=== PATIENT | female | born 2000 | race Hispanic/Latino ===

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

== ENCOUNTER 2020-03-10 13:18 | Emergency (ER) | payer OTHER ==
[2020-03-10] MEDS ORDERED: dexAMETHasone 10 MG/ML VIAL ONE (14:03)
[2020-03-10] MEDS ORDERED: NA CHLORIDE 0.9% 100 ML IV ONE (14:03)
--- NOTE | 2020-03-10 14:29 | RAD REPORT ---
EXAM DESCRIPTION: CT - Soft Tissue Neck W/Contr CLINICAL HISTORY: eval for submandibular abscess Sore throat, persistent pain COMPARISON: Abdomen W Erect dated 01/21/[address] scans are performed using dose optimization technique as appropriate and may includ e automated exposure control or mA/KV adjustment according to patient size. FINDINGS: Nasopharyngeal tissues are normal in appearance. Fossa Rosenmller are normal. Mild enlargement of both palatine tonsils seen. No peritonsillar abscess. No prevertebral fluid or ab scess. Epiglottis and aryepiglottic folds are normal. Piriform sinuses are well aerated. The vocal cords are normal in appearance. Salivary glands are normal in appearance. Enlarged lymph nodes are seen in the submental region, larg est measuring 24 x 17 mm. Several mildly prominent jugulodigastric chain lymph nodes are also present bilaterally, largest on the right measuring 11 mm. Upper lung begum are clear. Included intracranial contents are unremarkable. IMPRESSION: No peritonsillar or prevertebral abscess. Enlarged submental lymphadenopathy is present the largest measuring 24 mm. Mild bilateral jugular chain lymphadenopathy also seen.
[2020-03-10 14:46] LABS: Absolute Lymphocytes (CBC) 1.7 K/uL (0.7-4.9); Basophils % 0.7 % (0-1.3); Hematocrit 36.3 % (36.0-45.0); Lymphocytes % 26.1 % (15.3-44.8); MPV 10.4 fL (7.6-11.3); RBC Red Blood Cell Count 4.68 M/uL (3.86-4.86)
--- NOTE | 2020-03-10 15:03 | ER ---
Nurse's Notes [facility] Name: Glory Ba Age: 19 yrs Sex: Female : 2000 Arrival Date: 03/10/2020 Time: 13:21 Bed 23 Private MD: Diagnosis: Acute lymphadenitis Presentation: 03/10 13:31 Chief complaint: Patient states: sore throat a couple of weeks ago and the neck sv swelling started shortly after that. Had a phone appt and they called in Zithromax for her and has taken 3 doses but no improvement. Coronavirus screen: Client denies travel out of the [place] in the last 14 days. At this time, the client does not indicate any symptoms associated with coronavirus-19. Ebola Screen: No symptoms or risks identified at this time. Risk Assessment: Do you want to hurt yourself or someone else? Patient reports no desire to harm self or others. Onset of symptoms was February 2020. 13:31 Method Of Arrival: Ambulatory sv 13:31 Acuity: KAILA 3 sv 13:32 Initial Sepsis Screen: Does the patient meet any 2 criteria? No. Patient's initial sv sepsis screen is negative. Does the patient have a suspected source of infection? No. Patient's initial sepsis screen is negative. Triage Assessment: 13:31 General: Appears in no apparent distress. uncomfortable. Respiratory: Denies cough, ls4 shortness of breath labored breathing, pain with respiration, pain with cough, pain with movement. 13:31 General: Behavior is calm, cooperative. ls4 Historical: - Allergies: 13:32 No Known Allergies; sv - PMHx: 13:32 "depersonalization"; Depression; sv - Immunization history:: Adult Immunizations up to date. - Social history:: Smoking status: Patient denies any tobacco usage or history of. - Family history:: not pertinent. - Hospitalizations: : No recent hospitalization is reported. Screenin:01 Abuse screen: Denies threats or abuse. Denies injuries from another. Nutritional sv screening: No deficits noted. Tuberculosis screening: No symptoms or risk factors identified. Fall Risk None identified. Assessment: 13:31 Respiratory: Airway is patent Respiratory effort is even, unlabored. ls4 13:31 Pain: Complains of pain in left aspect of posterior pharynx and right aspect of ls4 posterior pharynx Pain currently is 5 out of 10 on a pain scale. EENT: Throat is pink. 14:00 Respiratory: Breath sounds are clear bilaterally. ls4 Vital Signs: 13:32 BP 112 / 62; Pulse 83; Resp 16; Temp 98.3; Pulse Ox 98% ; Weight 83.46 kg; Height 5 ft. sv 2 in. (157.48 cm); 13:32 Body Mass Index 33.65 (83.46 kg, 157.48 cm) sv ED Course: 13:21 Patient arrived in ED. as 13:30 Arm band placed on. sv 13:31 Triage completed. sv 13:33 No provider procedures requiring assistance completed. Patient did not have IV access ls4 during this emergency room visit. 13:35 Nando Conley MD is Attending Physician. rn 13:51 Marsha Arnold, ALIREZA is Primary Nurse. ls4 14:01 Patient has correct armband on for positive identification. Bed in low position. Call sv light in reach. Door closed. Head of bed elevated. 14:07 CT Soft Tissue Neck W/contr In Process Unspecified. EDMS Administered Medications: 14:00 Drug: Decadron - Dexamethasone 10 mg Route: IVP; Site: right antecubital; ls4 15:20 Follow up: Response: No adverse reaction ls4 15:12 Drug: Clindamycin 900 mg Route: IVPB; Infused Over: 30 mins; Site: right antecubital; ls4 15:42 Follow up: IV Status: Completed infusion; IV Intake: 50ml ls4 Intake: 15:42 IV: 50ml; Total: 50ml. ls4 Outcome: 15:03 Discharge ordered by . rn 15:31 Patient left the ED. ls4 15:31 Condition: stable ls4 15:31 Discharged to home ambulatory. ls4 15:31 Discharge instructions given to patient. Signatures: Dispatcher [employer] EDMS Noni Irby RN RN sv Martinez, Amelia as Nieto, Roman, MD MD rn Stewart, Lisa, RN RN ls4 Corrections: (The following items were deleted from the chart) 13:33 13:31 Chief complaint: Patient states: sore throat a couple of weeks ago and the neck sv swelling started shortly after that. sv 14:00 13:31 Acuity: KAILA 4 sv sv 18:57 16:05 Patient left the ED. ls4 ls4
--- NOTE | 2020-03-10 15:03 | EDPHYS ---
Physician Documentation [facility] Name: Glory Ba Age: 19 yrs Sex: Female : 2000 Arrival Date: 03/10/2020 Time: 13:21 Bed 23 Private MD: ED Physician Nando Conley HPI: 03/10 14:57 This 19 yrs old Female presents to ER via Ambulatory with complaints of Sore rn Throat, Swollen Glands. 14:57 The patient presents with sore throat. The patient describes throat pain as scratchy. rn Onset: The symptoms/episode began/occurred 2 week(s) ago. Severity of symptoms: At their worst the symptoms were mild, in the emergency department the symptoms are unchanged. Modifying factors: The symptoms are alleviated by nothing, the symptoms are aggravated by nothing. The patient has not experienced similar symptoms in the past. Reports sore throat for 2 weeks, just got abx over telemedicine, no trouble swallowing, no fever, now having swelling underneath middle jaw. . Historical: - Allergies: 13:32 No Known Allergies; sv - PMHx: 13:32 "depersonalization"; Depression; sv - Immunization history:: Adult Immunizations up to date. - Social history:: Smoking status: Patient denies any tobacco usage or history of. - Family history:: not pertinent. - Hospitalizations: : No recent hospitalization is reported. ROS: 14:57 Constitutional: Negative for fever, chills, and weight loss, ENT: + sore throat and rn submandibular swelling Neck: Negative for injury Exam: 14:57 Constitutional: This is a well developed, well nourished patient who is awake, alert, rn and in no acute distress. Head/Face: Normocephalic, atraumatic. ENT: + tonsillar hypertrophy, no exudate, + submandibular swelling with mild tenderness, no fluctuance Neck: Trachea midline, Supple, full range of motion without nuchal rigidity, or vertebral point tenderness. No Meningismus. Vital Signs: 13:32 BP 112 / 62; Pulse 83; Resp 16; Temp 98.3; Pulse Ox 98% ; Weight 83.46 kg; Height 5 ft. sv 2 in. (157.48 cm); 13:32 Body Mass Index 33.65 (83.46 kg, 157.48 cm) sv MDM: 13:35 Patient medically screened. rn 14:57 Differential diagnosis: pharyngitis, tonsillitis, lymphadenitis, submandibular abscess. rn Data reviewed: vital signs, nurses notes, radiologic studies, CT scan, and as a result, I will discharge patient. Counseling: I had a detailed discussion with the patient and/or guardian regarding: the historical points, exam findings, and any diagnostic results supporting the discharge/admit diagnosis, radiology results, the need for outpatient follow up, to return to the emergency department if symptoms worsen or persist or if there are any questions or concerns that arise at home. Special discussion: I discussed with the patient/guardian in detail that at this point there is no indication for admission to the hospital. It is understood, however, that if the symptoms persist or worsen the patient needs to return immediately for re-evaluation. ED course: CT shows lymphadenopathy, will treat with clindamycin for lymphadenitis and return precautions. 03/10 13:47 Order name: CBC with Diff rn 03/10 13:47 Order name: Basic Metabolic Panel rn 03/10 13:47 Order name: Strep rn 03/10 13:47 Order name: CT Soft Tissue Neck W/contr; Complete Time: 14:45 rn 03/10 15:14 Order name: Throat Culture EDMO 03/10 13:47 Order name: IV Start; Complete Time: 14:01 rn Administered Medications: 14:00 Drug: Decadron - Dexamethasone 10 mg Route: IVP; Site: right antecubital; ls4 15:20 Follow up: Response: No adverse reaction ls4 15:12 Drug: Clindamycin 900 mg Route: IVPB; Infused Over: 30 mins; Site: right antecubital; ls4 15:42 Follow up: IV Status: Completed infusion; IV Intake: 50ml ls4 Disposition: 03/10/20 15:03 Discharged to Home. Impression: Acute lymphadenitis. - Condition is Stable. - Discharge Instructions: Lymphadenopathy. - Prescriptions for Clindamycin HCl 300 mg Oral Capsule - take 1 capsule by ORAL route every 6 hours for 10 days; 40 capsule. - Medication Reconciliation Form, Thank You Letter, Antibiotic Education, Prescription Opioid Use form. - Follow up: Private Physician; When: As needed; Reason: Recheck today's complaints, Re-evaluation by your physician. - Problem is new. - Symptoms are unchanged. Signatures: Dispatcher [employer] Noni Menendez RN RN sv Nieto, Roman, MD MD rn Stewart, Lisa, RN RN ls4 Corrections: (The following items were deleted from the chart) 16:05 15:03 03/10/2020 15:03 Discharged to Home. Impression: Acute lymphadenitis. Condition ls4 is Stable. Forms are Medication Reconciliation Form, Thank You Letter, Antibiotic Education, Prescription Opioid Use. Follow up: Private Physician; When: As needed; Reason: Recheck today's complaints, Re-evaluation by your physician. Problem is new. Symptoms are unchanged. rn
[2020-03-10] MEDS ORDERED: CLINDAMYCIN 900MG/D5W 900 MG/50 ML IVPB IV ONE (15:20)
== END 2020-03-10 16:05 | disposition home or self-care (01) ==
LOC: ER 13:18
DX: L04.9 Acute lymphadenitis, unspecified (principal)
CPT/HCPCS: 96365; 87070; 85025; 80048; 36415; 87081; 70491; 96375; 99283; Q9967; J1100

== ENCOUNTER 2020-05-21 10:43 | Emergency (ER) | payer OTHER ==
[2020-05-21 11:27] LABS: Basophils % 0.5 % (0-1.3); Hematocrit 35.8 % (36.0-45.0); Lymphocytes % 35.6 % (15.3-44.8); MPV 10.4 fL (7.6-11.3); RBC Red Blood Cell Count 4.58 M/uL (3.86-4.86)
[2020-05-21 11:30] LABS: Protime INR 0.99
[2020-05-21 11:35] LABS: Urine Blood 1+ (NEG); Urine Glucose NEGATIVE (NEG); Urine Protein NEGATIVE (NEG); Urine pH 5.5 (5.0-7.0)
[2020-05-21 11:36] LABS: Barbiturates NEGATIVE (NEGATIVE); Benzodiazepines NEGATIVE (NEGATIVE); Cocaine NEGATIVE (NEGATIVE); METHAMPHETAM NEGATIVE (NEGATIVE); Methadone NEGATIVE (NEGATIVE); Opiates NEGATIVE (NEGATIVE); Phencyclidine NEGATIVE (NEGATIVE); THC Cannibis NEGATIVE (NEGATIVE)
[2020-05-21 11:37] LABS: Urine Bacteria >50 /HPF (<20); Urine Culture Reflex Order REFLEXED
[2020-05-21 11:46] LABS: ALT/SGPT 40 U/L (12-78); AST/SGOT 19 U/L (15-37); Albumin 3.8 g/dL (3.4-5.0); Alkaline Phosphatase 70 U/L (45-117); BUN Blood Urea Nitrogen 10 mg/dL (7-18); Bicarbonate 23 mmol/L (21-32); Bilirubin Direct < 0.1 mg/dL (0-0.2); Bilirubin Total 0.3 mg/dL (0.2-1.0); Glucose Level 90 mg/dL (74-106); Potassium 3.6 mmol/L (3.5-5.1); Protein, Total 8.3 g/dL (6.4-8.2); Sodium Level 142 mmol/L (136-145)
[2020-05-21] MEDS ORDERED: CEFTRIAXONE/SWI 1gm 1 GM/10 ML SYR ONE (13:02)
--- NOTE | 2020-05-21 14:41 | EDPHYS ---
Physician Documentation [facility] Name: Glory Ba Age: 19 yrs Sex: Female : 2000 Arrival Date: 05/21/2020 Time: 10:45 Bed 17 Private MD: CHITRA Physician Juan Ramon Crespo HPI: 05/21 11:11 This 19 yrs old Female presents to ER via EMS with complaints of Suicidal kb Ideation. 11:11 The patient presents to the emergency department with depression, over unknown kb circumstances, suicide ideation, but the patient has no formulated plan. Onset: The symptoms/episode began/occurred 4 year(s) ago. Past psychiatric history: Prior diagnosis: depression, the patient has had a prior suicide gesture, where the patient took pills/meds, the patient has a previous inpatient psychiatric history, 6 month(s) ago, at [facility]. Associated signs and symptoms: Pertinent positives; depression, suicide ideation. Severity of symptoms: At their worst the symptoms were moderate in the emergency department the symptoms are unchanged. The patient has experienced similar episodes in the past, several times. The patient has not recently seen a physician. Pt reports suicidal ideations that have been recurrent since she was 15. States there is nothing that triggers these feelings. "I can be happy and still have the feeling to kill myself." Pt has had suicide attempts in the past that involved overdosing. Last time was in November and she was hospitalized at [facility]. States she is supposed to take antidepressants, but stopped taking them a couple of months ago because she was ashamed about them. 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 - Social history:: Smoking status: Patient denies any tobacco usage or history of. Patient/guardian denies using alcohol, street drugs, tobacco products. ROS: 11:10 Constitutional: Negative for fever, chills, and weight loss, Cardiovascular: Negative kb for chest pain, palpitations, and edema, Respiratory: Negative for shortness of breath, cough, wheezing, and pleuritic chest pain, Abdomen/GI: Negative for abdominal pain, nausea, vomiting, diarrhea, and constipation, Back: Negative for injury and pain, MS/Extremity: Negative for injury and deformity, Skin: Negative for injury, rash, and discoloration, Neuro: Negative for headache, weakness, numbness, tingling, and seizure. 11:10 Psych: Positive for depression, suicidal ideation. Exam: 11:10 Constitutional: This is a well developed, well nourished patient who is awake, alert, kb and in no acute distress. Head/Face: Normocephalic, atraumatic. Chest/axilla: Normal chest wall appearance and motion. Nontender with no deformity. No lesions are appreciated. Cardiovascular: Regular rate and rhythm with a normal S1 and S2. No gallops, murmurs, or rubs. Normal PMI, no JVD. No pulse deficits. Respiratory: Lungs have equal breath sounds bilaterally, clear to auscultation and percussion. No rales, rhonchi or wheezes noted. No increased work of breathing, no retractions or nasal flaring. Abdomen/GI: Soft, non-tender, with normal bowel sounds. No distension or tympany. No guarding or rebound. No evidence of tenderness throughout. Skin: Warm, dry with normal turgor. Normal color with no rashes, no lesions, and no evidence of cellulitis. MS/ Extremity: Pulses equal, no cyanosis. Neurovascular intact. Full, normal range of motion. Neuro: Awake and alert, GCS 15, oriented to person, place, time, and situation. Cranial nerves II-XII grossly intact. Motor strength 5/5 in all extremities. Sensory grossly intact. Cerebellar exam normal. Normal gait. 11:10 Psych: Behavior/mood is cooperative, depressed, Affect is calm, Oriented to person, place, time, Patient having thoughts of suicide. Denies suicidal plan. Judgement / Insight is normal. Memory is normal. Delusions/hallucinations are not present. 11:22 ECG was reviewed by the Attending Physician. kb Vital Signs: 11:03 BP 127 / 72; Pulse 72; Resp 16; Temp 97.8; Pulse Ox 100% on R/A; Weight 86.18 kg; hb Height 5 ft. 1 in. (154.94 cm); Pain 0/10; 14:00 BP 124 / 70; Pulse 70; Resp 16; Temp 98; Pulse Ox 100% on R/A; Pain 0/10; hb 11:03 Body Mass Index 35.90 (86.18 kg, 154.94 cm) hb MDM: 10:45 Patient medically screened. ning 11:11 Data reviewed: vital signs, nurses notes. Data interpreted: Pulse oximetry: on room air kb is 100 %. Interpretation: normal. 11:15 ED course: Pt is voluntary, but requests outpatient treatment so she doesn't have to kb miss work. 14:39 Counseling: I had a detailed discussion with the patient and/or guardian regarding: the kb historical points, exam findings, and any diagnostic results supporting the discharge/admit diagnosis, lab results, the need for outpatient follow up, a family practitioner, to return to the emergency department if symptoms worsen or persist or if there are any questions or concerns that arise at home. ED course: [facility] recommends outpatient treatment. Appt scheduled for Saturday. 05/21 10:46 Order name: Acetaminophen kb 05/21 10:46 Order name: Basic Metabolic Panel kb 05/21 10:46 Order name: CBC with Diff kb 05/21 10:46 Order name: ETOH Level; Complete Time: 11:48 kb 05/21 10:46 Order name: Hepatic Function; Complete Time: 11:47 kb 05/21 10:46 Order name: PT-INR; Complete Time: 11:34 kb 05/21 10:46 Order name: Ptt, Activated; Complete Time: 11:34 kb 05/21 10:46 Order name: Salicylate; Complete Time: 11:47 kb 05/21 10:46 Order name: Urine Drug Screen; Complete Time: 11:42 kb 05/21 10:46 Order name: Acetaminophen Level; Complete Time: 11:47 EDMS 05/21 10:47 Order name: Basic Metabolic Panel; Complete Time: 11:47 EDMS 05/21 10:47 Order name: CBC with Automated Diff; Complete Time: 11:34 EDMS 05/21 11:12 Order name: Urine Microscopic Only; Complete Time: 11:42 iw 05/21 11:24 Order name: Urine Dipstick--Ancillary (enter results); Complete Time: 11:42 eb 05/21 10:46 Order name: Urine Test (obtain specimen); Complete Time: 11:13 kb 05/21 10:46 Order name: EKG; Complete Time: 10:47 kb 05/21 10:46 Order name: EKG - Nurse/Tech; Complete Time: 11:13 kb 05/21 10:46 Order name: IV Saline Lock; Complete Time: 11:14 kb 05/21 10:46 Order name: Labs collected and sent; Complete Time: 11:14 kb 05/21 10:46 Order name: Urine Dipstick-Ancillary (obtain specimen); Complete Time: 11:14 kb 05/21 11:24 Order name: Urine --Ancillary (enter results); Complete Time: 11:42 eb 05/21 11:39 Order name: Urine Culture EDSC EC:22 Rate is 68 beats/min. Rhythm is regular. QRS [place] is Normal. [place] interval is normal at kb 126 msec. QRS interval is normal at 70 msec. QT interval is normal at 384 msec. Administered Medications: 12:30 Drug: Rocephin 1 grams Route: IV; Rate: calculated rate; Site: right antecubital; hb 13:13 Follow up: Response: No adverse reaction hb Disposition: 05/21/20 14:40 Discharged to Home. Impression: Depression. - Condition is Stable. - Discharge Instructions: Suicidal Feelings: How to Help Yourself, Helping Someone Who is Suicidal, Major Depressive Disorder, [id number]. - Medication Reconciliation Form, Thank You Letter, Antibiotic Education, Prescription Opioid Use form. - Follow up: Emergency Department; When: As needed; Reason: Worsening of condition. Follow up: Private Physician; When: 2 - 3 days; Reason: Recheck today's complaints, Continuance of care, Re-evaluation by your physician. Addendum: 05/23/2020 08:30 Co-signature as Attending Physician, Juan Ramon Crespo MD I agree with the assessment and c he plan of care. Signatures: Dispatcher [employer] EDSC Genet Obrien, WET MIXER-C WET MIXER-Juan Ramon Benton MD MD cha Baxter, Heather, RN RN Corrections: (The following items were deleted from the chart) 05/21 11:11 11:10 Psych: Positive for suicidal ideation, kb kb 15:23 14:40 05/21/2020 14:40 Discharged to Home. Impression: Depression. Condition is Stable. hb Forms are Medication Reconciliation Form, Thank You Letter, Antibiotic Education, Prescription Opioid Use. Follow up: Emergency Department; When: As needed; Reason: Worsening of condition. Follow up: Private Physician; When: 2 - 3 days; Reason: Recheck today's complaints, Continuance of care, Re-evaluation by your physician. kb
--- NOTE | 2020-05-21 14:41 | ER ---
Nurse's Notes [facility] Name: Glory Ba Age: 19 yrs Sex: Female : 2000 Arrival Date: 05/21/2020 Time: 10:45 Bed 17 Private MD: Diagnosis: Depression Presentation: 05/21 10:51 Chief complaint: EMS states: Approached EMS eating at her place of employent, reported hb suicidal thoughts and requested to be brought to ED. Hx of suicide attempt by overdose x 3, was inpatient at [facility] earlier this year. Has not taken her Abilify or Zoloft for approx 2 months. Coronavirus screen: At this time, the client does not indicate any symptoms associated with coronavirus-19. Ebola Screen: No symptoms or risks identified at this time. Initial Sepsis Screen: Does the patient meet any 2 criteria? No. Patient's initial sepsis screen is negative. Does the patient have a suspected source of infection? No. Patient's initial sepsis screen is negative. Risk Assessment: Do you want to hurt yourself or someone else? Patient reports desire/thoughts of hurting themselves or someone else. Provider notified. Onset of symptoms was May 21, 2020. 10:51 Method Of Arrival: EMS: [facility] hb 10:51 Acuity: KAILA 2 hb Triage Assessment: 10:55 General: Appears in no apparent distress. Behavior is calm, cooperative. Pain: Denies hb pain. EENT: No signs and/or symptoms were reported regarding the EENT system. Neuro: Level of Consciousness is awake, alert, obeys commands, Oriented to person, place, time, situation. Cardiovascular: Capillary refill < 3 seconds Patient's skin is warm and dry. Respiratory: Respiratory effort is even, unlabored, Respiratory pattern is regular, symmetrical. GI: No signs and/or symptoms were reported involving the gastrointestinal system. : No signs and/or symptoms were reported regarding the genitourinary system. Derm: Skin is pink, warm \\T\\ dry. Musculoskeletal: No signs and/or symptoms reported regarding the musculoskeletal system. 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 - Social history:: Smoking status: Patient denies any tobacco usage or history of. Patient/guardian denies using alcohol, street drugs, tobacco products. Screenin:56 Abuse screen: Denies threats or abuse. Denies injuries from another. Nutritional hb screening: No deficits noted. Tuberculosis screening: No symptoms or risk factors identified. Fall Risk None identified. Assessment: 10:57 General: see triage. 11:45 Reassessment: Patient appears in no apparent distress at this time. Patient and/or hb family updated on plan of care and expected duration. Pain level reassessed. Patient is alert, oriented x 3, equal unlabored respirations, skin warm/dry/pink. 12:45 Reassessment: Patient appears in no apparent distress at this time. Patient and/or hb family updated on plan of care and expected duration. Pain level reassessed. Patient is alert, oriented x 3, equal unlabored respirations, skin warm/dry/pink. 13:22 Reassessment: Patient appears in no apparent distress at this time. No changes from previously documented assessment. Patient and/or family updated on plan of care and expected duration. Pain level reassessed. Patient is alert, oriented x 3, equal unlabored respirations, skin warm/dry/pink. 13:57 Reassessment: [facility] at bedside to evaluate patient. 14:35 Reassessment: Patient appears in no apparent distress at this time. Patient and/or hb family updated on plan of care and expected duration. Pain level reassessed. Patient is alert, oriented x 3, equal unlabored respirations, skin warm/dry/pink. Psych: 10:57 Subjective: Patient's mood is sad, Delusions are denied, Hallucinations are denied hb Having thoughts of suicide. Plan for suicide is overdose "on random pills again". Objective: Patient is cooperative, Speech is normal, Affect is flat. Interventions: Removed personal items and placed in bag. Patient placed in hospital gown. Urine collected and sent for urine drug test. Belonging list filled out. Suicide Risk Assessment: Sad Person Scale: Sex of patient: Female: Score 0 points. Age of patient: Score 1 point if patient 15-34. Depression: Score 1 point if signs of depression are present. Previous Attempt: Score 1 point if patient has previously attempted suicide. Substance Abuse: Score 0 point if patient does not abuse alcohol or drugs. Rational Thinking: Score 0 point if patient has rational thinking. Social Support: Score 0 if social support is present/available. Organized Plan: Score 1 point if patient had a plan in place. Relationship: Score 1 point if patient is , , , or for a single male Chronic Sickness: Score 0 point if patient does not have a chronic illness, debilitating, or severe disorder. TOTAL POINTS: If total points are 5-6, proposed clinical action is to strongly consider hospitalization, depending upon confidence in the follow-up arrangement. Implement suicide precautions. Safety Checks: Personal items have been removed. Door is open. No visitors are present at this time. Pt denies substance abuse. Commitment: Patient will be a voluntary commitment. Vital Signs: 11:03 BP 127 / 72; Pulse 72; Resp 16; Temp 97.8; Pulse Ox 100% on R/A; Weight 86.18 kg; hb Height 5 ft. 1 in. (154.94 cm); Pain 0/10; 14:00 BP 124 / 70; Pulse 70; Resp 16; Temp 98; Pulse Ox 100% on R/A; Pain 0/10; hb 11:03 Body Mass Index 35.90 (86.18 kg, 154.94 cm) hb ED Course: 10:45 Patient arrived in ED. ds1 10:45 Juan Ramon Crespo MD is Attending Physician. ning 10:45 Genet Obrien FNP-C is [facility]. kb 10:51 Mayte Drew, ALIREZA is Primary Nurse. hb 10:54 Triage completed. hb 10:55 Arm band placed on. hb 10:56 Patient has correct armband on for positive identification. Call light in reach. Side hb rails up X 1. 11:08 Initial lab(s) drawn, by ri, sent to lab. Inserted saline lock: 20 gauge in right dh3 antecubital area, using aseptic technique. Blood collected. 11:16 Urine Microscopic Only Sent. hb 11:23 EKG done, by ED staff, reviewed by Genet GAUTHIER. [facility] 11:52 Spoke with Michela at [facility] to set up a visit with a screener. 3 12:55 Trini from the [facility] called and said she would be here in an hour. eb 14:54 No provider procedures requiring assistance completed. IV discontinued, intact, hb bleeding controlled, No redness/swelling at site. Administered Medications: 12:30 Drug: Rocephin 1 grams Route: IV; Rate: calculated rate; Site: right antecubital; hb 13:13 Follow up: Response: No adverse reaction hb Outcome: 14:40 Discharge ordered by . alberta 14:54 Discharged to home ambulatory, with significant other. hb 14:54 Condition: stable 14:54 Discharge instructions given to patient, significant other, Instructed on discharge instructions, follow up and referral plans. medication usage, Demonstrated understanding of instructions, follow-up care, medications. 15:23 Patient left the ED. hb Signatures: Genet Obrien, TALENT ACQUISITION PROGRAM MANAGER-C TALENT ACQUISITION PROGRAM MANAGER-Ckb Juan Ramon Crespo MD MD cha Sanford, Demi ds1 Mayte Drew, ALIREZA RN Kelsey Chaudhry 3 Clarissa Farah
[2020-05-21 15:59] VITALS: O2SAT 100
[2020-05-21 16:01] VITALS: BP 124/70; TEMP 98
--- NOTE | 2020-05-23 07:27 | EKG ---
Test Date: 2020-05-21 Test Time: 11:18:11 Shoeshiner: SIDRA MEASUREMENT RESULTS: Intervals: Rate: 68 WI: 126 QRSD: 70 QT: 384 QTc: 408 [place]: P: 20 WI: 126 QRS: 12 T: 21 INTERPRETIVE STATEMENTS: Normal sinus rhythm with sinus arrhythmia Cannot rule out Anterior infarct, age undetermined Abnormal ECG Compared to ECG 09/17/2018 17:37:37 Myocardial infarct finding now present Electronically Signed On 05-23-20 07:23:55 SPECIAL EDUCATION SUPERVISOR by Gallo oWodson
== END 2020-05-21 15:23 | disposition home or self-care (01) ==
LOC: ER 10:43
DX: F32.9 Major depressive disorder, single episode, unspecified (principal)
CPT/HCPCS: 93005; 87088; 85025; 87086; 80048; 36415; 80320; 80329 ×2; 81025; 85610; 80076; 80307 ×8; 85730; 87077; 87186; 96374; 99285; J0696; 81003; 81015

== ENCOUNTER 2020-11-27 22:50 | Emergency (ER) | payer OTHER, SELFPAY ==
--- NOTE | 2020-11-28 00:33 | ER ---
Nurse's Notes [facility] Name: Glory Ba Age: 19 yrs Sex: Female : 2000 Arrival Date: 11/27/2020 Time: 23:05 Bed Waiting Private MD: Diagnosis: Presentation: 11/27 23:20 Chief complaint: EMS states: PD were called out to residence for a "disturbance", when iw they arrived there was no disturbance, pt c/o feeling depressed and having suicidal thoughts, has hx of depression and SI, has previous attempt of taking OTC pills in the past. Coronavirus screen: At this time, the client does not indicate any symptoms associated with coronavirus-19. Ebola Screen: Patient negative for fever greater than or equal to 101.5 degrees Fahrenheit, and additional compatible Ebola Virus Disease symptoms Patient denies exposure to infectious person. Patient denies travel to an Ebola-affected area in the 21 days before illness onset. No symptoms or risks identified at this time. Initial Sepsis Screen: Does the patient meet any 2 criteria? No. Patient's initial sepsis screen is negative. Does the patient have a suspected source of infection?. Risk Assessment:. Onset of symptoms was November 27, 2020. 23:20 Method Of Arrival: EMS: [facility] iw 23:20 Acuity: KAILA 3 iw Assessment: 23:52 Reassessment: pt not in lobby at this time. iw Vital Signs: 23:20 BP 114 / 78; Pulse 86; Resp 16; Pulse Ox 98% on R/A; iw ED Course: 23:05 Patient arrived in ED. iw 23:20 Arm band placed on. iw 23:52 Triage completed. iw Administered Medications: No medications were administered Outcome: 11/28 00:33 Patient left the ED. iw Signatures: Lani Hankins, RN RN iw
[2020-11-28 00:52] VITALS: BP 114/78; O2SAT 98
== END 2020-11-28 00:33 | disposition left against medical advice (07) ==
LOC: ER 22:50
DX: F32.9 Major depressive disorder, single episode, unspecified (principal); R45.851 Suicidal ideations; Z53.21 Procedure and treatment not carried out due to patient leaving prior to being seen by health care provider
CPT/HCPCS: 99282

== ENCOUNTER 2021-05-09 07:12 | Emergency (ER) | payer OTHER, SELFPAY ==
[2021-05-09 08:08] LABS: Urine Blood Negative (Negative); Urine Glucose Negative (Negative); Urine Protein Negative (Negative); Urine Specific Gravity 1.025 (1.005-1.030)
[2021-05-09 08:34] LABS: Absolute Lymphocytes (CBC) 3.3 K/uL (0.7-4.9); Basophils % 0.6 % (0-1.3); Lymphocytes % 40.1 % (15.3-44.8); MPV 10.2 fL (7.6-11.3); RBC Red Blood Cell Count 4.47 M/uL (3.86-4.86)
[2021-05-09 08:37] LABS: Protime INR 1.04
[2021-05-09 09:51] LABS: ALT/SGPT 41 U/L (12-78); AST/SGOT 19 U/L (15-37); Albumin 3.5 g/dL (3.4-5.0); Alkaline Phosphatase 78 U/L (45-117); BUN Blood Urea Nitrogen 9 mg/dL (7-18); Bicarbonate 23 mmol/L (21-32); Bilirubin Direct < 0.1 mg/dL (0-0.2); Bilirubin Total 0.2 mg/dL (0.2-1.0); Glucose Level 115 mg/dL (74-106); Potassium 3.3 mmol/L (3.5-5.1); Protein, Total 7.8 g/dL (6.4-8.2); Sodium Level 142 mmol/L (136-145)
--- NOTE | 2021-05-09 10:37 | RAD REPORT ---
EXAM DESCRIPTION: CT - Abdomen Pelvis W Contrast - 05/09/2021 10:12 am CLINICAL HISTORY: Abdominal pain COMPARISON: none. TECHNIQUE: Computed axial tomography of the abdomen pelvis was obtained. 100 cc Isovue-300 was admin istered intravenously. Oral contrast was not requested which limits evaluation of bowel. All CT scans are performed using dose optimization technique as appropriate and may include automated exposure control or mA/KV adjustment according to patient size. FINDINGS: Fatty liver. The gallbladder wall appears thickened. Spleen, pancreas, adrenal and kidneys appear unremarkable. There is no evidence of diverticulitis. Normal appendix . No adnexal mass. IMPRESSION: Gallbladder wall appears thickened. Gallbladder ultrasound recommended
--- NOTE | 2021-05-09 11:32 | RAD REPORT ---
EXAM DESCRIPTION: US - Abdomen Exam Limited - 05/09/2021 11:01 am CLINICAL HISTORY: Abdominal pain. COMPARISON: CT abdomen May 09, 2021 FINDINGS: Multiple gallstones. Gallbladder wall is mildly thickened. The biliary tree is normal caliber. IMPRESSION: Cholelithiasis. Mild gallbladder wall thickening may indicate cholecystitis
--- NOTE | 2021-05-09 12:13 | EKG ---
Test Date: 2021-05-09 Test Time: 07:54:03 Soil Biology Teacher: RAMO MEASUREMENT RESULTS: Intervals: Rate: 68 SC: 138 QRSD: 76 QT: 402 QTc: 427 [place]: P: 49 SC: 138 QRS: 15 T: 29 INTERPRETIVE STATEMENTS: Normal sinus rhythm with sinus arrhythmia Cannot rule out Anterior infarct, age undetermined Abnormal ECG Compared to ECG 05/21/2020 11:18:11 No significant changes Electronically Signed On 05-09-21 12:12:06 CDT by Gallo Woodson
[2021-05-09] MEDS ORDERED: NA CHLORIDE 0.9% 250 ML ONE (12:27)
[2021-05-09] MEDS ORDERED: CEFTRIAXONE 1000 MG/VIAL ONE (12:27)
[2021-05-09] MEDS ORDERED: METRONIDAZOLE 500mg IVPB 500 MG/100 ML BAG IV ONE (12:27)
[2021-05-09] MEDS ORDERED: WATER FOR INJ,STERILE 10 ML ONE (12:27)
[2021-05-09 13:55] LABS: Urine Specific Gravity/Preg 1.025 (1.005-1.030)
--- NOTE | 2021-05-09 17:01 | EDPHYS ---
Physician Documentation [facility] Name: Glory Ba Age: 20 yrs Sex: Female : 2000 Arrival Date: 05/09/2021 Time: 07:14 Bed 17 Private MD: ED Physician Nando Conley HPI: 05/09 07:33 This 20 yrs old Female presents to ER via Ambulatory with complaints of rn Abdominal Pain. 07:33 The patient presents with abdominal pain in the epigastric area, in the periumbilical rn area. in the right upper quadrant. Onset: The symptoms/episode began/occurred this morning. The symptoms do not radiate. Associated signs and symptoms: Pertinent negatives: nausea and vomiting, blood in stools, chest pain, constipation, diarrhea, dysuria, fever, hematuria, shortness of breath, vaginal discharge, vomiting, vomiting blood. The symptoms are described as achy, crampy, sharp. Modifying factors: The symptoms are alleviated by nothing, the symptoms are aggravated by touching the area. Severity of pain: At its worst the pain was moderate in the emergency department the pain has improved. The patient has experienced a previous episode. The patient has not recently seen a physician. Pt reports abd pain that began this morning, no fever, no vomiting, no diarrhea. Reports took 5 25 mg benadryl last night around 11pm. Reports has daily suicidal ideations since 15 years old, and was much more impulsive in the past. Reports was able to stop herself from taking more than 5 tablets last night. Reports ended up taking 5 benadryl tablets to sleep but was not an attempt to kill herself or harm herself. Denies other coingestion. Reports last time she took more benadryl and had similar abd pain. . Historical: - Allergies: 07:29 No Known Allergies; tw5 - Home Meds: 07:29 None [Active]; tw5 - PMHx: 07:29 "depersonalization"; Depression; tw5 - PSHx: 07:29 None; tw5 - Immunization history:: Client reports having NOT received the Covid vaccine. - Social history:: Smoking status: Patient denies any tobacco usage or history of. - Family history:: not pertinent. - Hospitalizations: : No recent hospitalization is reported. ROS: 07:36 Constitutional: Negative for fever, chills, and weight loss, Eyes: Negative for injury, rn pain, redness, and discharge, Neck: Negative for injury, pain, and swelling, Cardiovascular: Negative for chest pain, palpitations, and edema, Respiratory: Negative for shortness of breath, cough, wheezing, and pleuritic chest pain, Abdomen/GI: + for abd pain, neg for nausea/vomiting/diarrhea. Back: Negative for injury and pain, : Negative for injury, bleeding, discharge, and swelling, MS/Extremity: Negative for injury and deformity, Skin: Negative for injury, rash, and discoloration, Neuro: Negative for headache, weakness, numbness, tingling, and seizure, Psych: Negative for homicidal ideation, and hallucinations Exam: 07:36 Constitutional: This is a well developed, well nourished patient who is awake, alert, rn and in no acute distress. Ambulatory to room without difficulty or assistance. Head/Face: Normocephalic, atraumatic. Eyes: Periorbital areas with no swelling, redness, or edema. Cardiovascular: Regular rate and rhythm. No pulse deficits. Respiratory: No increased work of breathing, no retractions or nasal flaring. Abdomen/GI: soft, + mild tenderness RUQ/epigastrium/periumbilical region, no peritoneal signs. Skin: Warm, dry MS/ Extremity: Pulses equal, no cyanosis. Neurovascular intact. Full, normal range of motion. Equal circumference. Neuro: Awake and alert, GCS 15 09:22 ECG was reviewed by the Attending Physician. rn Vital Signs: 07:17 BP 131 / 86; Pulse 87; Resp 16; Temp 98.5; Pulse Ox 100% ; Weight 83.01 kg; Height 5 tw5 ft. 1 in. (154.94 cm); Pain 9/10; 11:14 BP 114 / 63; Pulse 89; Resp 16; Temp 98.6; Pulse Ox 100% on R/A; jt3 17:09 BP 115 / 70; Pulse 82; Resp 17; Temp 98.4; Pulse Ox 100% on R/A; jt3 07:17 Body Mass Index 34.58 (83.01 kg, 154.94 cm) tw5 MDM: 07:25 Patient medically screened. rn 11:58 ED course: Consulting with Dr. Boyle given radiologic evidence of cholecystitis but rn now pain resolved, and normal WBC without fever. . 12:19 ED course: Called Dr. Boyle, no answer. rn 16:03 ED course: COnsulted with Dr. Boyle, who thinks patient can be discharged from his rn point of view. States thickened gallbladder likely just gallbladder attack and not cholecystitis given normal CBC/LFT/lipase and pain completely resolved. . ED course: Pt evaluated by [facility] and they recommend inpatient evaluation. Will attempt to transfer patient. . 16:56 Differential diagnosis: cholecystitis, Cholelithiasis, gastritis, gastroesophageal rn reflux disease, non-specific abd pain, pancreatitis, Peptic Ulcer Disease. Data reviewed: vital signs, nurses notes, lab test result(s), radiologic studies, CT scan, ultrasound, and as a result, I will discharge patient. Counseling: I had a detailed discussion with the patient and/or guardian regarding: the historical points, exam findings, and any diagnostic results supporting the discharge/admit diagnosis, lab results, radiology results, the need for outpatient follow up, to return to the emergency department if symptoms worsen or persist or if there are any questions or concerns that arise at home. Response to treatment: the patient's symptoms have markedly improved after treatment, the patient's symptoms have resolved after treatment, and as a result, I will discharge patient. Special discussion: Based on the patient's Hx, exam, and Dx evaluation, there is no indication for emergent surgery or inpatient Tx. It is understood by the patient/guardian that if the Sx's persist or worsen they need to return immediately for re-evaluation. I discussed with the patient/guardian in detail that at this point there is no indication for admission to the hospital. It is understood, however, that if the symptoms persist or worsen the patient needs to return immediately for re-evaluation. ED course: Long discussion with patient following of [facility] evaluation. [facility] her talk. Patient states that was not here for suicidal ideations, was here for abdominal pain and just the abdominal pain. Screening at triage revealed that she often has suicidal ideations but has had suicidal thoughts since she was 15 and is under the care of a psychiatrist currently. Patient denies any suicide attempt and taking 5 Benadryl last night was more to sleep as opposed to trying to harm herself. Patient states that she is not planning on harming herself and has thoughts daily but has been able to control impulses and not act on these thoughts since she has gotten older and under more control. Patient does not want to be admitted to psychiatric facility as she states that she does not feel like she needs to be at this time and does not plan on harming herself. She also does not feel that psychiatric facilities upper and much prefers outpatient evaluation. My other concern is that imaging shows inflamed gallbladder that may or may not worsen in the upcoming days and needs to follow-up with surgery, namely Dr. Boyle, in case it worsens. I would be concerned if she was admitted to psychiatric facility without surgical consult if her abdominal issues worsen. After long discussion with patient she ensures that she is not going to harm herself and if she were to have impulsive of harming herself would seek care. Patient has opened up more lines of communication with parents and feels like she can talk to them. She also states that she just recently got a job and she was supposed to be at work today, and she feels that she might be fired if she does not show up tomorrow. For all of these reasons we will discharge patient with outpatient psychiatric care and outpatient surgical care with strict return precautions.. 05/09 08:08 Order name: Urine --Ancillary (enter results); Complete Time: 07:23 [place] 05/09 12:54 Order name: Urine Dipstick-Ancillary EDCT 05/09 12:55 Order name: Basic Metabolic Panel EDCT 05/09 12:55 Order name: Liver (Hepatic) Function EDCT 05/09 12:55 Order name: Acetaminophen Level EDCT 05/09 07:32 Order name: CT Abd/Pelvis - IV Contrast Only rn 05/09 10:41 Order name: US Abdomen Limited rn 05/09 12:45 Order name: CT; Complete Time: 07:23 EDCT 05/09 12:45 Order name: US; Complete Time: 07:23 EDCT 05/09 12:55 Order name: Alcohol Serum/Plasma EDCT 05/09 12:55 Order name: Salicylates Level EDCT 05/09 12:56 Order name: CBC with Automated Diff EDCT 05/09 12:56 Order name: Protime (+INR) EDCT 05/09 12:56 Order name: PTT, Activated Partial Thromb EDCT 05/09 07:32 Order name: EKG - Nurse/Tech; Complete Time: 07:59 rn 05/09 07:32 Order name: IV Saline Lock; Complete Time: 07:45 rn 05/09 07:32 Order name: Labs collected and sent; Complete Time: 07:45 rn 05/09 07:32 Order name: Suicide Precautions; Complete Time: 07:46 rn 05/09 07:32 Order name: Suicide Screening ([place]); Complete Time: 07:46 rn 05/09 07:32 Order name: Urine Dipstick-Ancillary (obtain specimen); Complete Time: 08:09 rn 05/09 07:32 Order name: Urine Test (obtain specimen); Complete Time: 08: rn 05/09 13:04 Order name: EKG Electrocardiogram EDMS EC: Rate is 68 beats/min. Rhythm is regular. QRS Dike is Normal. W[place] interval is normal. QRS rn interval is normal. QT interval is normal. No Q waves. T waves are Normal. No ST changes noted. Clinical impression: NSR w/ Non-specific ST/T Changes. Interpreted by me. Reviewed by me. Administered Medications: 11:05 Not Given (Patient Refused; Patient is not in pain or nauseated. ): morphine 4 mg IVP jt3 once; RASS on ADMIN: Combtv4, Very Agttd3, Agttd2, Rstlss1, AlertClm0, Drwsy-1, Lt Sdtn-2, Mod Sdtn-3, Dp Sdtn-4, UnArsble-5 11:05 Not Given (Patient Refused; Patient not in pain. ): Zofran (Ondansetron) 4 mg IVP once; jt3 over 2 minutes 12:14 Drug: Rocephin (cefTRIAXone) 1 grams Route: IV; Rate: calculated rate; Site: right jt3 antecubital; 17:16 Follow up: Response: No adverse reaction jt3 12:14 Drug: Flagyl (metroNIDAZOLE) 500 mg Volume: 100 ml; Route: IVPB; Rate: 200 ml/hr; jt3 Infused Over: 30 mins; Site: right antecubital; 13:00 Follow up: IV Status: Completed infusion jt3 Disposition Summary: 05/09/21 17:01 Discharge Ordered Location: Home rn Problem: new rn Symptoms: have improved rn Condition: Stable rn Diagnosis - Other cholelithiasis without obstruction rn - Abdominal pain, unspecified rn - Suicidal ideations - Without intent to harm rn Followup: rn - With: Roosevelt Boyle MD - When: 2 - 3 days - Reason: Further diagnostic work-up, Recheck today's complaints, Re-evaluation by your physician Discharge Instructions: - Discharge Summary Sheet rn - Abdominal Pain, Adult rn - Cholelithiasis rn Forms: - Medication Reconciliation Form rn - Thank You Letter rn - Antibiotic disability attorney - Prescription Opioid Use rn Prescriptions: - Augmentin 875-125 mg Oral Tablet - take 1 tablet by ORAL route every 12 hours for 10 days; 20 tablet; Refills: 0, rn Product Selection Permitted Signatures: Dispatcher [employer] EDMS Nando Conley MD MD rn Wood, Tiffany tw Robles Pate RN RN jt3 Corrections: (The following items were deleted from the chart) 07:34 07:29 Home Meds: Abilify 5 mg Oral tab 1 tab once daily; 07:34 07:29 Home Meds: Zoloft 100 mg Oral tab 1 tab once daily; 13:42 12:46 ACETAMINOPHEN+C.LAB.BRZ ordered. EDMS EDMS 13:42 12:46 BASIC METABOLIC PANEL+C.LAB.BRZ ordered. EDMS EDMS 13:42 12:46 CBC+H.LAB.BRZ ordered. EDMS EDMS 13:42 12:46 ETHANOL+C.LAB.BRZ ordered. EDMS EDMS 13:42 12:46 HEPATIC FUNCTION+C.LAB.BRZ ordered. EDMS EDMS 13:42 12:46 PROTIME (+INR)+COAG.LAB.BRZ ordered. EDMS EDMS 13:42 12:46 PTT, ACTIVATED+COAG.LAB.BRZ ordered. EDMS EDMS 13:42 12:46 SALICYLATE+C.LAB.BRZ ordered. EDMS EDMS 13:43 13:00 Urine Dipstick-Ancillary ordered. EDMS EDMS 13:44 13:00 Urine --Ancillary ordered. EDMS EDMS
--- NOTE | 2021-05-09 17:01 | ER ---
Nurse's Notes [facility] Name: Glory Ba Age: 20 yrs Sex: Female : 2000 Arrival Date: 05/09/2021 Time: 07:14 Bed 17 Private MD: Diagnosis: Other cholelithiasis without obstruction;Abdominal pain, unspecified;Suicidal ideations-Without intent to harm Presentation: 05/09 07:17 Chief complaint: Patient states: "My stomach hurts, I took some Benadryl last night, tw5 but I think I took to much. I took 5 pills, each was 25 mg. I thought it would help with sleep or something. " She states that she took them around 11 pm. Coronavirus screen: Vaccine status: Patient reports being unvaccinated. Ebola Screen: Patient negative for fever greater than or equal to 101.5 degrees Fahrenheit, and additional compatible Ebola Virus Disease symptoms Patient denies exposure to infectious person. Patient denies travel to an Ebola-affected area in the 21 days before illness onset. Initial Sepsis Screen: Does the patient meet any 2 criteria? No. Patient's initial sepsis screen is negative. Does the patient have a suspected source of infection? No. Patient's initial sepsis screen is negative. Risk Assessment: Do you want to hurt yourself or someone else? Patient reports desire/thoughts of hurting themselves or someone else. Provider notified. 07:17 Method Of Arrival: Ambulatory tw5 07:21 Acuity: KAILA 2 tw5 07:29 Onset of symptoms was May 08, 2021 at 23:00. tw5 Triage Assessment: 17:14 General: Appears in no apparent distress. Behavior is calm, cooperative. jt3 Historical: - Allergies: 07:29 No Known Allergies; tw5 - Home Meds: 07:29 None [Active]; tw5 - PMHx: 07:29 "depersonalization"; Depression; tw - PSHx: 07:29 None; tw5 - Immunization history:: Client reports having NOT received the Covid vaccine. - Social history:: Smoking status: Patient denies any tobacco usage or history of. - Family history:: not pertinent. - Hospitalizations: : No recent hospitalization is reported. Screenin:43 Abuse screen: Denies threats or abuse. Denies injuries from another. Nutritional jt3 screening: No deficits noted. Tuberculosis screening: No symptoms or risk factors identified. Fall Risk None identified. Assessment: 07:43 Reassessment: Pt. reports thoughts of harming herself, but would not disclose a plan to jt3 RN. Alert and oriented x4. Endorses lower abdominal pain. . Pain: Complains of pain in abdomen Pain currently is 7 out of 10 on a pain scale. Pain began 2 hours ago. Neuro: No deficits noted. GI: Bowel sounds present X 4 quads. Abd is soft Abdomen is tender to palpation in right lower quadrant and left lower quadrant. 09:57 Reassessment: Pt. reports her stomach has stopped hurting and that she was able to jt3 sleep some. Alert and oriented x4. No new safety concerns at this time in room. . 13:52 Reassessment: Pt. has been cooperative. Alert and oriented x4. No new safety concerns jt3 at this time. . 15:00 Reassessment: [facility] psychiatric hand shaper is at the bedside. . jt3 16:06 Reassessment: Per recommendation from the [facility] hand shaper, the [facility] jt3 recommends Inpatient psychiatric services for the patient. . 16:47 Reassessment: MD Conley at bedside speaking with patient and updating on plan of care. . jt3 16:58 Reassessment: At 1630, pt. asked RN for an update and telling RN that she has no active jt3 plans of hurting herself at this time. She would like to go home. RN informed her he would let Dr. Conley know to update her on plan of care. Patient states she has on and off thoughts of hurting herself, but does not want to act on them. RN let Dr. Conley know the patient was requesting an update and wanted to speak with him. Pt. appears calm, alert, and in no pain at this time. . Psych: 07:26 [place] Suicide Severity Screening: In the past month, have you wished you were tw5 or wished you could go to sleep and not wake up? Patient responds "yes." "In the past month, have you actually had any thoughts of killing yourself?" Patient responds "yes." "In your lifetime, have you ever done anything, started to do anything, or prepared to do anything to end your life?" Patient responds "yes." " I thought about taking more than just the 5 pills last night, but then I guess I just wanted to sleep. We do have a lot of over the counter medications that I have been thinking about just taking.". Subjective: Patient's mood is sad. Objective: Patient is cooperative, using poor eye contact, Speech is normal, Affect is blunted. Interventions: Removed personal items and placed in bag. Patient placed in hospital gown. Searched person for dangerous items. Interventions: Belonging list filled out. Patient have personal cell phone on her person. Purse was placed behind the nurses station with the RN Robles. Benadryl 5 pills 25 mg each. 07:49 Subjective: Having thoughts of suicide. Denies suicidal plan. Safety Checks: Personal jt3 items have been removed. Door is open. Commitment: Waiting on Psych consult screening. Vital Signs: 07:17 BP 131 / 86; Pulse 87; Resp 16; Temp 98.5; Pulse Ox 100% ; Weight 83.01 kg; Height 5 tw5 ft. 1 in. (154.94 cm); Pain 9/10; 11:14 BP 114 / 63; Pulse 89; Resp 16; Temp 98.6; Pulse Ox 100% on R/A; jt3 17:09 BP 115 / 70; Pulse 82; Resp 17; Temp 98.4; Pulse Ox 100% on R/A; jt3 07:17 Body Mass Index 34.58 (83.01 kg, 154.94 cm) tw5 ED Course: 07:14 Patient arrived in ED. as 07:14 Nando Conley MD is Attending Physician. rn 07:22 Triage completed. tw5 07:23 Robles Pate RN is Primary Nurse. jt3 07:43 No provider procedures requiring assistance completed. jt3 07:43 Patient has correct armband on for positive identification. Placed in gown. Bed in low jt3 position. Suicidal precautions initiated. Patient being observed 1 on 1. 07:44 Inserted saline lock: 20 gauge in right antecubital area, using aseptic technique. mt Blood collected. 13:28 notified [facility] of need to have screener evaluate pt. bd 14:07 US Abdomen Limited Sent. jl7 14:07 CT Abd/Pelvis - IV Contrast Only Sent. jl7 17:00 Roosevelt Boyle MD is Referral Physician. rn 17:10 IV discontinued. jt3 17:14 Patient N/A. jt3 Administered Medications: 11:05 Not Given (Patient Refused; Patient is not in pain or nauseated. ): morphine 4 mg IVP jt3 once; RASS on ADMIN: Combtv4, Very Agttd3, Agttd2, Rstlss1, AlertClm0, Drwsy-1, Lt Sdtn-2, Mod Sdtn-3, Dp Sdtn-4, UnArsble-5 11:05 Not Given (Patient Refused; Patient not in pain. ): Zofran (Ondansetron) 4 mg IVP once; jt3 over 2 minutes 12:14 Drug: Rocephin (cefTRIAXone) 1 grams Route: IV; Rate: calculated rate; Site: right jt3 antecubital; 17:16 Follow up: Response: No adverse reaction jt3 12:14 Drug: Flagyl (metroNIDAZOLE) 500 mg Volume: 100 ml; Route: IVPB; Rate: 200 ml/hr; jt3 Infused Over: 30 mins; Site: right antecubital; 13:00 Follow up: IV Status: Completed infusion jt3 Outcome: 17:01 Discharge ordered by . rn 17:14 Discharged to home ambulatory. jt3 17:14 Condition: good 17:14 Discharge instructions given to patient. 17:25 Patient left the ED. ch5 Signatures: Maria Esther Springer Amelia as Nieto, Roman, MD MD rn Leal, Jahala, RN RN jl7 Noemy Puga mt, Christopher, RN RN 5 Yolanda Soares [facility] Robles Pate RN RN jt3 Corrections: (The following items were deleted from the chart) 07:34 07:29 Home Meds: Abilify 5 mg Oral tab 1 tab once daily; tw 07:34 07:29 Home Meds: Zoloft 100 mg Oral tab 1 tab once daily; tw tw
[2021-05-09 18:21] VITALS: O2SAT 100
[2021-05-09 18:25] VITALS: BP 115/70; TEMP 98.4
== END 2021-05-09 17:25 | disposition home or self-care (01) ==
LOC: ER 07:12
DX: K80.80 Other cholelithiasis without obstruction (principal); R45.851 Suicidal ideations
CPT/HCPCS: 36415; 74177; 76705; 80048; 80076; 80320; 80329; 81003; 81025; 85025; 85610; 85730; 93005; 96365; 96375; 99285; J7050; Q9967

== ENCOUNTER 2021-06-01 23:28 | Emergency (ER) | payer SELFPAY ==
[2021-06-02 02:17] LABS: Urine Blood Negative (Negative); Urine Glucose Negative (Negative); Urine Protein Negative (Negative); Urine Specific Gravity 1.025 (1.005-1.030); Urine pH 5.5 (5.0-7.0)
[2021-06-02 02:50] LABS: Absolute Lymphocytes (CBC) 2.6 K/uL (0.7-4.9); Basophils % 0.4 % (0-1.3); Lymphocytes % 29.2 % (15.3-44.8); MPV 9.8 fL (7.6-11.3); RBC Red Blood Cell Count 4.79 M/uL (3.86-4.86)
[2021-06-02 02:57] LABS: Protime INR 1.06
[2021-06-02 02:59] LABS: Urine Bacteria >50 /HPF (<20); Urine Mucus 2+ /HPF (NONE SEEN)
[2021-06-02 03:04] LABS: Barbiturates NEGATIVE (NEGATIVE); Benzodiazepines NEGATIVE (NEGATIVE); Cocaine NEGATIVE (NEGATIVE); METHAMPHETAM NEGATIVE (NEGATIVE); Methadone NEGATIVE (NEGATIVE); Opiates NEGATIVE (NEGATIVE); Phencyclidine NEGATIVE (NEGATIVE); THC Cannibis NEGATIVE (NEGATIVE)
[2021-06-02 03:11] LABS: ALT/SGPT 38 U/L (12-78); AST/SGOT 15 U/L (15-37); Albumin 3.5 g/dL (3.4-5.0); Alkaline Phosphatase 86 U/L (45-117); BUN Blood Urea Nitrogen 12 mg/dL (7-18); Bicarbonate 24 mmol/L (21-32); Bilirubin Direct 0.1 mg/dL (0-0.2); Bilirubin Total 0.4 mg/dL (0.2-1.0); Glucose Level 85 mg/dL (74-106); Potassium 3.9 mmol/L (3.5-5.1); Protein, Total 8.2 g/dL (6.4-8.2); Sodium Level 140 mmol/L (136-145)
--- NOTE | 2021-06-02 03:49 | ER ---
Nurse's Notes [facility] Name: Glory Ba Age: 20 yrs Sex: Female : 2000 Arrival Date: 06/01/2021 Time: 23:31 Bed 20 Private MD: Diagnosis: Suicidal ideations Presentation: 06/01 23:37 Chief complaint: Patient states: I have a history of having suicidal thoughts, pt ld1 reports 3 previous attempts of suicide. This evening I decided to come in for help because I really don't trust myself. Coronavirus screen: At this time, the client does not indicate any symptoms associated with coronavirus-19. Ebola Screen: No symptoms or risks identified at this time. Initial Sepsis Screen: Does the patient meet any 2 criteria? No. Patient's initial sepsis screen is negative. Does the patient have a suspected source of infection? No. Patient's initial sepsis screen is negative. Risk Assessment: Do you want to hurt yourself or someone else? Patient reports desire/thoughts of hurting themselves or someone else. Provider notified. Onset of symptoms was June 01, 2021. 23:37 Method Of Arrival: Ambulatory ld1 23:37 Acuity: KAILA 2 bb Triage Assessment: 23:39 General: Appears in no apparent distress. comfortable, Behavior is cooperative, ld1 appropriate for age, anxious. Pain: Denies pain. EENT: No signs and/or symptoms were reported regarding the EENT system. Neuro: Level of Consciousness is awake, alert, obeys commands, Oriented to person, place, time, situation. Cardiovascular: Capillary refill < 3 seconds Patient's skin is warm and dry. Respiratory: Airway is patent Respiratory effort is even, unlabored, Respiratory pattern is regular, symmetrical. GI: Abdomen is round non-distended. : No signs and/or symptoms were reported regarding the genitourinary system. Derm: No signs and/or symptoms reported regarding the dermatologic system. Musculoskeletal: No signs and/or symptoms reported regarding the musculoskeletal system. 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 - Social history:: Smoking status: Patient denies any tobacco usage or history of. Patient/guardian denies using alcohol. Screenin/19 02:15 Abuse screen: Denies threats or abuse. Nutritional screening: No deficits noted. cc4 Tuberculosis screening: No symptoms or risk factors identified. Fall Risk None identified. Assessment: 02:45 Reassessment: Patient appears in no apparent distress at this time. # 20 g angiocath cc4 inserted left AC X1 attempt \\T\\ converted to saline lock with blood drawn \\T\\ sent to lab; urine specimen obtained with dipstick done. 04:20 Reassessment: Patient appears in no apparent distress at this time. Awakened from sleep cc4 with Rocephin 1 g given IVP as ordered, dennise. well. 05:00 Reassessment: Patient appears in no apparent distress at this time. [facility] "[facility]" speaking to patient via Room 21 Mediaime with DEM[employer] oficiers contacted. 06:55 Reassessment: Patient appears in no apparent distress at this time. DEM[facility]US officiers here cc4 \\T\\ in to see upon request of [facility]. 07:52 General: Appears in no apparent distress. Behavior is calm, cooperative, quiet. Pain: jh6 Denies pain. Neuro: No deficits noted. Respiratory: No deficits noted. 09:30 Reassessment: Nurse to nurse completed with [facility]. spoke with Padmaja. jh6 10:00 Reassessment: No changes from previously documented assessment. jh6 11:02 Reassessment: Pt sleeping nad, waiting for transfer. jh6 12:30 Reassessment: Patient is alert, oriented x 3, equal unlabored respirations, skin jh6 warm/dry/pink. Patient denies pain at this time. 14:39 Reassessment: No changes from previously documented assessment. jh6 16:30 Reassessment: No changes from previously documented assessment. Pt resting with eyes jh6 closed nad sitting able to view pt. 18:37 Reassessment: No changes from previously documented assessment. Patient is alert, jh6 oriented x 3, equal unlabored respirations, skin warm/dry/pink. Waiting for transportation to psych facility. Pt ate 75% of dinner.. Psych: 02:45 [place] Suicide Severity Screening: In the past month, have you wished you were cc4 or wished you could go to sleep and not wake up? Patient responds "yes." Based off the client's responses additional C-SSRS screening is required. "In the past month, have you actually had any thoughts of killing yourself?" "In your lifetime, have you ever done anything, started to do anything, or prepared to do anything to end your life?" Patient responds "yes." Patient reports suicidal intent occurred greater than 3 months prior. Subjective: Patient's mood is hopeless. Objective: Patient is cooperative, Calm/cooperative Speech is normal, Affect is flat. Interventions: Removed personal items and placed in bag. Searched person for dangerous items. Urine collected and sent for urine drug test. Safety Checks: Personal items have been removed. Door is open. Pt denies substance abuse. Commitment: Patient will be a voluntary commitment. Vital Signs: 06/01 23:37 BP 132 / 90; Pulse 89; Resp 18; Temp 99.0(TE); Pulse Ox 100% on R/A; Weight 86.18 kg; ld1 Height 5 ft. 2 in. (157.48 cm); Pain 0/10; 06/02 02:45 BP 116 / 76; Pulse 86; Resp 20; Temp 98.5; Pulse Ox 99% on R/A; cc4 07:51 BP 111 / 68; Pulse 82; Resp 16; Temp 98.6; Pulse Ox 98% ; Pain 0/10; jh6 19:30 BP 118 / 73; Pulse 78; Resp 18 S; Temp 98.3(O); Pulse Ox 99% on R/A; cc4 06/01 23:37 Body Mass Index 34.75 (86.18 kg, 157.48 cm) ld1 ED Course: 06/01 23:31 Patient arrived in ED. bp1 23:39 Triage completed. ld1 23:39 Arm band placed on right wrist. ld1 06/02 00:03 Juan Ramon Moore PA is PHCP. cp 00:03 Efrain Mullen MD is Attending Physician. cp 02:02 Marta Elaine RN is Primary Nurse. cc4 02:44 Basic Metabolic Panel Sent. cc4 02:44 CBC with Diff Sent. cc4 02:44 ETOH Level Sent. cc4 02:44 Hepatic Function Sent. cc4 02:44 PT-INR Sent. cc4 02:44 Ptt, Activated Sent. cc4 02:44 Salicylate Sent. cc4 02:44 Acetaminophen Sent. cc4 02:45 Patient has correct armband on for positive identification. Bed in low position. Side cc4 rails up X 1. Patient is placed in psych hold. 02:45 No provider procedures requiring assistance completed. cc4 04:13 called [facility] to initiate transfer. Spoke with Abigail. Call transferred to [facility] nurse for further questioning. 04:24 Urine Culture Sent. cc4 04:42 Gina called back from [facility] wanted patient labs, notes, SBAR, and [facility] facesheet. Fax sent. 06:50 [facility] requesting [facility] on patint. [facility]. 9 07:53 No apparent distress. Resting quietly. transfer approval from receiving facility. 6 Awaiting: DEMETRIUS placed on pt this am, security at bedside and clothing along with personal belonging removed. pt cooperative and reporting that at this time she is not having thoughts of si or hi but is depressed. has been on meds before for depression but is not on any meds currently. 07:56 IV discontinued, intact, bleeding controlled, No redness/swelling at site. Pressure jh6 dressing applied. 09:55 [facility] pt intake called to notify us that they are ready to have doc to doc em1 report given. 10:10 Attending Physician role handed off by Efrain Mullen MD kdr 10:10 Omega Sepulveda MD is Attending Physician. kdr 13:37 Pt accepted to [facility] for psychiatric admission; transfer warrant em1 secured and now waiting for [facility] mental health deputy for transport. Administered Medications: 07:57 Discontinued: Rocephin (cefTRIAXone) 1 grams IV at calculated rate once; Given slow IV jh6 push per pharmacy instructions 04:20 Drug: Rocephin (cefTRIAXone) 1 grams Route: IV; Rate: calculated rate; Site: right cc4 antecubital; 05:00 Follow up: Response: No adverse reaction [facility] 05:00 Follow up: Response: No adverse reaction [facility] 07:56 Follow up: Response: No adverse reaction jh6 Outcome: 03:48 ER care complete, transfer ordered by . cp 20:50 Transferred Transfer form completed. Note: [facility] in [place] via vehicle per [facility] cc4 [place]. 20:50 Condition: stable 20:50 Instructed on the need for transfer, Demonstrated understanding of instructions. 21:02 Patient left the ED. cc4 Signatures: Omega Sepulveda MD MD kdr Ritika Troy RN RN bb Giuseppe Bravo em1 Juan Ramon Moore PA PA cp Perlita Duong Lauren RN RN ld1 Marta Elaine RN RN cc4 Soraya Laughlin [facility] Pamela Carranza RN RN 6 Corrections: (The following items were deleted from the chart) 00:09 06/01 23:37 Acuity: KAILA 4 ld1 bb 06/02 04:58 04:24 CORONAVIRUS+ drawn and sent. cc4 EDMS 14:49 14:46 Pt accepted to [facility] for psychiatric admission; transfer em1 warrant secured and now waiting for [facility] mental health deputy for transport. em1
--- NOTE | 2021-06-02 03:49 | EDPHYS ---
Physician Documentation [facility] Name: Gloyr Ba Age: 20 yrs Sex: Female : 2000 Arrival Date: 06/01/2021 Time: 23:31 Bed 20 Private MD: ED Physician Omega Sepulveda HPI: 06/02 00:30 This 20 yrs old Female presents to ER via Ambulatory with complaints of cp Suicidal Ideation. 00:30 The patient presents to the emergency department with suicide ideation, and the patient cp has a plan, to overdose with medications, get hit by train. 00:30 Onset: The symptoms/episode began/occurred increasing over the past month. cp 00:30 Past psychiatric history: Prior diagnosis: depression, Psychiatric medications include: cp none, the patient has had a prior suicide gesture, the patient has a previous inpatient psychiatric history, with last hospitalization approximately 2 years ago. Associated signs and symptoms: The patient has no apparent associated signs or symptoms. 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 - Social history:: Smoking status: Patient denies any tobacco usage or history of. Patient/guardian denies using alcohol. ROS: 06/02 00:35 Constitutional: Negative for body aches, chills, fever, poor PO intake. cp Cardiovascular: Negative for chest pain, edema, palpitations. 00:35 Eyes: Negative for injury, pain, redness, and discharge. cp 00:35 ENT: Negative for ear pain, sore throat, difficulty swallowing, difficulty handling secretions. 00:35 Respiratory: Negative for cough, shortness of breath, wheezing. 00:35 Abdomen/GI: Negative for abdominal pain, nausea, vomiting, and diarrhea. 00:35 Neuro: Negative for altered mental status, headache, weakness. 00:35 Psych: Positive for depression, suicidal ideation. 00:35 All other systems are negative. Exam: 00:40 Constitutional: The patient appears in no acute distress, alert, awake, non-toxic, well cp developed, well nourished. 00:40 Head/Face: Normocephalic, atraumatic. cp 00:40 Eyes: Periorbital structures: appear normal, Conjunctiva: normal, no exudate, no injection, Lids and lashes: appear normal, bilaterally. 00:40 ENT: External ear(s): are unremarkable, Nose: is normal, Posterior pharynx: Airway: no evidence of obstruction, patent. 00:40 Chest/axilla: Inspection: normal. 00:40 Cardiovascular: Rate: normal, Rhythm: regular. 00:40 Respiratory: the patient does not display signs of respiratory distress, Respirations: normal, no use of accessory muscles, no retractions, labored breathing, is not present, Breath sounds: are clear throughout, no decreased breath sounds, no stridor, no wheezing. 00:40 Abdomen/GI: Exam negative for discomfort, distension, guarding, Inspection: abdomen appears normal. 00:40 Neuro: Orientation: to person, place \\T\\ time. Mentation: is normal, Motor: moves all fours, strength is normal, Sensation: is normal. 00:40 Psych: Behavior/mood is pleasant, cooperative, Affect is calm, Patient having thoughts of suicide. Judgement / Insight is normal. Delusions/hallucinations are not present. 02:30 ECG was reviewed by the Attending Physician. cp Vital Signs: 06/01 23:37 BP 132 / 90; Pulse 89; Resp 18; Temp 99.0(TE); Pulse Ox 100% on R/A; Weight 86.18 kg; ld1 Height 5 ft. 2 in. (157.48 cm); Pain 0/10; 06/02 02:45 BP 116 / 76; Pulse 86; Resp 20; Temp 98.5; Pulse Ox 99% on R/A; cc4 07:51 BP 111 / 68; Pulse 82; Resp 16; Temp 98.6; Pulse Ox 98% ; Pain 0/10; jh6 19:30 BP 118 / 73; Pulse 78; Resp 18 S; Temp 98.3(O); Pulse Ox 99% on R/A; cc4 06/01 23:37 Body Mass Index 34.75 (86.18 kg, 157.48 cm) ld1 MDM: 00:08 Patient medically screened. cp 01:00 Differential diagnosis: drug withdrawal. acute psychotic break, depression, psychosis cp secondary to non-compliance. 03:46 Data reviewed: vital signs, nurses notes, lab test result(s), EKG. 03:46 Test interpretation: by ED physician or midlevel provider: ECG. Counseling: I had a cp detailed discussion with the patient and/or guardian regarding: the historical points, exam findings, and any diagnostic results supporting the discharge/admit diagnosis, lab results, radiology results, the need to transfer to another facility, [facility] does not immediately have the required specialist. 18:00 ED course: The patient continues to rest comfortably in the ED and has not required any kdr further intervention. 06/02 00:15 Order name: Acetaminophen 06/02 00:15 Order name: Basic Metabolic Panel; Complete Time: 03:45 06/02 03:46 Interpretation: Normal except: CL 109. 06/02 00:15 Order name: CBC with Diff; Complete Time: 02:54 06/02 02:55 Interpretation: Reviewed. 06/02 00:15 Order name: ETOH Level; Complete Time: 03:45 06/02 00:15 Order name: Hepatic Function; Complete Time: 03:45 06/02 00:15 Order name: PT-INR; Complete Time: 03:45 06/02 00:15 Order name: Ptt, Activated; Complete Time: 03:45 06/02 00:15 Order name: Salicylate; Complete Time: 03:45 06/02 00:15 Order name: Urine Drug Screen; Complete Time: 03:45 06/02 03:46 Interpretation: Reviewed. 06/02 00:16 Order name: Acetaminophen Level; Complete Time: 03:45 EDNE 06/02 02:15 Order name: Urine Dipstick-Ancillary; Complete Time: 02:54 EDMS 06/02 02:54 Interpretation: Normal except: UESTR 1+. 06/02 02:20 Order name: Urine Microscopic Only; Complete Time: 03:45 ds4 06/02 03:46 Interpretation: Normal except: UWBC 10-20; URBC 5-10; UBACT >50; SQEPI 10-20. 06/02 03:00 Order name: Urine Culture EDMS 06/02 00:15 Order name: EKG; Complete Time: 00:16 06/02 00:15 Order name: EKG - Nurse/Tech; Complete Time: 02:44 06/02 00:15 Order name: IV Saline Lock; Complete Time: 02:44 cp 06/02 00:15 Order name: Labs collected and sent; Complete Time: 02:45 06/02 00:15 Order name: Suicide Screening ([place]); Complete Time: 02:45 06/02 00:15 Order name: Urine Dipstick-Ancillary (obtain specimen); Complete Time: 02:19 cp 06/02 00:15 Order name: Urine Test (obtain specimen); Complete Time: 02:20 06/02 04:58 Order name: SARS-COV-2 RT PCR; Complete Time: 10:10 EDNE 06/02 08:11 Order name: Diet Finger Food; Complete Time: 08:12 jl7 06/02 10:27 Order name: Diet Finger Food; Complete Time: 10:27 jl7 EC:30 Rate is 78 beats/min. Rhythm is regular. VA interval is normal. QRS interval is normal. cp QT interval is normal. T waves are Inverted in lead III. Interpreted by me. Reviewed by me. Administered Medications: 07:57 Discontinued: Rocephin (cefTRIAXone) 1 grams IV at calculated rate once; Given slow IV jh6 push per pharmacy instructions 04:20 Drug: Rocephin (cefTRIAXone) 1 grams Route: IV; Rate: calculated rate; Site: right cc4 antecubital; 05:00 Follow up: Response: No adverse reaction [facility] 05:00 Follow up: Response: No adverse reaction [facility] 07:56 Follow up: Response: No adverse reaction jh6 Disposition: 18:01 Co-signature as Attending Physician, Omega Sepulveda MD I agree with the assessment and kdr plan of care. Disposition Summary: 06/02/21 03:48 Transfer Ordered Transfer Location: [facility] Facility cp Reason: Higher level of care cp Condition: Stable cp Problem: an ongoing problem cp Symptoms: are unchanged cp Accepting Physician: Doctor(06/02/21 21:02) cc4 Diagnosis - Suicidal ideations cp Forms: - Medication Reconciliation Form cp - SBAR form cp Signatures: Dispatcher [employer] Omega Palma MD MD kdr Page, Corey, PA PA cp Radha Fuentes, RN RN ld1 Marta Elaine RN RN cc4 Pamela Carranza RN jh6 Corrections: (The following items were deleted from the chart) 04:58 04:17 CORONAVIRUS+Z ordered. EDMS EDMS 21:02 03:48 Doctor reynold cc4
[2021-06-02] MEDS ORDERED: CEFTRIAXONE 1000 MG/VIAL ONE (04:18)
--- NOTE | 2021-06-02 13:17 | EKG ---
Test Date: 2021-06-02 Test Time: 02:24:16 Pouncer Machine: GT MEASUREMENT RESULTS: Intervals: Rate: 78 MO: 136 QRSD: 70 QT: 382 QTc: 435 [place]: P: 50 MO: 136 QRS: 36 T: 8 INTERPRETIVE STATEMENTS: Normal sinus rhythm Normal ECG Compared to ECG 05/09/2021 07:54:03 Sinus arrhythmia no longer present Myocardial infarct finding no longer present Electronically Signed On 06-02-21 13:16:04 CLINICAL DATA MANAGEMENT DIRECTOR by Gallo Woodson
[2021-06-02 21:11] VITALS: BP 118/73; TEMP 98.3; O2SAT 99
== END 2021-06-02 21:02 ==
LOC: ER 23:28
DX: R45.851 Suicidal ideations (principal); F32.A Depression, unspecified
CPT/HCPCS: 36415; 80048; 80076; 80307; 80320; 80329; 81003; 81015; 85025; 85610; 85730; 87086; 87088; 93005; 96374; 99285; U0003

== ENCOUNTER 2022-06-14 19:45 | Emergency (ER) | payer SELFPAY ==
--- OUTSIDE RECORDS SUMMARY | 2022-06-14 19:50 | XMS REPORT | Continuity of Care Document ---
:2000 Author Organization [facility] t Address [address] [place] [address] Care Team Providers Name Role Phone Alta Levin Primary Care Physician [phone] Problems This patient has no known problems. Allergies, Adverse Reactions, Alerts This patient has no known allergies or adverse reactions. Medications Ordered Filled Start Stop Current Ordering Indication Dosage Frequency Signature Comments Components Source Medication Medication Date Date Medication? Clinician (SIG) Name Name TAKE 1 2021-0 No 500 TABLET BY 02-20 MOUTH TWICE 00:00: DAILY 00 TAKE 1 2021-0 No 500 TABLET BY 02-20 MOUTH TWICE 00:00: DAILY 00 TAKE 1 2021-0 No 500 TABLET BY 02-20 MOUTH TWICE 00:00: DAILY 00 TAKE 1 2021-0 No [id number] TABLET 8- TWICE DAILY 00:00: WITH FOOD. 00 Dose 2021-0 No 875 Unknown 02-13 00:00: 00 TAKE 1 2021-0 No [id number] TABLET 8- TWICE DAILY 00:00: WITH FOOD. 00 Dose 2021-0 No 875 Unknown 02-13 00:00: 00 TAKE 1 2021-0 No [id number] TABLET 8- TWICE DAILY 00:00: WITH FOOD. 00 Dose 2021-0 No 875 Unknown 02-13 00:00: 00 TAKE 1 2021-0 No [id number] TABLET 8- TWICE DAILY 00:00: WITH FOOD. 00 Dose 2021-0 No 875 Unknown 02-13 00:00: 00 TAKE 1 2021-0 No 500 TABLET BY 02-02 MOUTH TWICE 00:00: DAILY 00 TAKE 1 2021-0 No 875 TABLET BY 02-02 MOUTH TWICE 00:00: DAILY UNTIL 00 ALL TAKEN TAKE 1 2022-0 No 500 TABLET BY 7-22 MOUTH TWICE 00:00: DAILY 00 TAKE 1 2022-0 No 500 TABLET BY 7-22 MOUTH TWICE 00:00: DAILY 00 TAKE 1 2022-0 No 875 TABLET BY 7-22 MOUTH TWICE 00:00: DAILY UNTIL 00 ALL TAKEN TAKE 1 2022-0 No 500 TABLET BY 7-22 MOUTH TWICE 00:00: DAILY 00 TAKE 1 2022-0 No 500 TABLET BY 7-22 MOUTH TWICE 00:00: DAILY 00 TAKE 1 2022-0 No 875 TABLET BY 7-22 MOUTH TWICE 00:00: DAILY UNTIL 00 ALL TAKEN TAKE 1 2022-0 No 500 TABLET BY 7-22 MOUTH TWICE 00:00: DAILY 00 TAKE 1 2022-0 No 500 TABLET BY 7-22 MOUTH TWICE 00:00: DAILY 00 TAKE 1 2022-0 No 875 TABLET BY 7-22 MOUTH TWICE 00:00: DAILY UNTIL 00 ALL TAKEN TAKE 1 2022-0 No 500 TABLET BY 7-22 MOUTH TWICE 00:00: DAILY 00 TAKE 1 2022-0 No 500 TABLET BY 7-22 MOUTH TWICE 00:00: DAILY 00 TAKE 1 2022-0 No 875 TABLET BY 7-22 MOUTH TWICE 00:00: DAILY UNTIL 00 ALL TAKEN TAKE 1 2022-0 No 500 TABLET BY 7-22 MOUTH TWICE 00:00: DAILY 00 TAKE 1 2022-0 No 500 TABLET BY 7-22 MOUTH TWICE 00:00: DAILY 00 TAKE 1 2022-0 No 875 TABLET BY 7-22 MOUTH TWICE 00:00: DAILY UNTIL 00 ALL TAKEN TAKE 1 2022-0 No 500 TABLET BY 7-22 MOUTH TWICE 00:00: DAILY 00 medroxyprog 2022-0 No 1mg/mL esterone 5-20 150 mg/mL 00:00: intramuscul 00 ar suspension Dose 2022-0 No Unknown 5-20 00:00: 00 Dose 2022-0 No Unknown 5-20 00:00: 00 medroxyprog 2022-0 No 1mg/mL esterone 5-20 150 mg/mL 00:00: intramuscul 00 ar suspension Dose 2022-0 No Unknown 5-20 00:00: 00 Dose 2022-0 No Unknown 5-20 00:00: 00 medroxyprog 2022-0 No 1mg/mL esterone 5-20 150 mg/mL 00:00: intramuscul 00 ar suspension Dose 2-0 No Unknown 5-20 00:00: 00 Dose 2-0 No Unknown 5-20 00:00: 00 Dose 2-0 No Unknown 5-20 00:00: 00 Dose 2-0 No Unknown 5-20 00:00: 00 medroxyprog 2022-0 No 1mg/mL esterone 5-20 150 mg/mL 00:00: intramuscul 00 ar suspension Dose 2-0 No Unknown 5-20 00:00: 00 Dose 2-0 No Unknown 5-20 00:00: 00 Dose 2022-0 No Unknown 5-20 00:00: 00 Dose 2-0 No Unknown 5-20 00:00: 00 Chlorasepti 2-0 No 2mg c Total 5 5-13 mg-6 mg-10 00:00: mg lozenges 00 Dose 2-0 No Unknown 5-13 00:00: 00 Chlorasepti 2-0 No 2mg c Total 5 5-13 mg-6 mg-10 00:00: mg lozenges 00 Dose 2-0 No Unknown 5-13 00:00: 00 Chlorasepti 2-0 No 2mg c Total 5 5-13 mg-6 mg-10 00:00: mg lozenges 00 Dose 2-0 No Unknown 5-13 00:00: 00 Chlorasepti 2-0 No 2mg c Total 5 5-13 mg-6 mg-10 00:00: mg lozenges 00 Dose 2-0 No Unknown 5-13 00:00: 00 Chlorasepti 2-0 No 2mg c Total 5 5-13 mg-6 mg-10 00:00: mg lozenges 00 Dose 2-0 No Unknown 5-13 00:00: 00 Chlorasepti 2-0 No 2mg c Total 5 5-13 mg-6 mg-10 00:00: mg lozenges 00 Dose 2-0 No Unknown 5-13 00:00: 00 Dose 2-0 No Unknown 3-06 00:00: 00 Dose 2-0 No Unknown 3-06 00:00: 00 Dose 2-0 No Unknown 3-06 00:00: 00 Dose 2-0 No Unknown 3-06 00:00: 00 Dose 2022-0 No Unknown 3-06 00:00: 00 Dose 2022-0 No Unknown 3-06 00:00: 00 Dose 2022-0 No Unknown 3-06 00:00: 00 Dose 2022-0 No Unknown 3-06 00:00: 00 Dose 2022-0 No Unknown 3-06 00:00: 00 Dose 2022-0 No Unknown 3-06 00:00: 00 Dose 2022-0 No Unknown 3-06 00:00: 00 Dose 2022-0 No Unknown 3-06 00:00: 00 Dose 2022-0 No Unknown 3-06 00:00: 00 Dose 2022-0 No Unknown 3-06 00:00: 00 Dose 2022-0 No Unknown 3-06 00:00: 00 Dose 2022-0 No Unknown 3-06 00:00: 00 Dose 2022-0 No Unknown 3-06 00:00: 00 Dose 2022-0 No Unknown 3-06 00:00: 00 Dose 2022-0 No Unknown 3-06 00:00: 00 Dose 2022-0 No Unknown 3-06 00:00: 00 Dose 2022-0 No Unknown 3-06 00:00: 00 Dose 2022-0 No Unknown 3-06 00:00: 00 Dose 2022-0 No Unknown 3-06 00:00: 00 Dose 2022-0 No Unknown 3-06 00:00: 00 Dose 2022-0 No Unknown 3-06 00:00: 00 Dose 2022-0 No Unknown 3-06 00:00: 00 Dose 2022-0 No Unknown 3-06 00:00: 00 Dose 2022-0 No Unknown 3-06 00:00: 00 Dose 2022-0 No Unknown 3-06 00:00: 00 Dose 2022-0 No Unknown 3-06 00:00: 00 Dose 2022-0 No Unknown 3-06 00:00: 00 Dose 2022-0 No Unknown 3-06 00:00: 00 Dose 2022-0 No Unknown 3-06 00:00: 00 Dose 2022-0 No Unknown 3-06 00:00: 00 Dose 2022-0 No Unknown 3-06 00:00: 00 Dose 2022-0 No Unknown 3-06 00:00: 00 Dose 2022-0 No Unknown 3-06 00:00: 00 Dose 2022-0 No Unknown 3-06 00:00: 00 Dose 2022-0 No Unknown 3-06 00:00: 00 Dose 2022-0 No Unknown 3-06 00:00: 00 Dose 2022-0 No Unknown 3-06 00:00: 00 Dose 2022-0 No Unknown 3-06 00:00: 00 Dose 2022-0 No Unknown 3-06 00:00: 00 Dose 2022-0 No Unknown 3-06 00:00: 00 Dose 2022-0 No Unknown 3-06 00:00: 00 Dose 2022-0 No Unknown 3-06 00:00: 00 Dose 2022-0 No Unknown 3-06 00:00: 00 Dose 2022-0 No Unknown 3-06 00:00: 00 Dose 2022-0 No Unknown 3-06 00:00: 00 Dose 2022-0 No Unknown 3-06 00:00: 00 Dose 2022-0 No Unknown 3-06 00:00: 00 Dose 2022-0 No Unknown 3-06 00:00: 00 Dose 2022-0 No Unknown 3-06 00:00: 00 Dose 2022-0 No Unknown 3-06 00:00: 00 Dose 2022-0 No Unknown 3-06 00:00: 00 Dose 2022-0 No Unknown 3-06 00:00: 00 Dose 2022-0 No Unknown 3-06 00:00: 00 Dose 2022-0 No Unknown 3-06 00:00: 00 Dose 2022-0 No Unknown 3-06 00:00: 00 Dose 2022-0 No Unknown 3-06 00:00: 00 Dose 2022-0 No Unknown 3-06 00:00: 00 Dose 2022-0 No Unknown 3-06 00:00: 00 Dose 2022-0 No Unknown 3-06 00:00: 00 Dose 2022-0 No Unknown 3-06 00:00: 00 Dose 2022-0 No Unknown 3-06 00:00: 00 Dose 2022-0 No Unknown 3-06 00:00: 00 Dose 2022-0 No Unknown 3-06 00:00: 00 Dose 2022-0 No Unknown 3-06 00:00: 00 Dose 2022-0 No Unknown 3-06 00:00: 00 Dose 2022-0 No Unknown 3-06 00:00: 00 Dose 2022-0 No Unknown 3-06 00:00: 00 Dose 2022-0 No Unknown 3-06 00:00: 00 Dose 2022-0 No Unknown 3-03 00:00: 00 Dose 2022-0 No Unknown 3-03 00:00: 00 Dose 2022-0 No Unknown 3-03 00:00: 00 Dose 2022-0 No Unknown 3-03 00:00: 00 Dose 2022-0 No Unknown 3-03 00:00: 00 Dose 2022-0 No Unknown 3-03 00:00: 00 Dose 2022-0 No Unknown 3-03 00:00: 00 Dose 2022-0 No Unknown 3-03 00:00: 00 Dose 2022-0 No Unknown 3-03 00:00: 00 Dose 2022-0 No Unknown 3-03 00:00: 00 Dose 2022-0 No Unknown 3-03 00:00: 00 Dose 2022-0 No Unknown 3-03 00:00: 00 Dose 2022-0 No Unknown 3-03 00:00: 00 Dose 2022-0 No Unknown 3-03 00:00: 00 Dose 2022-0 No Unknown 3-03 00:00: 00 Dose 2022-0 No Unknown 3-03 00:00: 00 Dose 2022-0 No Unknown 3-03 00:00: 00 Dose 2022-0 No Unknown 3-03 00:00: 00 Dose 2022-0 No Unknown 3-03 00:00: 00 Dose 2022-0 No Unknown 3-03 00:00: 00 Dose 2022-0 No Unknown 3-03 00:00: 00 Dose 2022-0 No Unknown 3-03 00:00: 00 Dose 2022-0 No Unknown 3-03 00:00: 00 Dose 2022-0 No Unknown 3-03 00:00: 00 Dose 2022-0 No Unknown 3-03 00:00: 00 Dose 2022-0 No Unknown 3-03 00:00: 00 Dose 2022-0 No Unknown 3-03 00:00: 00 Dose 2022-0 No Unknown 3-03 00:00: 00 Dose 2022-0 No Unknown 3-03 00:00: 00 Dose 2022-0 No Unknown 3-03 00:00: 00 sertraline 2020-0 No 1mg 50 mg 9-24 tablet 00:00: 00 aripiprazol 2020-0 No 1mg e 5 mg 9-24 tablet 00:00: 00 hydroxyzine 2020-0 No 51mg HCl 50 mg 9-24 tablet 00:00: 00 sertraline 2020-0 No 1mg 50 mg 9-24 tablet 00:00: 00 aripiprazol 2020-0 No 1mg e 5 mg 9-24 tablet 00:00: 00 sertraline 2020-0 No 1mg 50 mg 9-24 tablet 00:00: 00 aripiprazol 2020-0 No 1mg e 5 mg 9-24 tablet 00:00: 00 hydroxyzine 2020-0 No 51mg HCl 50 mg 9-24 tablet 00:00: 00 hydroxyzine 2020-0 No 51mg HCl 50 mg 9-24 tablet 00:00: 00 sertraline 2020-0 No 1mg 50 mg 9-24 tablet 00:00: 00 aripiprazol 2020-0 No 1mg e 5 mg 9-24 tablet 00:00: 00 hydroxyzine 2020-0 No 51mg HCl 50 mg 9-24 tablet 00:00: 00 sertraline 2020-0 No 1mg 50 mg 9-24 tablet 00:00: 00 aripiprazol 2020-0 No 1mg e 5 mg 9-24 tablet 00:00: 00 hydroxyzine 2020-0 No 51mg HCl 50 mg 9-24 tablet 00:00: 00 sertraline 2020-0 No 1mg 50 mg 9-24 tablet 00:00: 00 aripiprazol 2020-0 No 1mg e 5 mg 9-24 tablet 00:00: 00 hydroxyzine 2020-0 No 51mg HCl 50 mg 9-24 tablet 00:00: 00 sertraline 2020-0 No 1mg 50 mg 9-10 tablet 00:00: 00 aripiprazol 2020-0 No 1mg e 5 mg 9-10 tablet 00:00: 00 sertraline 2020-0 No 1mg 50 mg 9-10 tablet 00:00: 00 aripiprazol 2020-0 No 1mg e 5 mg 9-10 tablet 00:00: 00 sertraline 2020-0 No 1mg 50 mg 9-10 tablet 00:00: 00 aripiprazol 2020-0 No 1mg e 5 mg 9-10 tablet 00:00: 00 sertraline 2020-0 No 1mg 50 mg 9-10 tablet 00:00: 00 aripiprazol 2020-0 No 1mg e 5 mg 9-10 tablet 00:00: 00 sertraline 2020-0 No 1mg 50 mg 9-10 tablet 00:00: 00 aripiprazol 2020-0 No 1mg e 5 mg 9-10 tablet 00:00: 00 sertraline 2020-0 No 1mg 50 mg 9-10 tablet 00:00: 00 aripiprazol 2020-0 No 1mg e 5 mg 9-10 tablet 00:00: 00 sertraline 2020-0 No 1mg 50 mg 8-31 tablet 00:00: 00 aripiprazol 2020-0 No 1mg e 5 mg 8-31 tablet 00:00: 00 sertraline 2020-0 No 1mg 50 mg 8-31 tablet 00:00: 00 aripiprazol 2020-0 No 1mg e 5 mg 8-31 tablet 00:00: 00 sertraline 2020-0 No 1mg 50 mg 8-31 tablet 00:00: 00 aripiprazol 2020-0 No 1mg e 5 mg 8-31 tablet 00:00: 00 sertraline 2020-0 No 1mg 50 mg 8-31 tablet 00:00: 00 aripiprazol 2020-0 No 1mg e 5 mg 8-31 tablet 00:00: 00 sertraline 2020-0 No 1mg 50 mg 8-31 tablet 00:00: 00 aripiprazol 2020-0 No 1mg e 5 mg 8-31 tablet 00:00: 00 sertraline 2020-0 No 1mg 50 mg 8-31 tablet 00:00: 00 aripiprazol 2020-0 No 1mg e 5 mg 8-31 tablet 00:00: 00 Zithromax 2020-0 No mg 250 mg 8-25 tablet 00:00: 00 Zithromax 2020-0 No mg 250 mg 8-25 tablet 00:00: 00 Zithromax 2020-0 No mg 250 mg 8-25 tablet 00:00: 00 Zithromax 2020-0 No mg 250 mg 8-25 tablet 00:00: 00 Zithromax 2020-0 No mg 250 mg 8-25 tablet 00:00: 00 Zithromax 2020-0 No mg 250 mg 8-25 tablet 00:00: 00 sertraline 2020-0 No 1mg 50 mg 6-26 tablet 00:00: 00 sertraline 2020-0 No 1mg 50 mg 6-26 tablet 00:00: 00 aripiprazol 2020-0 No 1mg e 5 mg 6-26 tablet 00:00: 00 aripiprazol 2020-0 No 1mg e 5 mg 6-26 tablet 00:00: 00 sertraline 2020-0 No 1mg 50 mg 6-26 tablet 00:00: 00 aripiprazol 2020-0 No 1mg e 5 mg 6-26 tablet 00:00: 00 sertraline 2020-0 No 1mg 50 mg 6-26 tablet 00:00: 00 aripiprazol 2020-0 No 1mg e 5 mg 6-26 tablet 00:00: 00 sertraline 2020-0 No 1mg 50 mg 6-26 tablet 00:00: 00 aripiprazol 2020-0 No 1mg e 5 mg 6-26 tablet 00:00: 00 sertraline 2020-0 No 1mg 50 mg 6-26 tablet 00:00: 00 aripiprazol 2020-0 No 1mg e 5 mg 6-26 tablet 00:00: 00 aripiprazol 2020-0 No mg e 5 mg 6-04 tablet 00:00: 00 sertraline 2020-0 No mg 50 mg 6-04 tablet 00:00: 00 aripiprazol 2020-0 No mg e 5 mg 6-04 tablet 00:00: 00 sertraline 2020-0 No mg 50 mg 6-04 tablet 00:00: 00 aripiprazol 2020-0 No mg e 5 mg 6-04 tablet 00:00: 00 sertraline 2020-0 No mg 50 mg 6-04 tablet 00:00: 00 aripiprazol 2020-0 No mg e 5 mg 6-04 tablet 00:00: 00 sertraline 2020-0 No mg 50 mg 6-04 tablet 00:00: 00 aripiprazol 2020-0 No mg e 5 mg 6-04 tablet 00:00: 00 sertraline 2020-0 No mg 50 mg 6-04 tablet 00:00: 00 aripiprazol 2020-0 No mg e 5 mg 6-04 tablet 00:00: 00 sertraline 2020-0 No mg 50 mg 6-04 tablet 00:00: 00 sertraline 2020-0 No mg 100 mg 4-08 tablet 00:00: 00 aripiprazol 2020-0 No mg e 5 mg 4-08 tablet 00:00: 00 sertraline 2020-0 No mg 100 mg 4-08 tablet 00:00: 00 aripiprazol 2020-0 No mg e 5 mg 4-08 tablet 00:00: 00 sertraline 2020-0 No mg 100 mg 4-08 tablet 00:00: 00 aripiprazol 2020-0 No mg e 5 mg 4-08 tablet 00:00: 00 sertraline 2020-0 No mg 100 mg 4-08 tablet 00:00: 00 aripiprazol 2020-0 No mg e 5 mg 4-08 tablet 00:00: 00 sertraline 2020-0 No mg 100 mg 4-08 tablet 00:00: 00 aripiprazol 2020-0 No mg e 5 mg 4-08 tablet 00:00: 00 sertraline 2020-0 No mg 100 mg 4-08 tablet 00:00: 00 aripiprazol 2020-0 No mg e 5 mg 4-08 tablet 00:00: 00 Abilify 5 2020-0 No 1mg mg tablet 2-17 00:00: 00 Zoloft 100 2020-0 No 1mg mg tablet 2-17 00:00: 00 Abilify 5 2020-0 No 1mg mg tablet 2-17 00:00: 00 Zoloft 100 2020-0 No 1mg mg tablet 2-17 00:00: 00 Abilify 5 2020-0 No 1mg mg tablet 2-17 00:00: 00 Zoloft 100 2020-0 No 1mg mg tablet 2-17 00:00: 00 Abilify 5 2020-0 No 1mg mg tablet 2-17 00:00: 00 Zoloft 100 2020-0 No 1mg mg tablet 2-17 00:00: 00 Abilify 5 2020-0 No 1mg mg tablet 2-17 00:00: 00 Zoloft 100 2020-0 No 1mg mg tablet 2-17 00:00: 00 Abilify 5 2020-0 No 1mg mg tablet 2-17 00:00: 00 Zoloft 100 2020-0 No 1mg mg tablet 2-17 00:00: 00 Zoloft 100 2020-0 No 1mg mg tablet 1-07 00:00: 00 Abilify 5 2020-0 No 1mg mg tablet 1- 00:00: 00 Zoloft 100 2020-0 No 1mg mg tablet 1- 00:00: 00 Abilify 5 2020-0 No 1mg mg tablet 1- 00:00: 00 Zoloft 100 2020-0 No 1mg mg tablet 1- 00:00: 00 Abilify 5 2020-0 No 1mg mg tablet 1- 00:00: 00 Zoloft 100 2020-0 No 1mg mg tablet 1- 00:00: 00 Abilify 5 2020-0 No 1mg mg tablet 1- 00:00: 00 Zoloft 100 2020-0 No 1mg mg tablet - 00:00: 00 Abilify 5 2020-0 No 1mg mg tablet - 00:00: 00 Zoloft 100 2020-0 No 1mg mg tablet - 00:00: 00 Abilify 5 2020-0 No 1mg mg tablet 1- 00:00: 00 Zoloft 50 2018-1 No 1mg mg tablet 2-10 00:00: 00 Abilify 5 2018-1 No 1mg mg tablet 2-10 00:00: 00 Zoloft 50 2019-1 No 1mg mg tablet 2-10 00:00: 00 Abilify 5 2018-1 No 1mg mg tablet 2-10 00:00: 00 Zoloft 50 2019-1 No 1mg mg tablet 2-10 00:00: 00 Abilify 5 2019-1 No 1mg mg tablet 2-10 00:00: 00 Zoloft 50 2019-1 No 1mg mg tablet 2-10 00:00: 00 Abilify 5 2019-1 No 1mg mg tablet 2-10 00:00: 00 Zoloft 50 2019-1 No 1mg mg tablet 2-10 00:00: 00 Abilify 5 2019-1 No 1mg mg tablet 2-10 00:00: 00 Zoloft 50 2019-1 No 1mg mg tablet 2-10 00:00: 00 Abilify 5 2019-1 No 1mg mg tablet 2-10 00:00: 00 Zoloft 25 2018-1 No 1mg mg tablet 1-26 00:00: 00 Abilify 5 2018-1 No 1mg mg tablet - 00:00: 00 Zoloft 2018- No 1mg mg tablet - 00:00: 00 Kristiy 2018-07 No 1mg mg tablet - 00:00: 00 Zoloft 2018-07 No 1mg mg tablet 08-09 00:00: 00 Valerie 2018-07 No 1mg mg tablet - 00:00: 00 Zoloft 2018- No 1mg mg tablet 08-09 00:00: 00 Zoloft 2018- No 1mg mg tablet 08-09 00:00: 00 Valerie 2018-07 No 1mg mg tablet 08-09 00:00: 00 Valerie 2018-07 No 1mg mg tablet 08-09 00:00: 00 Zoloft 2018-07 No 1mg mg tablet 08-09 00:00: 00 Valerie 2018-07 No 1mg mg tablet 08-09 00:00: 00 Immunizations Ordered Immunization Filled Immunization Date Status Commen ts Source Name Name meningococcal MCV4P 2017-09-04 Completed 00:00:00 Tdap 2011-12-31 Completed 00:00:00 varicella 2011-12-31 Completed 00:00:00 meningococcal MCV4P 2011-12-31 Completed 00:00:00 Hep A, ped/adol, 2 dose 2005-09-20 Completed 00:00:00 Hep A, ped/adol, 2 dose 2005-03-15 Completed 00:00:00 IPV 2005-01-11 Completed 00:00:00 DTaP, unspecified 2005-01-11 Completed formul 00:00:00 MMR 2005-01-11 Completed 00:00:00 Hib (PRP-T) 2002-06-15 Completed 00:00:00 pneumococcal conjugate 2002-06-15 Completed P 00:00:00 DTaP, unspecified 2002-06-15 Completed formul 00:00:00 varicella 2001-12-30 Completed 00:00:00 MMR 2001-12-30 Completed 00:00:00 IPV 2001-12-30 Completed 00:00:00 DTaP, unspecified 2001-08-06 Completed formul 00:00:00 Hib (PRP-T) 2001-08-06 Completed 00:00:00 Hep B, adolescent or 2001-08-06 Completed ped 00:00:00 DTaP, unspecified 2001-05-07 Completed formul 00:00:00 IPV 2001-05-07 Completed 00:00:00 Hib (PRP-T) 2001-05-07 Completed 00:00:00 IPV 2001-02-18 Completed 00:00:00 Hib (PRP-T) 2001-02-18 Completed 00:00:00 DTaP, unspecified 2001-02-18 Completed formul 00:00:00 Hep B, adolescent or 2001-02-18 Completed ped 00:00:00 Hep B, adolescent or 2000 Completed ped 00:00:00 Vital Signs Vital Name Observation Time Observation Value Comments Source BP Systolic 2022-05-17 09:32:00 109 mm[Hg] BP Diastolic 2022-05-17 09:32:00 74 mm[Hg] Weight Measured 2022-05-17 09:32:00 199.80 pounds Height Measured 2022-05-17 09:32:00 62.60 inches Body Temperature 2022-05-17 09:32:00 97.80 degrees Heart Rate 2022-05-17 09:32:00 87.00 /min Respiratory Rate 2022-05-17 09:32:00 BP Systolic 2022-05-12 14:31:00 136 mm[Hg] BP Diastolic 2022-05-12 14:31:00 83 mm[Hg] Weight Measured 2022-05-12 14:31:00 200.00 pounds Height Measured 2022-05-12 14:31:00 62.60 inches Body Temperature 2022-05-12 14:31:00 Heart Rate 2022-05-12 14:31:00 92.00 /min Respiratory Rate 2022-05-12 14:31:00 BP Systolic 2022-02-20 09:54:00 105 mm[Hg] BP Diastolic 2022-02-20 09:54:00 77 mm[Hg] Weight Measured 2022-02-20 09:54:00 192.60 pounds Height Measured 2022-02-20 09:54:00 62.60 inches Body Temperature 2022-02-20 09:54:00 98.60 degrees Heart Rate 2022-02-20 09:54:00 80.00 /min Respiratory Rate 2022-02-20 09:54:00 18.00 /min BP Systolic 2022-02-13 09:11:00 128 mm[Hg] BP Diastolic 2022-02-13 09:11:00 81 mm[Hg] Weight Measured 2022-02-13 09:11:00 195.60 pounds Height Measured 2022-02-13 09:11:00 62.60 inches Body Temperature 2022-02-13 09:11:00 98.00 degrees Heart Rate 2022-02-13 09:11:00 89.00 /min Respiratory Rate 2022-02-13 09:11:00 18.00 /min BP Systolic 2022-02-05 14:09:00 109 mm[Hg] BP Diastolic 2022-02-05 14:09:00 64 mm[Hg] Weight Measured 2022-02-05 14:09:00 193.20 pounds Height Measured 2022-02-05 14:09:00 62.60 inches Body Temperature 2022-02-05 14:09:00 98.00 degrees Heart Rate 2022-02-05 14:09:00 108.00 /min Respiratory Rate 2022-02-05 14:09:00 21.00 /min BP Systolic 2021-12-05 10:04:00 BP Diastolic 2021-12-05 10:04:00 Weight Measured 2021-12-05 10:04:00 200.00 pounds Height Measured 2021-12-05 10:04:00 62.60 inches Body Temperature 2021-12-05 10:04:00 Heart Rate 2021-12-05 10:04:00 Respiratory Rate 2021-12-05 10:04:00 BP Systolic 2021-12-01 11:25:00 100 mm[Hg] BP Diastolic 2021-12-01 11:25:00 70 mm[Hg] Weight Measured 2021-12-01 11:25:00 201.60 pounds Height Measured 2021-12-01 11:25:00 62.60 inches Body Temperature 2021-12-01 11:25:00 98.40 degrees Heart Rate 2021-12-01 11:25:00 76.00 /min Respiratory Rate 2021-12-01 11:25:00 BP Systolic 2021-11-24 10:42:00 BP Diastolic 2021-11-24 10:42:00 Weight Measured 2021-11-24 10:42:00 Height Measured 2021-11-24 10:42:00 Body Temperature 2021-11-24 10:42:00 Heart Rate 2021-11-24 10:42:00 Respiratory Rate 2021-11-24 10:42:00 BP Systolic 2021-10-09 17:54:00 116 mm[Hg] BP Diastolic 2021-10-09 17:54:00 68 mm[Hg] Weight Measured 2021-10-09 17:54:00 202.40 pounds Height Measured 2021-10-09 17:54:00 62.60 inches Body Temperature 2021-10-09 17:54:00 98.10 degrees Heart Rate 2021-10-09 17:54:00 96.00 /min Respiratory Rate 2021-10-09 17:54:00 BP Systolic 2021-09-07 14:04:00 BP Diastolic 2021-09-07 14:04:00 Weight Measured 2021-09-07 14:04:00 191.00 pounds Height Measured 2021-09-07 14:04:00 62.60 inches Body Temperature 2021-09-07 14:04:00 Heart Rate 2021-09-07 14:04:00 Respiratory Rate 2021-09-07 14:04:00 BP Systolic 2021-03-30 11:09:00 110 mm[Hg] BP Diastolic 2021-03-30 11:09:00 69 mm[Hg] Weight Measured 2021-03-30 11:09:00 192.80 pounds Height Measured 2021-03-30 11:09:00 62.60 inches Body Temperature 2021-03-30 11:09:00 98.30 degrees Heart Rate 2021-03-30 11:09:00 92.00 /min Respiratory Rate 2021-03-30 11:09:00 BP Systolic 2020-07-05 08:52:00 101 mm[Hg] BP Diastolic 2020-07-05 08:52:00 63 mm[Hg] Weight Measured 2020-07-05 08:52:00 198.60 pounds Height Measured 2020-07-05 08:52:00 62.60 inches Body Temperature 2020-07-05 08:52:00 98.60 degrees Heart Rate 2020-07-05 08:52:00 96.00 /min Respiratory Rate 2020-07-05 08:52:00 18.00 /min BP Systolic 2020-04-08 15:06:00 123 mm[Hg] BP Diastolic 2020-04-08 15:06:00 70 mm[Hg] Weight Measured 2020-04-08 15:06:00 195.20 pounds Height Measured 2020-04-08 15:06:00 62.60 inches Body Temperature 2020-04-08 15:06:00 98.20 degrees Heart Rate 2020-04-08 15:06:00 85.00 /min Respiratory Rate 2020-04-08 15:06:00 16.00 /min BP Systolic 2020-04-01 16:25:00 121 mm[Hg] BP Diastolic 2020-04-01 16:25:00 76 mm[Hg] Weight Measured 2020-04-01 16:25:00 193.80 pounds Height Measured 2020-04-01 16:25:00 62.60 inches Body Temperature 2020-04-01 16:25:00 97.00 degrees Heart Rate 2020-04-01 16:25:00 103.00 /min Respiratory Rate 2020-04-01 16:25:00 17.00 /min BP Systolic 2020-03-08 16:04:00 BP Diastolic 2020-03-08 16:04:00 Weight Measured 2020-03-08 16:04:00 186.00 pounds Height Measured 2020-03-08 16:04:00 62.60 inches Body Temperature 2020-03-08 16:04:00 Heart Rate 2020-03-08 16:04:00 Respiratory Rate 2020-03-08 16:04:00 Procedures This patient has no known procedures. Plan of Care Planned Activity Planned Date Details Comments Source Goal Plan of Care Note [code = 21893-5] Goal Plan of Care Note [code = 67822-2] Goal Plan of Care Note [code = 20923-0] Goal Plan of Care Note [code = 63159-9] Goal Plan of Care Note [code = 34032-7] Goal Plan of Care Note [code = 30973-0] Goal Plan of Care Note [code = 56546-5] Goal Plan of Care Note [code = 91230-0] Goal Plan of Care Note [code = 10147-6] Goal Plan of Care Note [code = 13321-2] Goal Plan of Care Note [code = 59611-0] Goal Plan of Care Note [code = 50011-8] Goal Plan of Care Note [code = 37066-7] Goal Plan of Care Note [code = 98168-7] Goal Plan of Care Note [code = 33501-4] Goal Plan of Care Note [code = 82771-4] Goal Plan of Care Note [code = 84248-1] Goal Plan of Care Note [code = 06081-0] Goal Plan of Care Note [code = 83467-5] Goal Plan of Care Note [code = 01176-2] Goal Plan of Care Note [code = 98822-1] Goal Plan of Care Note [code = 16366-0] Goal Plan of Care Note [code = 67424-3] Goal Plan of Care Note [code = 75214-7] Goal Plan of Care Note [code = 45417-5] Goal Plan of Care Note [code = 95631-2] Goal Plan of Care Note [code = 53825-0] Goal Plan of Care Note [code = 91265-5] Goal Plan of Care Note [code = 42283-3] Goal Plan of Care Note [code = 75883-5] Goal Plan of Care Note [code = 02173-5] Goal Plan of Care Note [code = 92100-9] Goal Plan of Care Note [code = 74323-4] Goal Plan of Care Note [code = 86766-0] Goal Plan of Care Note [code = 28342-6] Goal Plan of Care Note [code = 10059-4] Goal Plan of Care Note [code = 04174-0] Goal Plan of Care Note [code = 25525-9] Goal Plan of Care Note [code = 34393-0] Goal Plan of Care Note [code = 68393-6] Goal Plan of Care Note [code = 86679-5] Goal Plan of Care Note [code = 36545-1] Goal Plan of Care Note [code = 76112-1] Goal Plan of Care Note [code = 92601-1] Goal Plan of Care Note [code = 81237-7] Goal Plan of Care Note [code = 03680-6] Goal Plan of Care Note [code = 51803-8] Goal Plan of Care Note [code = 86250-1] Goal Plan of Care Note [code = 45243-4] Goal Plan of Care Note [code = 28680-5] Goal Plan of Care Note [code = 58997-1] Goal Plan of Care Note [code = 87809-5] Goal Plan of Care Note [code = 01996-1] Goal Plan of Care Note [code = 68260-8] Goal Plan of Care Note [code = 69306-9] Goal Plan of Care Note [code = 53654-0] Goal Plan of Care Note [code = 57375-1] Goal Plan of Care Note [code = 30877-1] Goal Plan of Care Note [code = 95581-0] Goal Plan of Care Note [code = 73998-7] Goal Plan of Care Note [code = 98909-3] Goal Plan of Care Note [code = 63792-5] Goal Plan of Care Note [code = 67450-2] Goal Plan of Care Note [code = 01556-5] Goal Plan of Care Note [code = 11490-4] Goal Plan of Care Note [code = 36011-8] Goal Plan of Care Note [code = 45225-5] Goal Plan of Care Note [code = 00299-4] Goal Plan of Care Note [code = 89163-9] Goal Plan of Care Note [code = 92562-2] Goal Plan of Care Note [code = 02419-5] Goal Plan of Care Note [code = 40740-1] Goal Plan of Care Note [code = 46000-7] Goal Plan of Care Note [code = 65504-0] Goal Plan of Care Note [code = 67157-3] Goal Plan of Care Note [code = 01436-7] Goal Plan of Care Note [code = 58082-1] Goal Plan of Care Note [code = 38034-7] Goal Plan of Care Note [code = 83222-5] Goal Plan of Care Note [code = 32911-8] Goal Plan of Care Note [code = 21609-3] Goal Plan of Care Note [code = 23487-7] Goal Plan of Care Note [code = 28308-8] Goal Plan of Care Note [code = 18292-6] Goal Plan of Care Note [code = 63984-0] Goal Plan of Care Note [code = 54683-6] Goal Plan of Care Note [code = 56268-1] Goal Plan of Care Note [code = 56504-8] Goal Plan of Care Note [code = 83410-7] Goal Plan of Care Note [code = 69999-0] Goal Plan of Care Note [code = 69992-8] Goal Plan of Care Note [code = 04277-4] Goal Plan of Care Note [code = 37476-4] Goal Plan of Care Note [code = 97739-4] Goal Plan of Care Note [code = 05802-5] Goal Plan of Care Note [code = 32409-7] Goal Plan of Care Note [code = 00742-8] Goal Plan of Care Note [code = 05703-1] Goal Plan of Care Note [code = 79560-2] Goal Plan of Care Note [code = 80506-5] Goal Plan of Care Note [code = 47533-0] Goal Plan of Care Note [code = 85398-0] Goal Plan of Care Note [code = 17973-0] Goal Plan of Care Note [code = 57547-4] Goal Plan of Care Note [code = 01540-6] Goal Plan of Care Note [code = 55612-5] Goal Plan of Care Note [code = 34868-4] Goal Plan of Care Note [code = 21492-5] Goal Plan of Care Note [code = 83253-4] Goal Plan of Care Note [code = 00513-6] Goal Plan of Care Note [code = 06197-7] Encounters Start End Encounter Admission Attending Care Care Encounter Source Date/Time Date/Time Type Type Clinicians Facility Department ID 2022-05-17 2022-05-17 [place] [id number] [place] 09:31:59 09:31:59 1103 F [place] 2022-05-17 2022-05-17 Outpatient [id number] 00:00:00 00:00:00 Visit 6jx0-7903 ad4-4855-b -k339-wc2 [id number] 5517-10-29 2022-05-12 [place] [id number] [place] 14:22:47 14:22:47 1029 F [place] 2022-05-12 2022-05-12 Outpatient [id number] 00:00:00 00:00:00 Visit 97i3-3u0l 8q3-9y6e-w -qq87-58b [id number] [id number] 18da9d 2022-02-20 2022-02-20 Outpatient [id number] 00:00:00 00:00:00 Visit abbf-466a bbf-466a-8 -8131-e9b [id number] [id number] f397d7 2022-02-13 2022-02-13 Outpatient [id number] 00:00:00 00:00:00 Visit z1y6-1739 3i4-1989-8 -5qm5-632 [id number] [id number] 2022-02-05 2022-02-05 Outpatient [id number] 00:00:00 00:00:00 Visit 1fee-4f0f fee-4f0f-a -gq8k-2f2 c1j-6w37oy 2yq71nae7 47dfe6 2022-02-02 2022-02-02 Outpatient [id number] 00:00:00 00:00:00 Visit x9t1-42sr 5w4-79nz-q -bda9-04c [id number] [id number] Results Test Description Test Time Test Comments Results Result Comments Source SARS-CoV-2 (COVID-19) by RT-PCR (HIGH RISK) 2020-06-21 00:00 :00 Test Item Value Reference Range Interpretation Comme nts SARS-CoV-2 INTERPRETATION (test code = 50488) NEGATIVE SOURCE (test code = 88770) NASOPHARYNGEAL SARS-CoV-2 (COVID-19) by RT-PCR (HIGH RISK)2020-06-21 00:00:00 Test Item Value Reference Range Interpretation Comments SARS-CoV-2 INTERPRETATION NEGATIVE (test code = 47938) SOURCE (test code = 67004) NASOPHARYNGEAL SARS-CoV-2 (COVID-19) by RT-PCR (HIGH RISK)2020-06-21 00:00:00 Test Item Value Reference Range Interpretation Comments SARS-CoV-2 INTERPRETATION NEGATIVE (test code = 85575) SOURCE (test code = 21874) NASOPHARYNGEAL SARS-CoV-2 (COVID-19) by RT-PCR (HIGH RISK)2020-06-21 00:00:00 Test Item Value Reference Range Interpretation Comments SARS-CoV-2 INTERPRETATION NEGATIVE (test code = 56500) SOURCE (test code = 15481) NASOPHARYNGEAL SARS-CoV-2 (COVID-19) by RT-PCR (HIGH RISK)2020-06-21 00:00:00 Test Item Value Reference Range Interpretation Comments SARS-CoV-2 INTERPRETATION NEGATIVE (test code = 28385) SOURCE (test code = 53978) NASOPHARYNGEAL SARS-CoV-2 (COVID-19) by RT-PCR (HIGH RISK)2020-06-21 00:00:00 Test Item Value Reference Range Interpretation Comments SARS-CoV-2 INTERPRETATION NEGATIVE (test code = 06106) SOURCE (test code = 85706) NASOPHARYNGEAL SARS-CoV-2 (COVID-19) by RT-PCR (HIGH RISK)2020-06-21 00:00:00 Test Item Value Reference Range Interpretation Comments SARS-CoV-2 INTERPRETATION NEGATIVE (test code = 24276) SOURCE (test code = 74167) NASOPHARYNGEAL SARS-CoV-2 (COVID-19) by RT-PCR (HIGH RISK)2020-06-21 00:00:00 Test Item Value Reference Range Interpretation Comments SARS-CoV-2 INTERPRETATION NEGATIVE (test code = 89563) SOURCE (test code = 97896) NASOPHARYNGEAL SARS-CoV-2 (COVID-19) by RT-PCR (HIGH RISK)2020-06-21 00:00:00 Test Item Value Reference Range Interpretation Comments SARS-CoV-2 INTERPRETATION NEGATIVE (test code = 99626) SOURCE (test code = 97541) NASOPHARYNGEAL
[2022-06-14] MEDS ORDERED: LIDOCAINE 1% MPF 30 ML VIAL ONE (20:04)
[2022-06-14] MEDS ORDERED: BUPIVACAINE 0.5% PF 10 ML VIAL ONE (20:04)
[2022-06-14] MEDS ORDERED: TETANUS & DIPHTHERIA TOX,ADULT 0.5 ML VIAL ONE (20:06)
[2022-06-14 23:37] LABS: Urine Blood 1+ (Negative); Urine Glucose Negative (Negative); Urine Protein Negative (Negative); Urine Specific Gravity >=1.030 (1.005-1.030); Urine pH 5.5 (5.0-7.0)
[2022-06-14 23:47] LABS: Hematocrit 41.6 % (36.0-45.0); Lymphocytes % 28.6 % (15.3-44.8); MCV 84.8 fL (80-100); MPV 9.6 fL (7.6-11.3); RBC Red Blood Cell Count 4.91 M/uL (3.86-4.86)
[2022-06-14 23:49] LABS: Urine Specific Gravity/Preg >1.030 (1.005-1.030)
[2022-06-14 23:51] LABS: Protime INR 1.05
[2022-06-15 00:04] LABS: Barbiturates NEGATIVE (NEGATIVE); Benzodiazepines NEGATIVE (NEGATIVE); Cocaine NEGATIVE (NEGATIVE); METHAMPHETAM NEGATIVE (NEGATIVE); Methadone NEGATIVE (NEGATIVE); Opiates NEGATIVE (NEGATIVE); Phencyclidine NEGATIVE (NEGATIVE); THC Cannibis NEGATIVE (NEGATIVE)
[2022-06-15 00:05] LABS: ALT/SGPT 30 U/L (12-78); AST/SGOT 15 U/L (15-37); Albumin 3.9 g/dL (3.4-5.0); Alkaline Phosphatase 76 U/L (45-117); BUN Blood Urea Nitrogen 14 mg/dL (7-18); Bicarbonate 25 mmol/L (21-32); Bilirubin Total 0.3 mg/dL (0.2-1.0); Glomerular Filtration Rate 100 ml/min (=/>90); Glucose Level 86 mg/dL (74-106); Potassium 3.5 mmol/L (3.5-5.1); Protein, Total 8.8 g/dL (6.4-8.2); Sodium Level 137 mmol/L (136-145)
[2022-06-15 00:06] LABS: Bilirubin Direct < 0.1 mg/dL (0-0.2)
--- NOTE | 2022-06-15 01:45 | ER ---
Nurse's Notes [facility] Name: Glory Ba Age: 21 yrs Sex: Female : 2000 Arrival Date: 06/14/2022 Time: 19:49 Bed 3 Private MD: Diagnosis: Laceration without foreign body of left wrist Presentation: 06/14 19:50 Chief complaint: EMS states: PT CALLED 911 BECAUSE SHE HAD CUT HER ARM WITH A PAIR OF bp SCISSORS. PT STATES THAT SHE HAS HAD PREVIOUS SUICIDE ATTEMPTS IN THE PAST BUT THAT SHE WAS NOT TRYING TO ATTEMPT SUICIDE THIS TIME. PT WITH MULTIPLE CUTS TO THE LEFT FOREARM. Coronavirus screen: Vaccine status: Patient reports being unvaccinated. Ebola Screen: No symptoms or risks identified at this time. Initial Sepsis Screen: Does the patient meet any 2 criteria? No. Patient's initial sepsis screen is negative. Does the patient have a suspected source of infection? No. Patient's initial sepsis screen is negative. Risk Assessment: Do you want to hurt yourself or someone else?. 19:50 Method Of Arrival: EMS: [facility] bp 20:10 Risk Assessment: Do you want to hurt yourself or someone else? Patient reports bp desire/thoughts of hurting themselves or someone else. Provider notified. Other: PT HAS PRACTICED IN SELF HARM BUT DENIES SI. Onset of symptoms was June 14, 2022. 20:10 Acuity: KAILA 3 bp Triage Assessment: 20:11 General: Appears in no apparent distress. Behavior is calm, cooperative, crying. Pain: bp Denies pain. Neuro: Level of Consciousness is awake, alert, obeys commands, Oriented to person, place, time, situation. Cardiovascular: Patient's skin is warm and dry. Respiratory: Airway is patent Trachea midline Respiratory effort is even, unlabored, Respiratory pattern is regular, symmetrical. 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 - Social history:: Smoking status: unknown. Screenin:13 Abuse screen: Denies threats or abuse. Denies injuries from another. Nutritional bp screening: No deficits noted. Tuberculosis screening: No symptoms or risk factors identified. Fall Risk None identified. Assessment: 23:24 General: Appears in no apparent distress. Behavior is calm, cooperative. General: PT kd3 AWAITING LAB RESULTS, THEN WILL TALK TO [facility] . Pain: Denies pain. Neuro: Level of Consciousness is awake, alert, obeys commands, Oriented to person, place, time, situation. Cardiovascular: Patient's skin is warm and dry. Respiratory: Airway is patent Trachea midline Respiratory effort is even, unlabored, Respiratory pattern is regular, symmetrical. 06/15 00:26 General: [facility] contacted. Information given. Screener will be notified. . tw5 00:54 General: Appears in no apparent distress. Behavior is crying. Neuro: Level of kd3 Consciousness is awake, alert, obeys commands, Oriented to person, place, time, situation. Cardiovascular: Patient's skin is warm and dry. Respiratory: Airway is patent Trachea midline Respiratory effort is even, unlabored. Psych: 00:57 [place] Suicide Severity Screening: In the past month, have you wished you were kd3 or wished you could go to sleep and not wake up? Patient responds "No." "In the past month, have you actually had any thoughts of killing yourself?" Patient responds "no." "In your lifetime, have you ever done anything, started to do anything, or prepared to do anything to end your life?" Patient responds "yes.". Subjective: Patient's mood is sad, Delusions are denied, Hallucinations are denied. Objective: Patient is cooperative, Speech is normal, Affect is appropriate, Patient has mutilated themselves by using scissors to cut the left wrist. Interventions: Searched person for dangerous items. Urine collected and sent for urine drug test. Safety Checks: Door is open. Pt denies substance abuse. 01:48 Commitment: Patient will be a voluntary commitment. kd3 Vital Signs: 06/14 19:52 Weight 92.53 kg; Height 5 ft. 2 in. (157.48 cm); Pain 0/10; bp 20:10 BP 130 / 85; Pulse 86; Resp 17; Temp 98.2(O); Pulse Ox 100% ; bp 06/15 00:54 BP 130 / 91; Pulse 83; Resp 17; Pulse Ox 100% on R/A; kd3 06/14 19:52 Body Mass Index 37.31 (92.53 kg, 157.48 cm) bp ED Course: 12/01 19:49 Patient arrived in ED. wm 19:50 Win Estevez, RN is Primary Nurse. bp 19:51 Rocky Donovan DO is Attending Physician. ms3 19:51 Syd Guerra NP is PHCP. pm1 20:11 Triage completed. bp 20:11 Arm band placed on right wrist. bp 20:13 Patient has correct armband on for positive identification. bp 06/15 00:55 Assist provider with laceration repair on left arm and left wrist. Inserted saline kd3 lock: 20 gauge in right antecubital area, using aseptic technique. Blood collected. 01:48 IV discontinued, intact, bleeding controlled, No redness/swelling at site. Pressure kd3 dressing applied. Administered Medications: 06/14 20:08 Drug: Tetanus-Diphtheria Toxoid Adult 0.5 ml {Tax Commissioner: fsboWOW. Exp: bp 11/18/2023. Lot #: [id number]. } Route: IM; Site: right deltoid; 06/15 00:13 Follow up: Response: No adverse reaction kd3 00:13 Drug: Bupivacaine (0.5 %) 10 ml Volume: 10 ml; Route: Infiltration; kd3 00:13 Drug: Lidocaine (1 %) 5 ml Volume: 5 ml; Route: Infiltration; kd3 Medication: 00:59 VIS not applicable for this client. kd3 Outcome: 01:45 Discharge ordered by . pm1 01:48 Discharged to home ambulatory. kd3 01:48 Condition: stable 01:48 Discharge instructions given to patient, Instructed on discharge instructions, follow up and referral plans. Demonstrated understanding of instructions, follow-up care. 01:54 Patient left the ED. kd3 Signatures: Syd Guerra NP PLASTICATOR pm1 Win Estevez, RN RN Rocky Donovan DO DO ms3 Leonila Vasquez Yolanda Soares tw5 Darling Camacho RN RN kd3
--- NOTE | 2022-06-15 01:45 | EDPHYS ---
Physician Documentation [facility] Name: Glory Ba Age: 21 yrs Sex: Female : 2000 Arrival Date: 06/14/2022 Time: 19:49 Bed 3 Private MD: ED Physician Rocky Donovan HPI: 06/14 21:00 This 21 yrs old Female presents to ER via EMS with complaints of lacerations to left pm1 wrist. 21:00 The patient presents to the emergency department with lacerations to left wrist. pm1 Patient was cutting herself to make herself feel better, relief. Onset: The symptoms/episode began/occurred just prior to arrival. Past psychiatric history: Prior diagnosis: depression, Primary psychiatric physician: Dr. Summer Hernandez. Associated signs and symptoms: Pertinent negatives: numbness, tingling, decreased ROM to left hand and wrist. Severity of symptoms: in the emergency department the symptoms are unchanged. The patient has experienced similar episodes in the past, patient with history of cutting. The patient has not recently seen a physician. 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 - Social history:: Smoking status: unknown. ROS: 21:00 Constitutional: Negative for fever, chills, and weight loss, Cardiovascular: Negative pm1 for chest pain, palpitations, and edema, Respiratory: Negative for shortness of breath, cough, wheezing, and pleuritic chest pain. 21:00 Neuro: Negative for headache, weakness, numbness, tingling, and seizure. 21:00 MS/extremity: Positive for laceration, of the left wrist, Negative for decreased range of motion, deformity. 21:00 Skin: Positive for laceration(s), of the left wrist. 21:00 All other systems are negative. 21:00 Psych: Negative for homicidal ideation, suicide gesture, suicidal ideation. pm1 Exam: 21:00 Constitutional: This is a well developed, well nourished patient who is awake, alert, pm1 and in no acute distress. Head/Face: Normocephalic, atraumatic. 21:00 Cardiovascular: Exam negative for acute changes, Rate: normal, Rhythm: regular, Pulses: no pulse deficits are appreciated. 21:00 Respiratory: Exam negative for acute changes, respiratory distress, shortness of breath. 21:00 Musculoskeletal/extremity: Extremities: grossly normal except: lacerations as noted on skin exam. 21:00 Skin: Appearance: normal except for affected area, injury, laceration(s), the wound is approximately 9 cm(s), of the left wrist, that can be described as clean, no foreign body, linear, without bleeding, multiple abrasions with two lacerations approximately 4.5 centimeters each. 21:00 Neuro: Exam negative for acute changes, Orientation: is normal, Mentation: is normal, Motor: is normal, moves all fours, Sensation: is normal, no obvious gross deficits. 21:00 Psych: Behavior/mood is pleasant, cooperative, Affect is calm, Oriented to person, place, time, Patient has no thoughts/intents to harm self or others. Vital Signs: 19:52 Weight 92.53 kg; Height 5 ft. 2 in. (157.48 cm); Pain 0/10; bp 20:10 BP 130 / 85; Pulse 86; Resp 17; Temp 98.2(O); Pulse Ox 100% ; bp / 00:54 BP 130 / 91; Pulse 83; Resp 17; Pulse Ox 100% on R/A; kd3 06/14 19:52 Body Mass Index 37.31 (92.53 kg, 157.48 cm) bp Laceration: 06/14 22:19 Wound Repair of 9cm ( 3.5in ) subcutaneous laceration to palmar aspect of left forearm. pm1 Irregularly shaped.. Distal neuro/vascular/tendon intact. Anesthesia: Local anesthetic administered with 8 mls of Lido/Marcaine. Wound prep: Extensive cleansing with hibiclenz by md, Wound irrigation with saline by md, Wound explored extensively, Copious irrigation. Skin closed with 15 4-0 Prolene using simple sutures and sterile technique. Dressed with 4x4's, Kerlix. Patient tolerated well. MDM: 19:51 Patient medically screened. pm1 06/15 00:10 ED course: Pending evaluation by [facility]. pm1 00:55 Data reviewed: vital signs. Data interpreted: Pulse oximetry: on room air is 100 %. pm1 Interpretation: normal. 01:41 ED course: Patient evaluated by Gina with Summer Hernandez and cleared for discharge to go pm1 home. Summer Hernandez will follow up with the patient on outpatient basis. Patient denies any homicidal or suicidal ideation. The patient with a known history of cutting and she called the EMS today because she accidentally cut deeper than her norm. 01:48 ED course: Patient denies any symptoms suggestive for UTI. Giving prescription for pm1 laceration that provides coverage. 06/14 21:00 Order name: Acetaminophen; Complete Time: 00:08 pm1 06/14 21:00 Order name: Basic Metabolic Panel; Complete Time: 00:08 pm1 06/14 21:00 Order name: CBC with Diff; Complete Time: 00:05 pm1 06/14 21:00 Order name: ETOH Level; Complete Time: 00:08 pm1 06/14 21:00 Order name: Hepatic Function; Complete Time: 00:08 pm1 06/14 21:00 Order name: PT-INR; Complete Time: 00:05 pm1 06/14 21:00 Order name: Ptt, Activated; Complete Time: 00:05 pm1 06/14 21:00 Order name: Salicylate; Complete Time: 00:08 pm1 06/14 21:00 Order name: Urine Drug Screen; Complete Time: 00:05 pm1 06/14 23:37 Order name: Urine Dipstick-Ancillary; Complete Time: 23:40 EDMS 06/14 23:45 Order name: Urine --Ancillary (enter results); Complete Time: 00:05 wm 06/14 19:55 Order name: Dressing - Wound; Complete Time: 20:08 pm1 06/14 19:55 Order name: Gloves, Sterile; Complete Time: 20:08 pm1 06/14 19:55 Order name: Prolene, Sutures; Complete Time: 20:08 pm1 06/14 19:55 Order name: Setup Suture Tray; Complete Time: 20:08 pm1 06/14 21:00 Order name: EKG; Complete Time: 21:01 pm1 06/14 21:00 Order name: EKG - Nurse/Tech; Complete Time: 23:53 pm1 06/14 21:00 Order name: IV Saline Lock; Complete Time: 23:25 pm1 06/14 21:00 Order name: Labs collected and sent; Complete Time: 23:25 pm1 06/14 21:00 Order name: Suicide Screening ([place]); Complete Time: 00:59 pm1 12 21:00 Order name: Urine Dipstick-Ancillary (obtain specimen); Complete Time: 23:53 pm1 06/14 21:00 Order name: Urine Test (obtain specimen); Complete Time: 23:53 pm1 EC:05 Rate is 68 beats/min. Rhythm is regular, Normal Sinus Rhythm. QRS [place] is Normal. [place] pm1 interval is normal. QRS interval is normal. QT interval is normal. No Q waves. T waves are Normal. No ST changes noted. Clinical impression: Normal sinus rhythm with sinus arrhythmia. Administered Medications: 06/14 20:08 Drug: Tetanus-Diphtheria Toxoid Adult 0.5 ml {Police Officer Crime Prevention: veriCAR. Exp: bp 11/18/2023. Lot #: [id number]. } Route: IM; Site: right deltoid; 06/15 00:13 Follow up: Response: No adverse reaction kd3 00:13 Drug: Bupivacaine (0.5 %) 10 ml Volume: 10 ml; Route: Infiltration; kd3 00:13 Drug: Lidocaine (1 %) 5 ml Volume: 5 ml; Route: Infiltration; kd3 Disposition: 02:38 Co-signature as Attending Physician, Rocky GUERRIER was immediately available onsite ms3 in the emergency department for consultation in the care of the patient. Disposition Summary: 06/15/22 01:45 Discharge Ordered Location: Home pm1 Problem: new pm1 Symptoms: have improved pm1 Condition: Stable pm1 Diagnosis - Laceration without foreign body of left wrist pm1 Followup: pm1 - With: Emergency Department - When: As needed - Reason: Worsening of condition Followup: pm1 - With: Private Physician - When: 2 - 3 days - Reason: Recheck today's complaints, Continuance of care, Re-evaluation by your physician Discharge Instructions: - Discharge Summary Sheet pm1 - Laceration Care, Adult pm1 Forms: - Medication Reconciliation Form pm1 - Thank You Letter pm1 - Antibiotic Education pm1 - Prescription Opioid Use pm1 Prescriptions: - Cephalexin 500 mg Oral Capsule - take 1 capsule by ORAL route every 6 hours for 10 days; 40 capsule; Refills: 0, pm1 Product Selection Permitted Signatures: Dispatcher [employer] EDKY Syd Guerra NP HAND PLEATER pm1 Win Estevez, RN RN bp Rocky Donovan, DO DO ms3 Darling Camacho, RN RN kd3
[2022-06-15 02:01] VITALS: TEMP 98.2; O2SAT 100
[2022-06-15 02:02] VITALS: BP 130/91
--- NOTE | 2022-06-15 07:49 | EKG ---
Test Date: 2022-06-14 Test Time: 23:42:26 Hospitality Ambassador: CHARLY MEASUREMENT RESULTS: Intervals: Rate: 68 CT: 130 QRSD: 64 QT: 388 QTc: 412 [place]: P: 8 CT: 130 QRS: 39 T: 35 INTERPRETIVE STATEMENTS: Normal sinus rhythm with sinus arrhythmia Cannot rule out Anterior infarct, age undetermined Abnormal ECG Compared to ECG 06/02/2021 02:24:16 Myocardial infarct finding now present Electronically Signed On 06-15-22 07:48:47 WEIGHT REDUCTION SPECIALIST by Gallo Woodson
== END 2022-06-15 01:54 | disposition home or self-care (01) ==
LOC: ER 19:45
PROC: 0JQH0ZZ Repair Left Lower Arm Subcutaneous Tissue and Fascia, Open Approach (ICD-10-PCS; principal; 2022-06-15)
DX: S61.512A Laceration without foreign body of left wrist, initial encounter (principal); Z23 Encounter for immunization; F32.A Depression, unspecified
CPT/HCPCS: 36415; 80048; 80076; 80307; 80320; 80329; 81003; 81025; 85025; 85610; 85730; 90471; 90714; 93005; 99285; J2001

== ENCOUNTER 2022-06-30 16:27 | Emergency (ER) | payer SELFPAY ==
--- OUTSIDE RECORDS SUMMARY | 2022-06-30 16:31 | XMS REPORT | Continuity of Care Document ---
:2000 Author Organization [facility] t Address [address] [place] [address] Care Team Providers Name Role Phone Alta Levin Primary Care Physician [phone] Problems This patient has no known problems. Allergies, Adverse Reactions, Alerts This patient has no known allergies or adverse reactions. Medications Ordered Filled Start Stop Current Ordering Indication Dosage Frequency Signature Comments Components Source Medication Medication Date Date Medication? Clinician (SIG) Name Name TAKE 1 2021-0 No 500 TABLET BY 8 MOUTH TWICE 00:00: DAILY 00 TAKE 1 2021-0 No 500 TABLET BY 8 MOUTH TWICE 00:00: DAILY 00 TAKE 1 2021-0 No 500 TABLET BY 8 MOUTH TWICE 00:00: DAILY 00 TAKE 1 2021-0 No [id number] TABLET 8- TWICE DAILY 00:00: WITH FOOD. 00 Dose 2021-0 No 875 Unknown 02-13 00:00: 00 TAKE 1 2021-0 No [id number] TABLET 8- TWICE DAILY 00:00: WITH FOOD. 00 Dose 2021-0 No 875 Unknown 02-13 00:00: 00 TAKE 1 2021-0 No [id number] TABLET 8- TWICE DAILY 00:00: WITH FOOD. 00 Dose 2-0 No 875 Unknown 02-13 00:00: 00 TAKE 1 2022-0 No [id number] TABLET 8- TWICE DAILY 00:00: WITH FOOD. 00 Dose 2021-0 No 875 Unknown 02-13 00:00: 00 TAKE 1 2021-0 No 500 TABLET BY 7-22 MOUTH TWICE 00:00: DAILY 00 TAKE 1 2021-0 No 875 TABLET BY 7-22 MOUTH TWICE 00:00: DAILY UNTIL 00 ALL TAKEN TAKE 1 2021-0 No 500 TABLET BY 7-22 MOUTH TWICE [...] 2022-0 No Unknown 3-06 00:00: 00 Dose 2-0 [...] No 1mg mg tablet - 00:00: 00 Abijessicay 2018- No 1mg mg tablet - 00:00: 00 Zoloft 2018- No 1mg mg tablet 08-09 00:00: 00 Abijessicay 2018- No 1mg mg tablet - 00:00: 00 Zoloft 2018- No 1mg mg tablet 08-09 00:00: 00 Zoloft 2018- No 1mg mg tablet 08-09 00:00: 00 Kristiy 2018- No 1mg mg tablet 08-09 00:00: 00 Kristiy 2018-07 No 1mg mg tablet 08-09 00:00: [...] Goal Plan of Care Note [code = 42971-4] Goal Plan of Care Note [code = 06587-2] Goal Plan of Care Note [code = 81621-2] Goal Plan of Care Note [code = 97636-6] Goal Plan of Care Note [code = 97368-1] Goal Plan of Care Note [code = 59436-4] Goal Plan of Care Note [code = 50814-4] Goal Plan of Care Note [code = 45114-1] Goal Plan of Care Note [code = 24019-1] Goal Plan of Care Note [code = 66152-1] Goal Plan of Care Note [code = 81613-1] Goal Plan of Care Note [code = 18120-7] Goal Plan of Care Note [code = 87802-0] Goal Plan of Care Note [code = 93744-3] Goal Plan of Care Note [code = 70763-3] Goal Plan of Care Note [code = 22334-2] Goal Plan of Care Note [code = 56321-7] Goal Plan of Care Note [code = 73931-2] Goal Plan of Care Note [code = 33861-8] Goal Plan of Care Note [code = 94415-0] Goal Plan of Care Note [code = 24147-5] Goal Plan of Care Note [code = 74271-6] Goal Plan of Care Note [code = 36337-2] Goal Plan of Care Note [code = 37557-3] Goal Plan of Care Note [code = 20452-7] Goal Plan of Care Note [code = 58106-5] Goal Plan of Care Note [code = 24667-7] Goal Plan of Care Note [code = 34744-9] Goal Plan of Care Note [code = 49874-8] Goal Plan of Care Note [code = 30780-8] Goal Plan of Care Note [code = 39903-5] Goal Plan of Care Note [code = 30397-0] Goal Plan of Care Note [code = 41753-9] Goal Plan of Care Note [code = 00596-2] Goal Plan of Care Note [code = 68666-4] Goal Plan of Care Note [code = 51306-5] Goal Plan of Care Note [code = 35834-5] Goal Plan of Care Note [code = 74212-7] Goal Plan of Care Note [code = 47265-6] Goal Plan of Care Note [code = 35955-6] Goal Plan of Care Note [code = 66660-8] Goal Plan of Care Note [code = 70833-5] Goal Plan of Care Note [code = 39930-2] Goal Plan of Care Note [code = 86291-0] Goal Plan of Care Note [code = 73537-8] Goal Plan of Care Note [code = 75555-5] Goal Plan of Care Note [code = 31651-6] Goal Plan of Care Note [code = 54205-9] Goal Plan of Care Note [code = 02395-5] Goal Plan of Care Note [code = 17174-4] Goal Plan of Care Note [code = 82937-3] Goal Plan of Care Note [code = 67014-2] Goal Plan of Care Note [code = 94202-8] Goal Plan of Care Note [code = 93286-4] Goal Plan of Care Note [code = 58044-4] Goal Plan of Care Note [code = 25714-0] Goal Plan of Care Note [code = 95980-1] Goal Plan of Care Note [code = 40540-4] Goal Plan of Care Note [code = 76281-8] Goal Plan of Care Note [code = 45915-8] Goal Plan of Care Note [code = 74984-1] Goal Plan of Care Note [code = 06556-4] Goal Plan of Care Note [code = 03707-8] Goal Plan of Care Note [code = 49056-1] Goal Plan of Care Note [code = 83077-9] Goal Plan of Care Note [code = 41193-8] Goal Plan of Care Note [code = 50444-7] Goal Plan of Care Note [code = 88205-4] Goal Plan of Care Note [code = 80105-5] Goal Plan of Care Note [code = 57885-8] Goal Plan of Care Note [code = 23589-8] Goal Plan of Care Note [code = 04695-3] Goal Plan of Care Note [code = 60986-6] Goal Plan of Care Note [code = 52557-1] Goal Plan of Care Note [code = 71034-8] Goal Plan of Care Note [code = 23480-1] Goal Plan of Care Note [code = 58825-9] Goal Plan of Care Note [code = 45693-2] Goal Plan of Care Note [code = 28574-4] Goal Plan of Care Note [code = 19230-8] Goal Plan of Care Note [code = 87895-3] Goal Plan of Care Note [code = 01296-9] Goal Plan of Care Note [code = 72305-0] Goal Plan of Care Note [code = 66333-7] Goal Plan of Care Note [code = 40150-8] Goal Plan of Care Note [code = 96803-4] Goal Plan of Care Note [code = 53945-5] Goal Plan of Care Note [code = 25233-3] Goal Plan of Care Note [code = 21107-7] Goal Plan of Care Note [code = 66343-6] Goal Plan of Care Note [code = 96542-3] Goal Plan of Care Note [code = 19252-4] Goal Plan of Care Note [code = 76199-3] Goal Plan of Care Note [code = 92266-9] Goal Plan of Care Note [code = 02471-7] Goal Plan of Care Note [code = 50468-5] Goal Plan of Care Note [code = 47639-5] Goal Plan of Care Note [code = 06504-6] Goal Plan of Care Note [code = 03671-8] Goal Plan of Care Note [code = 16359-0] Goal Plan of Care Note [code = 61697-8] Goal Plan of Care Note [code = 26599-6] Goal Plan of Care Note [code = 92551-3] Goal Plan of Care Note [code = 01495-4] Goal Plan of Care Note [code = 89228-4] Goal Plan of Care Note [code = 75738-2] Goal Plan of Care Note [code = 48017-8] Goal Plan of Care Note [code = 23771-0] Goal Plan of Care Note [code = 36411-8] Goal Plan of Care Note [code = 65015-4] Goal Plan of Care Note [code = 81084-7] Encounters Start End Encounter Admission Attending Care Care Encounter Source Date/Time Date/Time Type Type Clinicians Facility Department ID 2022-05-17 2022-05-17 [place] [id number] 022 [place] 09:31:59 09:31:59 1103 F Rub[facility] 2022-05-17 2022-05-17 Outpatient [id number]- [id number] ed [id number] 00:00:00 00:00:00 Visit 2qd5-7805 ad4-4855-b -w936-jk1 541-wd1147 [id number] 1745-10-29 2022-05-12 [place] [id number] 022 [place] 14:22:47 14:22:47 1029 F [place] 2022-05-12 2022-05-12 Outpatient [id number] e2 [id number] 00:00:00 00:00:00 Visit 66g3-7f4z 2n9-5f4t-f -xn46-59j t25-20b450 83966iu7z 18da9d 2022-02-20 2022-02-20 Outpatient [id number]- [id number] a3 mq4cek-o 00:00:00 00:00:00 Visit abbf-466a bbf-466a-8 -8131-e9b 131-e9bd33 m04n521u7 f397d7 2022-02-13 2022-02-13 Outpatient [id number] 3wz704-e 00:00:00 00:00:00 Visit h5f7-0877 7n4-6380-2 -5oe1-666 ac4-83022z 53t77p637 08w662 2022-02-05 2022-02-05 Outpatient 5j80rq6r- [id number] 9a 82ne4i-2 00:00:00 00:00:00 Visit 1fee-4f0f fee-4f0f-a -ey7b-4v9 r6q-2v19th 7yx95lbp3 47dfe6 2022-02-02 2022-02-02 Outpatient [id number]- [id number] 4e 12803s-f 00:00:00 00:00:00 Visit i6g9-85ic 9o5-61mg-t -bda9-04c da9-05o146 [id number] Results Test Description Test Time Test Comments Results Result Comments Source SARS-CoV-2 (COVID-19) by RT-PCR (HIGH RISK) 2020-06-21 00:00 :00 Test Item Value Reference Range Interpretation Comme nts SARS-CoV-2 INTERPRETATION (test code = 43330) NEGATIVE SOURCE (test code = 46999) NASOPHARYNGEAL SARS-CoV-2 (COVID-19) by RT-PCR (HIGH RISK)2020-06-21 00:00:00 Test Item Value Reference Range Interpretation Comments SARS-CoV-2 INTERPRETATION NEGATIVE (test code = 03157) SOURCE (test code = 51797) NASOPHARYNGEAL SARS-CoV-2 (COVID-19) by RT-PCR (HIGH RISK)2020-06-21 00:00:00 Test Item Value Reference Range Interpretation Comments SARS-CoV-2 INTERPRETATION NEGATIVE (test code = 71567) SOURCE (test code = 71641) NASOPHARYNGEAL SARS-CoV-2 (COVID-19) by RT-PCR (HIGH RISK)2020-06-21 00:00:00 Test Item Value Reference Range Interpretation Comments SARS-CoV-2 INTERPRETATION NEGATIVE (test code = 00103) SOURCE (test code = 76289) NASOPHARYNGEAL SARS-CoV-2 (COVID-19) by RT-PCR (HIGH RISK)2020-06-21 00:00:00 Test Item Value Reference Range Interpretation Comments SARS-CoV-2 INTERPRETATION NEGATIVE (test code = 96252) SOURCE (test code = 09623) NASOPHARYNGEAL SARS-CoV-2 (COVID-19) by RT-PCR (HIGH RISK)2020-06-21 00:00:00 Test Item Value Reference Range Interpretation Comments SARS-CoV-2 INTERPRETATION NEGATIVE (test code = 51668) SOURCE (test code = 08657) NASOPHARYNGEAL SARS-CoV-2 (COVID-19) by RT-PCR (HIGH RISK)2020-06-21 00:00:00 Test Item Value Reference Range Interpretation Comments SARS-CoV-2 INTERPRETATION NEGATIVE (test code = 17334) SOURCE (test code = 26525) NASOPHARYNGEAL SARS-CoV-2 (COVID-19) by RT-PCR (HIGH RISK)2020-06-21 00:00:00 Test Item Value Reference Range Interpretation Comments SARS-CoV-2 INTERPRETATION NEGATIVE (test code = 48966) SOURCE (test code = 08743) NASOPHARYNGEAL SARS-CoV-2 (COVID-19) by RT-PCR (HIGH RISK)2020-06-21 00:00:00 Test Item Value Reference Range Interpretation Comments SARS-CoV-2 INTERPRETATION NEGATIVE (test code = 39924) SOURCE (test code = 19076) NASOPHARYNGEAL
--- NOTE | 2022-06-30 16:54 | EDPHYS ---
Physician Documentation [facility] Name: Glory Ba Age: 21 yrs Sex: Female : 2000 Arrival Date: 06/30/2022 Time: 16:31 Bed Waiting Private MD: ED Physician Nando Conley HPI: 06/30 16:52 This 21 yrs old Female presents to ER via Unassigned with complaints of Suture Removal. kb 16:52 The patient has sutures on the dorsal aspect of left forearm. Previous treatment: The kb patient was initially treated 16 day(s) ago, the care was rendered at [facility], Treatment type: The patient's original treatment included sutures. Sutures/kimberly progress: The patient has no c/o's. The wound is well-healing with no redness, swelling, discharge, or dehiscence reported. The patient has not experienced similar symptoms in the past. The patient has been recently seen by a physician:. Historical: - Allergies: 16:52 No Known Allergies; kb ROS: 16:52 Constitutional: Negative for fever, chills, and weight loss. kb 16:52 Skin: Positive for of the dorsal aspect of left forearm, sutures in place. 16:52 All other systems are negative. Exam: 16:52 Constitutional: This is a well developed, well nourished patient who is awake, alert, kb and in no acute distress. Head/Face: Normocephalic, atraumatic. ENT: Moist Mucous membranes Respiratory: Respirations even and unlabored. No increased work of breathing. Talking in full sentences MS/ Extremity: Pulses equal, no cyanosis. Neurovascular intact. Full, normal range of motion. Neuro: Awake and alert, GCS 15, oriented to person, place, time, and situation. Moves all extremities. Normal gait. Psych: Awake, alert, with orientation to person, place and time. Behavior, mood, and affect are within normal limits. 16:52 Skin: Wound recheck: Suture laceration closure: the wound is healing well, the edges are well approximated, no evidence of dehiscence, no drainage, no erythema, no swelling. Procedures: 16:51 Suture/Staple removal: Removed 15 sutures, from dorsal aspect of left forearm, site kb appears well healed, dressed with steri strips. Patient tolerated well. MDM: 16:50 Patient medically screened. kb 16:51 Data reviewed: old medical records, laceration repair note from 06/14. Counseling: I had kb a detailed discussion with the patient and/or guardian regarding: the historical points, exam findings, and any diagnostic results supporting the discharge/admit diagnosis, the need for outpatient follow up, a family practitioner, to return to the emergency department if symptoms worsen or persist or if there are any questions or concerns that arise at home. Administered Medications: No medications were administered Disposition: 18:27 Co-signature as Attending Physician, Nando Conley MD. rn Disposition Summary: 06/30/22 16:53 Discharge Ordered Location: Home kb Condition: Stable kb Diagnosis - Encounter for removal of sutures kb Followup: kb - With: Private Physician - When: 2 - 3 days - Reason: Recheck today's complaints, Continuance of care, Re-evaluation by your physician Followup: kb - With: Emergency Department - When: As needed - Reason: Worsening of condition Discharge Instructions: - Discharge Summary Sheet kb - Suture Removal, Care After kb Forms: - Medication Reconciliation Form kb - Thank You Letter kb - Antibiotic Education kb - Prescription Opioid Use kb Signatures: Genet Obrien, KAYLEE-C SEM MANAGER-Nando Esqueda MD MD inpatient services rn: (The following items were deleted from the chart) 16:52 16:52 PMHx: Depression; kb kb 16:52 16:52 PMHx: "depersonalization"; kb kb
== END 2022-06-30 16:53 | disposition home or self-care (01) ==
LOC: ER 16:27
DX: Z48.02 Encounter for removal of sutures (principal)

== ENCOUNTER 2022-07-11 08:45 | Emergency (ER) | payer SELFPAY ==
--- OUTSIDE RECORDS SUMMARY | 2022-07-11 08:50 | XMS REPORT | Continuity of Care Document ---
:2000 Author Organization [facility] t Address [address] [place] [address] Care Team Providers Name Role Phone Alta Levin Primary Care Physician [phone] Problems This patient has no known problems. [...] 00:00: DAILY 00 TAKE 1 2021-0 No [id number] TABLET 8- TWICE DAILY 00:00: WITH FOOD. 00 Dose 2021-0 No 875 Unknown 02-13 00:00: 00 TAKE 1 2021-0 No [id number] TABLET 8- TWICE DAILY 00:00: WITH FOOD. 00 Dose 2021-0 No 875 Unknown 02-13 00:00: 00 TAKE 1 2021-0 No [id number] TABLET 8- TWICE DAILY 00:00: WITH FOOD. 00 Dose 2022-0 No 875 Unknown 02-13 00:00: 00 TAKE 1 2022-0 No [id number] TABLET 8- TWICE DAILY 00:00: WITH FOOD. 00 Dose 2-0 No 875 Unknown 02-13 00:00: 00 TAKE 1 2021-0 No 500 TABLET BY 7- MOUTH TWICE 00:00: DAILY 00 TAKE 1 2022-0 No 875 TABLET BY 7- MOUTH TWICE 00:00: DAILY UNTIL 00 ALL [...] 2022-0 No Unknown 3-03 00:00: 00 sertraline 2019-0 No 1mg 50 mg 9-24 tablet 00:00: 00 aripiprazol 2019-0 No 1mg e 5 mg 9-24 tablet [...] Abilify 5 2020-0 No 1mg mg tablet 07-21 00:00: 00 Zoloft 100 2020-0 No 1mg mg tablet 07-21 00:00: 00 Abilify 5 2020-0 No 1mg mg tablet 07-21 00:00: 00 Zoloft 100 2020-0 No 1mg mg tablet 07-21 00:00: 00 Abilify 5 2020-0 No 1mg mg tablet 07-21 00:00: 00 Zoloft 100 2020-0 No 1mg mg tablet 07-21 00:00: 00 Abilify 5 2020-0 No 1mg mg tablet 07-21 00:00: 00 Zoloft 100 2020-0 No 1mg mg tablet 07-21 00:00: 00 Abilify 5 2020-0 No 1mg mg tablet 07-21 00:00: 00 Zoloft 50 2018-1 No 1mg mg tablet 2-10 00:00: 00 Abilify 2018-1 No 1mg mg tablet 2-10 00:00: 00 Zoloft 50 2019-1 No 1mg mg tablet 2-10 00:00: 00 Abilify 5 2018-1 No 1mg mg tablet 2-10 00:00: 00 Zoloft 50 2018-1 No 1mg mg tablet 2-10 00:00: 00 Abilify 2018-1 No 1mg mg tablet 2-10 00:00: [...] mg tablet - 00:00: 00 Abilify 5 2018- No 1mg mg tablet - 00:00: 00 Zoloft 2018- No 1mg mg tablet - 00:00: 00 Abilify 2018- No 1mg mg tablet - 00:00: 00 Zoloft 2018- No 1mg mg tablet - 00:00: 00 Zoloft 2018- No 1mg mg tablet - 00:00: 00 Abilify 2018- No 1mg mg tablet 08-09 00:00: 00 Abilify 2018- No 1mg mg tablet - 00:00: 00 Zoloft 2018-07 No 1mg mg tablet 08-09 00:00: 00 Abilify 2018-07 No 1mg mg tablet 08-09 00:00: [...] Goal Plan of Care Note [code = 70127-2] Goal Plan of Care Note [code = 50449-6] Goal Plan of Care Note [code = 54341-7] Goal Plan of Care Note [code = 92602-7] Goal Plan of Care Note [code = 97811-1] Goal Plan of Care Note [code = 51886-9] Goal Plan of Care Note [code = 82403-4] Goal Plan of Care Note [code = 11447-2] Goal Plan of Care Note [code = 85198-0] Goal Plan of Care Note [code = 98944-8] Goal Plan of Care Note [code = 74640-2] Goal Plan of Care Note [code = 67046-6] Goal Plan of Care Note [code = 78736-6] Goal Plan of Care Note [code = 24462-8] Goal Plan of Care Note [code = 18483-5] Goal Plan of Care Note [code = 78721-8] Goal Plan of Care Note [code = 35285-5] Goal Plan of Care Note [code = 30054-4] Goal Plan of Care Note [code = 43948-6] Goal Plan of Care Note [code = 69485-9] Goal Plan of Care Note [code = 75899-5] Goal Plan of Care Note [code = 45993-5] Goal Plan of Care Note [code = 32364-7] Goal Plan of Care Note [code = 71534-1] Goal Plan of Care Note [code = 17617-7] Goal Plan of Care Note [code = 31526-0] Goal Plan of Care Note [code = 90254-3] Goal Plan of Care Note [code = 36788-6] Goal Plan of Care Note [code = 48930-8] Goal Plan of Care Note [code = 34711-2] Goal Plan of Care Note [code = 21000-9] Goal Plan of Care Note [code = 69764-4] Goal Plan of Care Note [code = 17272-7] Goal Plan of Care Note [code = 01120-9] Goal Plan of Care Note [code = 31205-7] Goal Plan of Care Note [code = 38178-7] Goal Plan of Care Note [code = 33680-3] Goal Plan of Care Note [code = 87604-7] Goal Plan of Care Note [code = 32428-1] Goal Plan of Care Note [code = 49805-1] Goal Plan of Care Note [code = 31165-3] Goal Plan of Care Note [code = 84472-4] Goal Plan of Care Note [code = 20850-4] Goal Plan of Care Note [code = 88453-7] Goal Plan of Care Note [code = 28388-2] Goal Plan of Care Note [code = 30549-0] Goal Plan of Care Note [code = 60312-3] Goal Plan of Care Note [code = 40432-2] Goal Plan of Care Note [code = 47406-1] Goal Plan of Care Note [code = 86701-2] Goal Plan of Care Note [code = 65747-2] Goal Plan of Care Note [code = 12647-9] Goal Plan of Care Note [code = 95090-7] Goal Plan of Care Note [code = 31247-5] Goal Plan of Care Note [code = 58952-5] Goal Plan of Care Note [code = 23062-9] Goal Plan of Care Note [code = 41965-0] Goal Plan of Care Note [code = 73491-2] Goal Plan of Care Note [code = 67019-7] Goal Plan of Care Note [code = 92872-0] Goal Plan of Care Note [code = 90631-7] Goal Plan of Care Note [code = 25876-6] Goal Plan of Care Note [code = 60080-9] Goal Plan of Care Note [code = 02773-9] Goal Plan of Care Note [code = 12578-7] Goal Plan of Care Note [code = 06909-0] Goal Plan of Care Note [code = 33122-5] Goal Plan of Care Note [code = 91794-4] Goal Plan of Care Note [code = 29302-9] Goal Plan of Care Note [code = 33996-3] Goal Plan of Care Note [code = 21768-3] Goal Plan of Care Note [code = 60010-9] Goal Plan of Care Note [code = 91748-0] Goal Plan of Care Note [code = 22031-5] Goal Plan of Care Note [code = 74071-9] Goal Plan of Care Note [code = 99396-3] Goal Plan of Care Note [code = 46440-5] Goal Plan of Care Note [code = 81616-2] Goal Plan of Care Note [code = 80471-5] Goal Plan of Care Note [code = 34547-6] Goal Plan of Care Note [code = 81137-6] Goal Plan of Care Note [code = 63479-0] Goal Plan of Care Note [code = 05493-7] Goal Plan of Care Note [code = 26017-0] Goal Plan of Care Note [code = 78551-9] Goal Plan of Care Note [code = 48868-1] Goal Plan of Care Note [code = 15918-4] Goal Plan of Care Note [code = 01259-2] Goal Plan of Care Note [code = 08935-5] Goal Plan of Care Note [code = 66541-8] Goal Plan of Care Note [code = 38782-7] Goal Plan of Care Note [code = 98903-9] Goal Plan of Care Note [code = 02962-9] Goal Plan of Care Note [code = 28954-0] Goal Plan of Care Note [code = 85943-9] Goal Plan of Care Note [code = 84254-3] Goal Plan of Care Note [code = 35713-9] Goal Plan of Care Note [code = 28768-8] Goal Plan of Care Note [code = 62793-6] Goal Plan of Care Note [code = 08626-3] Goal Plan of Care Note [code = 96013-5] Goal Plan of Care Note [code = 23473-8] Goal Plan of Care Note [code = 66953-7] Goal Plan of Care Note [code = 32548-8] Goal Plan of Care Note [code = 22751-5] Goal Plan of Care Note [code = 80046-5] Goal Plan of Care Note [code = 85100-9] Goal Plan of Care Note [code = 41387-4] Goal Plan of Care Note [code = 66172-8] Goal Plan of Care Note [code = 68092-7] Goal Plan of Care Note [code = 65871-3] Encounters Start End Encounter Admission Attending Care Care Encounter Source Date/Time Date/Time Type Type Clinicians Facility Department ID 2022-05-17 2022-05-17 [place] [id number] 022 [place] 09:31:59 09:31:59 1103 F [facility] 2022-05-17 2022-05-17 Outpatient [id number]- [id number] ed 5h97v2-1 00:00:00 00:00:00 Visit 6hg7-4144 ad4-4855-b -u697-dw5 541-sd9247 [id number] 8083-10-29 2022-05-12 [place] [address]-1 022 [place] 14:22:47 14:22:47 1029 F [place] 2022-05-12 2022-05-12 Outpatient [id number]- [id number] e2 3342aa-1 00:00:00 00:00:00 Visit 38f0-5t5y 3e4-4b2t-y -sf11-18h y35-18y244 39688ip3s 18da9d 2022-02-20 2022-02-20 Outpatient c9af7ode- [id number] a3 js6lsn-o 00:00:00 00:00:00 Visit abbf-466a bbf-466a-8 -8131-e9b 131-e9bd33 r02c259j3 f397d7 2022-02-13 2022-02-13 Outpatient [id number]- [id number] 6fw033-u 00:00:00 00:00:00 Visit u2f3-7883 7x5-3973-6 -4mv2-622 ac4-48555w 63m39z637 39v227 2022-02-05 2022-02-05 Outpatient 5r26rx6v- [id number] 9a 12uy6a-7 00:00:00 00:00:00 Visit 1fee-4f0f fee-4f0f-a -ld3j-6f0 h8t-3q49xa 2sp42qlj6 47dfe6 2022-02-02 2022-02-02 Outpatient [id number]- [id number] 4e 20341r-i 00:00:00 00:00:00 Visit e5t0-24vy 7r9-38jl-o -bda9-04c da9-27y715 [id number] 028425 Results Test Description Test Time Test Comments Results Result Comments Source SARS-CoV-2 (COVID-19) by RT-PCR (HIGH RISK) 2020-06-21 00:00 :00 Test Item Value Reference Range Interpretation Comme nts SARS-CoV-2 INTERPRETATION (test code = 12828) NEGATIVE SOURCE (test code = 08466) NASOPHARYNGEAL SARS-CoV-2 (COVID-19) by RT-PCR (HIGH RISK)2020-06-21 00:00:00 Test Item Value Reference Range Interpretation Comments SARS-CoV-2 INTERPRETATION NEGATIVE (test code = 16491) SOURCE (test code = 80257) NASOPHARYNGEAL SARS-CoV-2 (COVID-19) by RT-PCR (HIGH RISK)2020-06-21 00:00:00 Test Item Value Reference Range Interpretation Comments SARS-CoV-2 INTERPRETATION NEGATIVE (test code = 15226) SOURCE (test code = 08086) NASOPHARYNGEAL SARS-CoV-2 (COVID-19) by RT-PCR (HIGH RISK)2020-06-21 00:00:00 Test Item Value Reference Range Interpretation Comments SARS-CoV-2 INTERPRETATION NEGATIVE (test code = 22378) SOURCE (test code = 50687) NASOPHARYNGEAL SARS-CoV-2 (COVID-19) by RT-PCR (HIGH RISK)2020-06-21 00:00:00 Test Item Value Reference Range Interpretation Comments SARS-CoV-2 INTERPRETATION NEGATIVE (test code = 72105) SOURCE (test code = 79617) NASOPHARYNGEAL SARS-CoV-2 (COVID-19) by RT-PCR (HIGH RISK)2020-06-21 00:00:00 Test Item Value Reference Range Interpretation Comments SARS-CoV-2 INTERPRETATION NEGATIVE (test code = 29575) SOURCE (test code = 05582) NASOPHARYNGEAL SARS-CoV-2 (COVID-19) by RT-PCR (HIGH RISK)2020-06-21 00:00:00 Test Item Value Reference Range Interpretation Comments SARS-CoV-2 INTERPRETATION NEGATIVE (test code = 18679) SOURCE (test code = 49129) NASOPHARYNGEAL SARS-CoV-2 (COVID-19) by RT-PCR (HIGH RISK)2020-06-21 00:00:00 Test Item Value Reference Range Interpretation Comments SARS-CoV-2 INTERPRETATION NEGATIVE (test code = 54500) SOURCE (test code = 45370) NASOPHARYNGEAL SARS-CoV-2 (COVID-19) by RT-PCR (HIGH RISK)2020-06-21 00:00:00 Test Item Value Reference Range Interpretation Comments SARS-CoV-2 INTERPRETATION NEGATIVE (test code = 87486) SOURCE (test code = 46573) NASOPHARYNGEAL
[2022-07-11 09:37] LABS: Urine Blood 2+ (Negative); Urine Glucose Negative (Negative); Urine Protein 1+ (Negative); Urine Specific Gravity >=1.030 (1.005-1.030)
[2022-07-11] MEDS ORDERED: FAMOTIDINE 20 MG TAB ONE (09:41)
[2022-07-11] MEDS ORDERED: LIDOCAINE VISCOUS 2% SOLN 15 ML UDC ONE (09:42)
[2022-07-11] MEDS ORDERED: MAGNES/ALUMIN/SIMET 30ML UCUP ONE (09:42)
[2022-07-11 09:57] LABS: Absolute Lymphocytes (CBC) 0.9 K/uL (0.7-4.9); Hematocrit 36.7 % (36.0-45.0); Lymphocytes % 7.7 % (15.3-44.8); MCV 84.2 fL (80-100); RBC Red Blood Cell Count 4.36 M/uL (3.86-4.86)
[2022-07-11 10:14] LABS: Albumin 3.5 g/dL (3.4-5.0); Bilirubin Total 0.2 mg/dL (0.2-1.0); Potassium 4.1 mmol/L (3.5-5.1); Protein, Total 8.3 g/dL (6.4-8.2)
--- NOTE | 2022-07-11 10:44 | EDPHYS ---
Physician Documentation [facility] Name: Glory Ba Age: 21 yrs Sex: Female : 2000 Arrival Date: 07/11/2022 Time: 08:46 Bed 18 Private MD: ED Physician Herve Hart HPI: 07/11 09:45 This 21 yrs old Female presents to ER via Ambulatory with complaints of Abdominal Pain. rt 09:45 The patient presents with abdominal pain in the epigastric area. Onset: The rt symptoms/episode began/occurred this morning. The symptoms do not radiate. Associated signs and symptoms: Pertinent positives: nausea, Pertinent negatives: dysuria. The symptoms are described as achy. Modifying factors: The symptoms are alleviated by nothing, the symptoms are aggravated by food. Severity of pain: At its worst the pain was moderate. Historical: - Allergies: 08:57 No Known Allergies; ss - PMHx: 08:57 Bipolar disorder; Anxiety; ss - PSHx: 08:57 None; ss - Immunization history:: Client reports having NOT received the Covid vaccine. - Social history:: Smoking status: Patient denies any tobacco usage or history of. - Family history:: not pertinent. ROS: 09:45 Constitutional: Negative for fever, chills, and weight loss, Eyes: Negative for injury, rt pain, redness, and discharge, ENT: Negative for injury, pain, and discharge, Neck: Negative for injury, pain, and swelling, Cardiovascular: Negative for chest pain, palpitations, and edema, Respiratory: Negative for shortness of breath, cough, wheezing, and pleuritic chest pain, Back: Negative for injury and pain, MS/Extremity: Negative for injury and deformity, Skin: Negative for injury, rash, and discoloration, Neuro: Negative for headache, weakness, numbness, tingling, and seizure, Psych: Negative for depression, anxiety, suicide ideation, homicidal ideation, and hallucinations. 09:45 Abdomen/GI: Positive for abdominal pain, nausea. Exam: 09:45 Constitutional: This is a well developed, well nourished patient who is awake, alert, rt and in no acute distress. Head/Face: Normocephalic, atraumatic. ENT: Nares patent. No nasal discharge, no septal abnormalities noted. Tympanic membranes are normal and external auditory canals are clear. Oropharynx with no redness, swelling, or masses, exudates, or evidence of obstruction, uvula midline. Mucous membranes moist. Neck: Trachea midline, no thyromegaly or masses palpated, and no cervical lymphadenopathy. Supple, full range of motion without nuchal rigidity, or vertebral point tenderness. No Meningismus. Chest/axilla: Normal chest wall appearance and motion. Nontender with no deformity. No lesions are appreciated. Cardiovascular: Regular rate and rhythm with a normal S1 and S2. No gallops, murmurs, or rubs. Normal PMI, no JVD. No pulse deficits. Respiratory: Lungs have equal breath sounds bilaterally, clear to auscultation and percussion. No rales, rhonchi or wheezes noted. No increased work of breathing, no retractions or nasal flaring. Skin: Warm, dry with normal turgor. Normal color with no rashes, no lesions, and no evidence of cellulitis. MS/ Extremity: Pulses equal, no cyanosis. Neurovascular intact. Full, normal range of motion. Neuro: Awake and alert, GCS 15, oriented to person, place, time, and situation. Cranial nerves II-XII grossly intact. Motor strength 5/5 in all extremities. Sensory grossly intact. Cerebellar exam normal. Normal gait. Psych: Awake, alert, with orientation to person, place and time. Behavior, mood, and affect are within normal limits. 09:45 Respiratory: 09:45 Abdomen/GI: Tenderness to the epigastrium without rebound, guarding, distention.. Vital Signs: 08:56 BP 119 / 73; Pulse 90; Resp 18; Temp 98.5(O); Pulse Ox 100% on R/A; Weight 90.72 kg; ss Height 5 ft. 2 in. (157.48 cm); Pain 9/10; 10:07 BP 118 / 72; Pulse 84; Resp 18; Pulse Ox 100% ; mb9 11:35 BP 119 / 76; Pulse 88; Resp 18; Pulse Ox 100% ; mb9 08:56 Body Mass Index 36.58 (90.72 kg, 157.48 cm) ss MDM: 09:35 Patient medically screened. rt 10:48 Differential diagnosis: appendicitis, bowel obstruction, cholecystitis, Cholelithiasis, rt gastritis. Data reviewed: vital signs, nurses notes, lab test result(s). ED course: Presents to the ED with an epigastric pain, resolved with Pepcid, GI cocktail. The patient has a benign abdominal examination, do not suspect an acute surgical pathology such as appendicitis, cholecystitis, bowel obstruction. Patient is stable for outpatient care, return precautions discussed. 07/11 09:12 Order name: CMP; Complete Time: 10:31 rt 07/11 09:12 Order name: CBC with Diff; Complete Time: 10:31 rt 07/11 09:12 Order name: Lipase; Complete Time: 10:31 rt 07/11 09:37 Order name: Urine Dipstick-Ancillary; Complete Time: 10:31 EDMS 07/11 09:38 Order name: Urine --Ancillary (enter results); Complete Time: 10:31 eb 07/11 09:12 Order name: Urine Test (obtain specimen); Complete Time: 09:49 rt 07/11 09:30 Order name: IV Saline Lock; Complete Time: 09:49 mb9 Administered Medications: 09:48 Drug: GI Cocktail without - (Maalox Suspension 30 ml, Lidocaine Liquid 2 % 15 mb9 ml) Route: PO; 12:02 Follow up: Response: No adverse reaction mb9 09:48 Drug: Pepcid (famotidine) 20 mg Route: PO; mb9 12:03 Follow up: Response: No adverse reaction mb9 Disposition Summary: 07/11/22 10:43 Discharge Ordered Location: Home rt Problem: new rt Symptoms: are resolved rt Condition: Stable rt Diagnosis - Epigastric pain rt Followup: rt - With: Private Physician - When: 2 - 3 days - Reason: Discharge Instructions: - Discharge Summary Sheet rt - Abdominal Pain, Adult rt Forms: - Medication Reconciliation Form rt - Work release form ph - Thank You Letter rt - Antibiotic Education rt - Prescription Opioid Use rt Prescriptions: - Carafate 1 gram Oral Tablet - take 1 tablet by ORAL route 4 times per day take on an empty stomach, beginning rt on waking and last dose at bedtime; 100 tablet; Refills: 0, Product Selection Permitted - Pepcid 20 mg Oral Tablet - take 1 tablet by ORAL route every 12 hours for 10 days; 20 tablet; Refills: 0, rt Product Selection Permitted Signatures: Dispatcher [employer] Nancy Machado RN RN ss Breneman, Mary Beth, RN RN mb9 Herve Hart MD MD rt
--- NOTE | 2022-07-11 10:44 | ER ---
Nurse's Notes [facility] Name: Glory Ba Age: 21 yrs Sex: Female : 2000 Arrival Date: 07/11/2022 Time: 08:46 Bed 18 Private MD: Diagnosis: Epigastric pain Presentation: 07/11 08:56 Chief complaint: Patient states: sharp, epigastric discomfort that began this morning. ss Coronavirus screen: Client denies travel out of the [place] in the last 14 days. Ebola Screen: Patient denies exposure to infectious person. Patient denies travel to an Ebola-affected area in the 21 days before illness onset. Initial Sepsis Screen: Does the patient meet any 2 criteria? No. Patient's initial sepsis screen is negative. Does the patient have a suspected source of infection? No. Patient's initial sepsis screen is negative. Risk Assessment: Do you want to hurt yourself or someone else? Patient reports no desire to harm self or others. Onset of symptoms was July 11, 2022. 08:56 Method Of Arrival: Ambulatory ss 08:56 Acuity: KAILA 3 ss Historical: - Allergies: 08:57 No Known Allergies; ss - PMHx: 08:57 Bipolar disorder; Anxiety; ss - PSHx: 08:57 None; ss - Immunization history:: Client reports having NOT received the Covid vaccine. - Social history:: Smoking status: Patient denies any tobacco usage or history of. - Family history:: not pertinent. Assessment: 09:35 General: Appears in no apparent distress. comfortable, Behavior is calm, cooperative, mb9 appropriate for age. Pain: Complains of pain in abdomen. Neuro: Singh Agitation-Sedation Scale (RASS): 0 - Alert and Calm Level of Consciousness is awake, alert, obeys commands, Oriented to person, place, time, situation, Appropriate for age. Cardiovascular: Heart tones S1 S2 present Rhythm is regular. Respiratory: Airway is patent Respiratory effort is even, unlabored, Respiratory pattern is regular, symmetrical, Breath sounds are clear bilaterally. GI: Abdomen is round non-distended, Bowel sounds present X 4 quads. Abdomen is tender to palpation in right upper quadrant and left upper quadrant Reports diarrhea, nausea, vomiting, since 0500 this morning. 09:35 : Urine is clear. EENT: No signs and/or symptoms were reported regarding the EENT mb9 system. Derm: Skin is pink, warm \T\ dry. Musculoskeletal: Range of motion: intact in all extremities. 10:35 Reassessment: Patient denies pain at this time. Patient states feeling better. Patient mb9 states symptoms have improved. Derm: Skin is pink, warm \T\ dry. 11:35 Reassessment: Patient denies pain at this time. Patient states feeling better. Patient mb9 states symptoms have improved. Pain: Denies pain. Cardiovascular: Rhythm is regular. Respiratory: Airway is patent. Derm: Skin is pink, warm \T\ dry. Vital Signs: 08:56 BP 119 / 73; Pulse 90; Resp 18; Temp 98.5(O); Pulse Ox 100% on R/A; Weight 90.72 kg; ss Height 5 ft. 2 in. (157.48 cm); Pain 9/10; 10:07 BP 118 / 72; Pulse 84; Resp 18; Pulse Ox 100% ; mb9 11:35 BP 119 / 76; Pulse 88; Resp 18; Pulse Ox 100% ; mb9 08:56 Body Mass Index 36.58 (90.72 kg, 157.48 cm) ED Course: 08:46 Patient arrived in ED. am2 08:57 Triage completed. ss 08:57 Arm band placed on right wrist. ss 09:01 Herve Hart MD is Attending Physician. rt 09:29 Keren Manjarrez RN is Primary Nurse. mb9 09:35 Inserted saline lock: 20 gauge in right antecubital area, using aseptic technique. mb9 Blood collected. 09:50 CBC with Diff Sent. mb9 09:50 CMP Sent. mb9 12:03 IV discontinued, intact, bleeding controlled, No redness/swelling at site. Pressure mb9 dressing applied. Administered Medications: 09:48 Drug: GI Cocktail without - (Maalox Suspension 30 ml, Lidocaine Liquid 2 % 15 mb9 ml) Route: PO; 12:02 Follow up: Response: No adverse reaction mb9 09:48 Drug: Pepcid (famotidine) 20 mg Route: PO; mb9 12:03 Follow up: Response: No adverse reaction mb9 Outcome: 10:43 Discharge ordered by . rt 12:04 Patient left the ED. mb9 Signatures: Nancy Rodriguez, RN RN ss Precious Martinez am2 Keren Manjarrez, RN RN mb9 Herve Hart MD MD rt
[2022-07-11 12:21] VITALS: TEMP 98.5; O2SAT 100
[2022-07-11 12:27] VITALS: BP 118/72
== END 2022-07-11 12:04 | disposition home or self-care (01) ==
LOC: ER 08:45
DX: R10.13 Epigastric pain (principal)
CPT/HCPCS: 36415; 80053; 81003; 81025; 83690; 85025

== ENCOUNTER 2023-02-05 19:16 | Emergency (ER) | payer SELFPAY ==
--- OUTSIDE RECORDS SUMMARY | 2023-02-05 19:22 | XMS REPORT | Continuity of Care Document ---
:2000 Author Organization [facility] t Address [address] [facility]. [address] [place] [address] Care Team Providers Name Role Phone Alta Levin Primary Care Physician [phone] Problems This patient has no known problems. Allergies, Adverse Reactions, Alerts This patient has no known allergies or adverse reactions. Medications Ordered Filled Start Stop Current Ordering Indication Dosage Frequency Signature Comments Components Source Medication Medication Date Date Medication? Clinician (SIG) Name Name 10 ML Q 4 No [id number] TO 6 HOURS 1 PRN COUGH 00:00: FOR 5 DAYS 00 TAKE 2021-07 No TABLET BY 2-28 MOUTH EVERY 00:00: 12 HOURS 00 FOR 10 DAYS SUCRALFATE 2021-07 No 1GM TABLETS 2- 00:00: 00 TAKE 2021-07 No CAPSULE BY 2-02 MOUTH EVERY 00:00: 6 HOURS FOR 00 10 DAYS. TAKE No 500 TABLET BY 8-09 MOUTH TWICE 00:00: DAILY 00 TAKE 2021-0 No 500 TABLET BY 8-09 MOUTH TWICE 00:00: DAILY 00 TAKE 2021-0 No 500 TABLET BY 8-09 MOUTH TWICE 00:00: DAILY 00 TAKE 2021-0 No 500 TABLET BY 8-09 MOUTH TWICE 00:00: DAILY 00 TAKE 1 2021-0 No [id number] TABLET 8- TWICE DAILY 00:00: WITH FOOD. 00 Dose 2021-0 No 875 Unknown 02-13 00:00: 00 TAKE 1 2021-0 No [id number] TABLET 8- TWICE DAILY 00:00: WITH FOOD. 00 Dose 2021-0 No 875 Unknown 02-13 00:00: 00 TAKE 1 2021-0 No [id number] TABLET - TWICE DAILY 00:00: WITH FOOD. 00 Dose 2022-0 No 875 Unknown 02-13 00:00: 00 TAKE 1 2022-0 No [id number] TABLET 02-13 TWICE DAILY 00:00: WITH FOOD. 00 Dose 2022-0 No 875 Unknown 02-13 00:00: 00 TAKE 1 2022-0 No [id number] TABLET 02-13 TWICE DAILY 00:00: WITH FOOD. 00 Dose 2022-0 No 875 Unknown 02-13 00:00: 00 TAKE 1 2022-0 No 500 TABLET [...] MOUTH TWICE 00:00: DAILY 00 TAKE 1 2-0 No 500 TABLET BY 7-22 MOUTH TWICE 00:00: DAILY 00 TAKE 1 2-0 No 875 TABLET BY 7-22 MOUTH TWICE 00:00: DAILY UNTIL 00 ALL TAKEN TAKE 1 2-0 No 500 TABLET BY 7-22 MOUTH TWICE 00:00: DAILY 00 medroxyprog 2022-0 No 1mg/mL esterone 5-20 150 mg/mL 00:00: intramuscul 00 ar suspension Dose 2-0 No Unknown 5-20 00:00: 00 Dose 2022-0 No Unknown 5-20 00:00: 00 medroxyprog 2-0 No 1mg/mL esterone 5-20 150 mg/mL 00:00: [...] 2-0 No Unknown 5-20 00:00: 00 medroxyprog 2-0 No 1mg/mL esterone 5-20 150 mg/mL 00:00: intramuscul 00 ar suspension Dose 2-0 No Unknown 5-20 00:00: 00 Dose 2022-0 No Unknown 5-20 00:00: 00 Dose 2022-0 No Unknown 5-20 00:00: 00 Dose 2022-0 No Unknown 5-20 00:00: 00 Dose 2-0 No Unknown 5-20 00:00: 00 Dose 2022-0 No Unknown 5-20 00:00: 00 Chlorasepti 2-0 No 2mg c Total 5 5-13 mg-6 mg-10 00:00: mg lozenges 00 Dose 2-0 No Unknown 5-13 00:00: 00 Chlorasepti 2-0 No 2mg c Total 5 5-13 mg-6 mg-10 00:00: mg lozenges 00 Dose 2-0 No Unknown 5-13 00:00: 00 Chlorasepti 2022-0 No 2mg c Total 5 5-13 mg-6 mg-10 00:00: mg lozenges 00 Dose 2022-0 No Unknown 5-13 00:00: 00 Chlorasepti 2022-0 No 2mg c Total 5 5-13 mg-6 mg-10 00:00: mg lozenges 00 Dose 2022-0 No Unknown 5-13 00:00: 00 Chlorasepti 2022-0 No 2mg c Total 5 5-13 mg-6 mg-10 00:00: mg lozenges 00 Dose 2022-0 No Unknown 5-13 00:00: 00 Chlorasepti 2022-0 No 2mg c Total 5 5-13 mg-6 mg-10 00:00: mg lozenges 00 Dose 2022-0 No Unknown 5-13 00:00: 00 Chlorasepti 2022-0 No 2mg c Total 5 5-13 mg-6 mg-10 00:00: mg lozenges 00 Dose 2022-0 No Unknown 5-13 00:00: 00 Dose 2022-0 No Unknown 3-06 [...] Abilify 5 2020-0 No 1mg mg tablet 1-07 00:00: 00 Zoloft 100 2020-0 No 1mg mg tablet 1-07 00:00: 00 Abilify 5 2020-0 No 1mg mg tablet 1-07 00:00: 00 Zoloft 100 2020-0 No 1mg [...] 1mg mg tablet - 00:00: 00 Abilify 2020-0 No 1mg mg tablet - 00:00: 00 Zoloft 100 2020-0 No 1mg mg tablet - 00:00: 00 Abilify 2020-0 No 1mg mg tablet 1- 00:00: [...] 1mg mg tablet 2-10 00:00: 00 Abilify 2019-1 No 1mg mg tablet 2-10 00:00: 00 Zoloft 25 2018-1 No 1mg mg tablet 1- 00:00: 00 Abilify 2018-1 No 1mg mg tablet 1- 00:00: 00 Zoloft 25 2018-1 No 1mg mg tablet 1-26 00:00: 00 Abilify 5 2018- No 1mg mg tablet 1- 00:00: 00 Zoloft 2018- No 1mg mg tablet 1- 00:00: 00 Abilify 5 2018- No 1mg mg tablet - 00:00: 00 Zoloft 2018- No 1mg mg tablet 1- 00:00: 00 Zoloft 2018- No 1mg mg [...] No 1mg mg tablet - 00:00: 00 Immunizations Ordered Immunization Filled Immunization Date Status Commen ts Source Name Name meningococcal MCV4P 2017-09-04 Completed 00:00:00 meningococcal MCV4P 2017-09-04 Completed 00:00:00 Tdap 2011-12-31 Completed 00:00:00 varicella 2011-12-31 Completed 00:00:00 meningococcal MCV4P 2011-12-31 Completed 00:00:00 Tdap 2011-12-31 Completed 00:00:00 varicella 2011-12-31 Completed 00:00:00 meningococcal MCV4P 2011-12-31 Completed 00:00:00 Hep A, ped/adol, 2 dose 2005-09-20 Completed 00:00:00 Hep A, ped/adol, 2 dose 2005-09-20 Completed 00:00:00 Hep A, ped/adol, 2 dose 2005-03-15 Completed 00:00:00 Hep A, ped/adol, 2 dose 2005-03-15 Completed 00:00:00 IPV 2005-01-11 Completed 00:00:00 DTaP, unspecified 2005-01-11 Completed formul 00:00:00 MMR 2005-01-11 Completed 00:00:00 IPV 2005-01-11 Completed 00:00:00 DTaP, unspecified 2005-01-11 Completed formul 00:00:00 MMR 2005-01-11 Completed 00:00:00 Hib (PRP-T) 2002-06-15 Completed 00:00:00 pneumococcal conjugate 2002-06-15 Completed P 00:00:00 DTaP, unspecified 2002-06-15 Completed formul 00:00:00 Hib (PRP-T) 2002-06-15 Completed 00:00:00 pneumococcal conjugate 2002-06-15 Completed P 00:00:00 DTaP, unspecified 2002-06-15 Completed formul 00:00:00 varicella 2001-12-30 Completed 00:00:00 MMR 2001-12-30 Completed 00:00:00 IPV 2001-12-30 Completed 00:00:00 varicella 2001-12-30 Completed 00:00:00 MMR 2001-12-30 Completed 00:00:00 IPV 2001-12-30 Completed 00:00:00 DTaP, unspecified 2001-08-06 Completed formul 00:00:00 Hib (PRP-T) 2001-08-06 Completed 00:00:00 Hep B, adolescent or 2001-08-06 Completed ped 00:00:00 DTaP, unspecified 2001-08-06 Completed formul 00:00:00 Hib (PRP-T) 2001-08-06 Completed 00:00:00 Hep B, adolescent or 2001-08-06 Completed ped 00:00:00 DTaP, unspecified 2001-05-07 Completed formul 00:00:00 IPV 2001-05-07 Completed 00:00:00 Hib (PRP-T) 2001-05-07 Completed 00:00:00 DTaP, unspecified 2001-05-07 Completed formul 00:00:00 IPV 2001-05-07 Completed 00:00:00 Hib (PRP-T) 2001-05-07 Completed 00:00:00 IPV 2001-02-18 Completed 00:00:00 Hib (PRP-T) 2001-02-18 Completed 00:00:00 DTaP, unspecified 2001-02-18 Completed formul 00:00:00 Hep B, adolescent or 2001-02-18 Completed ped 00:00:00 IPV 2001-02-18 Completed 00:00:00 Hib (PRP-T) 2001-02-18 Completed 00:00:00 DTaP, unspecified 2001-02-18 Completed formul 00:00:00 Hep B, adolescent or 2001-02-18 Completed ped 00:00:00 Hep B, adolescent or 2000 Completed ped 00:00:00 Hep B, adolescent or 2000 Completed ped 00:00:00 Vital Signs Vital Name Observation Time Observation Value Comments Source BP Systolic 2022-08-06 08:56:00 116 mm[Hg] BP Diastolic 2022-08-06 08:56:00 75 mm[Hg] Weight Measured 2022-08-06 08:56:00 209.20 pounds Height Measured 2022-08-06 08:56:00 62.60 inches Body Temperature 2022-08-06 08:56:00 97.20 degrees Heart Rate 2022-08-06 08:56:00 94.00 /min Respiratory Rate 2022-08-06 08:56:00 BP Systolic 2022-05-17 09:32:00 109 mm[Hg] BP [...] Goal Plan of Care Note [code = 75954-1] Goal Plan of Care Note [code = 87187-5] Goal Plan of Care Note [code = 68287-0] Goal Plan of Care Note [code = 57303-4] Goal Plan of Care Note [code = 50016-9] Goal Plan of Care Note [code = 97616-4] Goal Plan of Care Note [code = 24788-3] Goal Plan of Care Note [code = 42173-6] Goal Plan of Care Note [code = 12126-6] Goal Plan of Care Note [code = 37266-0] Goal Plan of Care Note [code = 18334-4] Goal Plan of Care Note [code = 04494-8] Goal Plan of Care Note [code = 14340-6] Goal Plan of Care Note [code = 07336-9] Goal Plan of Care Note [code = 31369-8] Goal Plan of Care Note [code = 78960-5] Goal Plan of Care Note [code = 08010-0] Goal Plan of Care Note [code = 55838-7] Goal Plan of Care Note [code = 82772-9] Goal Plan of Care Note [code = 59041-8] Goal Plan of Care Note [code = 49277-9] Goal Plan of Care Note [code = 37869-2] Goal Plan of Care Note [code = 59194-7] Goal Plan of Care Note [code = 90888-5] Goal Plan of Care Note [code = 61263-1] Goal Plan of Care Note [code = 12980-9] Goal Plan of Care Note [code = 43181-1] Goal Plan of Care Note [code = 74503-7] Goal Plan of Care Note [code = 41238-6] Goal Plan of Care Note [code = 02081-7] Goal Plan of Care Note [code = 35954-2] Goal Plan of Care Note [code = 92333-2] Goal Plan of Care Note [code = 82823-8] Goal Plan of Care Note [code = 70670-9] Goal Plan of Care Note [code = 08405-9] Goal Plan of Care Note [code = 21980-0] Goal Plan of Care Note [code = 35787-0] Goal Plan of Care Note [code = 65738-4] Goal Plan of Care Note [code = 42553-9] Goal Plan of Care Note [code = 46207-5] Goal Plan of Care Note [code = 27070-8] Goal Plan of Care Note [code = 89626-4] Goal Plan of Care Note [code = 33647-3] Goal Plan of Care Note [code = 26907-6] Goal Plan of Care Note [code = 26755-3] Goal Plan of Care Note [code = 71559-6] Goal Plan of Care Note [code = 36725-6] Goal Plan of Care Note [code = 38294-3] Goal Plan of Care Note [code = 06237-1] Goal Plan of Care Note [code = 61867-5] Goal Plan of Care Note [code = 36159-9] Goal Plan of Care Note [code = 86857-8] Goal Plan of Care Note [code = 25135-8] Goal Plan of Care Note [code = 48567-4] Goal Plan of Care Note [code = 49264-0] Goal Plan of Care Note [code = 09678-1] Goal Plan of Care Note [code = 24967-9] Goal Plan of Care Note [code = 72791-6] Goal Plan of Care Note [code = 89231-8] Goal Plan of Care Note [code = 60659-7] Goal Plan of Care Note [code = 21226-1] Goal Plan of Care Note [code = 19581-4] Goal Plan of Care Note [code = 92846-8] Goal Plan of Care Note [code = 80326-5] Goal Plan of Care Note [code = 75611-3] Goal Plan of Care Note [code = 12401-2] Goal Plan of Care Note [code = 23680-3] Goal Plan of Care Note [code = 10901-3] Goal Plan of Care Note [code = 38216-7] Goal Plan of Care Note [code = 01906-5] Goal Plan of Care Note [code = 13863-5] Goal Plan of Care Note [code = 67961-7] Goal Plan of Care Note [code = 58354-5] Goal Plan of Care Note [code = 25870-3] Goal Plan of Care Note [code = 54125-7] Goal Plan of Care Note [code = 56793-5] Goal Plan of Care Note [code = 81704-3] Goal Plan of Care Note [code = 58388-2] Goal Plan of Care Note [code = 44843-0] Goal Plan of Care Note [code = 52828-3] Goal Plan of Care Note [code = 48283-4] Goal Plan of Care Note [code = 21614-0] Goal Plan of Care Note [code = 67569-9] Goal Plan of Care Note [code = 45519-5] Goal Plan of Care Note [code = 86050-3] Goal Plan of Care Note [code = 48335-2] Goal Plan of Care Note [code = 30406-4] Goal Plan of Care Note [code = 08899-2] Goal Plan of Care Note [code = 87705-2] Goal Plan of Care Note [code = 18853-5] Goal Plan of Care Note [code = 48362-8] Goal Plan of Care Note [code = 44753-9] Goal Plan of Care Note [code = 14715-0] Goal Plan of Care Note [code = 05346-5] Goal Plan of Care Note [code = 54121-4] Goal Plan of Care Note [code = 01743-0] Goal Plan of Care Note [code = 26308-1] Goal Plan of Care Note [code = 51677-3] Goal Plan of Care Note [code = 98547-0] Goal Plan of Care Note [code = 64934-8] Goal Plan of Care Note [code = 62202-1] Goal Plan of Care Note [code = 65251-0] Goal Plan of Care Note [code = 85788-6] Goal Plan of Care Note [code = 38345-8] Goal Plan of Care Note [code = 59318-4] Goal Plan of Care Note [code = 43955-0] Goal Plan of Care Note [code = 08835-1] Goal Plan of Care Note [code = 19042-0] Goal Plan of Care Note [code = 41493-4] Goal Plan of Care Note [code = 13168-2] Goal Plan of Care Note [code = 16221-7] Goal Plan of Care Note [code = 46551-9] Goal Plan of Care Note [code = 66844-3] Goal Plan of Care Note [code = 09322-9] Goal Plan of Care Note [code = 42091-3] Goal Plan of Care Note [code = 99543-9] Goal Plan of Care Note [code = 66804-0] Goal Plan of Care Note [code = 71508-9] Goal Plan of Care Note [code = 96159-5] Goal Plan of Care Note [code = 42366-0] Goal Plan of Care Note [code = 89641-0] Goal Plan of Care Note [code = 73168-6] Goal Plan of Care Note [code = 30378-8] Goal Plan of Care Note [code = 03403-0] Goal Plan of Care Note [code = 44344-3] Goal Plan of Care Note [code = 33404-3] Goal Plan of Care Note [code = 92676-6] Goal Plan of Care Note [code = 08496-5] Goal Plan of Care Note [code = 24071-5] Goal Plan of Care Note [code = 11325-7] Goal Plan of Care Note [code = 62966-1] Goal Plan of Care Note [code = 65494-4] Goal Plan of Care Note [code = 33235-7] Goal Plan of Care Note [code = 17477-2] Goal Plan of Care Note [code = 94172-3] Encounters Start End Encounter Admission Attending Care Care Encounter Source Date/Time Date/Time Type Type Clinicians Facility Department ID 2023-01-24 2023-01-24 Outpatient SFA SFA [id number] 023 [facility] 08:12:45 08:12:45 0713 [facility] 2023-01-08 2023-01-08 Outpatient SFA SFA [id number] 023 [place] 11:10:54 11:10:54 0627 [facility] 2022-10-31 2022-10-31 Outpatient SFA SFA [id number] [place] 08:10:57 08:10:57 0419 [facility] 2022-08-15 2022-08-15 Outpatient SFA SFA [id number] 023 [place] 08:35:11 08:35:11 0201 [facility] 2022-08-08 2022-08-08 Outpatient SFA SFA [id number] 023 [place] 14:38:56 14:38:56 0125 [facility] 2022-08-06 2022-08-06 Outpatient SFA SFA [id number] 023 [place] 08:42:45 08:42:45 0123 [facility] 2022-08-06 2022-08-06 Outpatient [id number] 6kdm18-[id number] 00:00:00 00:00:00 Visit z810-6m9p 347-4a1a-b -p37k-675 99d-598254 347m28y28 a81e19 2022-05-17 2022-05-17 Outpatient SFA SFA [id number] 022 [place] 09:31:59 09:31:59 1103 F Ruben 2022-05-17 2022-05-17 Outpatient [id number]- [id number] 0u29z6-0 00:00:00 00:00:00 Visit 2oj8-7743 ad4-4855-b -i076-nv7 541-kx0518 [id number] 6497-10-29 2022-05-12 Outpatient SFA SFA [id number] 022 [place] 14:22:47 14:22:47 1029 F Ruben 2022-05-12 2022-05-12 Outpatient [id number] [id number] 00:00:00 00:00:00 Visit 08u1-6x2f 4i9-2e7r-b -fi98-64e j30-75k650 40843eq7v 18da9d 2022-02-20 2022-02-20 Outpatient [id number]- [id number] ck1uvp-t 00:00:00 00:00:00 Visit abbf-466a bbf-466a-8 -8131-e9b 131-e9bd33 b48t033h9 f397d7 2022-02-13 2022-02-13 Outpatient [id number] 4qs796-p 00:00:00 00:00:00 Visit u5j6-2998 0s7-1878-2 -5jx2-532 ac4-79940o 13i05n028 87u087 2022-02-05 2022-02-05 Outpatient 1m14vv7g- [id number] 91pl9m-7 00:00:00 00:00:00 Visit 1fee-4f0f fee-4f0f-a -cp4y-0r8 l5o-6j81mf 1wi25csc3 47dfe6 2022-02-02 2022-02-02 Outpatient [id number]- [id number] [id number]-p 00:00:00 00:00:00 Visit p1z6-35yw 4s4-74cn-c -bda9-04c da9-27u626 [id number] Results Test Description Test Time Test Comments Results Result Comments Source CULTURE, THROAT 2023-01-26 SPECIMEN NUMBER: 14:50:25 [id number] CULTURE, THROAT SPECIMEN NUMBER: [id number] SOURCE: THROAT REPORT STATUS: FINAL FINAL REPORT: 01/26/2023 NORMAL RESPIRATORY SONIA UNLESS OTHERWISE INDICATED, ALL TESTING PERFORMED AT [facility], [facility]. [address] [place] [address] WASHROOM OPERATOR: ROSA MARIA CRAIG M.D. CLIA NUMBER [id number] [place]. [id number] CT/NG, NAAT, URINE 2023-01-09 21:10:55 Test Item Value Reference Range Interpretation Comme nts CHLAMYDIA, NAAT, URINE (test NEGATIVE NEGATIVE Testing is performed with Elmo code = 31218) ADEBAYO 6800/880 0 systems usingreal-time polymerase chain reaction (PCR) method. A negative result does not exclude low level infection, spec imensampling error, or collection e rror. GONORRHEA, NAAT, URINE (test NEGATIVE NEGATIVE Testing is performed with Elmo code = 86033) ADEBAYO 6800/880 0 systems usingreal-time polymerase chain reaction (PCR) method. A negative result does not exclude low level infection, spec imensampling error, or collection e rror. TRICHOMONAS, NAAT, [id number] 20:46:01 Test Item Value Reference Range Interpretation Comments TRICHOMONAS, NEGATIVE NEGATIVE Testing is per formed with NAAT, URINE (test Elmo ROSCOE S 6800/8800 method code = 45863) usingreal-time polymerase chain reaction (PCR) method. A negative resu lt does not exclude low lev el infection, specimensamplin g error, or collection erro r. UNLESS OTHERWISE INDIC ATED, ALL TESTING PERFORM ED AT CLINICAL PATHOL [facility]. [address] [place] [phone] LABORATORY DIRE CTOR: ROSA MARIA WESTBROOK M.D. CLIA NUMBER [id number] CAP ACCREDITATION N O. [id number] HERPES SIMPLEX AB, [id number] 14:28:08 Test Item Value Reference Range Interpretation Comments HERPES SIMPLEX AB, 1.36 INDEX SEE BELOW H IMPORTAN T NOTE: HSV IgM IgM (test code = ASSAYS ARE NOT 17931) TYPE-SPECIFIC. THE BIOLOGICALIgM R ESPONSE WITH PRIMARY IN FECTIONS IS VARIABLE AND MAY BEUNDETECTABLE; WITH RECURRENT INFEC TIONS IgM MAY OR MAY NOT BEDETECTED. FAL SE POSITIVE RESULT S UNRELATED TO HS V INFECTION CAN O CCURWITH HSV IgM ASSAYS. ALL RESULTS SHOULD BE REVIEWED IN CLINICALCONTEXT , AND COMPARISON TO A CUTE OR CONVALESCENT TYPE-SPECIFIC H SV1AND HSV2 IgG ASSAYS SHOULD BE CONSIDERED. INTERPRETATION UNITS RANGE --------- ----- ----- ----- NEG ATIVE INDEX <=0.89 EQ UIVOCAL INDEX 0.90-1.09 POSITIVE INDEX >=1.10 [id number] 05:19:17 Test Item Value Reference Range Interpretation Comments RPR RESULT (test code = NON-REACTIVE NON-REACTIVE 3501) RPR TITER (test code = 3500) NOT INDIC. TITER NOT INDIC. HIV 1/2 4TH GEN, RFLX [id number] 04:30:56 Test Item Value Reference Range Interpretation Comments HIV 1/2 4TH GEN, RFLX CONF (test NON-REACTIVE NON-REACTIVE code = 3514) HEPATITIS PANEL, [id number] 04:30:56 Test Item Value Reference Range Interpretation Comments HEPATITIS A IgM (test NON-REACTIVE NON-REACTIVE code = 98564) HEPATITIS B CORE IgM NON-REACTIVE NON-REACTIVE (test code = 4644) HEPATITIS B SURF AG NON-REACTIVE NON-REACTIVE (test code = 2739) HEPATITIS C ANTIBODY NON-REACTIVE NON-REACTIVE (test code = 4675) INTERPRETATION (NOTE) Hepatitis A HEPATITIS A: (test code sero logy shows no = 2552) evidence of acu te hepatitis A. INTERPRETATION (NOTE) Hepatitis B HEPATITIS B: (test code sero logy shows no = 01000) evidence of acu te hepatitis B and no indication of exposure to hepatitis B vir us in the previous nallely eight months. INTERPRETATION (NOTE) Hepatitis C HEPATITIS C: (test code sero logy shows no = 99282) evidence of exposure to hepatitisC viru s at this time. I t can take up to 12 months after exposure tothe hepatitis C vir us for antibodies to become detectab le in the blood in certain patient s. HERPES SIMPLEX 1/2 AB, IgG [id number] 04:30:56 Test Item Value Reference Range Interpretation Comments HERPES SIMPLEX 1 21.800 INDEX SEE BELOW H INTERPRETA TION UNITS AB, IgG (test RANGE -------- ------ code = 29594) ----- ----- NO N-REACTIVE INDEX <1.000 RE ACTIVE INDEX >=1.00 0 HERPES SIMPLEX 2 0.078 INDEX SEE BELOW INTERPRETA TION UNITS AB, IgG (test RANGE -------- ------ code = 29446) ----- ----- NO N-REACTIVE INDEX <1.000 RE ACTIVE INDEX >=1.00 0 [id number] 00:37:53 Test Item Value Reference Range Interpretation Comments RPR RESULT (test code = NON-REACTIVE NON-REACTIVE 3501) RPR TITER (test code = 3500) NOT INDIC. TITER NOT INDIC. PAP TEST, THINPREP, [id number] 17:11:55 Test Item Value Reference Range Interpretation Comments SOURCE: (test Unspecified code = 8001) SLIDES: (test 1 code = 8011) LMP: (test code 07/21/2022 = 8021) SPECIMEN (NOTE) Satisfactory f or ADEQUACY: (test evaluation. code = 24573) INTERPRETATION: NILM/NO EPITH. (test code = ABNORMALITY;SEE 55279) BELOW ------- ---- NEGATI VE FOR INTRAEPITHELIAL LESION OR MALIGNANCY ( NILM) ------- ------- ------- ------- CYTOTECHNOLOGIS Isabela Raines T: (test code = Watson,CT(ASCP)IAC 8101) LOCATION: (test (NOTE) Specimens pr ocessed code = 77131) [facility] [address], [place] [address], Phone: , CLIA: [id number] CPT: (test code (NOTE) 64983 UNLESS OTHERWISE = 8140) INDICATED, COMP UTER AIDED AND CYTOTECHNOLOGIS T SCREENING PERFO RMED. The Pap test is a screening test with an inherent, but l ow probability of error. Your patient sh ould be reminded to con sult you immediately if she experiences any suspicious sign s or symptoms, regar dless of her Pap test result. An alte rnate report format containing imag es or consolidated pr ior Pap history is avai lable as applicable. VAGINAL PATHOGENS DNA [id number] 14:27:04 Test Item Value Reference Range Interpretation Comments TWILA SPECIES NEGATIVE NEGATIVE (test code = ) G. VAGINALIS POSITIVE NEGATIVE A (test code = ) T. VAGINALIS NEGATIVE NEGATIVE Note: The BD A ffirm VPIII (test code = Microbial Ident ification ) Testis a DNA pr obe test intended for us e in the detectionand id entification of Twila spec ies, Gardnerellavagi nalis and Trichomonas vag inalis nucleic acid. * [facility] has important patho logy staff changes effecti ve 09/12/2022. New pathology staff will provide uninterrupted, excellent patient care an d clinical consultation. S ee URL: [email or web address]. UNLESS OTHE RWISE INDICATED, ALL TESTING PERFORMED AT [facility]. [address] [place], [place] CLIA: [id number], CAP: [id number] GONORRHEA, NAAT, [id number] 13:26:57 Test Item Value Reference Range Interpretation Comments GONORRHEA, NAAT, NEGATIVE NEGATIVE A negative result does THINPREP (test code not excl ude low level = 06335) infection, specimensamplin g error, or collection erro r. Testing is performed wi th the Elmo Adebayo 680 systems usingre al-time Polymerase Richard n Reaction (PCR) method. CHLAMYDIA, NAAT, [id number] 13:26:57 Test Item Value Reference Range Interpretation Comments CHLAMYDIA, NAAT, NEGATIVE NEGATIVE A negative result does THINPREP (test code not excl ude low level = 99428) infection, specimensamplin g error, or collection erro r. Testing is performed the Elmo Adebayo 680 systems usingre al-time Polymerase Richard n Reaction (PCR) method. [facility] has important patho logy staff changes effecti ve 09/12/2022. New pathology staff will provide uninter rupted, excellent patie nt care and clinical consul tation. See URL: [email or web address]. UNLESS OT HERWISE INDICATED, ALL [facility]FOR[facility] [address] [place] [address] CLIA: [id number], CAP: [id number] TSH, THIRD [id number] 04:41:28 Test Item Value Reference Range Interpretation Comments TSH, THIRD GENERATION (test code 1.960 UIU/ML 0.400-4.100 = 2821) HEPATITIS PANEL, [id number] 03:31:10 Test Item Value Reference Range Interpretation Comments HEPATITIS A IgM (test NON-REACTIVE NON-REACTIVE code = 56779) HEPATITIS B CORE IgM NON-REACTIVE NON-REACTIVE (test code = 4644) HEPATITIS B SURF AG NON-REACTIVE NON-REACTIVE (test code = 2739) HEPATITIS C ANTIBODY NON-REACTIVE NON-REACTIVE (test code = 4675) INTERPRETATION (NOTE) Hepatitis A HEPATITIS A: (test code sero logy shows no = 2552) evidence of acu te hepatitis A. INTERPRETATION (NOTE) Hepatitis B HEPATITIS B: (test code sero logy shows no = 79681) evidence of acu te hepatitis B and no indication of exposure to hepatitis B vir us in the previous nallely eight months. INTERPRETATION (NOTE) Hepatitis C HEPATITIS C: (test code sero logy shows no = 65134) evidence of exposure to hepatitisC viru s at this time. I t can take up to 12 months after exposure tothe hepatitis C vir us for antibodies to become detectab le in the blood in certain patient s. HIV 1/2 4TH GEN, RFLX [id number] 03:31:10 Test Item Value Reference Range Interpretation Comments HIV 1/2 4TH GEN, RFLX CONF (test NON-REACTIVE NON-REACTIVE code = 3514) SARS-CoV-2 (COVID-19) by RT-PCR (HIGH RISK)2020-06-21 00:00:00 Test Item Value Reference Range Interpretation Comments SARS-CoV-2 INTERPRETATION NEGATIVE (test code = 52698) SOURCE (test code = 12033) NASOPHARYNGEAL SARS-CoV-2 (COVID-19) by RT-PCR (HIGH RISK)2020-06-21 00:00:00 Test Item Value Reference Range Interpretation Comments SARS-CoV-2 INTERPRETATION NEGATIVE (test code = 99959) SOURCE (test code = 62905) NASOPHARYNGEAL SARS-CoV-2 (COVID-19) by RT-PCR (HIGH RISK)2020-06-21 00:00:00 Test Item Value Reference Range Interpretation Comments SARS-CoV-2 INTERPRETATION NEGATIVE (test code = 22936) SOURCE (test code = 90587) NASOPHARYNGEAL SARS-CoV-2 (COVID-19) by RT-PCR (HIGH RISK)2020-06-21 00:00:00 Test Item Value Reference Range Interpretation Comments SARS-CoV-2 INTERPRETATION NEGATIVE (test code = 44828) SOURCE (test code = 95889) NASOPHARYNGEAL SARS-CoV-2 (COVID-19) by RT-PCR (HIGH RISK)2020-06-21 00:00:00 Test Item Value Reference Range Interpretation Comments SARS-CoV-2 INTERPRETATION NEGATIVE (test code = 22194) SOURCE (test code = 15273) NASOPHARYNGEAL SARS-CoV-2 (COVID-19) by RT-PCR (HIGH RISK)2020-06-21 00:00:00 Test Item Value Reference Range Interpretation Comments SARS-CoV-2 INTERPRETATION NEGATIVE (test code = 31721) SOURCE (test code = 73689) NASOPHARYNGEAL SARS-CoV-2 (COVID-19) by RT-PCR (HIGH RISK)2020-06-21 00:00:00 Test Item Value Reference Range Interpretation Comments SARS-CoV-2 INTERPRETATION NEGATIVE (test code = 91529) SOURCE (test code = 35772) NASOPHARYNGEAL SARS-CoV-2 (COVID-19) by RT-PCR (HIGH RISK)2020-06-21 00:00:00 Test Item Value Reference Range Interpretation Comments SARS-CoV-2 INTERPRETATION NEGATIVE (test code = 68671) SOURCE (test code = 98029) NASOPHARYNGEAL SARS-CoV-2 (COVID-19) by RT-PCR (HIGH RISK)2020-06-21 00:00:00 Test Item Value Reference Range Interpretation Comments SARS-CoV-2 INTERPRETATION NEGATIVE (test code = 99093) SOURCE (test code = 67253) NASOPHARYNGEAL SARS-CoV-2 (COVID-19) by RT-PCR (HIGH RISK)2020-06-21 00:00:00 Test Item Value Reference Range Interpretation Comments SARS-CoV-2 INTERPRETATION NEGATIVE (test code = 75011) SOURCE (test code = 51740) NASOPHARYNGEAL SARS-CoV-2 (COVID-19) by RT-PCR (HIGH RISK)2020-06-21 00:00:00 Test Item Value Reference Range Interpretation Comments SARS-CoV-2 INTERPRETATION NEGATIVE (test code = 94822) SOURCE (test code = 99372) NASOPHARYNGEAL
[2023-02-05] MEDS ORDERED: IBUPROFEN 400 MG TAB ONE (19:48)
[2023-02-05] MEDS ORDERED: IBUPROFEN 200 MG TAB PO ONE (19:48)
[2023-02-05 22:12] LABS: Specific Gravity 1.014 (1.005-1.030)
--- NOTE | 2023-02-05 23:59 | ER ---
Nurse's Notes [facility] Name: Glory Ba Age: 22 yrs Sex: Female : 2000 Arrival Date: 02/05/2023 Time: 19:16 Bed 20 Private MD: Diagnosis: Acute upper respiratory infection, unspecified Presentation: 02/05 19:19 Chief complaint: Patient states: sore throat for about a month. cough fever vomiting as6 that started today. Coronavirus screen: At this time, the client does not indicate any symptoms associated with coronavirus-19. Ebola Screen: No symptoms or risks identified at this time. Initial Sepsis Screen: Does the patient meet any 2 criteria? HR > 90 bpm. Does the patient have a suspected source of infection? No. Patient's initial sepsis screen is negative. Risk Assessment: Do you want to hurt yourself or someone else? Patient reports no desire to harm self or others. Onset of symptoms was February 05, 2023. 19:19 Method Of Arrival: Ambulatory as6 19:19 Acuity: KAILA 2 as6 Triage Assessment: 19:25 General: Appears ill, Behavior is calm, cooperative. General: Reports fever for feeling as6 ill for fatigue for. Pain: Complains of pain in throat. Respiratory: Reports cough that is. 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 - Social history:: Smoking status: Patient denies any tobacco usage or history of. Screenin/26 00:03 [facility] ED Fall Risk Assessment (Adult) Score/Fall Risk Level 0 - 2 = Low Risk. Abuse as6 screen: Denies threats or abuse. Denies injuries from another. Nutritional screening: No deficits noted. Tuberculosis screening: No symptoms or risk factors identified. Vital Signs: 02/05 19:19 BP 131 / 80; Pulse 135; Resp 20 S; Temp 100.7(O); Pulse Ox 100% on R/A; Weight 98.43 kg as6 (R); Height 5 ft. 2 in. (R); Pain 7/10; 21:06 Temp 98.6(O); cm10 21:07 BP 125 / 83; Pulse 118; Resp 18; Temp 98.6; Pulse Ox 98% on R/A; cm10 19:19 Body Mass Index 39.69 (98.43 kg, 157.48 cm) as6 19:19 Pain Scale: Adult as6 ED Course: 19:18 Patient arrived in ED. mr 19:19 Arm band placed on. as6 19:21 Genet Obrien FNP-C [facility]. kb 19:21 Juan Ramon Crespo MD is Attending Physician. kb 19:23 Triage completed. as6 19:37 Caridad Bravo, ALIREZA is Primary Nurse. cm10 22:43 Chest Single View XRAY In Process Unspecified. EDMS 02/06 00:03 Bed in low position. Call light in reach. Provided Education on: discharge teaching. as6 00:03 No provider procedures requiring assistance completed. Patient did not have IV access as6 during this emergency room visit. Administered Medications: 02/05 19:40 Drug: Ibuprofen PO 600 mg Route: PO; cm10 21:06 Follow up: Temp 98.6 Oral; Response: No adverse reaction; Temperature is decreased cm10 02/06 00:02 Drug: Dexamethasone IM 10 mg Route: IM; Site: left deltoid; as6 00:02 Follow up: Response: No adverse reaction as6 Medication: 00:03 VIS not applicable for this client. as6 Outcome: 02/05 23:58 Discharge ordered by . kb 02/06 00:03 Discharged to home ambulatory. as6 Condition: stable 00:13 Discharge instructions given to patient, Instructed on discharge instructions, follow as6 up and referral plans. medication usage, Demonstrated understanding of instructions, follow-up care, medications, Prescriptions given X 1. 00:13 Patient left the ED. as6 Signatures: Dispatcher [employer] EDHI Genet Obrien FNP-C FNP-Ckb Keren PerezMark, RN RN as6 Caridad Bravo, ALIREZA RN cm10
--- NOTE | 2023-02-05 23:59 | EDPHYS ---
Physician Documentation [facility] Name: Glory Ba Age: 22 yrs Sex: Female : 2000 Arrival Date: 02/05/2023 Time: 19:16 Bed 20 Private MD: CHITRA Physician Juan Ramon Crespo HPI: 02/06 00:06 This 22 yrs old Female presents to ER via Ambulatory with complaints of Sore Throat, kb Cough, Fever, Vomiting. 00:06 The patient or guardian reports cough, that is intermittent, described as mild, flu kb symptoms, low-grade fever, myalgias. Onset: The symptoms/episode began/occurred yesterday. Severity of symptoms: At their worst the symptoms were moderate, in the emergency department the symptoms are unchanged. Modifying factors: The symptoms are alleviated by nothing, the symptoms are aggravated by nothing. Associated signs and symptoms: Pertinent positives: fever, rhinorrhea, sore throat. The patient has not experienced similar symptoms in the past. The patient has not recently seen a physician. 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 - Social history:: Smoking status: Patient denies any tobacco usage or history of. ROS: 02/06 00:04 Cardiovascular: Negative for chest pain, palpitations, and edema. kb Constitutional: Positive for body aches, chills, fever. ENT: Positive for rhinorrhea, sinus congestion, sore throat. Respiratory: Positive for cough. All other systems are negative. Exam: 00:04 Constitutional: This is a well developed, well nourished patient who is awake, alert, kb and in no acute distress. Head/Face: Normocephalic, atraumatic. ENT: Moist Mucous membranes Cardiovascular: Regular rate and rhythm with a normal S1 and S2. No gallops, murmurs, or rubs. No pulse deficits. Respiratory: Respirations even and unlabored. No increased work of breathing. Talking in full sentences Abdomen/GI: Soft, non-tender. No distention Skin: Warm, dry with normal turgor. Normal color. MS/ Extremity: Pulses equal, no cyanosis. Neurovascular intact. Full, normal range of motion. Neuro: Awake and alert, GCS 15, oriented to person, place, time, and situation. Moves all extremities. Normal gait. Vital Signs: 02/05 19:19 BP 131 / 80; Pulse 135; Resp 20 S; Temp 100.7(O); Pulse Ox 100% on R/A; Weight 98.43 kg as6 (R); Height 5 ft. 2 in. (R); Pain 7/10; 21:06 Temp 98.6(O); cm10 21:07 BP 125 / 83; Pulse 118; Resp 18; Temp 98.6; Pulse Ox 98% on R/A; cm10 19:19 Body Mass Index 39.69 (98.43 kg, 157.48 cm) as6 19:19 Pain Scale: Adult as6 MDM: 19:21 Patient medically screened. kb 02/06 00:05 Differential diagnosis: uri, flu, covid, strep, pneumonia. Data reviewed: vital signs, kb nurses notes. Care significantly affected by the following Social Determinants of Health: Poor access to healthcare and/or lack of insurance. Counseling: I had a detailed discussion with the patient and/or guardian regarding: the historical points, exam findings, and any diagnostic results supporting the discharge/admit diagnosis, lab results, radiology results, the need for outpatient follow up, a family practitioner, to return to the emergency department if symptoms worsen or persist or if there are any questions or concerns that arise at home. ED course: Symptoms and exam indicate viral source of infection. 02/05 19: Order name: Strep; Complete Time: 21:21 kb 02/05 19:26 Order name: SARS-COV-2 RT PCR; Complete Time: 21:21 kb 02/05 19:26 Order name: Flu; Complete Time: 21:40 kb 02/05 20:51 Order name: Throat Culture EDMT 02/05 21:53 Order name: Test, Urine; Complete Time: 22:17 5 02/05 21:36 Order name: Chest Single View XRAY Administered Medications: 02/05 19:40 Drug: Ibuprofen PO 600 mg Route: PO; cm10 21:06 Follow up: Temp 98.6 Oral; Response: No adverse reaction; Temperature is decreased cm10 02/06 00:02 Drug: Dexamethasone IM 10 mg Route: IM; Site: left deltoid; as6 00:02 Follow up: Response: No adverse reaction as6 Disposition Summary: 02/05/23 23:58 Discharge Ordered Location: Home kb Condition: Stable kb Diagnosis - Acute upper respiratory infection, unspecified kb Followup: kb - With: Emergency Department - When: As needed - Reason: Worsening of condition Followup: kb - With: Private Physician - When: 2 - 3 days - Reason: Recheck today's complaints, Continuance of care, Re-evaluation by your physician Discharge Instructions: - Discharge Summary Sheet kb - Upper Respiratory Infection, Adult, [id number] kb - Viral Respiratory Infection, [id number] kb Forms: - Medication Reconciliation Form kb - Thank You Letter kb - Antibiotic Education kb - Prescription Opioid Use kb - Patient Portal Instructions kb - Work release form pf1 Prescriptions: - Tessalon Perles 100 mg Oral Capsule - take 1 capsule by ORAL route every 8 hours As needed; 15 capsule; Refills: 0, kb Product Selection Permitted Signatures: Dispatcher [employer] Genet Degroot, JUSTOWRITER OPERATOR-C JUSTOWRITER OPERATOR-Mark Louis, RN RN as6 Caridad Bravo RN RN cm10
[2023-02-06] MEDS ORDERED: dexAMETHasone 10 MG/ML VIAL ONE (00:10)
[2023-02-06 04:47] VITALS: TEMP 98.6
[2023-02-06 04:49] VITALS: BP 125/83; O2SAT 98
--- NOTE | 2023-02-06 10:29 | RAD REPORT ---
EXAM DESCRIPTION: RAD - Chest Single View - 02/05/2023 10:41 pm CLINICAL HISTORY: The patient is 22 years old and is Female; COUGH TECHNIQUE: Frontal view of the chest. COMPARISON: No relevant prior studies available. FINDINGS: Lungs: Unremarkable. No consolidation. Pleural space: Unremarkable. No pneumothorax. Heart: Unremarkable. Mediastinum: Unremarkable. Bones/joints: Unremarkable. IMPRESSION: No acute findings in the chest. Electronically signed by: Jose Morris MD 02/05/2023 11:55 PM CDT Due to temporary technical issues with the PACS/Fluency reporting system, reports are being signed by the in house radiologist without review as a courtesy to ensure prompt reporting. The interpreting r adiologist is fully responsible for the content of the report.
== END 2023-02-06 00:13 | disposition home or self-care (01) ==
LOC: ER 19:16
DX: J06.9 Acute upper respiratory infection, unspecified (principal); Z20.822 Contact with and (suspected) exposure to COVID-19
CPT/HCPCS: 71045; 81025; 87070; 87081; 87635; 87804; 96372; 99284; J1100

== ENCOUNTER 2023-03-26 03:19 | Emergency (ER) | payer SELFPAY ==
--- OUTSIDE RECORDS SUMMARY | 2023-03-26 03:24 | XMS REPORT | Continuity of Care Document ---
:2000 Author Organization [facility] t Address [address] [place] [address] Care Team Providers Name Role Phone Alta Levin Primary Care Physician [phone] Problems This patient has no known problems. Allergies, Adverse Reactions, Alerts This patient has no known allergies or adverse reactions. Medications Ordered Filled Start Stop Current Ordering Indication Dosage Frequency Signature Comments Components Source Medication Medication Date Date Medication? Clinician (SIG) Name Name 10 ML Q 4 No [id number] TO 6 HOURS 1 PRN COUGH 00:00: [...] 00:00: DAILY 00 TAKE 1 2021-0 No [id number] TABLET 8- TWICE DAILY 00:00: WITH FOOD. 00 Dose 2021-0 No 875 Unknown 02-13 00:00: 00 TAKE 1 2021-0 No [id number] TABLET 8- TWICE DAILY 00:00: WITH FOOD. 00 Dose 2021-0 No 875 Unknown 02-13 00:00: 00 TAKE 1 2021-0 No [id number] TABLET - TWICE DAILY 00:00: WITH FOOD. 00 Dose 2022-0 No 875 Unknown 02-13 00:00: 00 TAKE 1 2022-0 No [id number] TABLET 02-13 TWICE DAILY 00:00: WITH FOOD. 00 Dose 2022-0 No 875 Unknown 02-13 00:00: 00 TAKE 1 2022-0 No [id number] TABLET 02-13 TWICE DAILY 00:00: WITH FOOD. [...] Goal Plan of Care Note [code = 04337-2] Goal Plan of Care Note [code = 25554-6] Goal Plan of Care Note [code = 75469-6] Goal Plan of Care Note [code = 51983-4] Goal Plan of Care Note [code = 46303-9] Goal Plan of Care Note [code = 69626-9] Goal Plan of Care Note [code = 62469-5] Goal Plan of Care Note [code = 84632-7] Goal Plan of Care Note [code = 68236-4] Goal Plan of Care Note [code = 56780-4] Goal Plan of Care Note [code = 30418-7] Goal Plan of Care Note [code = 29864-2] Goal Plan of Care Note [code = 77636-4] Goal Plan of Care Note [code = 98317-8] Goal Plan of Care Note [code = 79230-5] Goal Plan of Care Note [code = 89045-3] Goal Plan of Care Note [code = 77924-5] Goal Plan of Care Note [code = 25114-0] Goal Plan of Care Note [code = 44319-8] Goal Plan of Care Note [code = 48862-1] Goal Plan of Care Note [code = 07835-1] Goal Plan of Care Note [code = 51602-9] Goal Plan of Care Note [code = 29053-3] Goal Plan of Care Note [code = 24004-2] Goal Plan of Care Note [code = 61888-3] Goal Plan of Care Note [code = 21220-7] Goal Plan of Care Note [code = 67878-7] Goal Plan of Care Note [code = 16255-6] Goal Plan of Care Note [code = 78124-9] Goal Plan of Care Note [code = 12263-8] Goal Plan of Care Note [code = 26585-8] Goal Plan of Care Note [code = 08824-0] Goal Plan of Care Note [code = 98630-4] Goal Plan of Care Note [code = 91919-5] Goal Plan of Care Note [code = 44500-4] Goal Plan of Care Note [code = 91971-0] Goal Plan of Care Note [code = 11032-4] Goal Plan of Care Note [code = 28109-2] Goal Plan of Care Note [code = 60566-0] Goal Plan of Care Note [code = 25071-5] Goal Plan of Care Note [code = 81218-5] Goal Plan of Care Note [code = 22404-0] Goal Plan of Care Note [code = 34672-5] Goal Plan of Care Note [code = 50086-0] Goal Plan of Care Note [code = 64702-2] Goal Plan of Care Note [code = 59434-8] Goal Plan of Care Note [code = 57170-7] Goal Plan of Care Note [code = 12844-2] Goal Plan of Care Note [code = 83584-0] Goal Plan of Care Note [code = 80944-1] Goal Plan of Care Note [code = 96401-3] Goal Plan of Care Note [code = 31537-0] Goal Plan of Care Note [code = 54721-4] Goal Plan of Care Note [code = 62063-1] Goal Plan of Care Note [code = 89651-5] Goal Plan of Care Note [code = 33954-8] Goal Plan of Care Note [code = 73499-4] Goal Plan of Care Note [code = 45400-5] Goal Plan of Care Note [code = 83935-4] Goal Plan of Care Note [code = 56753-4] Goal Plan of Care Note [code = 45935-1] Goal Plan of Care Note [code = 91682-5] Goal Plan of Care Note [code = 92146-8] Goal Plan of Care Note [code = 80723-2] Goal Plan of Care Note [code = 49137-8] Goal Plan of Care Note [code = 33480-2] Goal Plan of Care Note [code = 73463-6] Goal Plan of Care Note [code = 17274-5] Goal Plan of Care Note [code = 27815-8] Goal Plan of Care Note [code = 44299-4] Goal Plan of Care Note [code = 04616-6] Goal Plan of Care Note [code = 69263-6] Goal Plan of Care Note [code = 82710-3] Goal Plan of Care Note [code = 32300-4] Goal Plan of Care Note [code = 14427-4] Goal Plan of Care Note [code = 83850-9] Goal Plan of Care Note [code = 24070-3] Goal Plan of Care Note [code = 89603-5] Goal Plan of Care Note [code = 56401-2] Goal Plan of Care Note [code = 52727-6] Goal Plan of Care Note [code = 72495-1] Goal Plan of Care Note [code = 46347-0] Goal Plan of Care Note [code = 89578-5] Goal Plan of Care Note [code = 46792-3] Goal Plan of Care Note [code = 10518-7] Goal Plan of Care Note [code = 84087-2] Goal Plan of Care Note [code = 74015-5] Goal Plan of Care Note [code = 54398-6] Goal Plan of Care Note [code = 92591-4] Goal Plan of Care Note [code = 29302-5] Goal Plan of Care Note [code = 82410-6] Goal Plan of Care Note [code = 21939-6] Goal Plan of Care Note [code = 76236-5] Goal Plan of Care Note [code = 26636-8] Goal Plan of Care Note [code = 96275-4] Goal Plan of Care Note [code = 31424-1] Goal Plan of Care Note [code = 78206-4] Goal Plan of Care Note [code = 06339-2] Goal Plan of Care Note [code = 86182-7] Goal Plan of Care Note [code = 94319-3] Goal Plan of Care Note [code = 38639-7] Goal Plan of Care Note [code = 56002-1] Goal Plan of Care Note [code = 57928-2] Goal Plan of Care Note [code = 61722-2] Goal Plan of Care Note [code = 35776-0] Goal Plan of Care Note [code = 97377-4] Goal Plan of Care Note [code = 41461-7] Goal Plan of Care Note [code = 69922-5] Goal Plan of Care Note [code = 81222-0] Goal Plan of Care Note [code = 04224-0] Goal Plan of Care Note [code = 97078-7] Goal Plan of Care Note [code = 70510-5] Goal Plan of Care Note [code = 71585-4] Goal Plan of Care Note [code = 68246-0] Goal Plan of Care Note [code = 56165-1] Goal Plan of Care Note [code = 88287-8] Goal Plan of Care Note [code = 28520-2] Goal Plan of Care Note [code = 23997-6] Goal Plan of Care Note [code = 50531-9] Goal Plan of Care Note [code = 23174-2] Goal Plan of Care Note [code = 45205-9] Goal Plan of Care Note [code = 07746-9] Goal Plan of Care Note [code = 90220-5] Goal Plan of Care Note [code = 30147-8] Goal Plan of Care Note [code = 34366-2] Goal Plan of Care Note [code = 60857-2] Goal Plan of Care Note [code = 80028-5] Goal Plan of Care Note [code = 27787-2] Goal Plan of Care Note [code = 50593-3] Goal Plan of Care Note [code = 91387-4] Goal Plan of Care Note [code = 99962-0] Goal Plan of Care Note [code = 36648-9] Goal Plan of Care Note [code = 16298-6] Goal Plan of Care Note [code = 79807-4] Goal Plan of Care Note [code = 29175-2] Encounters Start End Encounter Admission Attending Care Care Encounter Source Date/Time Date/Time Type Type Clinicians Facility Department ID 2023-03-08 2023-03-08 Outpatient SFA SFA [id number] 023 [facility] 15:18:13 15:18:13 0825 [facility] 2023-03-05 2023-03-05 Outpatient SFA SFA [id number] 023 [place] 10:53:04 10:53:04 0822 [facility] 2023-01-24 2023-01-24 Outpatient SFA SFA [id number] 023 [place] 08:12:45 08:12:45 0713 [facility] 2023-01-08 2023-01-08 Outpatient SFA SFA [id number] 023 [place] 11:10:54 11:10:54 0627 [facility] 2022-10-31 2022-10-31 Outpatient SFA SFA [id number] 023 [place] 08:10:57 08:10:57 0419 [facility] 2022-08-15 2022-08-15 Outpatient SFA SFA [id number] 023 [place] 08:35:11 08:35:11 0201 [facility] 2022-08-08 2022-08-08 Outpatient SFA SFA [id number] 023 [place] 14:38:56 14:38:56 0125 [facility] 2022-08-06 2022-08-06 Outpatient SFA SFA [id number] 023 [place] 08:42:45 08:42:45 0123 [facility] 2022-08-06 2022-08-06 Outpatient [id number]- [id number] 6oiu55-c 00:00:00 00:00:00 Visit c587-8d0g 347-4a1a-b -v08t-966 99d-815397 512m97i30 a81e19 2022-05-17 2022-05-17 Outpatient SFA SFA [id number] 022 [place] 09:31:59 09:31:59 1103 F Ruben 2022-05-17 2022-05-17 Outpatient ax4j44d6- [id number] 8s69b9-4 00:00:00 00:00:00 Visit 9nw8-6974 ad4-4855-b -o361-cm5 541-rm3843 [id number] 5319-10-29 2022-05-12 Outpatient SFA SFA [id number] 022 [place] 14:22:47 14:22:47 1029 F Ruben 2022-05-12 2022-05-12 Outpatient [id number]- [id number] [id number] 00:00:00 00:00:00 Visit 07y1-9g3m 1h9-7m1x-o -jq94-19b a09-03e428 76067dz9y 18da9d 2022-02-20 2022-02-20 Outpatient w1xt9qvq- [id number] jy3tgd-u 00:00:00 00:00:00 Visit abbf-466a bbf-466a-8 -8131-e9b 131-e9bd33 n59g948y0 f397d7 2022-02-13 2022-02-13 Outpatient [id number]- [id number] 9hy050-l 00:00:00 00:00:00 Visit d7d8-1531 5s1-0732-5 -1re2-412 ac4-29207f 34a95y875 89y104 2022-02-05 2022-02-05 Outpatient 1d30bp0l- [id number] 09zl7a-7 00:00:00 00:00:00 Visit 1fee-4f0f fee-4f0f-a -rs5u-4p1 t8u-0e00wk 1kb60dyk0 47dfe6 2022-02-02 2022-02-02 Outpatient [id number]- [id number] 07159e-q 00:00:00 00:00:00 Visit z5r3-68uh 3a1-50ko-m -bda9-04c da9-25t726 [id number] Results Test Description Test Time Test Comments Results Result Comments Source CULTURE, THROAT 2023-01-26 SPECIMEN NUMBER: 14:50:25 [id number] CULTURE, THROAT SPECIMEN NUMBER: [id number] SOURCE: THROAT REPORT STATUS: FINAL FINAL REPORT: 01/26/2023 NORMAL RESPIRATORY SONIA UNLESS OTHERWISE INDICATED, ALL TESTING PERFORMED AT [facility] [address] [place] [address] SYSTEMS TECHNOLOGIST: ROSA MARIA CRAIG M.D. CLIA NUMBER [id number] [facility]. [id number] CT/NG, NAAT, URINE 2023-01-09 21:10:55 Test Item Value Reference Range Interpretation Comme nts CHLAMYDIA, NAAT, URINE (test NEGATIVE NEGATIVE Testing is performed with Elmo code = 08680) ADEBAYO 6800/880 0 systems usingreal-time polymerase chain reaction (PCR) method. A negative result does not exclude low level infection, spec imensampling error, or collection e rror. GONORRHEA, NAAT, URINE (test NEGATIVE NEGATIVE Testing is performed with Elmo code = 96346) ADEBAYO 6800/880 0 systems usingreal-time polymerase chain reaction (PCR) method. A negative result does not exclude low level infection, spec imensampling error, or collection e rror. TRICHOMONAS, NAAT, [id number] 20:46:01 Test Item Value Reference Range Interpretation Comments TRICHOMONAS, NEGATIVE NEGATIVE Testing is per formed with NAAT, URINE (test Elmo ROSCOE S 6800/8800 method code = 48140) usingreal-time polymerase chain reaction (PCR) method. A negative resu lt does not exclude low lev el infection, specimensamplin g error, or collection erro r. UNLESS OTHERWISE INDIC ATED, ALL TESTING PERFORM ED AT [facility]. [address] [place] [address] 2721 LABORATORY DIRE CTOR: ROSA MARIA WESTBROOK M.D. CLIA NUMBER [id number] CAP ACCREDITATION N O. 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 THE BIOLOGICALIgM R ESPONSE WITH PRIMARY [...] INTERPRETATION UNITS RANGE --------- ----- ----- ----- NE GATIVE INDEX <=0.89 EQ UIVOCAL INDEX 0.90-1.09 POSITIVE INDEX >=1.10 [id number] 05:19:17 Test Item Value Reference Range Interpretation Comments RPR RESULT (test code = NON-REACTIVE NON-REACTIVE 3501) RPR TITER (test code = 3500) NOT INDIC. TITER NOT INDIC. HIV 1/2 4TH GEN, RFLX [id number] 04:30:56 Test Item Value Reference Range Interpretation Comments HIV 1/2 4TH GEN, RFLX CONF (test NON-REACTIVE NON-REACTIVE code = 3514) HEPATITIS PANEL, [id number] 04:30:56 Test Item Value Reference Range Interpretation Comments HEPATITIS A IgM (test NON-REACTIVE NON-REACTIVE code = 82126) HEPATITIS B CORE IgM NON-REACTIVE NON-REACTIVE (test code = 4644) HEPATITIS B SURF AG NON-REACTIVE NON-REACTIVE (test code = 2739) HEPATITIS C ANTIBODY NON-REACTIVE NON-REACTIVE (test code = 4675) INTERPRETATION (NOTE) Hepatitis A HEPATITIS A: (test code sero logy shows no = 4182) evidence of acu te hepatitis A. INTERPRETATION (NOTE) Hepatitis B HEPATITIS B: (test code sero logy shows no = 85767) evidence of acu te hepatitis B and no indication of exposure to hepatitis B vir us in the previous nallely eight months. INTERPRETATION (NOTE) Hepatitis C HEPATITIS C: (test code sero logy shows no = 70025) evidence of exposure to hepatitisC viru s at this time. I t can take up to 12 months after exposure tothe hepatitis C vir us for antibodies to become detectab le in the blood in certain patient s. HERPES SIMPLEX 1/2 AB, IgG [id number] 04:30:56 Test Item Value Reference Range Interpretation Comments HERPES SIMPLEX 1 21.800 INDEX SEE BELOW H INTERPRETA TION UNITS AB, IgG (test RANGE -------- ------ code = 06483) ----- ----- NO N-REACTIVE INDEX <1.000 RE ACTIVE INDEX >=1.00 0 HERPES SIMPLEX 2 0.078 INDEX SEE BELOW INTERPRETA TION UNITS AB, IgG (test RANGE -------- ------ code = 50116) ----- ----- NO N-REACTIVE INDEX <1.000 RE ACTIVE INDEX >=1.00 0 [id number] 00:37:53 Test Item Value Reference Range Interpretation Comments RPR RESULT (test code = NON-REACTIVE NON-REACTIVE 3501) RPR TITER (test code = 3500) NOT INDIC. TITER NOT INDIC. PAP TEST, THINPREP, [id number] 17:11:55 Test Item Value Reference Range Interpretation Comments SOURCE: (test Unspecified code = 8001) SLIDES: (test 1 code = 8011) LMP: (test code 07/21/2022 = 8021) SPECIMEN (NOTE) Satisfactory f or ADEQUACY: (test evaluation. code = 09645) INTERPRETATION: NILM/NO EPITH. (test code = ABNORMALITY;SEE 29604) BELOW ------- ---- NEGATI VE FOR INTRAEPITHELIAL LESION OR MALIGNANCY ( NILM) ------- ------- ------- ------- CYTOTECHNOLOGIS Isabela Raines T: (test code = ShirleyCT(ASCP)IAC 8101) LOCATION: (test (NOTE) Specimens pr ocessed code = 80231) and interprete d at [facility], [address] [place] [address], [place] [address], Phone: , CLIA: [id number] CPT: (test code (NOTE) 72218 UNLESS OTHERWISE = 8140) INDICATED, COMP UTER [...] report format containing imag es or consolidated p rior Pap history is available as applicable. VAGINAL PATHOGENS DNA [id number] 14:27:04 Test Item Value Reference Range Interpretation [...] and Trichomonas vag inalis nucleic acid. * [facility] has important patho logy staff changes effecti ve 09/12/2022. New pathology staff will provide uninterrupted, excellent patient care an d clinical consultation. S ee URL: [email or web address]. UNLESS OTHE RWISE INDICATED, ALL TESTING PERFORMED AT [facility]. [address] [place], [place] CLIA: [id number], CAP: [id number] GONORRHEA, NAAT, [id number] 13:26:57 Test Item Value Reference Range Interpretation Comments GONORRHEA, NAAT, NEGATIVE NEGATIVE A negative result does THINPREP (test code not excl ude low level = 45869) infection, specimensamplin g error, or collection erro r. Testing is performed wi th the Elmo Adebayo 680 systems usingre al-time Polymerase Richard n Reaction (PCR) method. CHLAMYDIA, NAAT, [id number] 13:26:57 Test Item Value Reference Range Interpretation Comments CHLAMYDIA, NAAT, NEGATIVE NEGATIVE A negative result does THINPREP (test code not excl ude low level = 35994) infection, specimensamplin g error, or collection erro r. Testing is performed wi th the Elmo Adebayo 680 systems usingre al-time Polymerase Richard n Reaction (PCR) method. * [facility] has important patho logy staff changes effecti ve 09/12/2022. New pathology staff will provide uninter rupted, excellent patie nt care and clinical consul tation. See URL: [email or web address]. UNLESS OT HERWISE INDICATED, ALL TESTING PERFORMED AT [facility] [address] [place] [address] CLIA: [id number], CAP: [id number] TSH, THIRD [id number] 04:41:28 Test Item Value Reference Range Interpretation Comments TSH, THIRD GENERATION (test code 1.960 UIU/ML 0.400-4.100 = 2821) HEPATITIS PANEL, [id number] 03:31:10 Test Item Value Reference Range Interpretation Comments HEPATITIS A IgM (test NON-REACTIVE NON-REACTIVE code = 76883) HEPATITIS B CORE IgM NON-REACTIVE NON-REACTIVE (test code = 4644) HEPATITIS B SURF AG NON-REACTIVE NON-REACTIVE (test code = 2739) HEPATITIS C ANTIBODY NON-REACTIVE NON-REACTIVE (test code = 4675) INTERPRETATION (NOTE) Hepatitis A HEPATITIS A: (test code sero logy shows no = 2552) evidence of acu te hepatitis A. INTERPRETATION (NOTE) Hepatitis B HEPATITIS B: (test code sero logy shows no = 78340) evidence of acu te hepatitis B and no indication of exposure to hepatitis B vir us in the previous nallely eight months. INTERPRETATION (NOTE) Hepatitis C HEPATITIS C: (test code sero logy shows no = 92756) evidence of exposure to hepatitisC viru s at this time. I t can take up to 12 months after exposure tothe hepatitis C vir us for antibodies to become detectab le in the blood in certain patient s. HIV 1/2 4TH GEN, RFLX [id number] 03:31:10 Test Item Value Reference Range Interpretation Comments HIV 1/2 4TH GEN, RFLX CONF (test NON-REACTIVE NON-REACTIVE code = 3514) SARS-CoV-2 (COVID-19) by RT-PCR (HIGH RISK)2020-06-21 00:00:00 Test Item Value Reference Range Interpretation Comments SARS-CoV-2 INTERPRETATION NEGATIVE (test code = 85311) SOURCE (test code = 60245) NASOPHARYNGEAL SARS-CoV-2 (COVID-19) by RT-PCR (HIGH RISK)2020-06-21 00:00:00 Test Item Value Reference Range Interpretation Comments SARS-CoV-2 INTERPRETATION NEGATIVE (test code = 91541) SOURCE (test code = 60960) NASOPHARYNGEAL SARS-CoV-2 (COVID-19) by RT-PCR (HIGH RISK)2020-06-21 00:00:00 Test Item Value Reference Range Interpretation Comments SARS-CoV-2 INTERPRETATION NEGATIVE (test code = 38915) SOURCE (test code = 89917) NASOPHARYNGEAL SARS-CoV-2 (COVID-19) by RT-PCR (HIGH RISK)2020-06-21 00:00:00 Test Item Value Reference Range Interpretation Comments SARS-CoV-2 INTERPRETATION NEGATIVE (test code = 08638) SOURCE (test code = 01240) NASOPHARYNGEAL SARS-CoV-2 (COVID-19) by RT-PCR (HIGH RISK)2020-06-21 00:00:00 Test Item Value Reference Range Interpretation Comments SARS-CoV-2 INTERPRETATION NEGATIVE (test code = 90060) SOURCE (test code = 31465) NASOPHARYNGEAL SARS-CoV-2 (COVID-19) by RT-PCR (HIGH RISK)2020-06-21 00:00:00 Test Item Value Reference Range Interpretation Comments SARS-CoV-2 INTERPRETATION NEGATIVE (test code = 32147) SOURCE (test code = 02171) NASOPHARYNGEAL SARS-CoV-2 (COVID-19) by RT-PCR (HIGH RISK)2020-06-21 00:00:00 Test Item Value Reference Range Interpretation Comments SARS-CoV-2 INTERPRETATION NEGATIVE (test code = 37500) SOURCE (test code = 59424) NASOPHARYNGEAL SARS-CoV-2 (COVID-19) by RT-PCR (HIGH RISK)2020-06-21 00:00:00 Test Item Value Reference Range Interpretation Comments SARS-CoV-2 INTERPRETATION NEGATIVE (test code = 07269) SOURCE (test code = 79045) NASOPHARYNGEAL SARS-CoV-2 (COVID-19) by RT-PCR (HIGH RISK)2020-06-21 00:00:00 Test Item Value Reference Range Interpretation Comments SARS-CoV-2 INTERPRETATION NEGATIVE (test code = 75571) SOURCE (test code = 16410) NASOPHARYNGEAL SARS-CoV-2 (COVID-19) by RT-PCR (HIGH RISK)2020-06-21 00:00:00 Test Item Value Reference Range Interpretation Comments SARS-CoV-2 INTERPRETATION NEGATIVE (test code = 33860) SOURCE (test code = 80690) NASOPHARYNGEAL SARS-CoV-2 (COVID-19) by RT-PCR (HIGH RISK)2020-06-21 00:00:00 Test Item Value Reference Range Interpretation Comments SARS-CoV-2 INTERPRETATION NEGATIVE (test code = 92471) SOURCE (test code = 15840) NASOPHARYNGEAL
[2023-03-26] MEDS ORDERED: KETOROLAC 30 MG/ML INJ ONE (04:14)
[2023-03-26] MEDS ORDERED: FAMOTIDINE 20 MG/2 ML VIAL IV ONE (04:14)
[2023-03-26] MEDS ORDERED: NA CHLORIDE 0.9% 1,000 ML ONE (04:14)
[2023-03-26] MEDS ORDERED: ONDANSETRON 4 MG/2 ML VIAL ONE (04:14)
[2023-03-26 04:26] LABS: Specific Gravity 1.025 (1.005-1.030)
[2023-03-26 04:34] LABS: Specific Gravity 1.025 (1.005-1.030); Urine Bacteria <20 /HPF (<20); Urine Bilirubin NEGATIVE (Negative); Urine Blood Negative (Negative); Urine Clarity Turbid (Clear); Urine Color Light-Yellow (Yellow); Urine Glucose NEGATIVE (Negative); Urine Mucus Slight /HPF (None Seen); Urine Protein TRACE (Negative); Urine RBC <5 /HPF (None Seen); Urine Urobilinogen Normal (Normal)
[2023-03-26 04:35] LABS: Albumin 3.5 g/dL (3.4-5.0); Bilirubin Total 0.3 mg/dL (0.2-1.0); Potassium 3.5 mEq/L (3.5-5.1); Protein, Total 7.9 g/dL (6.4-8.2)
[2023-03-26 04:44] LABS: Hematocrit 36.7 % (36.0-45.0); Lymphocytes % 23.6 % (15.3-44.8); MCV 83.8 fL (80-100); MPV 9.7 fL (7.6-11.3); Platelets 276 thou/uL (152-406); RBC Red Blood Cell Count 4.38 M/uL (3.86-4.86)
--- NOTE | 2023-03-26 05:34 | ER ---
Nurse's Notes [facility] Name: Glory Ba Age: 22 yrs Sex: Female : 2000 Arrival Date: 03/26/2023 Time: 03:19 Bed 7 Private MD: Diagnosis: Other cholelithiasis without obstruction;Cholelithiasis, with biliary colic. Presentation: 03/26 03:35 Chief complaint: Patient states: RUQ pain that started yesterday. Coronavirus screen: as6 At this time, the client does not indicate any symptoms associated with coronavirus-19. Ebola Screen: No symptoms or risks identified at this time. Initial Sepsis Screen: Does the patient meet any 2 criteria? No. Patient's initial sepsis screen is negative. Does the patient have a suspected source of infection? No. Patient's initial sepsis screen is negative. Risk Assessment: Do you want to hurt yourself or someone else? Patient reports no desire to harm self or others. Onset of symptoms was March 25, 2023. 03:35 Acuity: KAILA 3 as6 03:35 Method Of Arrival: Ambulatory as6 Triage Assessment: 03:35 General: Appears uncomfortable, obese, Behavior is calm, cooperative, appropriate for bp age. Pain: Complains of pain in abdomen. EENT: No deficits noted. Neuro: No deficits noted. Cardiovascular: No deficits noted. GI: Reports upper abdominal pain. 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 - Social history:: Smoking status: Patient denies any tobacco usage or history of. - Family history:: not pertinent. Screenin:00 [facility] ED Fall Risk Assessment (Adult) History of falling in the last 3 months, bp including since admission No falls in past 3 months (0 pts). Abuse screen: Denies threats or abuse. Denies injuries from another. Nutritional screening: No deficits noted. Tuberculosis screening: No symptoms or risk factors identified. Assessment: 03:35 General: SEE TRIAGE NOTE. bp 05:00 Reassessment: Patient appears in no apparent distress at this time. Patient is alert, bp oriented x 3, equal unlabored respirations, skin warm/dry/pink. Vital Signs: 03:33 BP 124 / 75; Pulse 84; Resp 18 S; Temp 97.8(O); Pulse Ox 100% on R/A; Weight 99.79 kg as6 (R); Height 5 ft. 2 in. (R); Pain 8/10; 05:00 BP 110 / 58; Pulse 64; Resp 16; Pulse Ox 100% ; bp 05:43 BP 115 / 62; Pulse 75; Resp 16; Pulse Ox 100% ; bp 03:33 Body Mass Index 40.24 (99.79 kg, 157.48 cm) as6 03:33 Pain Scale: Adult as6 ED Course: 03:22 Patient arrived in ED. ag3 03:27 Oleksandr Jack MD is Attending Physician. sp4 03:33 Arm band placed on. as6 03:36 Triage completed. as6 03:49 Win Estevez, RN is Primary Nurse. bp 03:50 Inserted saline lock: 20 gauge in right antecubital area, using aseptic technique. bp Blood collected. 04:24 Abdomen Limited US In Process Unspecified. EDMS 04:59 CT Abd/Pelvis - IV Contrast Only In Process Unspecified. EDMS 05:00 Patient has correct armband on for positive identification. Bed in low position. Call bp light in reach. Side rails up X2. 05:33 Roosevelt Boyle MD is Referral Physician. sp4 05:43 No provider procedures requiring assistance completed. IV discontinued, intact, bp bleeding controlled, No redness/swelling at site. Pressure dressing applied. Administered Medications: 04:00 Drug: NS 0.9% IV 1000 ml Route: IV; Rate: 1 bolus; Site: right antecubital; bp 05:44 Follow up: IV Status: Completed infusion; IV Intake: 1000ml bp 04:00 Drug: Famotidine IVP 20 mg Route: IVP; Site: right antecubital; bp 05:13 Follow up: Response: No adverse reaction bp 04:00 Drug: TORadol - Ketorolac IVP 30 mg Route: IVP; Site: right antecubital; bp 05:14 Follow up: Response: No adverse reaction bp 04:00 Drug: Ondansetron IVP 4 mg Route: IVP; Site: right antecubital; bp 05:13 Follow up: Response: No adverse reaction bp Medication: 05:43 VIS not applicable for this client. bp Intake: 05:44 IV: 1000ml; Total: 1000ml. bp Outcome: 05:33 Discharge ordered by . sp4 05:43 Discharged to home ambulatory. bp 05:43 Condition: stable 05:43 Discharge instructions given to patient, Instructed on discharge instructions, follow up and referral plans. medication usage, Demonstrated understanding of instructions, follow-up care, medications, Prescriptions given X 2. 05:44 Patient left the ED. bp Signatures: Dispatcher [employer] EDMS Win Estevez RN RN bp Dolores Price ag3 Mark Perry RN RN as6 Oleksandr Jack MD MD sp4
--- NOTE | 2023-03-26 05:34 | EDPHYS ---
Physician Documentation [facility] Name: Glory Ba Age: 22 yrs Sex: Female : 2000 Arrival Date: 03/26/2023 Time: 03:19 Bed 7 Private MD: ED Physician Oleksandr Jack HPI: 03/26 03:28 This 22 yrs old Female presents to ER via Unassigned with complaints of sp4 Abdominal Pain. 03:37 22-year-old female presents with right upper quadrant abdominal pain starting yesterday sp4 associated with nausea. Patient has history of gallstones as reported by the patient herself.. Pain is constant and is moderate. . 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 - Social history:: Smoking status: Patient denies any tobacco usage or history of. - Family history:: not pertinent. ROS: 03:37 Constitutional: Negative for fever, chills, and weight loss, Eyes: Negative for injury, sp4 pain, redness, and discharge, ENT: Negative for injury, pain, and discharge, Neck: Negative for injury, pain, and swelling, Cardiovascular: Negative for chest pain, palpitations, and edema, Respiratory: Negative for shortness of breath, cough, wheezing, and pleuritic chest pain, Abdomen/GI: Positive for right upper quadrant abdominal pain and nausea. Negative for vomiting or constipation 03:37 All other systems are negative. Exam: 03:37 Constitutional: This is a well developed, well nourished patient who is awake, alert, sp4 and in no acute distress. Head/Face: Normocephalic, atraumatic. Eyes: Pupils equal round and reactive to light, extra-ocular motions intact. Lids and lashes normal. Conjunctiva and sclera are not injected. Cornea within normal limits. Periorbital areas with no swelling, redness, or edema. ENT: Nares patent. No nasal discharge, no septal abnormalities noted. Tympanic membranes are normal and external auditory canals are clear. Oropharynx with no redness, swelling, or masses, exudates, or evidence of obstruction, uvula midline. Mucous membranes moist. Neck: Trachea midline, no thyromegaly or masses palpated, and no cervical lymphadenopathy. Supple, full range of motion without nuchal rigidity, or vertebral point tenderness. Chest/axilla: Normal chest wall appearance and motion. Nontender with no deformity. No lesions are appreciated. Cardiovascular: Regular rate and rhythm with a normal S1 and S2. No gallops, murmurs, or rubs. Normal PMI, no JVD. No pulse deficits. Respiratory: Lungs have equal breath sounds bilaterally, clear to auscultation and percussion. No rales, rhonchi or wheezes noted. No increased work of breathing, no retractions or nasal flaring. Abdomen/GI: Soft, with normal bowel sounds. No distention or tympany. No guarding or rebound. Right upper quadrant tenderness without Alexandre sign Back: No spinal tenderness. No costovertebral tenderness. Skin: Warm, dry with normal turgor. Normal color with no rashes, no lesions, and no evidence of cellulitis. MS/ Extremity: Pulses equal, no cyanosis. Neurovascular intact. Full, normal range of motion. Neuro: Awake and alert, GCS 15, oriented to person, place, time, and situation. Cranial nerves II-XII grossly intact. Motor strength 5/5 in all extremities. Sensory grossly intact. Psych: Awake, alert, with orientation to person, place and time. Behavior, mood, and affect are within normal limits Vital Signs: 03:33 BP 124 / 75; Pulse 84; Resp 18 S; Temp 97.8(O); Pulse Ox 100% on R/A; Weight 99.79 kg as6 (R); Height 5 ft. 2 in. (R); Pain 8/10; 05:00 BP 110 / 58; Pulse 64; Resp 16; Pulse Ox 100% ; bp 05:43 BP 115 / 62; Pulse 75; Resp 16; Pulse Ox 100% ; bp 03:33 Body Mass Index 40.24 (99.79 kg, 157.48 cm) as6 03:33 Pain Scale: Adult as6 MDM: 03:31 Patient medically screened. sp4 03:37 Differential Diagnosis altered mental status, sepsis, flu. Data reviewed: vital signs, sp4 nurses notes. Data reviewed: old medical records, lab test result(s), radiologic studies, CT scan, ultrasound. 05:25 ED course: CT report - FINDINGS: LUNG BASES: Unremarkable. No mass. No consolidation. sp4 ABDOMEN: LIVER: Hepatic steatosis with sparing along the gallbladder fossa. GALLBLADDER AND BILE DUCTS: Debris versus fine stones noted layering within the gallbladder fundus. No ductal dilation. PANCREAS: Unremarkable. No mass. No ductal dilation. SPLEEN: Unremarkable. No splenomegaly. ADRENALS: Unremarkable. No mass. KIDNEYS AND URETERS: Unremarkable. No solid mass. No hydronephrosis. STOMACH AND BOWEL: Unremarkable. No obstruction. No mucosal thickening. PELVIS: APPENDIX: Small appendicolith noted within the tip of the appendix, with no appendiceal dilatation or surrounding fat stranding to suggest acute appendicitis. BLADDER: Unremarkable. No mass. REPRODUCTIVE: Unremarkable as visualized. ABDOMEN and PELVIS: INTRAPERITONEAL SPACE: Unremarkable. No free air. No significant fluid collection. BONES/JOINTS: No acute fracture. No dislocation. SOFT TISSUES: Unremarkable. VASCULATURE: Unremarkable. No abdominal aortic aneurysm. LYMPH NODES: Unremarkable. No enlarged lymph nodes. IMPRESSION: 1. No acute abnormality within the abdomen or pelvis. 2. Hepatic steatosis with sparing along the gallbladder fossa. 3. Debris versus fine stones noted layering within the gallbladder fundus. . 05:26 ED course: FINDINGS: LIVER: Hepatic steatosis with focal fatty sparing demonstrated sp4 along the gallbladder fossa. No intrahepatic bile duct dilation. GALLBLADDER: Cholelithiasis with no significant gallbladder wall thickening or pericholecystic edema. COMMON BILE DUCT: Unremarkable as visualized. No stones. No dilation. Common bile duct measures 0.3 cm in diameter. IMPRESSION: 1. Cholelithiasis with no sonographic findings to suggest acute cholecystitis. If there is high clinical suspicion for acute cholecystitis, or to evaluate for chronic cholecystitis or biliary dyskinesia, further evaluation by HIDA scan could be performed. 2. Hepatic steatosis with focal fatty sparing demonstrated along the gallbladder fossa. . 05:32 Consideration of Admission/Observation Escalation of care including sp4 admission/observation considered. ED course: Patient has no sign of acute cholecystitis. Patient is stable for discharge home. Patient is to see local surgeon and she will be referred to Dr. Boyle for cholecystectomy . 03/26 03:31 Order name: CBC with Diff; Complete Time: 04:54 sp4 03/26 03:31 Order name: CMP; Complete Time: 04:54 sp4 03/26 03:31 Order name: Lipase; Complete Time: 04:54 sp4 03/26 03:31 Order name: Test, Urine; Complete Time: 04:54 sp4 03/26 03:31 Order name: Urinalysis w/ reflexes; Complete Time: 04:54 sp4 03/26 03:31 Order name: Abdomen Limited US sp4 03/26 03:31 Order name: CT Abd/Pelvis - IV Contrast Only sp4 03/26 03:31 Order name: IV Saline Lock; Complete Time: 03:49 sp4 03/26 03:31 Order name: Labs collected and sent; Complete Time: 03:49 sp4 Administered Medications: 04:00 Drug: NS 0.9% IV 1000 ml Route: IV; Rate: 1 bolus; Site: right antecubital; bp 05:44 Follow up: IV Status: Completed infusion; IV Intake: 1000ml bp 04:00 Drug: Famotidine IVP 20 mg Route: IVP; Site: right antecubital; bp 05:13 Follow up: Response: No adverse reaction bp 04:00 Drug: TORadol - Ketorolac IVP 30 mg Route: IVP; Site: right antecubital; bp 05:14 Follow up: Response: No adverse reaction bp 04:00 Drug: Ondansetron IVP 4 mg Route: IVP; Site: right antecubital; bp 05:13 Follow up: Response: No adverse reaction bp Disposition Summary: 03/26/23 05:33 Discharge Ordered Location: Home sp4 Problem: new sp4 Symptoms: have improved sp4 Condition: Stable sp4 Diagnosis - Other cholelithiasis without obstruction sp4 - Cholelithiasis, with biliary colic. sp4 Followup: sp4 - With: Roosevelt Boyle MD - When: 10 - 14 days - Reason: Recheck today's complaints Discharge Instructions: - Discharge Summary Sheet sp4 - Cholelithiasis, [id number] sp4 Forms: - Work release form rv1 - Patient Portal Instructions sp4 Prescriptions: - naproxen 500 mg Oral tablet - take 1 tablet by ORAL route every 12 hours PRN pain; 30 tablet; Refills: 0, sp4 Product Selection Permitted - ondansetron 4 mg Oral Tablet,disintegrating - take 1 tablet by ORAL route every 6 hours for 3 days PRN nausea; 30 tablet; sp4 Refills: 0, Product Selection Permitted Signatures: Dispatcher [employer] Win Harris RN RN Mark Yung RN RN as6 Oleksandr Jack MD MD sp4
[2023-03-26 05:49] VITALS: TEMP 97.8; O2SAT 100
[2023-03-26 05:53] VITALS: BP 115/62
--- NOTE | 2023-03-26 15:54 | RAD REPORT ---
EXAM DESCRIPTION: CT - Abdomen Pelvis W Contrast - 03/26/2023 6:31 am CLINICAL HISTORY: The patient is 22 years old and is Female; ABD PAIN BR MAIN TECHNIQUE: Axial computed tomography images of the abdomen and pelvis with intravenous contrast. S agittal and coronal reformatted images were created and reviewed. This CT exam was performed using one or more of the following dose reduction techniques: automated exposure control, adjustment of t he mA and/or kV according to patient size, and/or use of iterative reconstruction technique. COMPARISON: May 09, 2021 CT abdomen pelvis with contrast FINDINGS: LUNG BASES: Unremarkable. No mass. No consolidation. ABDOMEN: LIVER: Hepatic steatosis with sparing along the gallbladder fossa. GALLBLADDER AND BILE DUCTS: Debris versus fine stones noted layering within the gallbladder fundus. No ductal dilation. PANCREAS: Unremarkable. No mass. No ductal dilation. SPLEEN: Unremarkable. No splenomegaly. ADRENALS: Unremarkable. No mass. KIDNEYS AND URETERS: Unremarkable. No solid mass. No hydronephrosis. STOMACH AND BOWEL: Unremarkable. No obstruction. No mucosal thickening. PELVIS: APPENDIX: Small appendicolith noted within the tip of the appendix, with no appendiceal dilatation or surrounding fat stranding to suggest acute appendicitis. BLADDER: Unremarkable. No mass. REPRODUCTIVE: Unremarkable as visualized. ABDOMEN and PELVIS: INTRAPERITONEAL SPACE: Unremarkable. No free air. No significant fluid collection. BONES/JOINTS: No acute fracture. No dislocation. SOFT TISSUES: Unremarkable. VASCULATURE: Unremarkable. No abdominal aortic aneurysm. LYMPH NODES: Unremarkable. No enlarged lymph nodes. IMPRESSION: 1. No acute abnormality within the abdomen or pelvis. 2. Hepatic steatosis with sparing along the gallbladder fossa. 3. Debris versus fine stones noted layering within the gallbladder fundus. Electronically signed by: Romulo Higgins MD 03/26/2023 5:18 AM CDT Due to temporary technical issues with the PACS/Fluency reporting system, reports are being signed by the in house radiologists without review as a courtesy to insure prompt reporting. The interpreting radiologist is fully responsible for the content of the report.
--- NOTE | 2023-03-26 15:56 | RAD REPORT ---
EXAM DESCRIPTION: US - Abdomen Exam Limited - 03/26/2023 4:23 am CLINICAL HISTORY: The patient is 22 years old and is Female; ABD PAIN [facility] MAIN TECHNIQUE: Real-time ultrasound of the right upper quadrant with image documentation. COMPARISON: No relevant prior studies available. FINDINGS: LIVER: Hepatic steatosis with focal fatty sparing demonstrated along the gallbladder fos sa. No intrahepatic bile duct dilation. GALLBLADDER: Cholelithiasis with no significant gallbladder wall thickening or pericholecystic heidi a. COMMON BILE DUCT: Unremarkable as visualized. No stones. No dilation. Common bile duct measures 0.3 cm in diameter. IMPRESSION: 1. Cholelithiasis with no sonographic findings to suggest acute cholecystitis. If ther e is high clinical suspicion for acute cholecystitis, or to evaluate for chronic cholecystitis or kimmy iary dyskinesia, further evaluation by HIDA scan could be performed. 2. Hepatic steatosis with focal fatty sparing demonstrated along the gallbladder fossa. Electronically signed by: Romulo Higgins MD 03/26/2023 5:03 AM CDT Due to temporary technical issues with the PACS/Fluency reporting system, reports are being signed by the in house radiologists without review as a courtesy to insure prompt reporting. The interpreting radiologist is fully responsible for the content of the report.
== END 2023-03-26 05:44 | disposition home or self-care (01) ==
LOC: ER 03:19
DX: K80.80 Other cholelithiasis without obstruction (principal); K80.50 Calculus of bile duct without cholangitis or cholecystitis without obstruction
CPT/HCPCS: 36415; 74177; 76705; 80053; 81001; 81025; 83690; 85025; 96361; 96374; 96375; 99284; J2405; J7030; Q9967

== ENCOUNTER 2023-05-03 01:25 | Emergency (ER) | payer SELFPAY ==
--- OUTSIDE RECORDS SUMMARY | 2023-05-03 01:30 | XMS REPORT | Continuity of Care Document ---
:2000 Author Organization [facility] t Address [address] [facility]. [address] [place] [address] Care Team Providers Name Role Phone Alta Levin Primary Care Physician [phone] Problems This patient has no known problems. Allergies, Adverse Reactions, Alerts This patient has no known allergies or adverse reactions. Medications Ordered Filled Start Stop Current Ordering Indication Dosage Frequency Signature Comments Components Source Medication Medication Date Date Medication? Clinician (SIG) Name Name 10 ML Q 4 No [id number] TO 6 HOURS 1 PRN COUGH 00:00: FOR 5 DAYS 00 TAKE 2021-07 No TABLET BY 2-28 MOUTH EVERY 00:00: 12 HOURS 00 FOR 10 DAYS SUCRALFATE 2021-07 No 1GM TABLETS 2- 00:00: 00 TAKE 2021-07 No CAPSULE BY 2-02 MOUTH EVERY 00:00: 6 HOURS FOR 00 10 DAYS. TAKE 0 No 500 TABLET BY 8-09 MOUTH TWICE 00:00: DAILY 00 TAKE 2021-0 No 500 TABLET BY 8-09 MOUTH TWICE 00:00: DAILY 00 TAKE 2021-0 No 500 TABLET BY 8-09 MOUTH TWICE 00:00: DAILY 00 TAKE 2021-0 No 500 TABLET BY 8-09 MOUTH TWICE 00:00: DAILY 00 TAKE 1 2021-0 No [id number] TABLET 8- TWICE DAILY 00:00: WITH FOOD. 00 Dose 2021-0 No 875 Unknown 02-13 00:00: 00 TAKE 1 2021-0 No [id number] TABLET 8- TWICE DAILY 00:00: WITH FOOD. 00 Dose 2021-0 No 875 Unknown 02-13 00:00: 00 TAKE 1 2021-0 No [id number] TABLET - TWICE DAILY 00:00: WITH FOOD. 00 Dose 2022-0 No 875 Unknown 02-13 00:00: 00 TAKE 1 2022-0 No [id number] TABLET 02-13 TWICE DAILY 00:00: WITH FOOD. 00 Dose 2022-0 No 875 Unknown 02-13 00:00: 00 TAKE 1 2022-0 No [id number] TABLET 02-13 TWICE DAILY 00:00: WITH FOOD. [...] Abilify 5 2018- No 1mg mg tablet 08-09 00:00: 00 Zoloft 2018- No 1mg mg tablet 08-09 00:00: 00 Abilify 5 2018- No 1mg mg tablet 08-09 00:00: [...] No 1mg mg tablet 08-09 00:00: 00 Vital Signs Vital Name Observation Time Observation [...] Goal Plan of Care Note [code = 44789-0] Goal Plan of Care Note [code = 54500-0] Goal Plan of Care Note [code = 98090-8] Goal Plan of Care Note [code = 15848-2] Goal Plan of Care Note [code = 51418-7] Goal Plan of Care Note [code = 52345-4] Goal Plan of Care Note [code = 63096-5] Goal Plan of Care Note [code = 06963-2] Goal Plan of Care Note [code = 29906-1] Goal Plan of Care Note [code = 12430-2] Goal Plan of Care Note [code = 90870-2] Goal Plan of Care Note [code = 07254-8] Goal Plan of Care Note [code = 63514-9] Goal Plan of Care Note [code = 28311-8] Goal Plan of Care Note [code = 58157-5] Goal Plan of Care Note [code = 48409-6] Goal Plan of Care Note [code = 25990-8] Goal Plan of Care Note [code = 91472-9] Goal Plan of Care Note [code = 13605-5] Goal Plan of Care Note [code = 97541-7] Goal Plan of Care Note [code = 00473-2] Goal Plan of Care Note [code = 92392-7] Goal Plan of Care Note [code = 09924-4] Goal Plan of Care Note [code = 92452-3] Goal Plan of Care Note [code = 28649-6] Goal Plan of Care Note [code = 93392-3] Goal Plan of Care Note [code = 48937-2] Goal Plan of Care Note [code = 62938-8] Goal Plan of Care Note [code = 47695-9] Goal Plan of Care Note [code = 06952-9] Goal Plan of Care Note [code = 52673-6] Goal Plan of Care Note [code = 42541-5] Goal Plan of Care Note [code = 46938-7] Goal Plan of Care Note [code = 68732-1] Goal Plan of Care Note [code = 44751-4] Goal Plan of Care Note [code = 82530-9] Goal Plan of Care Note [code = 90646-9] Goal Plan of Care Note [code = 42964-4] Goal Plan of Care Note [code = 61238-7] Goal Plan of Care Note [code = 94095-6] Goal Plan of Care Note [code = 61274-1] Goal Plan of Care Note [code = 16269-1] Goal Plan of Care Note [code = 54791-9] Goal Plan of Care Note [code = 12528-3] Goal Plan of Care Note [code = 80034-4] Goal Plan of Care Note [code = 39616-0] Goal Plan of Care Note [code = 50685-3] Goal Plan of Care Note [code = 15433-2] Goal Plan of Care Note [code = 61609-9] Goal Plan of Care Note [code = 29922-2] Goal Plan of Care Note [code = 14874-4] Goal Plan of Care Note [code = 25072-5] Goal Plan of Care Note [code = 51506-3] Goal Plan of Care Note [code = 50754-8] Goal Plan of Care Note [code = 18504-5] Goal Plan of Care Note [code = 67494-1] Goal Plan of Care Note [code = 69580-8] Goal Plan of Care Note [code = 96814-2] Goal Plan of Care Note [code = 40370-6] Goal Plan of Care Note [code = 86195-9] Goal Plan of Care Note [code = 61767-9] Goal Plan of Care Note [code = 57082-1] Goal Plan of Care Note [code = 18843-8] Goal Plan of Care Note [code = 77906-9] Goal Plan of Care Note [code = 69778-9] Goal Plan of Care Note [code = 21761-1] Goal Plan of Care Note [code = 49995-1] Goal Plan of Care Note [code = 22510-0] Goal Plan of Care Note [code = 28478-0] Goal Plan of Care Note [code = 67025-7] Goal Plan of Care Note [code = 75469-9] Goal Plan of Care Note [code = 82846-0] Goal Plan of Care Note [code = 67828-3] Goal Plan of Care Note [code = 06847-8] Goal Plan of Care Note [code = 32658-6] Goal Plan of Care Note [code = 21395-0] Goal Plan of Care Note [code = 76554-1] Goal Plan of Care Note [code = 42590-5] Goal Plan of Care Note [code = 82155-4] Goal Plan of Care Note [code = 03878-5] Goal Plan of Care Note [code = 64622-6] Goal Plan of Care Note [code = 68732-3] Goal Plan of Care Note [code = 25732-6] Goal Plan of Care Note [code = 81830-1] Goal Plan of Care Note [code = 12671-0] Goal Plan of Care Note [code = 86563-4] Goal Plan of Care Note [code = 72017-5] Goal Plan of Care Note [code = 75011-7] Goal Plan of Care Note [code = 45089-5] Goal Plan of Care Note [code = 80941-9] Goal Plan of Care Note [code = 62705-3] Goal Plan of Care Note [code = 47108-6] Goal Plan of Care Note [code = 29638-6] Goal Plan of Care Note [code = 93663-8] Goal Plan of Care Note [code = 36367-0] Goal Plan of Care Note [code = 56847-9] Goal Plan of Care Note [code = 81485-1] Goal Plan of Care Note [code = 16699-9] Goal Plan of Care Note [code = 21217-4] Goal Plan of Care Note [code = 49902-2] Goal Plan of Care Note [code = 18369-0] Goal Plan of Care Note [code = 25893-4] Goal Plan of Care Note [code = 97046-5] Goal Plan of Care Note [code = 30109-5] Goal Plan of Care Note [code = 23695-0] Goal Plan of Care Note [code = 36867-5] Goal Plan of Care Note [code = 94069-9] Goal Plan of Care Note [code = 43730-1] Goal Plan of Care Note [code = 75542-0] Goal Plan of Care Note [code = 65411-5] Goal Plan of Care Note [code = 75700-6] Goal Plan of Care Note [code = 90079-6] Goal Plan of Care Note [code = 72370-0] Goal Plan of Care Note [code = 36130-8] Goal Plan of Care Note [code = 58034-2] Goal Plan of Care Note [code = 99309-6] Goal Plan of Care Note [code = 67783-2] Goal Plan of Care Note [code = 95140-3] Goal Plan of Care Note [code = 08853-1] Goal Plan of Care Note [code = 27763-2] Goal Plan of Care Note [code = 75828-7] Goal Plan of Care Note [code = 18934-6] Goal Plan of Care Note [code = 60399-2] Goal Plan of Care Note [code = 05342-6] Goal Plan of Care Note [code = 23233-8] Goal Plan of Care Note [code = 62944-5] Goal Plan of Care Note [code = 37408-0] Goal Plan of Care Note [code = 02465-7] Goal Plan of Care Note [code = 44816-5] Goal Plan of Care Note [code = 41159-3] Goal Plan of Care Note [code = 78347-3] Goal Plan of Care Note [code = 27025-3] Goal Plan of Care Note [code = 81713-1] Goal Plan of Care Note [code = 47381-7] Goal Plan of Care Note [code = 56776-1] Encounters Start End Encounter Admission Attending Care Care Encounter Source Date/Time Date/Time Type Type Clinicians Facility Department ID 2023-03-08 2023-03-08 Outpatient SFA SFA [id number] [place] 15:18:13 15:18:13 0825 [facility] 2023-03-05 2023-03-05 Outpatient SFA SFA [id number] 023 [place] 10:53:04 10:53:04 0822 [facility] 2023-01-24 2023-01-24 Outpatient DEYSI SFA 03084-7 023 [place] 08:12:45 08:12:45 0713 [facility] [place] 2023-01-08 2023-01-08 Outpatient SFA SFA [id number] 023 [place] 11:10:54 11:10:54 0627 [facility] [place] 2022-10-31 2022-10-31 Outpatient SFA SFA [id number] 023 [place] 08:10:57 08:10:57 0419 [facility] [place] 2022-08-15 2022-08-15 Outpatient SFA SFA [id number] 023 [place] 08:35:11 08:35:11 0201 [facility] [place] 2022-08-08 2022-08-08 Outpatient SFA SFA 07327-3 023 [place] 14:38:56 14:38:56 0125 [facility] [place] 2022-08-06 2022-08-06 Outpatient SFA SFA [id number] 023 [place] 08:42:45 08:42:45 0123 [facility] [place] 2022-08-06 2022-08-06 Outpatient [id number]- [id number] 4okv60-f 00:00:00 00:00:00 Visit d635-3o4a 347-4a1a-b -d95p-824 99d-842253 896r04o38 a81e19 2022-05-17 2022-05-17 Outpatient SFA SFA [id number] 022 [place] 09:31:59 09:31:59 1103 [facility] [place] 2022-05-17 2022-05-17 Outpatient [id number]- [id number] 3s75v9-2 00:00:00 00:00:00 Visit 5yd8-0759 ad4-4855-b -a640-aq4 541-pl3301 [id number] 066813 8420-10-29 2022-05-12 Outpatient SFA SFA [id number] 022 [place] 14:22:47 14:22:47 1029 [facility] [place] 2022-05-12 2022-05-12 Outpatient [id number]- [id number] e2 3342aa-1 00:00:00 00:00:00 Visit 34s1-9a0w 1o2-1s5o-g -ff88-04u i89-26r720 25589lw8m 18da9d 2022-02-20 2022-02-20 Outpatient p0aw4adl- [id number] a3 de2hbl-n 00:00:00 00:00:00 Visit abbf-466a bbf-466a-8 -8131-e9b 131-e9bd33 y30x729r7 f397d7 2022-02-13 2022-02-13 Outpatient [id number]- [id number] 4al447-v 00:00:00 00:00:00 Visit e5t1-2733 2f4-1432-8 -3ek7-979 ac4-11518x 44g23r603 52t111 2022-02-05 2022-02-05 Outpatient 4w70zq4d- [id number] 9a 51uq3f-3 00:00:00 00:00:00 Visit 1fee-4f0f fee-4f0f-a -hy5r-8p1 h2v-5n73nz 3mo67dbk3 47dfe6 2022-02-02 2022-02-02 Outpatient [id number]- [id number] 4e 45856x-u 00:00:00 00:00:00 Visit b9g3-48cx 4p5-44ui-e -bda9-04c da9-18j246 [id number] Results Test Description Test Time Test Comments Results Result Comments Source CULTURE, THROAT 2023-01-26 SPECIMEN NUMBER: 14:50:25 [id number] CULTURE, THROAT SPECIMEN NUMBER: [id number] SOURCE: THROAT REPORT STATUS: FINAL FINAL REPORT: 01/26/2023 NORMAL RESPIRATORY SONIA UNLESS OTHERWISE INDICATED, ALL TESTING PERFORMED AT [facility] [address] [place] [address] NON DESTRUCTIVE EVALUATION TECHNICIAN: ROSA MARIA CRAIG M.D. CLIA NUMBER [id number] [place]. [id number] CT/NG, NAAT, URINE 2023-01-09 21:10:55 Test Item Value Reference Range Interpretation Comme nts CHLAMYDIA, NAAT, URINE (test NEGATIVE NEGATIVE Testing is performed with Elmo code = 45216) ADEBAYO [employer] Things0/880 0 systems usingreal-time polymerase chain reaction (PCR) method. A negative result does not exclude low level infection, spec imensampling error, or collection e rror. GONORRHEA, NAAT, URINE (test NEGATIVE NEGATIVE Testing is performed with Elmo code = 03887) [employer]0/880 0 systems usingreal-time polymerase chain reaction (PCR) method. A negative result does not exclude low level infection, spec imensampling error, or collection e rror. TRICHOMONAS, NAAT, [id number] 20:46:01 Test Item Value Reference Range Interpretation Comments TRICHOMONAS, NEGATIVE NEGATIVE Testing is per formed with NAAT, URINE (test Elmo ROSCOE S 6800/8800 method code = 66773) usingreal-time polymerase chain reaction (PCR) method. A negative resu lt does not exclude low lev el infection, specimensamplin g error, or collection erro r. UNLESS OTHERWISE INDIC ATED, ALL TESTING PERFORM ED AT [facility]. [address] [place] [address] 49 LABORATORY DIRE CTOR: ROSA MARIA WESTBROOK M.D. CLIA NUMBER [id number] CAP ACCREDITATION N O. [id number] HERPES SIMPLEX AB, [id number] 14:28:08 Test Item Value Reference Range Interpretation Comments HERPES SIMPLEX AB, 1.36 INDEX SEE BELOW H IMPORTAN T NOTE: HSV IgM IgM (test code = ASSAYS ARE NOT 68036) TYPE-SPECIFIC. THE BIOLOGICALIgM R ESPONSE WITH PRIMARY [...] EQ UIVOCAL INDEX 0.90-1.09 POSITIVE INDEX >=1.10 [id number] 05:19:17 Test Item Value Reference Range Interpretation Comments RPR RESULT (test code = NON-REACTIVE NON-REACTIVE 3501) RPR TITER (test code = 3500) NOT INDIC. TITER NOT INDIC. HIV 1/2 4TH GEN, RFLX [id number] 04:30:56 Test Item Value Reference Range Interpretation Comments HIV 1/2 4TH GEN, RFLX CONF (test NON-REACTIVE NON-REACTIVE code = 9674) HEPATITIS PANEL, [id number] 04:30:56 Test Item Value Reference Range Interpretation Comments HEPATITIS A IgM (test NON-REACTIVE NON-REACTIVE code = 78204) HEPATITIS B CORE IgM NON-REACTIVE NON-REACTIVE (test code = 4644) HEPATITIS B SURF AG NON-REACTIVE NON-REACTIVE (test code = 2739) HEPATITIS C ANTIBODY NON-REACTIVE NON-REACTIVE (test code = 4675) INTERPRETATION (NOTE) Hepatitis A HEPATITIS A: (test code sero logy shows no = 2552) evidence of acu te hepatitis A. INTERPRETATION (NOTE) Hepatitis B HEPATITIS B: (test code sero logy shows no = 83188) evidence of acu te hepatitis B and no indication of exposure to hepatitis B vir us in the previous nallely eight months. INTERPRETATION (NOTE) Hepatitis C HEPATITIS C: (test code sero logy shows no = 51850) evidence of exposure to hepatitisC viru s at this time. I t can take up to 12 months after exposure tothe hepatitis C vir us for antibodies to become detectab le in the blood in certain patient s. HERPES SIMPLEX 1/2 AB, IgG [id number] 04:30:56 Test Item Value Reference Range Interpretation Comments HERPES SIMPLEX 1 21.800 INDEX SEE BELOW H INTERPRETA TION UNITS AB, IgG (test RANGE -------- ------ code = 44349) ----- ----- NO N-REACTIVE INDEX <1.000 R EACTIVE INDEX >=1.00 0 HERPES SIMPLEX 2 0.078 INDEX SEE BELOW INTERPRETA TION UNITS AB, IgG (test RANGE -------- ------ code = 31234) ----- ----- NON-REACTIVE IN DEX <1.000 REACTIVE INDEX >=1.000 [id number] 00:37:53 Test Item Value Reference Range Interpretation Comments RPR RESULT (test code = NON-REACTIVE NON-REACTIVE 3501) RPR TITER (test code = 3500) NOT INDIC. TITER NOT INDIC. PAP TEST, THINPREP, [id number] 17:11:55 Test Item Value Reference Range Interpretation Comments SOURCE: (test Unspecified code = 8001) SLIDES: (test 1 code = 8011) LMP: (test code 07/21/2022 = 8021) SPECIMEN (NOTE) Satisfactory f or ADEQUACY: (test evaluation. code = 55707) INTERPRETATION: NILM/NO EPITH. (test code = ABNORMALITY;SEE 25642) BELOW ------- ---- NEGATI VE FOR INTRAEPITHELIAL LESION OR MALIGNANCY ( NILM) ------- ------- ------- ------- CYTOTECHNOLOGIS Isabela Raines T: (test code = Watson,CT(ASCP)IAC 8101) LOCATION: (test (NOTE) Specimens pr ocessed code = 57073) and interprete d [facility], [address] [place] [address]14 4, Phone: , CLIA: [id number] CPT: (test code (NOTE) 80047 UNLESS OTHERWISE = 8140) INDICATED, COMP UTER [...] avai lable as applicable. VAGINAL PATHOGENS DNA [id number] 14:27:04 Test Item Value Reference Range Interpretation [...] and Trichomonas vag inalis nucleic acid. * [facility] has important patho logy staff changes effecti ve 09/12/2022. New pathology staff will provide uninterrupted, excellent patient care an d clinical consultation. S ee URL: [email or web address]. UNLESS OTHE RWISE INDICATED, ALL TESTING PERFORMED AT [facility]. [address] [place] [address] CLIA: [id number], CAP: GONORRHEA, NAAT, [id number] 13:26:57 Test Item Value Reference Range Interpretation Comments GONORRHEA, NAAT, NEGATIVE NEGATIVE A negative result does THINPREP (test code not excl ude low level = 95632) infection, specimensamplin g error, or collection erro r. Testing is performed wi th the Elmo Adebayo 680 systems usingre al-time Polymerase Richard n Reaction (PCR) method. CHLAMYDIA, NAAT, [id number] 13:26:57 Test Item Value Reference Range Interpretation Comments CHLAMYDIA, NAAT, NEGATIVE NEGATIVE A negative result does THINPREP (test code not excl ude low level = 14407) infection, specimensamplin g error, or collection erro r. Testing is performed wi th the Elmo Adeb[employer] 680 systems usingre al-time Polymerase Richard n Reaction (PCR) method. [facility] has important patho logy staff changes effecti ve 09/12/2022. New pathology staff will provide uninter rupted, excellent patie nt care and clinical consul tation. See URL: [email or web address]. UNLESS OT HERWISE INDICATED, ALL TESTING PERFORMED AT [facility]. [address] [place] [address] CLIA: [id number], CAP: TSH, THIRD [id number] 04:41:28 Test Item Value Reference Range Interpretation Comments TSH, THIRD GENERATION (test code 1.960 UIU/ML 0.400-4.100 = 2821) HEPATITIS PANEL, [id number] 03:31:10 Test Item Value Reference Range Interpretation Comments HEPATITIS A IgM (test NON-REACTIVE NON-REACTIVE code = 33678) HEPATITIS B CORE IgM NON-REACTIVE NON-REACTIVE (test code = 4644) HEPATITIS B SURF AG NON-REACTIVE NON-REACTIVE (test code = 2739) HEPATITIS C ANTIBODY NON-REACTIVE NON-REACTIVE (test code = 4675) INTERPRETATION (NOTE) Hepatitis A HEPATITIS A: (test code sero logy shows no = 2552) evidence of acu te hepatitis A. INTERPRETATION (NOTE) Hepatitis B HEPATITIS B: (test code sero logy shows no = 73004) evidence of acu te hepatitis B and no indication of exposure to hepatitis B vir us in the previous nallely eight months. INTERPRETATION (NOTE) Hepatitis C HEPATITIS C: (test code sero logy shows no = 65519) evidence of exposure to hepatitisC viru s at this time. I t can take up to 12 months after exposure tothe hepatitis C vir us for antibodies to become detectab le in the blood in certain patient s. HIV 1/2 4TH GEN, RFLX [id number] 03:31:10 Test Item Value Reference Range Interpretation Comments HIV 1/2 4TH GEN, RFLX CONF (test NON-REACTIVE NON-REACTIVE code = 3514) SARS-CoV-2 (COVID-19) by RT-PCR (HIGH RISK)2020-06-21 00:00:00 Test Item Value Reference Range Interpretation Comments SARS-CoV-2 INTERPRETATION NEGATIVE (test code = 87813) SOURCE (test code = 41865) NASOPHARYNGEAL SARS-CoV-2 (COVID-19) by RT-PCR (HIGH RISK)2020-06-21 00:00:00 Test Item Value Reference Range Interpretation Comments SARS-CoV-2 INTERPRETATION NEGATIVE (test code = 99377) SOURCE (test code = 66227) NASOPHARYNGEAL SARS-CoV-2 (COVID-19) by RT-PCR (HIGH RISK)2020-06-21 00:00:00 Test Item Value Reference Range Interpretation Comments SARS-CoV-2 INTERPRETATION NEGATIVE (test code = 92874) SOURCE (test code = 94327) NASOPHARYNGEAL SARS-CoV-2 (COVID-19) by RT-PCR (HIGH RISK)2020-06-21 00:00:00 Test Item Value Reference Range Interpretation Comments SARS-CoV-2 INTERPRETATION NEGATIVE (test code = 50421) SOURCE (test code = 81072) NASOPHARYNGEAL SARS-CoV-2 (COVID-19) by RT-PCR (HIGH RISK)2020-06-21 00:00:00 Test Item Value Reference Range Interpretation Comments SARS-CoV-2 INTERPRETATION NEGATIVE (test code = 17016) SOURCE (test code = 46505) NASOPHARYNGEAL SARS-CoV-2 (COVID-19) by RT-PCR (HIGH RISK)2020-06-21 00:00:00 Test Item Value Reference Range Interpretation Comments SARS-CoV-2 INTERPRETATION NEGATIVE (test code = 54861) SOURCE (test code = 01442) NASOPHARYNGEAL SARS-CoV-2 (COVID-19) by RT-PCR (HIGH RISK)2020-06-21 00:00:00 Test Item Value Reference Range Interpretation Comments SARS-CoV-2 INTERPRETATION NEGATIVE (test code = 52372) SOURCE (test code = 47501) NASOPHARYNGEAL SARS-CoV-2 (COVID-19) by RT-PCR (HIGH RISK)2020-06-21 00:00:00 Test Item Value Reference Range Interpretation Comments SARS-CoV-2 INTERPRETATION NEGATIVE (test code = 45009) SOURCE (test code = 88311) NASOPHARYNGEAL SARS-CoV-2 (COVID-19) by RT-PCR (HIGH RISK)2020-06-21 00:00:00 Test Item Value Reference Range Interpretation Comments SARS-CoV-2 INTERPRETATION NEGATIVE (test code = 51771) SOURCE (test code = 12713) NASOPHARYNGEAL SARS-CoV-2 (COVID-19) by RT-PCR (HIGH RISK)2020-06-21 00:00:00 Test Item Value Reference Range Interpretation Comments SARS-CoV-2 INTERPRETATION NEGATIVE (test code = 84798) SOURCE (test code = 48793) NASOPHARYNGEAL SARS-CoV-2 (COVID-19) by RT-PCR (HIGH RISK)2020-06-21 00:00:00 Test Item Value Reference Range Interpretation Comments SARS-CoV-2 INTERPRETATION NEGATIVE (test code = 38067) SOURCE (test code = 35050) NASOPHARYNGEAL
[2023-05-03 02:30] LABS: Specific Gravity 1.027 (1.005-1.030); Urine Bilirubin NEGATIVE (Negative); Urine Blood Negative (Negative); Urine Clarity Clear (Clear); Urine Color Light-Yellow (Yellow); Urine Glucose NEGATIVE (Negative); Urine Protein NEGATIVE (Negative); Urine Urobilinogen Normal (Normal); Urine pH 6.5 (5.0-7.0)
[2023-05-03 02:31] LABS: Specific Gravity 1.027 (1.005-1.030)
[2023-05-03 02:37] LABS: Absolute Lymphocytes (CBC) 2.5 K/uL (0.7-4.9); Hematocrit 37.5 % (36.0-45.0); Lymphocytes % 28.7 % (15.3-44.8); MCV 83.9 fL (80-100); MPV 9.8 fL (7.6-11.3); Platelets 272 thou/uL (152-406); RBC Red Blood Cell Count 4.47 M/uL (3.86-4.86)
[2023-05-03] MEDS ORDERED: NA CHLORIDE 0.9% 1,000 ML ONE (02:42)
[2023-05-03] MEDS ORDERED: MORPHINE 4 MG/ML SYR ONE (02:42)
[2023-05-03] MEDS ORDERED: ONDANSETRON 4 MG/2 ML VIAL ONE (02:42)
[2023-05-03 02:46] LABS: Albumin 3.6 g/dL (3.4-5.0); Bilirubin Total 0.2 mg/dL (0.2-1.0); Potassium 3.6 mEq/L (3.5-5.1); Protein, Total 7.9 g/dL (6.4-8.2)
--- NOTE | 2023-05-03 03:13 | EDPHYS ---
Physician Documentation [facility] Name: Glory Ba Age: 22 yrs Sex: Female : 2000 Arrival Date: 05/03/2023 Time: 01:25 Bed 7 Private MD: ED Physician Diego Rivera HPI: 05/03 01:44 This 22 yrs old Female presents to ER via Ambulatory with complaints of ec2 Abdominal Pain. 01:44 Patient arrives today due to concern for right upper quadrant abdominal pain. Patient ec2 reports that she was diagnosed with gallstones several weeks to months ago, states that she has been having worsening pain today. States the pain is constant, dull in nature in the upper abdomen and right upper quadrant. Patient reports some associated nausea and vomiting. Patient reports no urinary problems, no dysuria, denies any issues with bowel movements. Patient reports no previous abdominal surgeries. States that she was supposed to follow-up with a general surgeon however had some insurance issues and was unable to follow-up.. 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 - Social history:: Smoking status: Patient denies any tobacco usage or history of. Patient/guardian denies using alcohol, street drugs. ROS: 01:44 Constitutional: abd pain ec2 Exam: 01:44 Constitutional: GEN: NAD Head: atraumatic Eyes: EOMI Ears: External ears are ec2 normal. CV: regular rate LUNGS: no respiratory distress ABD: Soft, no guarding, not rigid, tender in the right upper quadrant and epigastrium. Negative flanks bilaterally. SKIN: no evidence of rashes MSK: no evidence of trauma NEURO: moves all extremities equally Vital Signs: 01:37 BP 133 / 99; Pulse 82; Resp 17 S; Temp 98(O); Pulse Ox 100% on R/A; Weight 99.79 kg lg3 (R); Height 5 ft. 2 in. (R); Pain 9/10; 02:36 BP 112 / 65; Pulse 68; Resp 16; Pulse Ox 98% ; bp 03:24 BP 116 / 74; Pulse 70; Resp 16; Pulse Ox 98% on R/A; Pain 3/10; km8 01:37 Body Mass Index 40.24 (99.79 kg, 157.48 cm) lg3 01:37 Pain Scale: Adult lg3 03:24 Pain Scale: Adult km8 MDM: 01:31 Patient medically screened. ec2 01:44 ED course: Patient arrives today due to concern for right upper quadrant abdominal pain ec2 in the setting of known history of gallstones. Examination remarkable for well-appearing nontoxic individual is otherwise in no acute distress but does have some right upper quadrant tenderness to palpation. Will obtain lab work, ultrasound, treat patient's pain with IV morphine as well as Zofran. We will give the patient crystalloid as well. Currently considering process such as gallstones, cholecystitis, urinary tract infection, .. 02:49 ED course: Metabolic profile is reassuring. CBC without leukocytosis or anemia, lipase ec2 within normal ranges, urine is negative for and overall noninfectious appearing. . 02:53 ED course: Ultrasound shows cholelithiasis without cholecystitis. On reassessment ec2 patient with improved symptoms.. 03:11 ED course: Ultimately patient has multiple social economic barriers to receiving ec2 outpatient care, I discussed possible admission for pain control and cholecystectomy versus outpatient follow-up, ultimately we decided that she will attempt outpatient follow-up. Patient discharged home, return precautions given.. 03:14 Data reviewed: vital signs. ec2 05/03 01:44 Order name: CBC with Diff; Complete Time: 02:49 ec2 05/03 01:44 Order name: CMP; Complete Time: 02:49 ec2 05/03 01:44 Order name: Lipase; Complete Time: 02:49 ec2 05/03 01:44 Order name: Test, Urine; Complete Time: 02:49 ec2 05/03 01:44 Order name: Urinalysis w/ reflexes; Complete Time: 02:49 ec2 05/03 01:44 Order name: US Abdomen Limited ec2 05/03 01:44 Order name: IV Saline Lock; Complete Time: 02:13 ec2 05/03 01:44 Order name: Labs collected and sent; Complete Time: 02:13 ec2 Administered Medications: 02:10 Drug: NS 0.9% IV 1000 ml IV at 1 bolus Per protocol; 1000 mL bolus Route: IV; Rate: 1 bp bolus; Site: right antecubital; 03:24 Follow up: Response: No adverse reaction; IV Status: Completed infusion; IV Intake: km8 1000ml 02:10 Drug: Ondansetron IVP 4 mg IVP once; over 2 minutes Route: IVP; Site: right antecubital;bp 03:02 Follow up: Response: No adverse reaction; Nausea is decreased [facility] 02:10 Drug: morphine IVP or IV 4 mg IVP once over 4 mins Route: IVP; Infused Over: 4 mins; bp Site: right antecubital; 03:20 Follow up: Response: No adverse reaction; Pain is decreased; RASS: Alert and Calm (0) [facility] Disposition Summary: 05/03/23 03:12 Discharge Ordered Notes: Location: Home ec2 Condition: Stable ec2 Diagnosis - Gallstones ec2 Discharge Instructions: - Discharge Summary Sheet ec2 - Cholelithiasis, [id number] ec2 Forms: - Medication Reconciliation Form ec2 - Thank You Letter ec2 - Antibiotic Education ec2 - Prescription Opioid Use ec2 - Patient Portal Instructions ec2 - Leadership Thank You Letter ec2 Prescriptions: - acetaminophen-codeine 300-15 mg Oral tablet - take 1 tablet ORAL route every 12 hours; 10 tablet; Refills: 0, Product ec2 Selection Permitted Signatures: Dispatcher [employer] Win Harris RN RN Chela Miles RN RN 3 Diego Rivera MD MD ec2 Elise Bae RN km8
--- NOTE | 2023-05-03 03:13 | ER ---
Nurse's Notes [facility] Name: Glory Ba Age: 22 yrs Sex: Female : 2000 Arrival Date: 05/03/2023 Time: 01:25 Bed 7 Private MD: Diagnosis: Gallstones Presentation: 05/03 01:37 Chief complaint: Patient states: upper abdominal pain radiating to the back. i was seen lg3 1 month ago here for the same thing but its getting worse. i know its my gallbladder but i have not seen a doctor because of insurance. Coronavirus screen: Client denies travel out of the [place] in the last 14 days. At this time, the client does not indicate any symptoms associated with coronavirus-19. Ebola Screen: No symptoms or risks identified at this time. Initial Sepsis Screen: Does the patient meet any 2 criteria? No. Patient's initial sepsis screen is negative. Does the patient have a suspected source of infection? No. Patient's initial sepsis screen is negative. Risk Assessment: Do you want to hurt yourself or someone else? Patient reports no desire to harm self or others. Onset of symptoms is unknown. 01:37 Method Of Arrival: Ambulatory lg3 01:37 Acuity: KAILA 3 lg3 Triage Assessment: 01:43 General: Appears in no apparent distress. uncomfortable, Behavior is calm, cooperative. lg3 Pain: Complains of pain in right upper quadrant Pain radiates to back. EENT: No deficits noted. No signs and/or symptoms were reported regarding the EENT system. Neuro: No deficits noted. Singh Agitation-Sedation Scale (RASS): 0 - Alert and Calm Level of Consciousness is awake, alert, obeys commands, Oriented to person, place, time, situation. Cardiovascular: No deficits noted. Denies chest pain, shortness of breath, Capillary refill < 3 seconds Clubbing of nail beds is absent JVD is absent Patient's skin is warm and dry. Respiratory: No deficits noted. Airway is patent Respiratory effort is even, unlabored, Respiratory pattern is regular, symmetrical. GI: Reports upper abdominal pain, nausea. : No deficits noted. No signs and/or symptoms were reported regarding the genitourinary system. Derm: No deficits noted. No signs and/or symptoms reported regarding the dermatologic system. Skin is intact, is healthy with good turgor, Skin is dry, Skin is normal, Skin temperature is warm. Musculoskeletal: No deficits noted. No signs and/or symptoms reported regarding the musculoskeletal system. Circulation, motion, and sensation intact. Range of motion: intact in all extremities. 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 - Social history:: Smoking status: Patient denies any tobacco usage or history of. Patient/guardian denies using alcohol, street drugs. Screenin:50 [facility] ED Fall Risk Assessment (Adult) History of falling in the last 3 months, jw7 including since admission No falls in past 3 months (0 pts) Score/Fall Risk Level 0 - 2 = Low Risk Oriented to surroundings, Maintained a safe environment. Abuse screen: Denies threats or abuse. Denies injuries from another. Nutritional screening: No deficits noted. Tuberculosis screening: No symptoms or risk factors identified. Assessment: 01:50 General: see triage assessment. jw7 02:36 Reassessment: No changes from previously documented assessment. Patient is alert, bp oriented x 3, equal unlabored respirations, skin warm/dry/pink. U/S COMPLETED. Vital Signs: 01:37 BP 133 / 99; Pulse 82; Resp 17 S; Temp 98(O); Pulse Ox 100% on R/A; Weight 99.79 kg lg3 (R); Height 5 ft. 2 in. (R); Pain 9/10; 02:36 BP 112 / 65; Pulse 68; Resp 16; Pulse Ox 98% ; bp 03:24 BP 116 / 74; Pulse 70; Resp 16; Pulse Ox 98% on R/A; Pain 3/10; km8 01:37 Body Mass Index 40.24 (99.79 kg, 157.48 cm) lg3 01:37 Pain Scale: Adult lg3 03:24 Pain Scale: Adult km8 ED Course: 01:29 Patient arrived in ED. ag3 01:31 Diego Rivera MD is Attending Physician. ec2 01:43 Triage completed. lg3 01:43 Arm band placed on right wrist. lg3 01:50 Patient has correct armband on for positive identification. Bed in low position. Call jw7 light in reach. 02:07 Win Estevez, RN is Primary Nurse. bp 02:07 Inserted saline lock: 22 gauge in right antecubital area, using aseptic technique. kmf Blood collected. 02:13 Urinalysis w/ reflexes Sent. kmf 02:13 Test, Urine Sent. kmf 02:13 Lipase Sent. kmf 02:13 CMP Sent. kmf 02:13 CBC with Diff Sent. kmf 02:23 US Abdomen Limited In Process Unspecified. EDMS 03:23 No provider procedures requiring assistance completed. IV discontinued, intact, km8 bleeding controlled, No redness/swelling at site. Pressure dressing applied. Administered Medications: 02:10 Drug: NS 0.9% IV 1000 ml IV at 1 bolus Per protocol; 1000 mL bolus Route: IV; Rate: 1 bp bolus; Site: right antecubital; 03:24 Follow up: Response: No adverse reaction; IV Status: Completed infusion; IV Intake: km8 1000ml 02:10 Drug: Ondansetron IVP 4 mg IVP once; over 2 minutes Route: IVP; Site: right antecubital;bp 03:02 Follow up: Response: No adverse reaction; Nausea is decreased km8 02:10 Drug: morphine IVP or IV 4 mg IVP once over 4 mins Route: IVP; Infused Over: 4 mins; bp Site: right antecubital; 03:20 Follow up: Response: No adverse reaction; Pain is decreased; RASS: Alert and Calm (0) km8 Medication: 03:23 VIS not applicable for this client. km8 Intake: 03:24 IV: 1000ml; Total: 1000ml. km8 Outcome: 03:12 Discharge ordered by MD. ec2 03:25 Discharged to home ambulatory, mother picking up pt km8 03:25 Condition: good 03:25 Discharge instructions given to patient, Instructed on discharge instructions, follow up and referral plans. medication usage, Demonstrated understanding of instructions, follow-up care, medications, 03:26 Patient left the ED. km8 Signatures: Dispatcher [employer] EDNC Win Estevez, RN RN Dolores Price ag3 Chela Miles RN RN lg3 Janina Chávez, RN RN jw7 Diego Rivera MD MD ec2 Morelia Hall f Elise Bae, ALIREZA RN km8
[2023-05-03 03:49] VITALS: TEMP 98
[2023-05-03 03:50] VITALS: O2SAT 98
[2023-05-03 03:51] VITALS: BP 116/74
--- NOTE | 2023-05-03 17:59 | RAD REPORT ---
EXAM DESCRIPTION: US - Abdomen Exam Limited - 05/03/2023 2:21 am CLINICAL HISTORY: The patient is 22 years old and is Female; ruq abd pain TECHNIQUE: Real-time ultrasound of the abdomen with image documentation. COMPARISON: No relevant prior studies available. FINDINGS: LIVER: The liver is increased in echogenicity. Focal fatty sparing at the level of the g allbladder fossa is present. GALLBLADDER: Gallstones are present within the gallbladder. There is no gallbladder wall thickeni ng or pericholecystic fluid. IMPRESSION: Cholelithiasis without findings to suggest cholecystitis. Electronically signed by: Madeleine Mann MD 05/03/2023 2:48 AM CDT Due to temporary technical issues with the PACS/Fluency reporting system, reports are being signed by the in house radiologists without review as a courtesy to insure prompt reporting. The interpreting radiologist is fully responsible for the content of the report.
== END 2023-05-03 03:26 | disposition home or self-care (01) ==
LOC: ER 01:25
DX: K80.20 Calculus of gallbladder without cholecystitis without obstruction (principal)
CPT/HCPCS: 36415; 76705; 80053; 81003; 81025; 83690; 85025; 96361; 96374; 96375; 99284; J2405; J7030

== ENCOUNTER 2023-05-08 00:07 | Emergency (ER) | payer SELFPAY ==
--- OUTSIDE RECORDS SUMMARY | 2023-05-08 00:11 | XMS REPORT | Continuity of Care Document ---
:2000 Author Organization [facility] t Address [address] [place] [address] Care Team Providers Name Role Phone Alta Levin Primary Care Physician [phone] Problems This patient has no known problems. Allergies, Adverse Reactions, Alerts This patient has no known allergies or adverse reactions. Medications Ordered Filled Start Stop Current Ordering Indication Dosage Frequency Signature Comments Components Source Medication Medication Date Date Medication? Clinician (SIG) Name Name 10 ML Q 4 No 138817 TO 6 HOURS 1 PRN COUGH 00:00: [...] 00:00: DAILY 00 TAKE 1 2021-0 No [id number] TABLET 8- TWICE DAILY 00:00: WITH FOOD. 00 Dose 2021-0 No 875 Unknown 02-13 00:00: 00 TAKE 1 2021-0 No [id number] TABLET 8- TWICE DAILY 00:00: WITH FOOD. 00 Dose 2021-0 No 875 Unknown 02-13 00:00: 00 TAKE 1 2021-0 No [id number] TABLET - TWICE DAILY 00:00: WITH FOOD. 00 Dose 2022-0 No 875 Unknown 02-13 00:00: 00 TAKE 1 2022-0 No 001051 TABLET 02-13 TWICE DAILY 00:00: WITH FOOD. 00 Dose 2022-0 No 875 Unknown 02-13 00:00: 00 TAKE 1 2022-0 No [id number] TABLET 02-13 TWICE DAILY 00:00: WITH FOOD. [...] Goal Plan of Care Note [code = 57575-0] Goal Plan of Care Note [code = 70706-2] Goal Plan of Care Note [code = 36922-1] Goal Plan of Care Note [code = 82762-8] Goal Plan of Care Note [code = 82229-4] Goal Plan of Care Note [code = 94344-7] Goal Plan of Care Note [code = 13691-6] Goal Plan of Care Note [code = 88138-2] Goal Plan of Care Note [code = 71629-7] Goal Plan of Care Note [code = 19055-8] Goal Plan of Care Note [code = 32717-9] Goal Plan of Care Note [code = 82859-8] Goal Plan of Care Note [code = 16331-6] Goal Plan of Care Note [code = 59019-0] Goal Plan of Care Note [code = 82268-5] Goal Plan of Care Note [code = 35710-0] Goal Plan of Care Note [code = 96308-9] Goal Plan of Care Note [code = 76592-4] Goal Plan of Care Note [code = 53667-0] Goal Plan of Care Note [code = 46948-9] Goal Plan of Care Note [code = 68644-7] Goal Plan of Care Note [code = 22681-4] Goal Plan of Care Note [code = 88507-2] Goal Plan of Care Note [code = 20816-2] Goal Plan of Care Note [code = 90489-5] Goal Plan of Care Note [code = 20563-7] Goal Plan of Care Note [code = 75336-3] Goal Plan of Care Note [code = 91734-7] Goal Plan of Care Note [code = 72124-6] Goal Plan of Care Note [code = 03194-1] Goal Plan of Care Note [code = 53781-2] Goal Plan of Care Note [code = 38808-5] Goal Plan of Care Note [code = 88849-6] Goal Plan of Care Note [code = 81973-4] Goal Plan of Care Note [code = 58758-7] Goal Plan of Care Note [code = 58652-2] Goal Plan of Care Note [code = 58695-7] Goal Plan of Care Note [code = 34181-0] Goal Plan of Care Note [code = 63036-7] Goal Plan of Care Note [code = 19728-4] Goal Plan of Care Note [code = 04380-1] Goal Plan of Care Note [code = 83062-6] Goal Plan of Care Note [code = 76663-4] Goal Plan of Care Note [code = 01347-4] Goal Plan of Care Note [code = 76831-5] Goal Plan of Care Note [code = 49122-9] Goal Plan of Care Note [code = 19884-6] Goal Plan of Care Note [code = 67040-1] Goal Plan of Care Note [code = 68218-0] Goal Plan of Care Note [code = 77186-6] Goal Plan of Care Note [code = 15467-9] Goal Plan of Care Note [code = 48486-3] Goal Plan of Care Note [code = 52857-6] Goal Plan of Care Note [code = 18441-1] Goal Plan of Care Note [code = 90004-3] Goal Plan of Care Note [code = 58022-4] Goal Plan of Care Note [code = 01983-5] Goal Plan of Care Note [code = 94080-1] Goal Plan of Care Note [code = 81269-3] Goal Plan of Care Note [code = 08716-0] Goal Plan of Care Note [code = 47730-1] Goal Plan of Care Note [code = 25597-3] Goal Plan of Care Note [code = 20605-4] Goal Plan of Care Note [code = 10695-3] Goal Plan of Care Note [code = 23618-5] Goal Plan of Care Note [code = 97701-5] Goal Plan of Care Note [code = 27301-7] Goal Plan of Care Note [code = 26591-5] Goal Plan of Care Note [code = 33123-8] Goal Plan of Care Note [code = 69405-9] Goal Plan of Care Note [code = 84990-4] Goal Plan of Care Note [code = 12083-7] Goal Plan of Care Note [code = 38948-2] Goal Plan of Care Note [code = 28022-5] Goal Plan of Care Note [code = 91540-8] Goal Plan of Care Note [code = 21220-3] Goal Plan of Care Note [code = 45888-9] Goal Plan of Care Note [code = 94981-5] Goal Plan of Care Note [code = 76599-9] Goal Plan of Care Note [code = 78500-6] Goal Plan of Care Note [code = 24926-1] Goal Plan of Care Note [code = 40647-7] Goal Plan of Care Note [code = 84163-8] Goal Plan of Care Note [code = 69006-2] Goal Plan of Care Note [code = 42805-3] Goal Plan of Care Note [code = 45679-3] Goal Plan of Care Note [code = 87456-5] Goal Plan of Care Note [code = 79209-1] Goal Plan of Care Note [code = 45273-2] Goal Plan of Care Note [code = 79103-2] Goal Plan of Care Note [code = 12822-8] Goal Plan of Care Note [code = 10297-0] Goal Plan of Care Note [code = 94253-4] Goal Plan of Care Note [code = 80240-8] Goal Plan of Care Note [code = 38874-6] Goal Plan of Care Note [code = 52183-8] Goal Plan of Care Note [code = 49964-8] Goal Plan of Care Note [code = 99232-5] Goal Plan of Care Note [code = 40572-7] Goal Plan of Care Note [code = 59663-3] Goal Plan of Care Note [code = 35930-1] Goal Plan of Care Note [code = 70423-6] Goal Plan of Care Note [code = 77185-4] Goal Plan of Care Note [code = 00519-7] Goal Plan of Care Note [code = 32253-1] Goal Plan of Care Note [code = 11318-3] Goal Plan of Care Note [code = 48459-4] Goal Plan of Care Note [code = 64382-9] Goal Plan of Care Note [code = 29709-3] Goal Plan of Care Note [code = 41210-4] Goal Plan of Care Note [code = 71622-5] Goal Plan of Care Note [code = 07566-6] Goal Plan of Care Note [code = 36179-0] Goal Plan of Care Note [code = 48010-3] Goal Plan of Care Note [code = 61908-2] Goal Plan of Care Note [code = 02200-8] Goal Plan of Care Note [code = 02648-6] Goal Plan of Care Note [code = 40000-4] Goal Plan of Care Note [code = 39494-9] Goal Plan of Care Note [code = 77484-3] Goal Plan of Care Note [code = 56961-0] Goal Plan of Care Note [code = 86688-0] Goal Plan of Care Note [code = 96329-1] Goal Plan of Care Note [code = 49623-1] Goal Plan of Care Note [code = 51331-1] Goal Plan of Care Note [code = 34091-5] Goal Plan of Care Note [code = 45198-7] Goal Plan of Care Note [code = 58863-2] Goal Plan of Care Note [code = 23710-3] Goal Plan of Care Note [code = 82009-4] Goal Plan of Care Note [code = 14037-8] Goal Plan of Care Note [code = 04968-9] Goal Plan of Care Note [code = 96049-3] Goal Plan of Care Note [code = 46972-0] Goal Plan of Care Note [code = 61731-4] Encounters Start End Encounter Admission Attending Care Care Encounter Source Date/Time Date/Time Type Type Clinicians Facility Department ID 2023-05-07 2023-05-07 Outpatient [facility] [id number] 023 Sagar 16:50:49 16:50:49 1024 [facility] 2023-05-06 2023-05-06 Outpatient [facility] [id number] 023 [place] 11:58:11 11:58:11 1023 F Ruben 2023-03-08 2023-03-08 Outpatient [facility] [id number] 023 [place]agar 15:18:13 15:18:13 0825 [facility] 2023-03-05 2023-03-05 Outpatient [facility] 39136-2 023 [place]agar 10:53:04 10:53:04 0822 F Danby 2023-01-24 2023-01-24 Outpatient [facility] [id number] 023 [place] 08:12:45 08:12:45 0713 F Danby 2023-01-08 2023-01-08 Outpatient [facility] 81523-2 023 [place]agar 11:10:54 11:10:54 06 F Danby 2022-10-31 2022-10-31 Outpatient [facility] 95751-1 023 [place] 08:10:57 08:10:57 0419 F Danby 2022-08-15 2022-08-15 Outpatient [facility] 48369-3 023 [place]agar 08:35:11 08:35:11 0201 F Danby 2022-08-08 2022-08-08 Outpatient [facility] 31590-7 023 [place] 14:38:56 14:38:56 0125 F Danby 2022-08-06 2022-08-06 Outpatient [facility] 27635-1 023 [place]agar 08:42:45 08:42:45 0123 F Danby 2022-08-06 2022-08-06 Outpatient 503tjr06- [id number] 3nfo27-x 00:00:00 00:00:00 Visit o010-5f6d 347-4a1a-b -w98t-082 99d-281092 640v92u91 a81e19 2022-05-17 2022-05-17 Outpatient [facility] 74481-3 022 [place] 09:31:59 09:31:59 1103 F Danby 2022-05-17 2022-05-17 Outpatient oz4b46j0- [id number] ed 4u49s4-4 00:00:00 00:00:00 Visit 2bc3-7917 ad4-4855-b -o788-im2 541-cc1629 [id number] 412837 1461-10-29 2022-05-12 Outpatient [facility]FA 91744-2 022 [place] 14:22:47 14:22:47 1029 F Danby 2022-05-12 2022-05-12 Outpatient [id number]- [id number] e2 3342aa-1 00:00:00 00:00:00 Visit 49t0-6o7r 9b8-9z1a-g -xd21-81r b17-78r089 93816vl5e 18da9d 2022-02-20 2022-02-20 Outpatient l5ar4vaa- [id number] a3 rx2qjo-h 00:00:00 00:00:00 Visit abbf-466a bbf-466a-8 -8131-e9b 131-e9bd33 c50t444i2 f397d7 2022-02-13 2022-02-13 Outpatient [id number]- [id number] 0xs524-n 00:00:00 00:00:00 Visit j7b2-7334 5p4-3709-6 -4xq4-692 ac4-14420n 78a26a115 37d012 2022-02-05 2022-02-05 Outpatient 6k64so6m- [id number] 9a 11iw9t-1 00:00:00 00:00:00 Visit 1fee-4f0f fee-4f0f-a -ds4d-9p4 n8p-2g32dc 9im26vnk0 47dfe6 2022-02-02 2022-02-02 Outpatient 4f73867n- [id number] 4e 39653k-s 00:00:00 00:00:00 Visit b5t7-14so 7r8-13ha-c -bda9-04c da9-36m826 [id number] 281015 Results Test Description Test Time Test Comments Results Result Comments Source CULTURE, THROAT 2023-01-26 SPECIMEN NUMBER: 14:50:25 [id number] CULTURE, THROAT SPECIMEN NUMBER: [id number] SOURCE: THROAT REPORT STATUS: FINAL FINAL REPORT: 01/26/2023 NORMAL RESPIRATORY SONIA UNLESS OTHERWISE INDICATED, ALL TESTING PERFORMED AT [facility] [address] [place] [address] PLASTIC MOULD MAKER: ROSA MARIA CRAIG M.D. CLIA NUMBER [id number] [place]. [id number] CT/NG, NAAT, URINE 2023-01-09 21:10:55 Test Item Value Reference Range Interpretation Comme nts CHLAMYDIA, NAAT, URINE (test NEGATIVE NEGATIVE Testing is performed with Uro Jock code = 49334) ADEBAYO 6800/880 0 systems usingreal-time polymerase chain reaction (PCR) method. A negative result does not exclude low level infection, spec imensampling error, or collection e rror. GONORRHEA, NAAT, URINE (test NEGATIVE NEGATIVE Testing is performed with Elmo code = 09575) ADEBAYO 6800/880 0 systems usingreal-time polymerase chain reaction (PCR) method. A negative result does not exclude low level infection, spec imensampling error, or collection e rror. TRICHOMONAS, NAAT, [id number] 20:46:01 Test Item Value Reference Range Interpretation Comments TRICHOMONAS, NEGATIVE NEGATIVE Testing is per formed with NAAT, URINE (test Elmo ROSCOE S 6800/8800 method code = 51400) usingreal-time polymerase chain reaction (PCR) method. A negative resu lt does not exclude low lev el infection, specimensamplin g error, or collection erro r. UNLESS OTHERWISE INDIC ATED, ALL TESTING PERFORM ED [facility] [place] [address] LABORATORY DIRE CTOR: ROSA MARIA WESTBROOK M.D. CLIA NUMBER [id number] CAP ACCREDITATION N O. [id number] HERPES SIMPLEX AB, [id number] 14:28:08 Test Item Value Reference Range Interpretation Comments HERPES SIMPLEX AB, 1.36 INDEX SEE BELOW H IMPORTAN T NOTE: HSV IgM IgM (test code = ASSAYS ARE NOT 49788) TYPE-SPECIFIC. THE BIOLOGICALIgM R ESPONSE WITH PRIMARY [...] EQ UIVOCAL INDEX 0.90-1.09 POSITIVE INDEX >=1.10 [id number] 05:19:17 Test Item Value Reference Range Interpretation Comments RPR RESULT (test code = NON-REACTIVE NON-REACTIVE 3501) RPR TITER (test code = 3500) NOT INDIC. TITER NOT INDIC. HIV 1/2 4TH GEN, RFLX [id number] 04:30:56 Test Item Value Reference Range Interpretation Comments HIV 1/2 4TH GEN, RFLX CONF (test NON-REACTIVE NON-REACTIVE code = 3514) HEPATITIS PANEL, [id number] 04:30:56 Test Item Value Reference Range Interpretation Comments HEPATITIS A IgM (test NON-REACTIVE NON-REACTIVE code = 70038) HEPATITIS B CORE IgM NON-REACTIVE NON-REACTIVE (test code = 4644) HEPATITIS B SURF AG NON-REACTIVE NON-REACTIVE (test code = 2739) HEPATITIS C ANTIBODY NON-REACTIVE NON-REACTIVE (test code = 4675) INTERPRETATION (NOTE) Hepatitis A HEPATITIS A: (test code sero logy shows no = 2552) evidence of acu te hepatitis A. INTERPRETATION (NOTE) Hepatitis B HEPATITIS B: (test code sero logy shows no = 07383) evidence of acu te hepatitis B and no indication of exposure to hepatitis B vir us in the previous nallely eight months. INTERPRETATION (NOTE) Hepatitis C HEPATITIS C: (test code sero logy shows no = 47987) evidence of exposure to hepatitisC viru s at this time. I t can take up to 12 months after exposure tothe hepatitis C vir us for antibodies to become detectab le in the blood in certain patient s. HERPES SIMPLEX 1/2 AB, IgG [id number] 04:30:56 Test Item Value Reference Range Interpretation Comments HERPES SIMPLEX 1 21.800 INDEX SEE BELOW H INTERPRETA TION UNITS AB, IgG (test RANGE -------- ------ code = 70243) ----- ----- NO N-REACTIVE INDEX <1.000 RE ACTIVE INDEX >=1.00 0 HERPES SIMPLEX 2 0.078 INDEX SEE BELOW INTERPRETA TION UNITS AB, IgG (test RANGE -------- ------ code = 90759) ----- ----- NO N-REACTIVE INDEX <1.000 RE ACTIVE INDEX >=1.00 0 [id number] 00:37:53 Test Item Value Reference Range Interpretation Comments RPR RESULT (test code = NON-REACTIVE NON-REACTIVE 3501) RPR TITER (test code = 3500) NOT INDIC. TITER NOT INDIC. PAP TEST, THINPREP, [id number] 17:11:55 Test Item Value Reference Range Interpretation Comments SOURCE: (test Unspecified code = 8001) SLIDES: (test 1 code = 8011) LMP: (test code 07/21/2022 = 8021) SPECIMEN (NOTE) Satisfactory f or ADEQUACY: (test evaluation. code = 70741) INTERPRETATION: NILM/NO EPITH. (test code = ABNORMALITY;SEE 03740) BELOW ------- ---- NEGATI VE FOR INTRAEPITHELIAL LESION OR MALIGNANCY ( NILM) ------- ------- ------- ------- CYTOTECHNOLOGIS Isabela Raines T: (test code = ShirleyCT(ASCP)IAC 8101) LOCATION: (test (NOTE) Specimens pr ocessed code = 96453) and interprete d at [facility] [place] [id number], Phone: , CLIA: [id number] CPT: (test code (NOTE) 54962 UNLESS OTHERWISE = 8140) INDICATED, COMP UTER [...] consolidated pr ior Pap history is avai labsamantha as applicable. VAGINAL PATHOGENS DNA [id number] 14:27:04 Test Item Value Reference Range Interpretation [...] and Trichomonas vag inalis nucleic acid. * [facility] has important patho logy staff changes effecti ve 09/12/2022. New pathology staff will provide uninterrupted, excellent patient care an d clinical consultation. S ee URL: [email or web address]. UNLESS OTHE RWISE INDICATED, [facility]ING [facility]FORMED AT [facility]. [address] [place] [address] CLIA: [id number], CAP: [id number] GONORRHEA, NAAT, [id number] 13:26:57 Test Item Value Reference Range Interpretation Comments GONORRHEA, NAAT, NEGATIVE NEGATIVE A negative result does THINPREP (test code not excl ude low level = 22753) infection, specimensamplin g error, or collection erro r. Testing is performed wi th the Uro Jock Adebayo 680 systems usingre al-time Polymerase Richard n Reaction (PCR) method. CHLAMYDIA, NAAT, [id number] 13:26:57 Test Item Value Reference Range Interpretation Comments CHLAMYDIA, NAAT, NEGATIVE NEGATIVE A negative result does THINPREP (test code not excl ude low level = 62955) infection, specimensamplin g error, or collection erro r. Testing is performed wi th the Elmo Adebayo 680 systems usingre al-time Polymerase Richard n Reaction (PCR) method. [facility] has important patho logy staff changes effecti ve 09/12/2022. New pathology staff will provide uninter rupted, excellent patie nt care and clinical consul tation. See URL: [email or web address]. UNLESS OT HERWISE INDICATED, ALL TESTING PERFORMED AT [facility]. [address] [place] [address] CLIA: [id number], CAP: [id number] TSH, THIRD [id number] 04:41:28 Test Item Value Reference Range Interpretation Comments TSH, THIRD GENERATION (test code 1.960 UIU/ML 0.400-4.100 = 2821) HEPATITIS PANEL, [id number] 03:31:10 Test Item Value Reference Range Interpretation Comments HEPATITIS A IgM (test NON-REACTIVE NON-REACTIVE code = 58507) HEPATITIS B CORE IgM NON-REACTIVE NON-REACTIVE (test code = 4644) HEPATITIS B SURF AG NON-REACTIVE NON-REACTIVE (test code = 2739) HEPATITIS C ANTIBODY NON-REACTIVE NON-REACTIVE (test code = 4675) INTERPRETATION (NOTE) Hepatitis A HEPATITIS A: (test code sero logy shows no = 2552) evidence of acu te hepatitis A. INTERPRETATION (NOTE) Hepatitis B HEPATITIS B: (test code sero logy shows no = 32217) evidence of acu te hepatitis B and no indication of exposure to hepatitis B vir us in the previous nallely eight months. INTERPRETATION (NOTE) Hepatitis C HEPATITIS C: (test code sero logy shows no = 05940) evidence of exposure to hepatitisC viru s at this time. I t can take up to 12 months after exposure tothe hepatitis C vir us for antibodies to become detectab le in the blood in certain patient s. HIV 1/2 4TH GEN, RFLX [id number] 03:31:10 Test Item Value Reference Range Interpretation Comments HIV 1/2 4TH GEN, RFLX CONF (test NON-REACTIVE NON-REACTIVE code = 3514) SARS-CoV-2 (COVID-19) by RT-PCR (HIGH RISK)2020-06-21 00:00:00 Test Item Value Reference Range Interpretation Comments SARS-CoV-2 INTERPRETATION NEGATIVE (test code = 39190) SOURCE (test code = 98407) NASOPHARYNGEAL SARS-CoV-2 (COVID-19) by RT-PCR (HIGH RISK)2020-06-21 00:00:00 Test Item Value Reference Range Interpretation Comments SARS-CoV-2 INTERPRETATION NEGATIVE (test code = 77874) SOURCE (test code = 14684) NASOPHARYNGEAL SARS-CoV-2 (COVID-19) by RT-PCR (HIGH RISK)2020-06-21 00:00:00 Test Item Value Reference Range Interpretation Comments SARS-CoV-2 INTERPRETATION NEGATIVE (test code = 04007) SOURCE (test code = 23607) NASOPHARYNGEAL SARS-CoV-2 (COVID-19) by RT-PCR (HIGH RISK)2020-06-21 00:00:00 Test Item Value Reference Range Interpretation Comments SARS-CoV-2 INTERPRETATION NEGATIVE (test code = 99865) SOURCE (test code = 22518) NASOPHARYNGEAL SARS-CoV-2 (COVID-19) by RT-PCR (HIGH RISK)2020-06-21 00:00:00 Test Item Value Reference Range Interpretation Comments SARS-CoV-2 INTERPRETATION NEGATIVE (test code = 80187) SOURCE (test code = 88120) NASOPHARYNGEAL SARS-CoV-2 (COVID-19) by RT-PCR (HIGH RISK)2020-06-21 00:00:00 Test Item Value Reference Range Interpretation Comments SARS-CoV-2 INTERPRETATION NEGATIVE (test code = 51692) SOURCE (test code = 24776) NASOPHARYNGEAL SARS-CoV-2 (COVID-19) by RT-PCR (HIGH RISK)2020-06-21 00:00:00 Test Item Value Reference Range Interpretation Comments SARS-CoV-2 INTERPRETATION NEGATIVE (test code = 62911) SOURCE (test code = 35960) NASOPHARYNGEAL SARS-CoV-2 (COVID-19) by RT-PCR (HIGH RISK)2020-06-21 00:00:00 Test Item Value Reference Range Interpretation Comments SARS-CoV-2 INTERPRETATION NEGATIVE (test code = 52342) SOURCE (test code = 46821) NASOPHARYNGEAL SARS-CoV-2 (COVID-19) by RT-PCR (HIGH RISK)2020-06-21 00:00:00 Test Item Value Reference Range Interpretation Comments SARS-CoV-2 INTERPRETATION NEGATIVE (test code = 41337) SOURCE (test code = 79129) NASOPHARYNGEAL SARS-CoV-2 (COVID-19) by RT-PCR (HIGH RISK)2020-06-21 00:00:00 Test Item Value Reference Range Interpretation Comments SARS-CoV-2 INTERPRETATION NEGATIVE (test code = 88827) SOURCE (test code = 22726) NASOPHARYNGEAL SARS-CoV-2 (COVID-19) by RT-PCR (HIGH RISK)2020-06-21 00:00:00 Test Item Value Reference Range Interpretation Comments SARS-CoV-2 INTERPRETATION NEGATIVE (test code = 60336) SOURCE (test code = 80165) NASOPHARYNGEAL
[2023-05-08] MEDS ORDERED: NA CHLORIDE 0.9% 1,000 ML ONE (00:58)
[2023-05-08] MEDS ORDERED: ONDANSETRON 4 MG/2 ML VIAL ONE (00:58)
[2023-05-08] MEDS ORDERED: KETOROLAC 30 MG/ML INJ ONE (00:58)
[2023-05-08] MEDS ORDERED: FAMOTIDINE 20 MG/2 ML VIAL IV ONE (00:59)
[2023-05-08 01:05] LABS: Absolute Lymphocytes (CBC) 2.5 K/uL (0.7-4.9); Albumin 3.6 g/dL (3.4-5.0); Bilirubin Total 0.2 mg/dL (0.2-1.0); Hematocrit 38.3 % (36.0-45.0); Lymphocytes % 26.6 % (15.3-44.8); MPV 9.5 fL (7.6-11.3); Platelets 280 thou/uL (152-406); Potassium 3.5 mEq/L (3.5-5.1); RBC Red Blood Cell Count 4.56 M/uL (3.86-4.86)
--- NOTE | 2023-05-08 01:12 | ER ---
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 pt also as6 c/o nausea. pt has a history of stones and ate pizza for dinner. Coronavirus screen: At this time, the client does not indicate any symptoms associated with coronavirus-19. Ebola Screen: No symptoms or risks identified at this time. Initial Sepsis Screen: Does the patient meet any 2 criteria? No. Patient's initial sepsis screen is negative. Does the patient have a suspected source of infection? No. Patient's initial sepsis screen is negative. Risk Assessment: Do you want to hurt yourself or someone else? Patient reports no desire to harm self or others. Onset of symptoms was May 07, 2023. 00:21 Method Of Arrival: Ambulatory as6 00:21 Acuity: KAILA 3 as6 Triage Assessment: 00:57 General: Appears in no apparent distress. uncomfortable, Behavior is calm, cooperative. jw7 Pain: Complains of pain in epigastric area Pain radiates to right mid back, right upper quadrant and left upper quadrant Pain currently is 8 out of 10 on a pain scale. Quality of pain is described as sharp, shooting, stabbing, Pain began gradually, Is continuous, Noted to be grimacing, guarding, moaning, restless, Also complains of nausea. EENT: No deficits noted. No signs and/or symptoms were reported regarding the EENT system. Neuro: Singh Agitation-Sedation Scale (RASS): 0 - Alert and Calm Level of Consciousness is awake, alert, obeys commands, Oriented to person, place, time, situation. Cardiovascular: No deficits noted. Respiratory: No deficits noted. GI: Abdomen is round non-distended, Pt is actively vomiting bile, Bowel sounds present X 4 quads. Abd is soft X 4 quads Abdomen is tender to palpation in epigastric area and right upper quadrant Reports epigastric pain, nausea, vomiting. : No deficits noted. No signs and/or symptoms were reported regarding the genitourinary system. Derm: No deficits noted. No signs and/or symptoms reported regarding the dermatologic system. Musculoskeletal: No deficits noted. No signs and/or symptoms reported regarding the musculoskeletal system. 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 - Social history:: Smoking status: Patient denies any tobacco usage or history of. Screenin:57 [facility] ED Fall Risk Assessment (Adult) History of falling in the last 3 months, jw7 including since admission No falls in past 3 months (0 pts) Score/Fall Risk Level 0 - 2 = Low Risk Oriented to surroundings, Maintained a safe environment. Abuse screen: Denies threats or abuse. Denies injuries from another. Nutritional screening: No deficits noted. Tuberculosis screening: No symptoms or risk factors identified. Assessment: 01:00 General: see triage assessment. jw7 01:26 General: Discharge pending completion of fluids. jw7 01:27 Reassessment: Patient appears in no apparent distress at this time. Patient and/or jw7 family updated on plan of care and expected duration. Pain level reassessed. Patient is alert, oriented x 3, equal unlabored respirations, skin warm/dry/pink. Patient states symptoms have improved. Vital Signs: 00:21 BP 122 / 76; Pulse 84; Resp 18 S; Temp 97.6(TE); Pulse Ox 100% on R/A; Weight 101.6 kg as6 (R); Height 5 ft. 2 in. (R); Pain 9/10; 01:27 BP 118 / 72; Pulse 77; Resp 19 S; Pulse Ox 100% on R/A; jw7 00:21 Body Mass Index 40.97 (101.60 kg, 157.48 cm) as6 00:21 Pain Scale: Adult as6 ED Course: 00:10 Patient arrived in ED. jj6 00:12 Genet Obrien FNP-C [facility]. kb 00:12 Oleksandr Jack MD is Attending Physician. kb 00:19 Janina Chávez, RN is Primary Nurse. jw7 00:23 Triage completed. as6 00:23 Arm band placed on. as6 00:43 Initial lab(s) drawn, by me, sent to lab. Inserted saline lock: 20 gauge in right jw7 antecubital area, using aseptic technique. Blood collected. 00:57 Patient has correct armband on for positive identification. Bed in low position. Call jw light in reach. 01:23 Abdomen Limited US In Process Unspecified. EDMS 01:27 No provider procedures requiring assistance completed. jw7 01:28 Provided Education on: discharge instruction. jw7 02:31 IV discontinued, intact, bleeding controlled, No redness/swelling at site. Pressure jw7 dressing applied. Administered Medications: 00:56 Drug: NS 0.9% IV 1000 ml IV at 1 bolus Per protocol; 1000 mL bolus Route: IV; Rate: 1 jw7 bolus; Site: right antecubital; 02:31 Follow up: Response: No adverse reaction; IV Status: Completed infusion; IV Intake: jw7 1000ml 00:56 Drug: Famotidine IVP 20 mg IVP once; dilute with 10 mL 0.9% NaCl; give over 2 minutes jw7 Route: IVP; Site: right antecubital; :28 Follow up: Response: No adverse reaction jw7 00:57 Drug: TORadol - Ketorolac IVP 15 mg IVP once Route: IVP; Site: right antecubital; jw7 :28 Follow up: Response: No adverse reaction; Marked relief of symptoms jw7 00:57 Drug: Ondansetron IVP 4 mg IVP once; over 2 minutes Route: IVP; Site: right antecubital;jw7 01:28 Follow up: Response: No adverse reaction; Marked relief of symptoms jw7 Medication: :27 VIS not applicable for this client. jw7 Intake: 02:31 IV: 1000ml; Total: 1000ml. jw7 Outcome: 01:12 Discharge ordered by MD. pinzon 02:31 Discharged to home ambulatory, jw7 02:31 Condition: stable 02:31 Discharge instructions given to patient, Instructed on discharge instructions, follow up and referral plans. Demonstrated understanding of instructions, follow-up care, 02:32 Patient left the ED. jw7 Signatures: Dispatcher [employer] EDMS Genet Obrien FNP-C FNP-CkPamela Floyd jj6 Mark Perry, RN RN as6 Janina Chávez, RN RN jw7
--- NOTE | 2023-05-08 01:12 | EDPHYS ---
Physician Documentation [facility] Name: Glory Ba Age: 22 yrs Sex: Female : 2000 Arrival Date: 05/08/2023 Time: 00:07 Bed 15 Private MD: ED Physician Oleksandr Jack HPI: 05/08 00:58 This 22 yrs old Female presents to ER via Ambulatory with complaints of Abdominal Pain. kb 00:58 The patient presents with abdominal pain in the epigastric area, in the right upper kb quadrant. Onset: The symptoms/episode began/occurred today. The symptoms do not radiate. Associated signs and symptoms: Pertinent positives: nausea. The symptoms are described as constant. Modifying factors: The symptoms are alleviated by nothing, the symptoms are aggravated by food, pressure. Severity of pain: At its worst the pain was moderate in the emergency department the pain is unchanged. The patient has experienced similar episodes in the past. The patient has not recently seen a physician. Pt reports history of gallstones. States she ate pizza tonight and the pain came back. . 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 - Social history:: Smoking status: Patient denies any tobacco usage or history of. ROS: 00:58 Constitutional: Negative for fever, chills, and weight loss, kb 00:58 Abdomen/GI: Positive for abdominal pain, nausea, 00:58 All other systems are negative, Exam: 00:58 Constitutional: This is a well developed, well nourished patient who is awake, alert, kb and in no acute distress. Head/Face: Normocephalic, atraumatic. ENT: Moist Mucous membranes Cardiovascular: Regular rate Respiratory: Respirations even and unlabored. No increased work of breathing. Talking in full sentences Skin: Warm, dry with normal turgor. Normal color. MS/ Extremity: Pulses equal, no cyanosis. Neurovascular intact. Full, normal range of motion. Neuro: Awake and alert, GCS 15, oriented to person, place, time, and situation. Moves all extremities. Normal gait. 00:58 Abdomen/GI: Inspection: abdomen appears normal, Bowel sounds: normal, Palpation: mild abdominal tenderness, in the right upper quadrant, Vital Signs: 00:21 BP 122 / 76; Pulse 84; Resp 18 S; Temp 97.6(TE); Pulse Ox 100% on R/A; Weight 101.6 kg as6 (R); Height 5 ft. 2 in. (R); Pain 9/10; 01:27 BP 118 / 72; Pulse 77; Resp 19 S; Pulse Ox 100% on R/A; jw7 00:21 Body Mass Index 40.97 (101.60 kg, 157.48 cm) as6 00:21 Pain Scale: Adult as6 MDM: 00:12 Patient medically screened. kb 00:59 Differential diagnosis: cholecystitis, Cholelithiasis, gastritis, gastroesophageal kb reflux disease. Data reviewed: vital signs, nurses notes. 01:10 Counseling: I had a detailed discussion with the patient and/or guardian regarding the kb historical points, exam findings, and any diagnostic results supporting the discharge/admit diagnosis, lab results, radiology results, the need for outpatient follow up, a general surgeon, to return to the emergency department if symptoms worsen or persist or if there are any questions or concerns that arise at home. 05/08 00:15 Order name: CBC with Diff; Complete Time: 01:08 kb 05/08 00:15 Order name: CMP; Complete Time: 01:08 kb 05/08 00:15 Order name: Lipase; Complete Time: 01:08 kb 05/08 00:15 Order name: Abdomen Limited US kb 05/08 00:15 Order name: IV Saline Lock; Complete Time: 00:44 kb 05/08 00:15 Order name: Labs collected and sent; Complete Time: 00:44 kb Administered Medications: 00:56 Drug: NS 0.9% IV 1000 ml IV at 1 bolus Per protocol; 1000 mL bolus Route: IV; Rate: 1 jw7 bolus; Site: right antecubital; 02:31 Follow up: Response: No adverse reaction; IV Status: Completed infusion; IV Intake: jw7 1000ml 00:56 Drug: Famotidine IVP 20 mg IVP once; dilute with 10 mL 0.9% NaCl; give over 2 minutes jw7 Route: IVP; Site: right antecubital; 01:28 Follow up: Response: No adverse reaction jw7 00:57 Drug: TORadol - Ketorolac IVP 15 mg IVP once Route: IVP; Site: right antecubital; jw7 01:28 Follow up: Response: No adverse reaction; Marked relief of symptoms jw7 00:57 Drug: Ondansetron IVP 4 mg IVP once; over 2 minutes Route: IVP; Site: right antecubital;jw7 01:28 Follow up: Response: No adverse reaction; Marked relief of symptoms jw7 Disposition: 02:28 Co-signature as Attending Physician, Oleksandr Jack MD I agree with the assessment sp4 and plan of care. I reviewed the patient's care provided by the Advanced Practice Provider and agree with the diagnosis and treatment plan. Disposition Summary: 05/08/23 01:12 Discharge Ordered Notes: Location: Home kb Condition: Stable kb Diagnosis - Other cholelithiasis without obstruction kb Followup: kb - With: Emergency Department - When: As needed - Reason: Worsening of condition Followup: kb - With: Private Physician - When: 2 - 3 days - Reason: Recheck today's complaints, Continuance of care, Re-evaluation by your physician Discharge Instructions: - Discharge Summary Sheet kb - Cholelithiasis, [id number] kb Forms: - Medication Reconciliation Form kb - Thank You Letter kb - Antibiotic Education kb - Prescription Opioid Use kb - Patient Portal Instructions kb - Leadership Thank You Letter kb Signatures: Dispatcher [employer] Genet Degroot FNP-C FNP-Mark Louis RN RN as6 Janina Chávez RN RN jw7 Oleksandr Jack MD MD sp4
--- NOTE | 2023-05-08 12:10 | RAD REPORT ---
EXAM DESCRIPTION: US - Abdomen Exam Limited - 05/08/2023 1:21 am CLINICAL HISTORY: 22 years, Female, ABD PAIN COMPARISON: 05/03/2023. TECHNIQUE: Utilizing a curved array transducer, real-time ultrasound evaluation of the abdominal vis cera was performed. Color Doppler imaging was used to assess vascular flow. Transducer, real-time ultrasound evaluation of the abdominal viscera was performed. Color Doppler jr ging was used to assess vascular flow. FINDINGS: The liver is increase in echogenicity. The gallbladder again demonstrated presence of echogenic structure with posterior shadowing correspon ding to cholelithiasis. No pericholecystic fluid and or wall thickening was identified. The commo n bile duct measures 3.9 mm. No intra or extrahepatic biliary duct dilatation was identified. There is no evidence for free fluid. IMPRESSION: Cholelithiasis without sonographic evidence of acute cholecystitis. No significant inter doreen change. Electronically signed by: Solo Wilks MD 05/08/2023 1:45 AM CDT Due to temporary technical issues with the PACS/Fluency reporting system, reports are being signed by the in house radiologist without review as a courtesy to ensure prompt reporting. The interpreting r adiologist is fully responsible for the content of the report.
[2023-05-09 15:32] VITALS: BP 122/76; TEMP 97.6; O2SAT 100
== END 2023-05-08 02:32 | disposition home or self-care (01) ==
LOC: ER 00:07
DX: K80.80 Other cholelithiasis without obstruction (principal)
CPT/HCPCS: 36415; 76705; 80053; 83690; 85025; J2405; J7030

== ENCOUNTER 2023-12-23 08:18 | Emergency (ER) | payer OTHER ==
--- OUTSIDE RECORDS SUMMARY | 2023-12-23 08:24 | XMS REPORT | Continuity of Care Document ---
Author Name Unknown Address [address] [facility] [address] [place] [id number] [facility]connect Address [address] [facility] 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 Ordering Clinician Indication Dosage Frequency Signature (SIG) Comments Components Source allopurinol 100 mg tablet 12-10 00:00: 00 Yes 12mg Sagar Miranda Cipro 500 mg tablet 12-10 00:00: 00 Yes 1mg Sagar Miranda albuterol sulfate HFA 90 mcg/actuati on aerosol inhaler 11-06 00:00: 00 Yes 12mcg/a ctuatio n Sagar Miranda prednisone 10 mg tablet 11-06 00:00: 00 Yes 1mg Sagar Miranda amoxicillin 500 mg capsule 11-06 00:00: 00 Yes 1mg Sagar Miranda Bromfed DM 2 mg-30 mg-10 mg/5 mL oral syrup 11-06 00:00: 00 Yes 10mg/5 mL Sagar Miranda TAKE 10 ML(S) BY MOUTH EVERY 6 TO 8 HOURS. 11-06 00:00: 00 Yes Sagar Miranda albuterol sulfate HFA 90 mcg/actuati on aerosol inhaler 11-04 00:00: 00 Yes 12mcg/a ctuatio n Sagar Miranda prednisone 10 mg tablet 11-04 00:00: 00 Yes 1mg Sagar Miranda amoxicillin 500 mg capsule 11-04 00:00: 00 Yes 1mg Sagar Miranda Bromfed DM 2 mg-30 mg-10 mg/5 mL oral syrup 11-04 00:00: 00 Yes 10mg/5 mL Sagar Miranda TAKE 1 TABLET DAILY. 2022-07 00:00: 00 11-24 00:00 :00 No 500 Sagar Miranda TAKE 1 TABLET TWICE DAILY WITH FOOD. 2022-07 00:00: 00 11-24 00:00 :00 No [id number] Sagar Miranda TAKE 1 TABLET BY MOUTH EVERY 12 HOURS 2022-07 00:00: 00 Yes Sagar Miranda TAKE 1 TABLET BY MOUTH EVERY 6 HOURS FOR 8 DAYS 03-26 00:00: 00 Yes Sagar Miranda TAKE 1 TABLET BY MOUTH TWICE DAILY 03-26 00:00: 00 Yes Sagar Miranda TAKE 1 CAPSULE BY MOUTH EVERY 8 HOURS NEEDED FOR COUGH AND CONGESTION 02-06 00:00: 00 11-24 00:00 :00 No Sagar Miranda TAKE 1 TABLET DAILY. 01-24 00:00: 00 11-24 00:00 :00 No 1 Sagar Miranda APPLY SPARINGLY TO AFFECTED AREA(S) TWICE DAILY 01-24 00:00: 00 11-24 00:00 :00 No 2 Sagar Miranda TAKE 1 TABLET BY MOUTH EVERY DAY 01-24 00:00: 00 11-24 00:00 :00 No 10 Sagar Miranda TAKE 1 TABLET DAILY. 01-10 00:00: 00 11-24 00:00 :00 No 1 Sagar Miranda TAKE 1 TAB BID 2-03 00:00: 00 11-24 00:00 :00 No 500 Sagar Bronwyn Miranda 10 ML Q 4 TO 6 HOURS PRN COUGH FOR 5 DAYS - 00:00: 00 No [id number] 10 ML Q 4 TO 6 HOURS PRN COUGH FOR 5 DAYS - 00:00: 00 11-24 00:00 :00 No [id number] Sagar Miranda TAKE 1 TABLET BY MOUTH EVERY 12 HOURS FOR 10 DAYS 2021-07- 00:00: 00 No SUCRALFATE 1GM TABLETS 2021-07 00:00: 00 No TAKE 1 TABLET BY MOUTH EVERY 12 HOURS FOR 10 DAYS 2021-07 00:00: 00 11-24 00:00 :00 No Sagar Miranda SUCRALFATE 1GM TABLETS 2021-07 00:00: 00 11-24 00:00 :00 No Sagar Miranda TAKE 1 CAPSULE BY MOUTH EVERY 6 HOURS FOR 10 DAYS. 2021-07 00:00: 00 No TAKE 1 CAPSULE BY MOUTH EVERY 6 HOURS FOR 10 DAYS. 2021-07 00:00: 00 11-24 00:00 :00 No Sagar Miranda TAKE 1 TABLET BY MOUTH TWICE DAILY 02-20 00:00: 00 Yes 500 Sagar Miranda TAKE 1 TABLET BY MOUTH TWICE DAILY 02-20 00:00: 00 No 500 TAKE 1 TABLET BY MOUTH TWICE DAILY 02-20 00:00: 00 No 500 TAKE 1 TABLET BY MOUTH TWICE DAILY 02-20 00:00: 00 No 500 [employer] A 150 MG/ML SYRI 02-20 00:00: 00 11-24 00:00 :00 No Sagar Miranda TAKE 1 TABLET TWICE DAILY WITH FOOD. 02-13 00:00: 00 Yes [id number] Sagar Miranda TAKE 1 TABLET TWICE DAILY WITH FOOD. 02-13 00:00: 00 No [id number] Dose Unknown 02-13 00:00: 00 No 875 TAKE 1 TABLET TWICE DAILY WITH FOOD. 02-13 00:00: 00 No [id number] Dose Unknown 02-13 00:00: 00 No 875 TAKE 1 TABLET TWICE DAILY WITH FOOD. 02-13 00:00: 00 No [id number] Dose Unknown 02-13 00:00: 00 No 875 TAKE 1 TABLET TWICE DAILY WITH FOOD. 02-13 00:00: 00 No [id number] Dose Unknown 02-13 00:00: 00 No 875 TAKE 1 TABLET BY MOUTH TWICE DAILY 02-02 00:00: 00 Yes 500 Sagar Miranda TAKE 1 TABLET BY MOUTH TWICE DAILY UNTIL ALL TAKEN 0 02-02 00:00: 00 Yes 875 Sagar Miranda TAKE 1 TABLET BY MOUTH TWICE DAILY 0 02-02 00:00: 00 No 500 TAKE 1 TABLET BY MOUTH TWICE DAILY UNTIL ALL TAKEN 0 02-02 00:00: 00 No 875 TAKE 1 TABLET BY MOUTH TWICE DAILY 02-02 00:00: 00 No 500 TAKE 1 TABLET BY MOUTH TWICE DAILY UNTIL ALL TAKEN 0 02-02 00:00: 00 No 875 TAKE 1 TABLET BY MOUTH TWICE DAILY 02-02 00:00: 00 No 500 TAKE 1 TABLET BY MOUTH TWICE DAILY UNTIL ALL TAKEN 0 02-02 00:00: 00 No 875 TAKE 1 TABLET BY MOUTH TWICE DAILY 0 02-02 00:00: 00 No 500 TAKE 1 TABLET BY MOUTH TWICE DAILY UNTIL ALL TAKEN 0 02-02 00:00: 00 No 875 Dose Unknown 0 12-01 00:00: 00 Yes Sagar Miranda medroxyprog esterone 150 mg/mL intramuscul ar suspension 2021-0 12-01 00:00: 00 No 1mg/mL Dose Unknown 0 20 00:00: 00 No medroxyprog esterone 150 mg/mL intramuscul ar suspension 0 20 00:00: 00 No 1mg/mL Dose Unknown 0 20 00:00: 00 No Dose Unknown 2021-0 -20 00:00: 00 No Dose Unknown 0 20 00:00: 00 No [employer] A 150 MG/ML SYRI 2021-0 20 00:00: 00 05- 00:00 :00 No Sagar Miranda Chlorasepti c Total 5 mg-6 mg-10 mg lozenges 2021-0 11-24 00:00: 00 Yes 2mg Sagar Miranda Chlorasepti c Total 5 mg-6 mg-10 mg lozenges 2021-0 11-24 00:00: 00 No 2mg Chlorasepti c Total 5 mg-6 mg-10 mg lozenges 2021-0 5-13 00:00: 00 No 2mg Chlorasepti c Total 5 mg-6 mg-10 mg lozenges 2021-0 5-13 00:00: 00 No 2mg Chlorasepti c Total 5 mg-6 mg-10 mg lozenges 2021-0 5-13 00:00: 00 No 2mg Dose Unknown 0 3-06 00:00: 00 Yes Sagar Miranda Dose Unknown 0 3- 00:00: 00 No Dose Unknown 0 - 00:00: 00 No Dose Unknown 0 09-17 00:00: 00 No Dose Unknown 0 09-17 00:00: 00 No Dose Unknown 0 09-14 00:00: 00 Yes Sagar Miranda Dose Unknown 0 - 00:00: 00 No Dose Unknown 0 09-14 00:00: 00 No Dose Unknown 0 3 00:00: 00 No Dose Unknown 0 09-14 00:00: 00 No sertraline 50 mg tablet 2019-0 24 00:00: 00 Yes 1mg Sagar Miranda aripiprazol e 5 mg tablet 2019-0 24 00:00: 00 Yes 1mg Sagar Miranda hydroxyzine HCl 50 mg tablet 2019-0 24 00:00: 00 Yes 51mg Sagar Miranda sertraline 50 mg tablet 2019-0 24 00:00: 00 No 1mg aripiprazol e 5 mg tablet 2019-0 24 00:00: 00 No 1mg hydroxyzine HCl 50 mg tablet 2019-0 24 00:00: 00 No 51mg sertraline 50 mg tablet 2019-0 24 00:00: 00 No 1mg aripiprazol e 5 mg tablet 2019-0 24 00:00: 00 No 1mg hydroxyzine HCl 50 mg tablet 2019-0 24 00:00: 00 No 51mg sertraline 50 mg tablet 2019-0 24 00:00: 00 No 1mg aripiprazol e 5 mg tablet 2019-0 24 00:00: 00 No 1mg hydroxyzine HCl 50 mg tablet 2019-0 24 00:00: 00 No 51mg sertraline 50 mg tablet 2019-0 9-24 00:00: 00 No 1mg aripiprazol e 5 mg tablet 2019-0 924 00:00: 00 No 1mg hydroxyzine HCl 50 mg tablet 2019-0 24 00:00: 00 No 51mg sertraline 50 mg tablet 2019-0 - 00:00: 00 Yes 1mg Sagar Miranda aripiprazol e 5 mg tablet 2019-0 9- 00:00: 00 Yes 1mg Sagar Miranda sertraline 50 mg tablet 2019-0 03-24 00:00: 00 No 1mg aripiprazol e 5 mg tablet 2019-0 03-24 00:00: 00 No 1mg sertraline 50 mg tablet 2019-0 03-24 00:00: 00 No 1mg aripiprazol e 5 mg tablet 2019-0 03-24 00:00: 00 No 1mg sertraline 50 mg tablet 2019-0 03-24 00:00: 00 No 1mg aripiprazol e 5 mg tablet 2019-0 03-24 00:00: 00 No 1mg sertraline 50 mg tablet 2019-0 03-24 00:00: 00 No 1mg aripiprazol e 5 mg tablet 2019-0 03-24 00:00: 00 No 1mg sertraline 50 mg tablet 2019-0 - 00:00: 00 Yes 1mg Sagar Miranda aripiprazol e 5 mg tablet 2019-0 - 00:00: 00 Yes 1mg Sagar Miranda sertraline 50 mg tablet 2019-0 - 00:00: 00 No 1mg aripiprazol e 5 mg tablet 2019-0 - 00:00: 00 No 1mg sertraline 50 mg tablet 2019-0 - 00:00: 00 No 1mg aripiprazol e 5 mg tablet 2019-0 - 00:00: 00 No 1mg sertraline 50 mg tablet 2019-0 - 00:00: 00 No 1mg aripiprazol e 5 mg tablet 2019-0 - 00:00: 00 No 1mg sertraline 50 mg tablet 2019-0 8- 00:00: 00 No 1mg aripiprazol e 5 mg tablet 03-14 00:00: 00 No 1mg Zithromax 250 mg tablet 03-08 00:00: 00 Yes mg Sagar Miranda Zithromax 250 mg tablet 03-08 00:00: 00 No mg Zithromax 250 mg tablet 03-08 00:00: 00 No mg Zithromax 250 mg tablet 03-08 00:00: 00 No mg Zithromax 250 mg tablet 03-08 00:00: 00 No mg sertraline 50 mg tablet 01-07 00:00: 00 Yes 1mg Sagar Miranda aripiprazol e 5 mg tablet 01-07 00:00: 00 Yes 1mg Sagar Miranda sertraline 50 mg tablet 01-07 00:00: 00 No 1mg aripiprazol e 5 mg tablet 01-07 00:00: 00 No 1mg sertraline 50 mg tablet 01-07 00:00: 00 No 1mg aripiprazol e 5 mg tablet 01-07 00:00: 00 No 1mg sertraline 50 mg tablet 01-07 00:00: 00 No 1mg aripiprazol e 5 mg tablet 01-07 00:00: 00 No 1mg sertraline 50 mg tablet 01-07 00:00: 00 No 1mg aripiprazol e 5 mg tablet 01-07 00:00: 00 No 1mg aripiprazol e 5 mg tablet 12-16 00:00: 00 Yes mg Sagar Miranda sertraline 50 mg tablet 12-16 00:00: 00 Yes mg Sagar Miranda aripiprazol e 5 mg tablet 12-16 00:00: 00 No mg sertraline 50 mg tablet 12-16 00:00: 00 No mg aripiprazol e 5 mg tablet 12-16 00:00: 00 No mg sertraline 50 mg tablet 12-16 00:00: 00 No mg aripiprazol e 5 mg tablet 12-16 00:00: 00 No mg sertraline 50 mg tablet 2020-0 6-04 00:00: 00 No mg aripiprazol e 5 mg tablet 2020-0 6-04 00:00: 00 No mg sertraline 50 mg tablet 2020-0 6-04 00:00: 00 No mg sertraline 100 mg tablet 2020-0 4-08 00:00: 00 Yes mg Sagar Miranda aripiprazol e 5 mg tablet 2020-0 4-08 00:00: 00 Yes mg Sagar Miranda sertraline 100 mg tablet 2020-0 4-08 00:00: 00 No mg aripiprazol e 5 mg tablet 2019-0 4-08 00:00: 00 No mg sertraline 100 mg tablet 2019-0 4-08 00:00: 00 No mg aripiprazol e 5 mg tablet 2019-0 4-08 00:00: 00 No mg sertraline 100 mg tablet 2019-0 4-08 00:00: 00 No mg aripiprazol e 5 mg tablet 2019-0 4-08 00:00: 00 No mg sertraline 100 mg tablet 2019-0 4-08 00:00: 00 No mg aripiprazol e 5 mg tablet 2019-0 4-08 00:00: 00 No mg Zoloft 100 mg tablet 2020-0 2-17 00:00: 00 Yes 1mg Sagar Miranda Abilify 5 mg tablet 2020-0 2-17 00:00: 00 Yes 1mg Sagar Miranda Abilify 5 mg tablet 2020-0 2-17 00:00: 00 No 1mg Zoloft 100 mg tablet 2020-0 2-17 00:00: 00 No 1mg Zoloft 100 mg tablet 2020-0 2-17 00:00: 00 No 1mg Abilify 5 mg tablet 2020-0 2-17 00:00: 00 No 1mg Zoloft 100 mg tablet 2020-0 2-17 00:00: 00 No 1mg Abilify 5 mg tablet 2020-0 2-17 00:00: 00 No 1mg Zoloft 100 mg tablet 2020-0 2-17 00:00: 00 No 1mg Abilify 5 mg tablet 2020-0 2-17 00:00: 00 No 1mg Zoloft 100 mg tablet 2020-0 1-07 00:00: 00 Yes 1mg Sagar Miranda Abilify 5 mg tablet 07-21 00:00: 00 Yes 1mg Sagar Miranda Zoloft 100 mg tablet 07-21 00:00: 00 No 1mg Abilify 5 mg tablet 07-21 00:00: 00 No 1mg Zoloft 100 mg tablet 07-21 00:00: 00 No 1mg Abilify 5 mg tablet 07-21 00:00: 00 No 1mg Zoloft 100 mg tablet 07-21 00:00: 00 No 1mg Abilify 5 mg tablet 07-21 00:00: 00 No 1mg Zoloft 100 mg tablet 07-21 00:00: 00 No 1mg Abilify 5 mg tablet 07-21 00:00: 00 No 1mg Zoloft 50 mg tablet 2018-07 00:00: 00 Yes 1mg Sagar Miranda Abilify 5 mg tablet 2018-07 2 00:00: 00 Yes 1mg Sagar Miranda Zoloft 50 mg tablet 2018-07 00:00: 00 No 1mg Abilify 5 mg tablet 2018-07 2 00:00: 00 No 1mg Zoloft 50 mg tablet 2018-07 2 00:00: 00 No 1mg Abilify 5 mg tablet 2018-07 2 00:00: 00 No 1mg Zoloft 50 mg tablet 2018-07 2 00:00: 00 No 1mg Abilify 5 mg tablet 2018-07 2 00:00: 00 No 1mg Zoloft 50 mg tablet 2018-07 2 00:00: 00 No 1mg Abilify 5 mg tablet 2018-07 2 00:00: 00 No 1mg Zoloft 25 mg tablet 2018-07 00:00: 00 Yes 1mg Sagar Miranda Abilify 5 mg tablet 2018-07 00:00: 00 Yes 1mg Sagar Miranda Zoloft 25 mg tablet 2018-07 00:00: 00 No 1mg Abilify 5 mg tablet 2018-07 00:00: 00 No 1mg Zoloft 25 mg tablet 2018-07 00:00: 00 No 1mg Abilify 5 mg tablet 2018-07 00:00: 00 No 1mg Zoloft 25 mg tablet 2018-07 00:00: 00 No 1mg Abilify 5 mg tablet 2018-07 00:00: 00 No 1mg Zoloft 25 mg tablet 2018-07 00:00: 00 No 1mg Abilify 5 mg tablet 2018-07 00:00: 00 No 1mg Immunizations Ordered Immunization Name Filled Immunization Name Date Status Comments Source meningococcal MCV4P meningococcal MCV4P 00:00:00 Completed Sagar Miranda meningococcal MCV4P 2017-09-04 00:00:00 Completed meningococcal MCV4P 2017-09-04 00:00:00 Completed Tdap Tdap 2011-12-31 00:00:00 Completed Sagar Miranda varicella varicella 2011-12-31 00:00:00 Completed Sagar Miranda meningococcal MCV4P meningococcal MCV4P 00:00:00 Completed Sagar Miranda Tdap 2011-12-31 00:00:00 Completed varicella 2011-12-31 00:00:00 Completed meningococcal MCV4P 2011-12-31 00:00:00 Completed Tdap 2011-12-31 00:00:00 Completed varicella 2011-12-31 00:00:00 Completed meningococcal MCV4P 2011-12-31 00:00:00 Completed Hep A, ped/adol, 2 dose Hep A, ped/adol, 2 dose 2005-09-20 00:00:00 Completed Sagar Miranda Hep A, ped/adol, 2 dose 2005-09-20 00:00:00 Completed Hep A, ped/adol, 2 dose 2005-09-20 00:00:00 Completed Hep A, ped/adol, 2 dose Hep A, ped/adol, 2 dose 2005-03-15 00:00:00 Completed Sagar Miranda Hep A, ped/adol, 2 dose 2005-03-15 00:00:00 Completed Hep A, ped/adol, 2 dose 2005-03-15 00:00:00 Completed IPV IPV 2005-01-11 00:00:00 Completed Sagar Miranda DTaP, unspecified formul DTaP, unspecified formul 2005-01-11 00:00:00 Completed Sagar Bronwyn Ruben MMR MMR 2005-01-11 00:00:00 Completed Sagar Miranda IPV 2005-01-11 00:00:00 Completed DTaP, unspecified formul 2005-01-11 00:00:00 Completed MMR 2005-01-11 00:00:00 Completed IPV 2005-01-11 00:00:00 Completed DTaP, unspecified formul 2005-01-11 00:00:00 Completed MMR 2005-01-11 00:00:00 Completed Hib (PRP-T) Hib (PRP-T) 2002-06-15 00:00:00 Completed Sagar Miranda pneumococcal conjugate P pneumococcal conjugate P 2002-06-15 00:00:00 Completed Sagar Miranda DTaP, unspecified formul DTaP, unspecified formul 2002-06-15 00:00:00 Completed Sagar Miranda Hib (PRP-T) 2002-06-15 00:00:00 Completed pneumococcal conjugate P 2002-06-15 00:00:00 Completed DTaP, unspecified formul 2002-06-15 00:00:00 Completed Hib (PRP-T) 2002-06-15 00:00:00 Completed pneumococcal conjugate P 2002-06-15 00:00:00 Completed DTaP, unspecified formul 2002-06-15 00:00:00 Completed varicella varicella 2001-12-30 00:00:00 Completed Sagar Miranda MMR MMR 2001-12-30 00:00:00 Completed Sagar Miranda IPV IPV 2001-12-30 00:00:00 Completed Sagar Miranda varicella 2001-12-30 00:00:00 Completed MMR 2001-12-30 00:00:00 Completed IPV 2001-12-30 00:00:00 Completed varicella 2001-12-30 00:00:00 Completed MMR 2001-12-30 00:00:00 Completed IPV 2001-12-30 00:00:00 Completed DTaP, unspecified formul DTaP, unspecified formul 2001-08-06 00:00:00 Completed Sagar Miranda Hib (PRP-T) Hib (PRP-T) 2001-08-06 00:00:00 Completed Sagar Miranda Hep B, adolescent or ped Hep B, adolescent or ped 2001-08-06 00:00:00 Completed Sagar Miranda DTaP, unspecified formul 2001-08-06 00:00:00 Completed Hib (PRP-T) 2001-08-06 00:00:00 Completed Hep B, adolescent or ped 2001-08-06 00:00:00 Completed DTaP, unspecified formul 2001-08-06 00:00:00 Completed Hib (PRP-T) 2001-08-06 00:00:00 Completed Hep B, adolescent or ped 2001-08-06 00:00:00 Completed DTaP, unspecified formul DTaP, unspecified formul 2001-05-07 00:00:00 Completed Sagar Miranda IPV IPV 2001-05-07 00:00:00 Completed Sagar Miranda Hib (PRP-T) Hib (PRP-T) 2001-05-07 00:00:00 Completed Sagar Miranda DTaP, unspecified formul 2001-05-07 00:00:00 Completed IPV 2001-05-07 00:00:00 Completed Hib (PRP-T) 2001-05-07 00:00:00 Completed DTaP, unspecified formul 2001-05-07 00:00:00 Completed IPV 2001-05-07 00:00:00 Completed Hib (PRP-T) 2001-05-07 00:00:00 Completed IPV IPV 2001-02-18 00:00:00 Completed Sagar Miranda Hib (PRP-T) Hib (PRP-T) 2001-02-18 00:00:00 Completed Sagar Miranda DTaP, unspecified formul DTaP, unspecified formul 2001-02-18 00:00:00 Completed Sagar Miranda Hep B, adolescent or ped Hep B, adolescent or ped 2001-02-18 00:00:00 Completed Sagar Miranda IPV 2001-02-18 00:00:00 Completed Hib (PRP-T) 2001-02-18 00:00:00 Completed DTaP, unspecified formul 2001-02-18 00:00:00 Completed Hep B, adolescent or ped 2001-02-18 00:00:00 Completed IPV 2001-02-18 00:00:00 Completed Hib (PRP-T) 2001-02-18 00:00:00 Completed DTaP, unspecified formul 2001-02-18 00:00:00 Completed Hep B, adolescent or ped 2001-02-18 00:00:00 Completed Hep B, adolescent or ped Hep B, adolescent or ped 2000 00:00:00 Completed Sagar F Ruben Hep B, adolescent or ped 2000 00:00:00 Completed Hep B, adolescent or ped 2000 00:00:00 Completed Vital Signs Vital Name Observation Time Observation Value Comments S ource BP Systolic 2023-12-11 14:58:00 110 mm[Hg] Step hen F Ruben BP Diastolic 2023-12-11 14:58:00 80 mm[Hg] [place]udonne phen F Ruben Weight Measured 2023-12-11 14:58:00 215.00 pounds Sagar F Ruben Height Measured 2023-12-11 14:58:00 62.00 inches Sagar F Ruben Body Temperature 2023-12-11 14:58:00 98.20 degrees Sagar F Ruben Heart Rate 2023-12-11 14:58:00 85.00 /min Flakita en F Ruben Respiratory Rate 2023-12-11 14:58:00 18.00 /min Sagar F Ruben BP Systolic 2023-11-05 11:15:00 114 mm[Hg] Step hen F Ruben BP Diastolic 2023-11-05 11:15:00 78 mm[Hg] [place]udonne phen F Ruben Weight Measured 2023-11-05 11:15:00 212.00 pounds Sagar F Ruben Height Measured 2023-11-05 11:15:00 62.60 inches Sagar F Ruben Body Temperature 2023-11-05 11:15:00 98.30 degrees Sagar F Ruben Heart Rate 2023-11-05 11:15:00 95.00 /min Flakita en F Ruben Respiratory Rate 2023-11-05 11:15:00 18.00 /min Sagar F Ruben BP Systolic 2023-06-20 15:10:00 118 mm[Hg] Step hen F Ruben BP Diastolic 2023-06-20 15:10:00 72 mm[Hg] Dieudonne phen F Ruben Weight Measured 2023-06-20 15:10:00 224.80 pounds Sagar F Ruben Height Measured 2023-06-20 15:10:00 62.60 inches Sagar F Ruben Body Temperature 2023-06-20 15:10:00 98.10 degrees Sagar F Ruben Heart Rate 2023-06-20 15:10:00 91.00 /min Flakita en F Ruben Respiratory Rate 2023-06-20 15:10:00 18.00 /min Sagar F Ruben BP Systolic 2023-06-18 10:27:00 113 mm[Hg] Step hen F Ruben BP Diastolic 2023-06-18 10:27:00 72 mm[Hg] [place]ud[place] phen F Ruben Weight Measured 2023-06-18 10:27:00 224.20 pounds Sagar F Ruben Height Measured 2023-06-18 10:27:00 62.60 inches Sagar F Ruben Body Temperature 2023-06-18 10:27:00 98.20 degrees Sagar F Ruben Heart Rate 2023-06-18 10:27:00 77.00 /min Flakita en F Ruben Respiratory Rate 2023-06-18 10:27:00 17.00 /min Sagar F Ruben BP Systolic 2023-03-05 10:59:00 119 mm[Hg] Step hen F Ruben BP Diastolic 2023-03-05 10:59:00 87 mm[Hg] [place]udonne phen F Ruben Weight Measured 2023-03-05 10:59:00 220.00 pounds Sagar F Ruben Height Measured 2023-03-05 10:59:00 62.60 inches Sagar F Ruben Body Temperature 2023-03-05 10:59:00 98.40 degrees Sagar F Ruben Heart Rate 2023-03-05 10:59:00 73.00 /min Flakita en F Ruben Respiratory Rate 2023-03-05 10:59:00 Sagar F Ruben BP Systolic 2023-01-24 08:17:00 107 mm[Hg] Step hen F Ruben BP Diastolic 2023-01-24 08:17:00 60 mm[Hg] [place]ud[place] phen F Ruben Weight Measured 2023-01-24 08:17:00 215.80 pounds Sagar F Ruben Height Measured 2023-01-24 08:17:00 62.60 inches Sagar F Ruben Body Temperature 2023-01-24 08:17:00 97.40 degrees Sagar F Ruben Heart Rate 2023-01-24 08:17:00 75.00 /min Flakita en F Ruben Respiratory Rate 2023-01-24 08:17:00 25.00 /min Sagar F Ruben BP Systolic 2023-01-08 11:11:00 115 mm[Hg] Step hen F Ruben BP Diastolic 2023-01-08 11:11:00 73 mm[Hg] [place]udonne phen F Ruben Weight Measured 2023-01-08 11:11:00 217.60 pounds Sagar F Ruben Height Measured 2023-01-08 11:11:00 62.60 inches Sagar F Ruben Body Temperature 2023-01-08 11:11:00 97.60 degrees Sagar F Ruben Heart Rate 2023-01-08 11:11:00 90.00 /min Flakita en F Ruben Respiratory Rate 2023-01-08 11:11:00 25.00 /min Sagar F Ruben BP Systolic 2022-10-31 08:32:00 120 mm[Hg] Step hen F Ruben BP Diastolic 2022-10-31 08:32:00 80 mm[Hg] [place]ud[place] phen F Ruben Weight Measured 2022-10-31 08:32:00 216.20 pounds Sagar F Ruben Height Measured 2022-10-31 08:32:00 62.60 inches Sagar F Ruben Body Temperature 2022-10-31 08:32:00 98.10 degrees Sagar F Ruben Heart Rate 2022-10-31 08:32:00 80.00 /min Flakita en F Ruben Respiratory Rate 2022-10-31 08:32:00 19.00 /min Sagar F Ruben BP Systolic 2022-08-15 08:44:00 132 mm[Hg] Step hen F Ruben BP Diastolic 2022-08-15 08:44:00 79 mm[Hg] Dieudonne phen F Ruben Weight Measured 2022-08-15 08:44:00 213.00 pounds Sagar F Ruben Height Measured 2022-08-15 08:44:00 62.60 inches Sagar F Ruben Body Temperature 2022-08-15 08:44:00 98.20 degrees Sagar F Ruben Heart Rate 2022-08-15 08:44:00 85.00 /min Flakita en F Ruben Respiratory Rate 2022-08-15 08:44:00 17.00 /min Sagar F Ruben BP Systolic 2022-08-08 14:49:00 115 mm[Hg] Step hen F Ruben BP Diastolic 2022-08-08 14:49:00 78 mm[Hg] Dieudonne phen F Ruben Weight Measured 2022-08-08 14:49:00 209.40 pounds Sagar Miranda Height Measured 2022-08-08 14:49:00 62.60 inches Sagar Bronwyn Miranda Body Temperature 2022-08-08 14:49:00 98.20 degrees Sagar Bronwyn Miranda Heart Rate 2022-08-08 14:49:00 96.00 /min Flakita en F Ruben Respiratory Rate 2022-08-08 14:49:00 18.00 /min Sagarelysia Miranda BP Systolic 2022-08-06 08:56:00 116 mm[Hg] Step hen F Ruben BP Diastolic 2022-08-06 08:56:00 75 mm[Hg] Dieudonne phen Bronwyn Miranda Weight Measured 2022-08-06 08:56:00 209.20 pounds Sagar Miranda Height Measured 2022-08-06 08:56:00 62.60 inches Sagar Miranda Body Temperature 2022-08-06 08:56:00 97.20 degrees Sagar Miranda Heart Rate 2022-08-06 08:56:00 94.00 /min Flakita en Bronwyn Miranda Respiratory Rate 2022-08-06 08:56:00 Sagar Bronwyn Miranda BP Systolic 2022-05-17 09:32:00 109 mm[Hg] BP [...] Rate 2020-03-08 16:04:00 Respiratory Rate 2020-03-08 16:04:00 Plan of Care Planned Activity Planned Date Details Comments Source Goal Plan of Care Note [code = 85975-1] Goal Plan of Care Note [code = 57616-5] Goal Plan of Care Note [code = 49275-0] Goal Plan of Care Note [code = 92084-6] Goal Plan of Care Note [code = 74839-0] Goal Plan of Care Note [code = 40693-4] Goal Plan of Care Note [code = 77069-5] Goal Plan of Care Note [code = 70356-1] Goal Plan of Care Note [code = 07545-4] Goal Plan of Care Note [code = 73526-2] Goal Plan of Care Note [code = 66701-7] Goal Plan of Care Note [code = 20685-7] Goal Plan of Care Note [code = 93249-7] Goal Plan of Care Note [code = 30463-0] Goal Plan of Care Note [code = 93659-1] Goal Plan of Care Note [code = 84945-6] Goal Plan of Care Note [code = 64228-0] Goal Plan of Care Note [code = 53969-7] Goal Plan of Care Note [code = 67664-9] Goal Plan of Care Note [code = 99246-2] Goal Plan of Care Note [code = 10783-8] Goal Plan of Care Note [code = 09088-8] Goal Plan of Care Note [code = 93397-4] Goal Plan of Care Note [code = 76529-8] Goal Plan of Care Note [code = 27750-2] Goal Plan of Care Note [code = 32382-6] Goal Plan of Care Note [code = 15380-6] Goal Plan of Care Note [code = 74721-9] Goal Plan of Care Note [code = 61212-6] Goal Plan of Care Note [code = 78240-7] Goal Plan of Care Note [code = 84758-9] Goal Plan of Care Note [code = 19331-8] Goal Plan of Care Note [code = 25216-7] Goal Plan of Care Note [code = 90322-7] Goal Plan of Care Note [code = 12323-0] Goal Plan of Care Note [code = 37604-1] Goal Plan of Care Note [code = 17334-0] Goal Plan of Care Note [code = 46682-1] Goal Plan of Care Note [code = 89898-7] Goal Plan of Care Note [code = 73689-6] Goal Plan of Care Note [code = 64525-2] Goal Plan of Care Note [code = 73247-0] Goal Plan of Care Note [code = 28762-4] Goal Plan of Care Note [code = 58243-0] Goal Plan of Care Note [code = 61330-7] Goal Plan of Care Note [code = 50559-8] Goal Plan of Care Note [code = 02577-4] Goal Plan of Care Note [code = 81798-5] Goal Plan of Care Note [code = 27069-8] Goal Plan of Care Note [code = 99430-3] Goal Plan of Care Note [code = 81857-8] Goal Plan of Care Note [code = 30844-0] Goal Plan of Care Note [code = 24915-6] Goal Plan of Care Note [code = 63534-4] Goal Plan of Care Note [code = 70338-2] Goal Plan of Care Note [code = 56254-8] Goal Plan of Care Note [code = 01684-0] Goal Plan of Care Note [code = 07094-0] Goal Plan of Care Note [code = 77111-7] Goal Plan of Care Note [code = 21963-7] Goal Plan of Care Note [code = 83701-0] Goal Plan of Care Note [code = 73309-3] Goal Plan of Care Note [code = 92380-8] Goal Plan of Care Note [code = 06969-9] Goal Plan of Care Note [code = 44519-0] Goal Plan of Care Note [code = 21267-3] Goal Plan of Care Note [code = 34593-0] Goal Plan of Care Note [code = 67451-2] Goal Plan of Care Note [code = 77115-8] Goal Plan of Care Note [code = 34101-0] Goal Plan of Care Note [code = 35933-4] Goal Plan of Care Note [code = 33521-6] Goal Plan of Care Note [code = 49822-8] Goal Plan of Care Note [code = 83928-5] Goal Plan of Care Note [code = 06112-4] Goal Plan of Care Note [code = 96980-8] Goal Plan of Care Note [code = 85336-9] Goal Plan of Care Note [code = 57607-4] Goal Plan of Care Note [code = 53310-0] Goal Plan of Care Note [code = 79329-5] Goal Plan of Care Note [code = 41237-4] Goal Plan of Care Note [code = 13741-6] Goal Plan of Care Note [code = 92208-4] Goal Plan of Care Note [code = 78031-1] Goal Plan of Care Note [code = 50087-6] Goal Plan of Care Note [code = 34800-9] Goal Plan of Care Note [code = 53210-6] Goal Plan of Care Note [code = 70148-8] Goal Plan of Care Note [code = 15437-9] Goal Plan of Care Note [code = 96287-3] Goal Plan of Care Note [code = 59205-7] Goal Plan of Care Note [code = 53098-3] Goal Plan of Care Note [code = 43415-3] Goal Plan of Care Note [code = 54720-9] Goal Plan of Care Note [code = 97498-2] Goal Plan of Care Note [code = 98698-8] Goal Plan of Care Note [code = 68779-2] Goal Plan of Care Note [code = 64843-1] Goal Plan of Care Note [code = 32304-5] Goal Plan of Care Note [code = 21017-9] Goal Plan of Care Note [code = 24479-8] Goal Plan of Care Note [code = 99391-5] Goal Plan of Care Note [code = 82922-6] Goal Plan of Care Note [code = 98262-9] Goal Plan of Care Note [code = 10758-0] Goal Plan of Care Note [code = 55288-3] Goal Plan of Care Note [code = 95909-8] Goal Plan of Care Note [code = 79173-1] Goal Plan of Care Note [code = 57623-4] Goal Plan of Care Note [code = 29498-6] Goal Plan of Care Note [code = 23970-0] Goal Plan of Care Note [code = 01069-0] Goal Plan of Care Note [code = 07102-2] Goal Plan of Care Note [code = 20971-7] Goal Plan of Care Note [code = 78738-3] Goal Plan of Care Note [code = 19645-6] Goal Plan of Care Note [code = 07249-2] Goal Plan of Care Note [code = 87856-5] Goal Plan of Care Note [code = 64082-3] Goal Plan of Care Note [code = 51310-9] Goal Plan of Care Note [code = 32343-0] Goal Plan of Care Note [code = 34764-7] Goal Plan of Care Note [code = 29619-1] Goal Plan of Care Note [code = 17956-1] Goal Plan of Care Note [code = 32803-9] Goal Plan of Care Note [code = 98951-9] Goal Plan of Care Note [code = 31692-7] Goal Plan of Care Note [code = 65016-8] Goal Plan of Care Note [code = 69056-9] Goal Plan of Care Note [code = 48927-1] Goal Plan of Care Note [code = 45255-8] Goal Plan of Care Note [code = 99718-6] Goal Plan of Care Note [code = 75045-5] Goal Plan of Care Note [code = 43423-8] Goal Plan of Care Note [code = 98132-8] Encounters Start Date/Time End Date/Time Encounter Type Admission Type Attending [facility] Care Department Encounter ID Source 2023-12-11 14:57:48 2023-12-11 14:57:48 Outpatient [facility] [id number] Sagar Miranda 2023-12-11 00:00:00 2023-12-11 00:00:00 Outpatient Visit [facility] [id number] Sagar Miranda 2023-11-05 11:07:52 2023-11-05 11:07:52 Outpatient [facility] 0423 Sagar Barnhart Ruben 2023-11-05 00:00:00 2023-11-05 00:00:00 Outpatient Visit [facility] [id number] Sagar Miranda 2023-06-20 15:45:02 2023-06-20 15:45:02 Outpatient [facility] 1207 Sagar Miranda 2023-06-18 10:18:57 2023-06-18 10:18:57 Outpatient [facility] 1205 Sagar Miranda 2023-05-07 16:50:49 2023-05-07 16:50:49 Outpatient [facility] 1024 Sagar Miranda 2023-05-06 11:58:11 2023-05-06 11:58:11 Outpatient [facility] 1023 Sagar Miranda 2023-03-08 15:18:13 2023-03-08 15:18:13 Outpatient [facility] 0825 Sagar Miranda 2023-03-05 10:53:04 2023-03-05 10:53:04 Outpatient [facility] 08 Sagar Miranda 2023-01-24 08:12:45 2023-01-24 08:12:45 Outpatient [facility] 0713 Sagar Miranda 2023-01-08 11:10:54 2023-01-08 11:10:54 Outpatient [facility] 27 Sagar Miranda 2022-10-31 08:10:57 2022-10-31 08:10:57 Outpatient [facility] 0419 Sagar Miranda 2022-08-15 08:35:11 2022-08-15 08:35:11 Outpatient [facility] 020 Sagar Miranda 2022-08-08 14:38:56 2022-08-08 14:38:56 Outpatient [facility] 124 Sagar Miranda 2022-08-06 08:42:45 2022-08-06 08:42:45 Outpatient [facility] 122 Sagar Barnhart Ruben 2022-08-06 00:00:00 2022-08-06 00:00:00 Outpatient Visit [id number] -[id number] 2022-05-17 09:31:59 2022-05-17 09:31:59 Outpatient [facility] [id number] Sagar Miranda 2022-05-17 00:00:00 2022-05-17 00:00:00 Outpatient Visit [id number] -[id number] ad4-4855-b [id number] 9388-10-29 14:22:47 2022-05-12 14:22:47 Outpatient [facility] [id number] Sagar Miranda 2022-05-12 00:00:00 2022-05-12 00:00:00 Outpatient Visit [id number] -[id number]-[id number] 2022-02-20 00:00:00 2022-02-20 00:00:00 Outpatient Visit [id number]- abbf-[id number] -[id number] bbf-[id number]-8 [id number] [id number] 2022-02-13 00:00:00 2022-02-13 00:00:00 Outpatient Visit [id number] -[id number] [id number] 2022-02-05 00:00:00 2022-02-05 00:00:00 Outpatient Visit [id number] 1fee-[id number] -iu7l-3m7 [id number] fee-4f0f-a [id number] 47dfe6 2022-02-02 00:00:00 2022-02-02 00:00:00 Outpatient Visit [id number] -bda9-04c [id number] [id number]-t [id number] Results Test Description Test Time Test Comments Results Result Co mments Source TSH, THIRD [id number] 06:36:57* Test Item Value Reference Range Interpretation Comme nts TSH, THIRD GENERATION (test code = 2821) 0.895 UIU/ML 0.400-4.100 CBC W/AUTO DIFF WITH [id number] 05:28:45* Test Item Value Reference Range Interpretation Comme nts WBC (test code = 1001) 7.4 K/UL 3.5-11.0 RBC (test code = 1002) 4.47 M/UL 3.80-5.40 HEMOGLOBIN (test code = 1003) 12.8 G/DL 11.5-15.5 HEMATOCRIT (test code = 1004) 38.3 % 34.0-45.0 MCV (test code = 1005) 85.7 fL 80.0-99.0 MCH (test code = 1006) 28.6 PG 25.0-33.0 MCHC (test code = 1007) 33.4 G/DL 31.0-36.0 RDW (test code = 1038) 13.2 % 11.5-15.0 NEUTROPHILS (test code = 1008) 55.4 % LYMPHOCYTES (test code = 1010) 32.7 % MONOCYTES (test code = 1011) 9.3 % EOSINOPHILS (test code = 1012) 1.9 % BASOPHILS (test code = 1013) 0.4 % IMMATURE GRANULOCYTES (test code = 1036) 0.3 % NUCLEATED RBCS (test code = 1065) 0.0 /100 WBC'S See_Comment [Automated messa ge] The system which generated this result transmitted reference range: 0.0. The reference range was not used to interpret this result as normal/abnormal. PLATELET COUNT (test code = 1015) 285 K/UL 130-400 ABSOLUTE NEUTROPHILS (test code = 1066) 4.11 K/UL 1.50-7.50 ABSOLUTE LYMPHOCYTES (test code = 1067) 2.43 K/UL 1.00-4.00 ABSOLUTE MONOCYTES (test code = 1068) 0.69 K/UL 0.20-1.00 ABSOLUTE EOSINOPHILS (test code = 1040) 0.14 K/UL 0.00-0.50 ABSOLUTE BASOPHILS (test code = 1069) 0.03 K/UL 0.00-0.20 ABS IMMATURE GRANULOCYTES (test code = 1020) 0.02 K/UL 0.00-0.10 ABS NUCLEATED RBCS (test code = 38495) 0.00 K/UL 0.00-0.11 VITAMIN D, 25 [id number] 00:00:00* Test Item Value Reference Range Interpretation Comme nts VITAMIN D, 25 OH (test code = 4958) 13 NG/ML Sagar MirandaCBC W/AUTO [id number] 00:00:00* Test Item Value Reference Range Interpretation Comme nts WBC (test code = 1001) 7.4 K/UL RBC (test code = 1002) 4.47 M/UL HEMOGLOBIN (test code = 1003) 12.8 G/DL HEMATOCRIT (test code = 1004) 38.3 % MCV (test code = 1005) 85.7 fL MCH (test code = 1006) 28.6 PG MCHC (test code = 1007) 33.4 G/DL RDW (test code = 1038) 13.2 % NEUTROPHILS (test code = 1008) 55.4 % LYMPHOCYTES (test code = 1010) 32.7 % MONOCYTES (test code = 1011) 9.3 % EOSINOPHILS (test code = 1012) 1.9 % BASOPHILS (test code = 1013) 0.4 % IMMATURE GRANULOCYTES (test code = 1036) 0.3 % NUCLEATED RBCS (test code = 1065) 0.0 /100WBC'S PLATELET COUNT (test code = 1015) 285 K/UL ABSOLUTE NEUTROPHILS (test c ode = 1066) 4.11 K/UL ABSOLUTE LYMPHOCYTES (test c ode = 1067) 2.43 K/UL ABSOLUTE MONOCYTES (test cod e = 1068) 0.69 K/UL ABSOLUTE EOSINOPHILS (test c ode = 1040) 0.14 K/UL ABSOLUTE BASOPHILS (test cod e = 1069) 0.03 K/UL ABS IMMATURE GRANULOCYTES (t est code = 1020) 0.02 K/UL ABS NUCLEATED RBCS (test cod e = 20782) 0.00 K/UL Sagar MatosH, THIRD [id number] 00:00:00* Test Item Value Reference Range Interpretation Comme nts TSH, THIRD GENERATION (test code = 2821) 0.895 UIU/ML Sagar MirandaVITAMIN D, 25 [id number] 00:00:00* Test Item Value Reference Range Interpretation Comme nts VITAMIN D, 25 OH (test code = 4958) 13 NG/ML Sagar MirandaCBC W/AUTO [id number] 00:00:00* Test Item Value Reference Range Interpretation Comme nts WBC (test code = 1001) 7.4 K/UL RBC (test code = 1002) 4.47 M/UL HEMOGLOBIN (test code = 1003) 12.8 G/DL HEMATOCRIT (test code = 1004) 38.3 % MCV (test code = 1005) 85.7 fL MCH (test code = 1006) 28.6 PG MCHC (test code = 1007) 33.4 G/DL RDW (test code = 1038) 13.2 % NEUTROPHILS (test code = 1008) 55.4 % LYMPHOCYTES (test code = 1010) 32.7 % MONOCYTES (test code = 1011) 9.3 % EOSINOPHILS (test code = 1012) 1.9 % BASOPHILS (test code = 1013) 0.4 % IMMATURE GRANULOCYTES (test code = 1036) 0.3 % NUCLEATED RBCS (test code = 1065) 0.0 /100WBC'S PLATELET COUNT (test code = 1015) 285 K/UL ABSOLUTE NEUTROPHILS (test c ode = 1066) 4.11 K/UL ABSOLUTE LYMPHOCYTES (test c ode = 1067) 2.43 K/UL ABSOLUTE MONOCYTES (test cod e = 1068) 0.69 K/UL ABSOLUTE EOSINOPHILS (test c ode = 1040) 0.14 K/UL ABSOLUTE BASOPHILS (test cod e = 1069) 0.03 K/UL ABS IMMATURE GRANULOCYTES (t est code = 1020) 0.02 K/UL ABS NUCLEATED RBCS (test cod e = 07602) 0.00 K/UL Sagar MirandaNEH, THIRD [id number] 00:00:00* Test Item Value Reference Range Interpretation Comme nts TSH, THIRD GENERATION (test code = 2821) 0.895 UIU/ML Sagar MirandaARON, [id number] 14:50:25SPECIMEN NUMBER: [id number] CULTURE, THROAT SPECIMEN NUMBER: [id number] SOURCE: THROAT REPORT STATUS:FINAL FINAL REPORT: 01/26/2023 NORMAL RESPIRATORY SONIA UNLESS OTHERWISE INDICATED, ALL TESTING PERFORMED AT [facility] [address] [place] [address] LOADER: ROSA MARIA CRAIG M.D. CLIA NUMBER [id number] [place]. [id number], [id number] 00:00:00* Test Item Value Reference Range Interpretation Comme nts CULTURE, THROAT (test code = 97147) SPECIMEN NUMBER: [id number] Sagar Barnhart AustinCULTURE, [id number] 00:00:00* Test Item Value Reference Range Interpretation Comme nts CULTURE, THROAT (test code = 33774) SPECIMEN NUMBER: [id number] Sagar Barnhart AustinCT/NG, NAAT, [id number] 21:10:55* Test Item Value Reference Range Interpretation Comme nts CHLAMYDIA, NAAT, URINE (test code = 82306) NEGATIVE NEGATIVE Testing is perfo rmed with [employer] 6800/8800 systems usingreal-time polymerase chain reaction (PCR) method. A negative result does not exclude low level infection, specimensampling error, or collection error. GONORRHEA, NAAT, URINE (test code = 99012) NEGATIVE NEGATIVE Testing is perfo rmed with [employer] 6800/8800 systems usingreal-time polymerase chain reaction (PCR) method. A negative result does not exclude low level infection, specimensampling error, or collection error. TRICHOMONAS, NAAT, [id number] 20:46:01* Test Item Value Reference Range Interpretation Comme nts TRICHOMONAS, NAAT, URINE (test code = 42451) NEGATIVE NEGATIVE Testing is perfo rmed with [employer] 6800/8800 method usingreal-time polymerase chain reaction (PCR) method. A negative result does not exclude low level infection, specimensampling error, or collection error. UNLESS OTHERWISE INDICATED, ALL TESTING PERFORMED AT [facility] [address] [place] [address] LOADER: ROSA MARIA CRAIG M.D. CLIA NUMBER [id number] [place]. [id number] HERPES SIMPLEX AB, [id number] 14:28:08* Test Item Value Reference Range Interpretation Comme nts HERPES SIMPLEX AB, IgM (test code = 91655) 1.36 INDEX SEE BELOW H IMPORTANT NOTE: HSV IgM ASSAYS ARE NOT TYPE-SPECIFIC. THE BIOLOGICALIgM RESPONSE WITH PRIMARY INFECTIONS IS VARIABLE AND MAY BEUNDETECTABLE; WITH RECURRENT INFECTIONS IgM MAY OR MAY NOT BEDETECTED. FALSE POSITIVE RESULTS UNRELATED TO HSV INFECTION CAN OCCURWITH HSV IgM ASSAYS. ALL RESULTS SHOULD BE REVIEWED IN CLINICALCONTEXT, AND COMPARISON TO ACUTE OR CONVALESCENT TYPE-SPECIFIC [id number] HSV2 IgG ASSAYS SHOULD BE CONSIDERED. INTERPRETATION UNITS RANGE ----- ----- NEGATIVE INDEX <=0.89 EQUIVOCAL INDEX 0.90-1.09 POSITIVE INDEX >=1.10 [id number] 05:19:17* Test Item Value Reference Range Interpretation Comme [facility] RPR RESULT (test code = 3501) NON-REACTIVE NON-REACTIVE RPR TITER (test code = 3500) NOT INDIC. TITER NOT INDIC. HERPES SIMPLEX 1/2 AB, IgG [id number] 04:30:56* Test Item Value Reference Range Interpretation [facility] HERPES SIMPLEX 1 AB, IgG (test code = 92832) 21.800 INDEX SEE BELOW H INTERPRETATION U NITS RANGE ----- ----- NON-REACTIVE INDEX <1.000 REACTIVE INDEX >=1.000 HERPES SIMPLEX 2 AB, IgG (test code = 58348) 0.078 INDEX SEE BELOW INTERPRETATION U NITS RANGE ----- ----- NON-REACTIVE INDEX <1.000 REACTIVE INDEX >=1.000 HIV 1/2 4TH GEN, RFLX [id number] 04:30:56* Test Item Value Reference Range Interpretation [facility] HIV 1/2 4TH GEN, RFLX CONF ( test code = 3514) NON-REACTIVE NON-REACTIVE HEPATITIS PANEL, [id number] 04:30:56* Test Item Value Reference Range Interpretation [facility] HEPATITIS A IgM (test code = 97974) NON-REACTIVE NON-REACTIVE HEPATITIS B CORE IgM (test code = 4644) NON-REACTIVE NON-REACTIVE HEPATITIS B SURF AG (test code = 2739) NON-REACTIVE NON-REACTIVE HEPATITIS C ANTIBODY (test code = 4675) NON-REACTIVE NON-REACTIVE INTERPRETATION HEPATITIS A: (test code = 2552) (NOTE) Hepatitis A serology shows no evidence of acute hepatitis A. INTERPRETATION HEPATITIS B: (test code = 37411) (NOTE) Hepatitis B serology shows no evidence of acute hepatitis B andno indication of exposure to hepatitis B virus in the previous nallely eight months. INTERPRETATION HEPATITIS C: (test code = 56692) (NOTE) Hepatitis C serology shows no evidence of exposure to hepatitisC virus at this time. It can take up to 12 months after exposure tothe hepatitis C virus for antibodies to become detectable in the blood in certain patients. [id number] 00:00:00* Test Item Value Reference Range Interpretation Comme nts RPR RESULT (test code = 3501) NON-REACTIVE RPR TITER (test code = 3500) NOT INDIC. TITER Sagar MirandaHERPES SIMPLEX [id number] 00:00:00* Test Item Value Reference Range Interpretation Comme myriam HERPES SIMPLEX AB, IgM (test code = 57695) 1.36 INDEX Sagar MirandaHERPES SIMPLEX 1/2 [id number] 00:00:00* Test Item Value Reference Range Interpretation Comme nts HERPES SIMPLEX 1 AB, IgG (te st code = 36870) 21.800 INDEX HERPES SIMPLEX 2 AB, IgG (te st code = 82936) 0.078 INDEX Sagar MirandaTRICHOMONAS, URINE, [id number] 00:00:00* Test Item Value Reference Range Interpretation Comme myriam TRICHOMONAS, NAAT, URINE (te st code = 10306) NEGATIVE Sagar MirandaHIV 1/2 4TH GEN, RFLX [id number] 00:00:00* Test Item Value Reference Range Interpretation Comme nts HIV 1/2 4TH GEN, RFLX CONF ( test code = 3514) NON-REACTIVE Sagar MirandaACUTE HEPATITIS [id number] 00:00:00* Test Item Value Reference Range Interpretation Comme nts HEPATITIS A IgM (test code = 23188) NON-REACTIVE HEPATITIS B CORE IgM (test c ode = 4644) NON-REACTIVE HEPATITIS B SURF AG (test co de = 2739) NON-REACTIVE HEPATITIS C ANTIBODY (test c ode = 4675) NON-REACTIVE INTERPRETATION HEPATITIS A: (test code = 2552) (NOTE) INTERPRETATION HEPATITIS B: (test code = 05184) (NOTE) INTERPRETATION HEPATITIS C: (test code = 92943) (NOTE) Sagar Barnhart AustinCT/NG, TMA, [id number] 00:00:00* Test Item Value Reference Range Interpretation Comme nts CHLAMYDIA, NAAT, URINE (test code = 12437) NEGATIVE GONORRHEA, NAAT, URINE (test code = 33606) NEGATIVE Sagar [id number] 00:00:00* Test Item Value Reference Range Interpretation Comme nts RPR RESULT (test code = 3501) NON-REACTIVE RPR TITER (test code = 3500) NOT INDIC. TITER Sagar LeePES SIMPLEX [id number] 00:00:00* Test Item Value Reference Range Interpretation Comme nts HERPES SIMPLEX AB, IgM (test code = 42826) 1.36 INDEX Sagar LeePES SIMPLEX 1/2 [id number] 00:00:00* Test Item Value Reference Range Interpretation Comme nts HERPES SIMPLEX 1 AB, IgG (te st code = 41357) 21.800 INDEX HERPES SIMPLEX 2 AB, IgG (te st code = 38389) 0.078 INDEX Sagar MirandaTRICHOMONAS, URINE, [id number] 00:00:00* Test Item Value Reference Range Interpretation Comme nts TRICHOMONAS, NAAT, URINE (te st code = 50543) NEGATIVE Sagar MirandaHIV 1/2 4TH GEN, RFLX [id number] 00:00:00* Test Item Value Reference Range Interpretation Comme nts HIV 1/2 4TH GEN, RFLX CONF ( test code = 3514) NON-REACTIVE Sagar MirandaACUTE HEPATITIS [id number] 00:00:00* Test Item Value Reference Range Interpretation Comme nts HEPATITIS A IgM (test code = 56974) NON-REACTIVE HEPATITIS B CORE IgM (test c ode = 4644) NON-REACTIVE HEPATITIS B SURF AG (test co de = 2739) NON-REACTIVE HEPATITIS C ANTIBODY (test c ode = 4675) NON-REACTIVE INTERPRETATION HEPATITIS A: (test code = 2552) (NOTE) INTERPRETATION HEPATITIS B: (test code = 43977) (NOTE) INTERPRETATION HEPATITIS C: (test code = 64603) (NOTE) Sagar Barnhart AustinCT/NG, TMA, [id number] 00:00:00* Test Item Value Reference Range Interpretation Comme nts CHLAMYDIA, NAAT, URINE (test code = 86799) NEGATIVE GONORRHEA, NAAT, URINE (test code = 89379) NEGATIVE Sagar [id number] 00:37:53* Test Item Value Reference Range Interpretation Comme nts RPR RESULT (test code = 3501) NON-REACTIVE NON-REACTIVE RPR TITER (test code = 3500) NOT INDIC. TITER NOT INDIC. [id number] 00:00:00* Test Item Value Reference Range Interpretation Comme nts RPR RESULT (test code = 3501) NON-REACTIVE RPR TITER (test code = 3500) NOT INDIC. TITER Sagar Barnhart [id number] 00:00:00* Test Item Value Reference Range Interpretation Comme nts RPR RESULT (test code = 3501) NON-REACTIVE RPR TITER (test code = 3500) NOT INDIC. TITER Sagar MirandaPAP TEST, THINPREP, [id number] 17:11:55* Test Item Value Reference Range Interpretation Comme nts SOURCE: (test code = 8001) Unspecified SLIDES: (test code = 8011) 1 LMP: (test code = 8021) 07/21/2022 SPECIMEN ADEQUACY: (test code = 99783) (NOTE) Satisfactory for evaluation. INTERPRETATION: (test code = 36259) NILM/NO EPITH. ABNORMALITY;SEE BELOW -- ---- NEGATIVE FOR INTRAEPITHELIAL LESION OR MALIGNANCY (NILM) ------- CYTOTECHNOLOGIS T: (test code = 8101) ELVIRA Venegas(ASCP)IAC LOCATION: (test code = 27250) (NOTE) Specimens proces sed and interpreted at [facility], [address] [place] [address], , CLIA: [id number] CPT: (test code = 8140) (NOTE) 24989 UNLESS OTH ERWISE INDICATED, COMPUTER AIDED AND FAMILY HELPER SCREENING PERFORMED. The Pap test is a screening test with an inherent, but low probability of error. Your patient should be reminded to consult you immediately if she experiences any suspicious signs or symptoms, regardless of her Pap test result. An alternate report format containing images or consolidated prior Pap history is available as applicable. VAGINAL PATHOGENS DNA [id number] 14:27:04* Test Item Value Reference Range Interpretation Comme nts TWILA SPECIES (test code = 75277) NEGATIVE NEGATIVE G. VAGINALIS (test code = ) POSITIVE NEGATIVE A T. VAGINALIS (test code = ) NEGATIVE NEGATIVE Note: The [employer] VPIII Microbial Identification Testis a DNA probe test intended for use in the detectionand identification of Twila species, Gardnerellavaginalis and Trichomonas vaginalis nucleic acid. [facility] has important pathology staff changes effective 09/12/2022. New pathology staff will provide uninterrupted, excellent patient care and clinical consultation. See URL: [email or web address]. UNLESS OTHERWISE INDICATED, ALL TESTING PERFORMED AT [facility] [address] [place] [address] CLIA: [id number], CAP: [id number] GONORRHEA, NAAT, [id number] 13:26:57* Test Item Value Reference Range Interpretation Comme nts GONORRHEA, NAAT, THINPREP (test code = 96404) NEGATIVE NEGATIVE A negative resul t does not exclude low level infection, specimensampling error, or collection error. Testing is performed with the [employer] 6800/8800 systems usingreal-time Polymerase Chain Reaction (PCR) method. CHLAMYDIA, NAAT, [id number] 13:26:57* Test Item Value Reference Range Interpretation Comme nts CHLAMYDIA, NAAT, THINPREP (test code = 03270) NEGATIVE NEGATIVE A negative resul t does not exclude low level infection, specimensampling error, or collection error. Testing is performed with the [employer] 6800/8800 systems usingreal-time Polymerase Chain Reaction (PCR) method. [facility] has important pathology staff changes effective 09/12/2022. New pathology staff will provide uninterrupted, excellent patient care and clinical consultation. See URL: [email or web address]. UNLESS OTHERWISE INDICATED, ALL TESTING PERFORMED AT [facility] [address] [place] [address] CLIA: [id number], CAP: [id number] TSH, THIRD [id number] 04:41:28* Test Item Value Reference Range Interpretation Comme nts TSH, THIRD GENERATION (test code = 2821) 1.960 UIU/ML 0.400-4.100 HEPATITIS PANEL, [id number] 03:31:10* Test Item Value Reference Range Interpretation Comme nts HEPATITIS A IgM (test code = 40697) NON-REACTIVE NON-REACTIVE HEPATITIS B CORE IgM (test code = 4644) NON-REACTIVE NON-REACTIVE HEPATITIS B SURF AG (test code = 2739) NON-REACTIVE NON-REACTIVE HEPATITIS C ANTIBODY (test code = 4675) NON-REACTIVE NON-REACTIVE INTERPRETATION HEPATITIS A: (test code = 2552) (NOTE) Hepatitis A serology shows no evidence of acute hepatitis A. INTERPRETATION HEPATITIS B: (test code = 22492) (NOTE) Hepatitis B serology shows no evidence of acute hepatitis B andno indication of exposure to hepatitis B virus in the previous nallely eight months. INTERPRETATION HEPATITIS C: (test code = 62797) (NOTE) Hepatitis C serology shows no evidence of exposure to hepatitisC virus at this time. It can take up to 12 months after exposure tothe hepatitis C virus for antibodies to become detectable in the blood in certain patients. HIV 1/2 4TH GEN, RFLX [id number] 03:31:10* Test Item Value Reference Range Interpretation Comme nts HIV 1/2 4TH GEN, RFLX CONF ( test code = 3514) NON-REACTIVE NON-REACTIVE HIV 1/2 4TH GEN, RFLX [id number] 00:00:00* Test Item Value Reference Range Interpretation Comme nts HIV 1/2 4TH GEN, RFLX CONF ( test code = 3514) NON-REACTIVE Sagar F AustinVAGINAL PATHOGENS DNA [id number] 00:00:00* Test Item Value Reference Range Interpretation Comme nts TWILA SPECIES (test code = 78098) NEGATIVE G. VAGINALIS (test code = 94831) POSITIVE T. VAGINALIS (test code = 12787) NEGATIVE Sagar MirandaPAP TEST, THINPREP, [id number] 00:00:00* Test Item Value Reference Range Interpretation Comme nts SOURCE: (test code = 8001) Unspecified SLIDES: (test code = 8011) 1 LMP: (test code = 8021) 07/21/2022 SPECIMEN ADEQUACY: (test code = 56415) (NOTE) INTERPRETATION: (test code = 20744) NILM/NO EPITH. ABNORMALITY;SEE BELOW FAMILY HELPER: (test code = 8101) ELVIRA Venegas(ASCP)IAC LOCATION: (test code = 88167) (NOTE) CPT: (test code = 8140) (NOTE) Sagar MirandaTSH, THIRD [id number] 00:00:00* Test Item Value Reference Range Interpretation Comme nts TSH, THIRD GENERATION (test code = 2821) 1.960 UIU/ML Sagar MirandaACUTE HEPATITIS [id number] 00:00:00* Test Item Value Reference Range Interpretation Comme nts HEPATITIS A IgM (test code = 47063) NON-REACTIVE HEPATITIS B CORE IgM (test c ode = 4644) NON-REACTIVE HEPATITIS B SURF AG (test co de = 2739) NON-REACTIVE HEPATITIS C ANTIBODY (test c ode = 4675) NON-REACTIVE INTERPRETATION HEPATITIS A: (test code = 2552) (NOTE) INTERPRETATION HEPATITIS B: (test code = 86068) (NOTE) INTERPRETATION HEPATITIS C: (test code = 25182) (NOTE) Sagar MirandaGONORRHEA, TMA, [id number] 00:00:00* Test Item Value Reference Range Interpretation Comme nts GONORRHEA, NAAT, THINPREP (t est code = 32239) NEGATIVE Sagar MirandaCHLAMYDIA, TMA, [id number] 00:00:00* Test Item Value Reference Range Interpretation Comme nts CHLAMYDIA, NAAT, THINPREP (t est code = 78098) NEGATIVE Sagar MirandaHIV 1/2 4TH GEN, RFLX [id number] 00:00:00* Test Item Value Reference Range Interpretation Comme nts HIV 1/2 4TH GEN, RFLX CONF ( test code = 3514) NON-REACTIVE Sagar MirandaVAGINAL PATHOGENS DNA [id number] 00:00:00* Test Item Value Reference Range Interpretation Comme nts TWILA SPECIES (test code = 89021) NEGATIVE G. VAGINALIS (test code = 37712) POSITIVE T. VAGINALIS (test code = 66607) NEGATIVE Sagar MirandaTSH, THIRD [id number] 00:00:00* Test Item Value Reference Range Interpretation Comme nts TSH, THIRD GENERATION (test code = 2821) 1.960 UIU/ML Sagar MirandaPAP TEST, THINPREP, [id number] 00:00:00* Test Item Value Reference Range Interpretation Comme nts SOURCE: (test code = 8001) Unspecified SLIDES: (test code = 8011) 1 LMP: (test code = 8021) 07/21/2022 SPECIMEN ADEQUACY: (test code = 63820) (NOTE) INTERPRETATION: (test code = 03522) NILM/NO EPITH. ABNORMALITY;SEE BELOW FAMILY HELPER: (test code = 8101) ELVIRA Venegas(ASCP)IAC LOCATION: (test code = 44039) (NOTE) CPT: (test code = 8140) (NOTE) Sagar MirandaACUTE HEPATITIS [id number] 00:00:00* Test Item Value Reference Range Interpretation Comme nts HEPATITIS A IgM (test code = 00785) NON-REACTIVE HEPATITIS B CORE IgM (test c ode = 4644) NON-REACTIVE HEPATITIS B SURF AG (test co de = 2739) NON-REACTIVE HEPATITIS C ANTIBODY (test c ode = 4675) NON-REACTIVE INTERPRETATION HEPATITIS A: (test code = 2552) (NOTE) INTERPRETATION HEPATITIS B: (test code = 45577) (NOTE) INTERPRETATION HEPATITIS C: (test code = 60194) (NOTE) Sagar MirandaGONORRHEA, TMA, [id number] 00:00:00* Test Item Value Reference Range Interpretation Comme nts GONORRHEA, NAAT, THINPREP (t est code = 04821) NEGATIVE Sagar MirandaCHLAMYDIA, TMA, [id number] 00:00:00* Test Item Value Reference Range Interpretation Comme nts CHLAMYDIA, NAAT, THINPREP (t est code = 74801) NEGATIVE Sagar Barnhart [id number]-[id number] (COVID-19) by RT-PCR (HIGH RISK)2020-06-21 00:00:00* Test Item Value Reference Range Interpretation Comme nts SARS-CoV-2 INTERPRETATION (test code = 76033) NEGATIVE SOURCE (test code = 04778) NASOPHARYNGEAL SARS-CoV-2 (COVID-19) by RT-PCR (HIGH RISK)2020-06-21 00:00:00* Test Item Value Reference Range Interpretation Comme nts SARS-CoV-2 INTERPRETATION (test code = 81230) NEGATIVE SOURCE (test code = 70693) NASOPHARYNGEAL SARS-CoV-2 (COVID-19) by RT-PCR (HIGH RISK)2020-06-21 00:00:00* Test Item Value Reference Range Interpretation Comme nts SARS-CoV-2 INTERPRETATION (test code = 01866) NEGATIVE SOURCE (test code = 87450) NASOPHARYNGEAL SARS-CoV-2 (COVID-19) by RT-PCR (HIGH RISK)2020-06-21 00:00:00* Test Item Value Reference Range Interpretation Comme nts SARS-CoV-2 INTERPRETATION (test code = 13727) NEGATIVE SOURCE (test code = 84724) NASOPHARYNGEAL SARS-CoV-2 (COVID-19) by RT-PCR (HIGH RISK)2020-06-21 00:00:00* Test Item Value Reference Range Interpretation Comme nts SARS-CoV-2 INTERPRETATION (test code = 25728) NEGATIVE SOURCE (test code = 14670) NASOPHARYNGEAL SARS-CoV-2 (COVID-19) by RT-PCR (HIGH RISK)2020-06-21 00:00:00* Test Item Value Reference Range Interpretation Comme nts SARS-CoV-2 INTERPRETATION (test code = 49317) NEGATIVE SOURCE (test code = 74992) NASOPHARYNGEAL SARS-CoV-2 (COVID-19) by RT-PCR (HIGH RISK)2020-06-21 00:00:00* Test Item Value Reference Range Interpretation Comme nts SARS-CoV-2 INTERPRETATION (test code = 13743) NEGATIVE SOURCE (test code = 21781) NASOPHARYNGEAL SARS-CoV-2 (COVID-19) by RT-PCR (HIGH RISK)2020-06-21 00:00:00* Test Item Value Reference Range Interpretation Comme nts SARS-CoV-2 INTERPRETATION (test code = 96659) NEGATIVE SOURCE (test code = 96816) NASOPHARYNGEAL SARS-CoV-2 (COVID-19) by RT-PCR (HIGH RISK)2020-06-21 00:00:00* Test Item Value Reference Range Interpretation Comme nts SARS-CoV-2 INTERPRETATION (test code = 36742) NEGATIVE SOURCE (test code = 11512) NASOPHARYNGEAL SARS-CoV-2 (COVID-19) by RT-PCR (HIGH RISK)2020-06-21 00:00:00* Test Item Value Reference Range Interpretation Comme nts SARS-CoV-2 INTERPRETATION (test code = 50650) NEGATIVE SOURCE (test code = 28009) NASOPHARYNGEAL SARS-CoV-2 (COVID-19) by RT-PCR (HIGH RISK)2020-06-21 00:00:00* Test Item Value Reference Range Interpretation Comme nts SARS-CoV-2 INTERPRETATION (test code = 76837) NEGATIVE SOURCE (test code = 75987) NASOPHARYNGEAL SARS-CoV-2 (COVID-19) by RT-PCR (HIGH RISK)2020-06-21 00:00:00* Test Item Value Reference Range Interpretation Comme nts SARS-CoV-2 INTERPRETATION (test code = 66588) NEGATIVE SOURCE (test code = 85155) NASOPHARYNGEAL Sagarelysia MirandaFxflqxNVHR-IjS-0 (COVID-19) by RT-PCR (HIGH RISK)2020-06-21 00:00:00* Test Item Value Reference Range Interpretation Comme nts SARS-CoV-2 INTERPRETATION (test code = 99967) NEGATIVE SOURCE (test code = 30329) NASOPHARYNGEAL Sagar Bronwyn Ruben Notes Date/Time Note Provider Source 2023-12-11 00:00:00 [id number] T00:00:00+ + +| Plan Activity | Plan Date |+ + +| Depression- refer BH | 2018-04-22 |+ + +| see above plan | 2019-05-06 |+ + +| Ct will continue individual therapy. | 2019-06-11 |+ + +| strep testing. pending | 2020-03-08 || Tylenol/Ibuprofen PRN | || Warm salt water gargles, Warm liquids with lemon | || Lozenges/Chloraseptic spray | |+ + +| UPT performed, result negative | 2020-04-08 |+ + +| - UPT negative | 2020-04-08 || - Verbal prescription given | || - Side effects reviewed: Abnormal spotting/bleeding during first 9 months and | || likelihood of amenorrhea after the first year. | || - Patient education: Discussed black box warning regarding loss of bone mineral | || density. Recommended vitamin D and calcium supplementation as well as | || weight-bearing exercises. Bone mineral density loss is reversible. Depo Provera | || does not protect against STIs, and barrier contraception will be necessary | || during sexual encounters. | || - Depo Provera 150 mg IM administered | || - Will monitor breakthrough bleeding/spotting - if worsens return to clinic | || sooner for f/u | || - Use condom as back up method for 7 days | || - Return to clinic in 12 weeks (range 11-13 weeks) for follow up injection | |+ + +| Need: COVID 19 testing, instructions for testing given | 2019-07-21 |+ + +| Declined testing due to cose | 2021-01-12 || RX: prednisone, albuterol inhaler, amoxicillin and bromed-DM. | || Medication side effects per pharmacy and verbal prescription given | || FU in no improvement in 1 week | |+ + +| Appears to have resolved. Will retest per employer request | 2021-01-25 || Explained to pt that Recovered persons can continue to shed detectable | || SARS-CoV-2 RNA in upper respiratory specimens for up to 3 months after illness | || onset even though not infectious. | || Educated pt on current CDC's recommendation to discontinue home isolation | || by symptom based strategy | || At least three days (72 hours) have passed since recovery defined as resolution | || of fever without the use of fever-reducing medications and improvement in | || respiratory symptoms (e.g., cough, shortness of breath); and, At least ten days | || have passed since symptoms first appeared. | || Continue using universal precautions | || Restes COVID | |+ + +| work on healthy diet, increase fruits and vegetables in diet, reduce portion | 2021-03-30 || sizes, try to exercise daily | |+ + +| Due to Leonardo Argueta | 2021-03-31 |+ + +| COVID testing-holding for now | 2021-09-17 || Vit C/MVI Daily | || Social distancing | || 1.5-2l Water daily | |+ + +| Healthy diet and exercise. | 2021-10-09 |+ + +| RAPID STREP A TEST | 2021-12-05 || THROAT CX | || AUGMENTIN TAKE DIRECTED | || s/e of meds discussed | |+ + +| Unhealthy weight | 2022-02-13 || Weight and height disproportionate | || Therapeutic lifestyle changes warranted | |+ + +| Meningitis vaccine | 2022-02-13 || Will send to [facility] for vaccination--> patient will go tomorrow, | || Wednesday 02/14 | || RTC for other medical or mental health concerns | |+ + +| Depo IM given | 2022-03-05 || Return at next schedule injection in 90 days | |+ + +| Filled out bacterial meningitis form for Michelleantonia Bautista | 2022-05-17 |+ + +| MONO | 2022-08-06 || FLU, COVID,RSV | || RAPID STREP A-NEGATIVE | || BROMFED TAKE DIRECTED | || if all negative, consider abx | |+ + +| Cetiririzine 10 mg qd po | 2022-08-06 || s/e of meds discussed | |+ + +| MONO | 2022-08-06 || FLU, COVID,RSV | || RAPID STREP A-NEGATIVE | || no sore throat now | || if all negative, consider abx | |+ + +| Pap, wet mount, and STD panel performed, pending results | 2022-08-15 |+ + +| Wet mount performed, pending results | 2022-08-15 |+ + +| STD PANEL | 2022-08-15 || trichomonas | || chlamydia/ GC. | || HERPES 1&2 IGM ( 4564) | || HERPES 1&2 IGG ( 4592) | || Sexual hygiene and use of condoms advised. | || The only way to avoid sexually transmitted diseases is to not have vaginal, | || anal, or oral sex. | || Be in a long-term mutually monogamous relationship with a partner who has been | || tested and has negative STD test results; | || Use latex condoms the right way every time you have sex. | |+ + +| STD panel ordered, pending results | 2022-08-15 |+ + +| Discussed different contraceptive options. Handout provided. Pt to RTO when she | 2022-10-31 || has decided on an appropriate contraceptive option | |+ + +| valtrex 500 mg once a day | 2023-01-24 || s/e of meds discussed | || Discussed CdC website | |+ + +| ketoconazole cream take as directed | 2023-01-24 || Marlene terry | |+ + +| Participate in physical activities and exercise. | 2023-06-18 || 30 of moderate aerobic exercise 5 times a week. Increase your activity as | || tolerated. | |+ + +| Recommend healthy eating with foods from a variety of food groups, appropriate | 2023-06-18 || portion sizes, and few sugary snacks/drinks. | || | || Well-rounded, whole foods diet focused on fresh vegetables and fruits, lean | || proteins. Avoid sugary drinks. Avoid fried, greasy foods. Portion control. | |+ + +| Well-rounded, whole foods diet focused on fresh vegetables and fruits, lean | 2023-03-05 || proteins. Avoid sugary drinks. Avoid fried, greasy foods. Portion control. | |+ + +| Reassurance provided that overeating can cause indigestion and vomiting. | 2023-03-08 || Avoid overeating. | || Avoid processed, greasy foods. | || OTC tums or pepcid. | || [place] diet, advance as tolerated. | || Increase water intake. | || Monitor for s/s of infection. Possibility of viral gastroenteritis d/t daycare | || exposure. Discussed that treatment is supportive. | || RTO for worsening symptoms. | |+ + +| TSH, CBC, Vitamin D. | 2023-06-18 || RTC 2 weeks for follow-up | |+ + +| UPT negative | 2023-06-20 || Discussed that effects of depo can last 18-24 months | || Pt expresses relief that she is not . | || Denies desire for menses management at this time. | || Recommended that pt use barrier contraception if she is not desiring . | |+ + +| edcated on healthy diet and exercise at least 30 min a day | 2023-11-05 |+ + +| CIPRO 1 TAB PO BID | 2023-12-11 || u/a - in house | || Rx antibiotics. Educate on staying well hydrated, urinate after sexual | || activity, take showers instead of baths, minimize douching, sprays, or powders | || in genital areas. Wipe front to back- DISCUSSED GOUT DIET- NO TURKEY NO SALTED | || MEAT IN A CAN - NO ALCOHOL | || f/u 1 week to check for cure PRN | |+ + +| allopurinol 100mg 1-2 mg PO QD- may work up to 300mg | 2023-12-11 || low purine diet - gave her a hand out | || Uric Acid- ordered but pt does not want to have it done today | || Cmp | || REFER DR ERIC JOE | |+ + +[id number] of TreatmentLNCARE PLANTXTSFA|[id number] for patient [id number] Section NarrativeNARRATIVEFormatted C-CDA narrative textSFAStjam Bey [facility]2024-05-29T00:00:00 Sagar Bey [facility] 2023-11-05 00:00:00 [id number] T00:00:00+ + +| Plan Activity | Plan Date |+ + +| Crisis team notified of elevated PHQ score. | 2018-04-22 || Virtual visit was conducted by crisis coordinator with pt in clinic room. | |+ + +| see above plan | 2019-05-06 |+ + +| Ct will continue individual therapy. | 2019-06-11 |+ + +| strep testing. pending | 2020-03-08 || Tylenol/Ibuprofen PRN | || Warm salt water gargles, Warm liquids with lemon | || Lozenges/Chloraseptic spray | |+ + +| UPT performed, result negative | 2020-04-08 |+ + +| - UPT negative | 2020-04-08 || - Verbal prescription given | || - Side effects reviewed: Abnormal spotting/bleeding during first 9 months and | || likelihood of amenorrhea after the first year. | || - Patient education: Discussed black box warning regarding loss of bone mineral | || density. Recommended vitamin D and calcium supplementation as well as | || weight-bearing exercises. Bone mineral density loss is reversible. Depo Provera | || does not protect against STIs, and barrier contraception will be necessary | || during sexual encounters. | || - Depo Provera 150 mg IM administered | || - Will monitor breakthrough bleeding/spotting - if worsens return to clinic | || sooner for f/u | || - Use condom as back up method for 7 days | || - Return to clinic in 12 weeks (range 11-13 weeks) for follow up injection | |+ + +| Need: COVID 19 testing, instructions for testing given | 2019-07-21 |+ + +| Declined testing due to cose | 2021-01-12 || RX: prednisone, albuterol inhaler, amoxicillin and bromed-DM. | || Medication side effects per pharmacy and verbal prescription given | || FU in no improvement in 1 week | |+ + +| Appears to have resolved. Will retest per employer request | 2021-01-25 || Explained to pt that Recovered persons can continue to shed detectable | || SARS-CoV-2 RNA in upper respiratory specimens for up to 3 months after illness | || onset even though not infectious. | || Educated pt on current CDC's recommendation to discontinue home isolation | || by symptom based strategy | || At least three days (72 hours) have passed since recovery defined as resolution | || of fever without the use of fever-reducing medications and improvement in | || respiratory symptoms (e.g., cough, shortness of breath); and, At least ten days | || have passed since symptoms first appeared. | || Continue using universal precautions | || Restes COVID | |+ + +| work on healthy diet, increase fruits and vegetables in diet, reduce portion | 2021-03-30 || sizes, try to exercise daily | |+ + +| Due to Depo Provera | 2021-03-31 |+ + +| COVID testing-holding for now | 2021-09-17 || Vit C/MVI Daily | || Social distancing | || 1.5-2l Water daily | |+ + +| Healthy diet and exercise. | 2021-10-09 |+ + +| RAPID STREP A TEST | 2021-12-05 || THROAT CX | || AUGMENTIN TAKE DIRECTED | || s/e of meds discussed | |+ + +| Unhealthy weight | 2022-02-13 || Weight and height disproportionate | || Therapeutic lifestyle changes warranted | |+ + +| Meningitis vaccine | 2022-02-13 || Will send to [facility] for vaccination--> patient will go tomorrow, | || Wednesday 02/14 | || RTC for other medical or mental health concerns | |+ + +| Depo IM given | 2022-03-05 || Return at next schedule injection in 90 days | |+ + +| Filled out bacterial meningitis form for [facility] | 2022-05-17 |+ + +| MONO | 2022-08-06 || FLU, COVID,RSV | || RAPID STREP A-NEGATIVE | || BROMFED TAKE DIRECTED | || if all negative, consider abx | |+ + +| Cetiririzine 10 mg qd po | 2022-08-06 || s/e of meds discussed | |+ + +| MONO | 2022-08-06 || FLU, COVID,RSV | || RAPID STREP A-NEGATIVE | || no sore throat now | || if all negative, consider abx | |+ + +| Pap, wet mount, and STD panel performed, pending results | 2022-08-15 |+ + +| Wet mount performed, pending results | 2022-08-15 |+ + +| STD PANEL | 2022-08-15 || trichomonas | || chlamydia/ GC. | || HERPES 1&2 IGM ( 4724) | || HERPES 1&2 IGG ( 4596) | || Sexual hygiene and use of condoms advised. | || The only way to avoid sexually transmitted diseases is to not have vaginal, | || anal, or oral sex. | || Be in a long-term mutually monogamous relationship with a partner who has been | || tested and has negative STD test results; | || Use latex condoms the right way every time you have sex. | |+ + +| STD panel ordered, pending results | 2022-08-15 |+ + +| Discussed different contraceptive options. Handout provided. Pt to RTO when she | 2022-10-31 || has decided on an appropriate contraceptive option | |+ + +| valtrex 500 mg once a day | 2023-01-24 || s/e of meds discussed | || Discussed CdC website | |+ + +| ketoconazole cream take as directed | 2023-01-24 || SElsun blue | |+ + +| Participate in physical activities and exercise. | 2023-06-18 || 30 of moderate aerobic exercise 5 times a week. Increase your activity as | || tolerated. | |+ + +| Recommend healthy eating with foods from a variety of food groups, appropriate | 2023-06-18 || portion sizes, and few sugary snacks/drinks. | || | || Well-rounded, whole foods diet focused on fresh vegetables and fruits, lean | || proteins. Avoid sugary drinks. Avoid fried, greasy foods. Portion control. | |+ + +| Well-rounded, whole foods diet focused on fresh vegetables and fruits, lean | 2023-03-05 || proteins. Avoid sugary drinks. Avoid fried, greasy foods. Portion control. | |+ + +| Reassurance provided that overeating can cause indigestion and vomiting. | 2023-03-08 || Avoid overeating. | || Avoid processed, greasy foods. | || OTC tums or pepcid. | || [place] diet, advance as tolerated. | || Increase water intake. | || Monitor for s/s of infection. Possibility of viral gastroenteritis d/t daycare | || exposure. Discussed that treatment is supportive. | || RTO for worsening symptoms. | |+ + +| TSH, CBC, Vitamin D. | 2023-06-18 || RTC 2 weeks for follow-up | |+ + +| UPT negative | 2023-06-20 || Discussed that effects of depo can last 18-24 months | || Pt expresses relief that she is not . | || Denies desire for menses management at this time. | || Recommended that pt use barrier contraception if she is not desiring . | |+ + +| edcated on healthy diet and exercise at least 30 min a day | 2023-11-05 |+ + +[id number] of TreatmentLNCARE PLANTXTSFA|[id number] for patient [id number] Section NarrativeNARRATIVEFormatted C-CDA narrative textSFAStjam Bey [facility]2024-04-23T00:00:00 Sagar Thiago [facility]"
[2023-12-23] MEDS ORDERED: Mastisol Adhesive Liq ONE (08:35)
[2023-12-23] MEDS ORDERED: LIDOCAINE HCL JELLY 2% 6 ML SYRINGE TOP ONE (08:35)
--- NOTE | 2023-12-23 09:20 | EDPHYS ---
Physician Documentation [facility] Name: Glory Ba Age: 23 yrs Sex: Female : 2000 Arrival Date: 12/23/2023 Time: 08:18 Bed 13 Private MD: ED Physician Drew Carl HPI: 12/22 08:33 This 23 yrs old Female presents to ER via Ambulatory with complaints of Staple Removal. cp 08:35 The patient has ileana on the abdomen. cp 08:35 Patient reports ileana were placed after having appendectomy [address] reynold Boyle. Patient reports unable to f/u to have ileana removed due to insurance and need for referral so she was told to come to ED for staple removal. Historical: - Allergies: 08:20 No Known Allergies; ll1 - PMHx: 08:20 Anxiety; Bipolar disorder; depressive disorder; ll1 - PSHx: 08:25 Appendectomy; ll1 - Immunization history:: Adult Immunizations up to date. - Infectious Disease History:: Denies. - Social history:: Smoking status: Patient denies any tobacco usage or history of. ROS: 08:35 Constitutional: HX per HPI cp Exam: 08:40 Constitutional: The patient appears in no acute distress, alert, awake, well developed, cp well nourished, overweight 08:40 Head/Face: Normocephalic, atraumatic. cp 08:40 Chest/axilla: Inspection: normal, 08:40 Cardiovascular: Rate: normal, 08:40 Respiratory: the patient does not display signs of respiratory distress, Respirations: normal, no use of accessory muscles, no retractions, labored breathing, is not present, Breath sounds: are clear throughout, no decreased breath sounds, 08:40 Abdomen/GI: Inspection: ileana in place in RUQ and umbilical area and RLQ of abdomen, no dehiscence of wound and no erythema noted, no drainage from wound, 08:40 Back: pain, is absent, ROM is normal, Vital Signs: 08:25 BP 127 / 65; Pulse 71; Resp 17; Temp 98; Pulse Ox 100% on R/A; Weight 94.8 kg; Height 5 ll1 ft. 2 in. ; Pain 4/10; 09:29 BP 118 / 71; Pulse 78; Resp 16; Pulse Ox 100% ; bp 08:25 Body Mass Index 38.23 (94.80 kg, 157.48 cm) ll1 08:25 Pain Scale: Adult ll1 MDM: 08:20 Patient medically screened. cp 09:20 Data reviewed: vital signs, nurses notes, and as a result, I will discharge patient. cp 12/22 09:18 Order name: Wound dressing; Complete Time: 09:27 cp Administered Medications: No medications were administered Disposition Summary: 12/23/23 09:20 Discharge Ordered Notes: Location: Home cp Problem: new cp Symptoms: have improved cp Condition: Stable cp Diagnosis - Encounter for removal of sutures - staple removal cp Followup: cp - With: Roosevelt Boyle MD - When: As needed - Reason: Worsening of condition Discharge Instructions: - Discharge Summary Sheet cp - Sutures, Ileana, or Adhesive Wound Closure cp - Suture Removal, Care After cp Forms: - Medication Reconciliation Form cp - Antibiotic Education cp - Prescription Opioid Use cp - Patient Portal Instructions cp - Leadership Thank You Letter cp Signatures: Juan Ramon Moore PA PA cp Susan Eisenberg, RN RN ll1
--- NOTE | 2023-12-23 09:20 | ER ---
Nurse's Notes [facility] Name: Glory Ba Age: 23 yrs Sex: Female : 2000 Arrival Date: 12/23/2023 Time: 08:18 Bed 13 Private MD: Diagnosis: Encounter for removal of sutures-staple removal Presentation: 12/22 08:25 Chief complaint: Patient states: Had appendectomy 12/[address] Boyle. Wants ll1 kimberly removed from abdomen. Coronavirus screen: Client denies travel out of the [place] in the last 14 days. At this time, the client does not indicate any symptoms associated with coronavirus-19. Ebola Screen: Patient denies travel to an Ebola-affected area in the 21 days before illness onset. Initial Sepsis Screen: Does the patient meet any 2 criteria? No. Patient's initial sepsis screen is negative. Does the patient have a suspected source of infection? No. Patient's initial sepsis screen is negative. Risk Assessment: Do you want to hurt yourself or someone else? Patient reports no desire to harm self or others. Onset of symptoms was December 12, 2023. 08:25 Method Of Arrival: Ambulatory ll1 08:25 Acuity: KAILA 4 ll1 Triage Assessment: 08:26 General: Appears in no apparent distress. Behavior is calm, cooperative, appropriate ll1 for age. Pain: Complains of pain in abdomen Pain currently is 4 out of 10 on a pain scale. Quality of pain is described as aching. GI: Reports needs kimberly removed from abdomen. Derm: Reports needs kimberly taken out of abdominal area. Historical: - Allergies: 08:20 No Known Allergies; ll1 - PMHx: 08:20 Anxiety; Bipolar disorder; depressive disorder; ll1 - PSHx: 08:25 Appendectomy; ll1 - Immunization history:: Adult Immunizations up to date. - Infectious Disease History:: Denies. - Social history:: Smoking status: Patient denies any tobacco usage or history of. Screenin:29 [facility] ED Fall Risk Assessment (Adult) History of falling in the last 3 months, bp including since admission No falls in past 3 months (0 pts). Abuse screen: Denies threats or abuse. Denies injuries from another. Nutritional screening: No deficits noted. Tuberculosis screening: No symptoms or risk factors identified. Assessment: 08:29 Reassessment: Patient appears in no apparent distress at this time. Patient is alert, bp oriented x 3, equal unlabored respirations, skin warm/dry/pink. Injury Description: HEALED SURGICAL INCISIONS FROM APPENDECTOMY. Vital Signs: 08:25 BP 127 / 65; Pulse 71; Resp 17; Temp 98; Pulse Ox 100% on R/A; Weight 94.8 kg; Height 5 ll1 ft. 2 in. ; Pain 4/10; 09:29 BP 118 / 71; Pulse 78; Resp 16; Pulse Ox 100% ; bp 08:25 Body Mass Index 38.23 (94.80 kg, 157.48 cm) ll1 08:25 Pain Scale: Adult ll1 ED Course: 08:19 Patient arrived in ED. rg4 08:20 Juan Ramon Moore PA is PHCP. cp 08:20 Drew Carl MD is Attending Physician. cp 08:20 Arm band placed on Patient placed in an exam room, on a stretcher. ll1 08:23 Win Estevez, ALIREZA is Primary Nurse. bp 08:26 Triage completed. ll1 08:29 Patient has correct armband on for positive identification. bp 09:15 Removal of Removed kimberly from abdomen [place] site is well healed Patient tolerated bp well. 09:18 Roosevelt Boyle MD is Referral Physician. cp 09:28 Wound care: to SURGICAL located on abdomen was STERISTRIP. bp 09:28 No provider procedures requiring assistance completed. Patient did not have IV access bp during this emergency room visit. 09:29 Provided Education on: N/A. bp Administered Medications: No medications were administered Medication: 08:29 VIS not applicable for this client. bp Outcome: 09:20 Discharge ordered by . cp 09:28 Discharged to home ambulatory, bp 09:28 Condition: stable 09:28 Discharge instructions given to patient, Instructed on discharge instructions, follow up and referral plans. wound care, Demonstrated understanding of instructions, follow-up care, wound care, 09:29 Patient left the ED. bp Signatures: Juan Ramon Moore PA PA cp Garcia, Rubi rg4 Win Estevez, RN RN bp Susan Eisenberg RN RN 1
[2023-12-23 09:46] VITALS: BP 118/71; TEMP 98; O2SAT 100
== END 2023-12-23 09:29 | disposition home or self-care (01) ==
LOC: ER 08:18
DX: Z48.02 Encounter for removal of sutures (principal)
CPT/HCPCS: 99283